=== PATIENT | male | born 1935 | race Caucasian/White ===

== ENCOUNTER 2019-02-28 09:55 | Inpatient (IN) | payer OTHER, BC ==
[2019-02-28] MEDS ORDERED: ONDANSETRON 4 MG/2 ML VIAL ONE ×3 (10:39→13:53)
[2019-02-28] MEDS ORDERED: NA CHLORIDE 0.9% 1,000 ML ONE ×2 (10:40→13:53)
[2019-02-28] MEDS ORDERED: FAMOTIDINE 20 MG/2 ML VIAL IV ONE (10:40)
[2019-02-28] MEDS ORDERED: MORPHINE 4 MG/ML SYR ONE (10:43)
[2019-02-28 11:02] LABS: Absolute Lymphocytes (CBC) 2.8 K/uL (0.7-4.9); Basophils % 0.3 % (0-1.3); Hematocrit 36.1 % (39.6-49.0); RBC Red Blood Cell Count 3.55 M/uL (4.33-5.43)
[2019-02-28 11:04] LABS: Protime INR 1.02
--- NOTE | 2019-02-28 11:18 | RAD REPORT ---
EXAM DESCRIPTION: RAD - Chest Single View - 02/28/2019 11:12 am CLINICAL HISTORY: ABDOMINAL DISTENTION Chest pain. COMPARISON: Chest Single View dated 02/05/2016; CHEST PA AND LAT 2 VIEW dated 06/27/2015 FINDINGS: Portable technique limits examination quality. The lungs are mildly emphysematous but grossly clear. The heart is upper limit of normal in size. No displaced fractures. IMPRESSION: No acute intrathoracic process suspected.
[2019-02-28 11:23] LABS: Albumin 3.8 g/dL (3.4-5.0); Bilirubin Direct 0.1 mg/dL (0-0.2); Bilirubin Total 0.5 mg/dL (0.2-1.0); Potassium 3.7 mmol/L (3.5-5.1); Protein, Total 7.5 g/dL (6.4-8.2)
[2019-02-28 11:26] LABS: Magnesium 2.3 mg/dL (1.8-2.4); NT PRO-BNP 170 pg/mL (<450); Troponin (Emerg Dept Use Only) < 0.02 ng/mL (0.0-0.045)
--- NOTE | 2019-02-28 12:06 | RAD REPORT ---
EXAM DESCRIPTION: CT - Abdomen Pelvis W Contrast - 02/28/2019 11:48 am CLINICAL HISTORY: ABD PAINsevere abdominal pain and vomiting COMPARISON: None. TECHNIQUE: Biphasic, helical CT imaging of the abdomen and pelvis was performed following 100 ml non -ionic IV contrast. No oral All CT scans are performed using dose optimization technique as appropriate and may include automated exposure control or mA/KV adjustment according to patient size. FINDINGS: No suspicious findings in the lung bases. No pericardial thickening or effusion. The liver, spleen, and pancreas show no suspicious findings. Liver shows numerous small benign-appear ing granulomatous calcifications along with a 19 millimeter cyst in the lateral subcapsular right lob e. Spleen has granulomatous calcifications as well. No gallbladder abnormality seen. Gallstones can b e occult on CT imaging. No biliary tree abnormality. Symmetric renal function is seen with no hydronephrosis or suspicious renal mass. No pyelonephritis o r acute parenchymal process. Benign-appearing renal cysts are present. No urinary bladder abnormality . Enlarged prostate gland is present. No adrenal abnormalities. A small hiatal hernia is present. Fluid and food distend the stomach. No gastric wall thickening or m ass. Gastric outlet obstruction is not suspected. No duodenal abnormality. Moderately large stool vol ume fills the colon. Colon is quite tortuous and redundant. There is prominent sigmoid and descending diverticulosis. Acute diverticulitis is not seen. No findings of appendicitis. Multiple distended to dilated loops of jejunum are present in the left mid abdomen. Maximum diameter is 2.9 cm. In the lef t mid abdomen (image 44/99) there is a 6- 7 centimeter long segment of very narrowed jejunum. The sma ll bowel is dilated proximal to this point. While this is potentially a pronounced peristalsis artifa ct, finding is concerning for strictured small bowel. There is fluid in small bowel distal to this foley spected stricture. More distally the loops of ileum are normal in size. No free air or pneumatosis. Small quantities of free fluid are present adjacent to the spleen and in the dependent portion of the pelvis. No mass or bulky lymphadenopathy. Disc and bony degenerative changes are present. Dense aortic and mesenteric arterial calcifications a re present. IMPRESSION: Suspected mechanical small bowel obstruction secondary to a 6-7 cm segment of narrowed s mall bowel. Bowel proximal to this point is dilated. The dilated loops of ileum are lateral to the colon in the left mid abdomen in the patient may have a n internal hernia. Dilated, fluid-filled stomach without gastric outlet obstruction. This is likely secondary affects of the dilated loops of jejunum. Small quantity of free fluid. No free air or surgically emergent finding seen.
--- NOTE | 2019-02-28 12:19 | RAD REPORT ---
EXAM DESCRIPTION: US - Abdomen Exam Limited - 02/28/2019 12:12 pm CLINICAL HISTORY: ABD PAIN COMPARISON: Abdomen Pelvis W Contrast dated 02/28/2019 FINDINGS: No gallstones, sludge or other abnormalities within the gallbladder lumen. There is no wal l thickening or pericholecystic fluid. No common duct stone or biliary tree dilatation identified. IMPRESSION: Normal gallbladder and biliary tree ultrasound.
--- NOTE | 2019-02-28 12:29 | ER ---
Nurse's Notes [facility] Name: Hunter Ventura Age: 83 yrs Sex: Male : 1935 Arrival Date: 02/28/2019 Time: 09:57 Bed 8 Private MD: Gage Causey C Diagnosis: Abdominal tenderness;Other intestinal obstruction-mechanical sbo, 6-7 cm segment of narrowed small bowel;Vomiting Presentation: 02/28 10:02 Presenting complaint: Patient states: severe abd pain and vomiting that began about 45 la1 minutes ago after eating. Transition of care: patient was not received from another setting of care. Onset of symptoms was February 28, 2019. Risk Assessment: Do you want to hurt yourself or someone else? Patient reports no desire to harm self or others. Initial Sepsis Screen: Does the patient meet any 2 criteria? No. Patient's initial sepsis screen is negative. Does the patient have a suspected source of infection? No. Patient's initial sepsis screen is negative. Care prior to arrival: None. 10:02 Method Of Arrival: Wheelchair la1 10:02 Acuity: MAICO 2 la1 Triage Assessment: 10:45 General: Appears uncomfortable, Behavior is calm, anxious. Pain: Complains of pain in vc lumbar area and abdomen Pain does not radiate. Pain at worst was 10 out of 10 on a pain scale. Pain began Patients states "he started hurting about five minutes after eating breakfast." Is continuous. EENT: No signs and/or symptoms were reported regarding the EENT system. Neuro: Level of Consciousness is awake, alert, obeys commands, Oriented to person, place, time, tremors noted to bilateral hands and arms, patient states he is in the process of "being checked for Parkinson's".. Cardiovascular: Capillary refill < 3 seconds Chest pain is denied. Respiratory: Airway is patent Respiratory effort is even, unlabored. GI: Abdomen is round non-distended, Reports lower abdominal pain, upper abdominal pain, nausea, vomiting, since finishing breakfast. 10:45 : No deficits noted. Derm: Skin is intact, is healthy with good turgor. vc Musculoskeletal: Capillary refill < 3 seconds, Range of motion: intact in all extremities. 11:07 GI:. vc Historical: - Allergies: 10:03 Aspirin; la1 - PMHx: 10:03 Hypertension; la1 - Immunization history:: Adult Immunizations up to date. - Social history:: Smoking status: Patient/guardian denies using tobacco. - Ebola Screening: : No symptoms or risks identified at this time. - Family history:: not pertinent. Screenin:15 Abuse screen: Denies threats or abuse. vc 10:15 Nutritional screening: patient has been nauseated and vomiting since this morning.. vc 10:15 Tuberculosis screening: No symptoms or risk factors identified. Fall Risk Secondary vc diagnosis (15 points) hypertension. IV access (20 points). Total Mckeon Fall Scale indicates Low Risk Score (25-44 pts). Side Rails Up X 2 Family Present and informed to notify staff if they need to leave bedside. Sepsis Screening: . Infection: Patient has no suspected or documented infection. SIRS - Systemic Inflammatory Response Syndrome: 2 or more indicates positive screen: Patient has a negative screen for severe sepsis based on SIRS criteria. Organ Dysfunction: One or more within 3 days of new infection: Patient has a negative screen for severe sepsis. Assessment: 11:00 General: Appears uncomfortable, Behavior is anxious. Pain: Complains of pain in lumbar vc area and abdomen Pain at worst was 10 out of 10 on a pain scale. Pain began suddenly, Is continuous. Neuro: No deficits noted. Cardiovascular: Capillary refill < 3 seconds. Respiratory: Airway is patent Respiratory effort is even, unlabored. GI: Abdomen is round Bowel sounds present X 4 quads. hypoactive in right lower quadrant and left lower quadrant. GI: Abdomen is tender to palpation X 4 quads. Reports bloating, epigastric pain, vomiting, since this morning after eating breakfast. : No signs and/or symptoms were reported regarding the genitourinary system. EENT: No deficits noted. Derm: Skin is intact, is healthy with good turgor. Musculoskeletal: Range of motion: intact in all extremities, patient is weak initially standing. 11:30 Reassessment: Patient is alert, oriented x 3, equal unlabored respirations, skin vc warm/dry/pink. Patient states symptoms have not improved. 12:05 Reassessment: Patient is alert, oriented x 3, equal unlabored respirations, skin vc warm/dry/pink. Patient returned from CT. States pain is much better and would like to wait a little before receiving pain medication. 13:00 Reassessment: Patient is alert, oriented x 3, equal unlabored respirations, skin vc warm/dry/pink. Patient states feeling better. States "I feel much better." uses urinal at bedside, patient initially unsteady on feet.. 14:00 Reassessment: Patient and/or family updated on plan of care and expected duration. Pain vc level reassessed. Surgeon visited patient at bedside. Will place NGT per Surgeon.. 15:00 Reassessment: Patient is alert, oriented x 3, equal unlabored respirations, skin vc warm/dry/pink. Patient denies pain at this time. 15:15 Reassessment: Patient complaining of nausea, states "his pain is still gone.". vc Vital Signs: 10:03 BP 150 / 61; Pulse 63; Resp 16; Temp 98.5; Pulse Ox 100% on R/A; Weight 102.06 kg; la1 Height 5 ft. 9 in. (175.26 cm); 10:54 BP 172 / 82; Pulse 66; Resp 22; Temp 98.4(O); Pulse Ox 97% on R/A; Pain 10/10; vc 11:03 BP 184 / 76; Pulse 63; Resp 20; Pulse Ox 99% on R/A; Pain 10/10; vc 12:22 BP 170 / 91; Pulse 70; Resp 12; Pulse Ox 96% ; Pain 2/10; vc 13:00 BP 159 / 83; Pulse 70; Resp 10; Pulse Ox 97% ; Pain 2/10; vc 14:00 BP 162 / 85; Pulse 65; Resp 12; Pulse Ox 97% ; Pain 2/10; vc 10:03 Body Mass Index 33.23 (102.06 kg, 175.26 cm) la1 ED Course: 09:57 Patient arrived in ED. as 09:57 Krishna Causey MD is Private Physician. as 09:57 Gage Causey MD is Private Physician. as 10:02 Triage completed. la1 10:03 Arm band placed on right wrist. la1 10:05 Angelic Nichols, GRABIEL is Primary Nurse. vc 10:15 Patient has correct armband on for positive identification. Bed in low position. Side vc rails up X2. Adult w/ patient. traffic monitor specialist on. Pulse ox on. NIBP on. Head of bed elevated. 10:27 Jacky Barry MD is Attending Physician. arturo 10:40 Initial lab(s) drawn, by wv, sent to lab. Inserted saline lock: 20 gauge in right vc antecubital area, using aseptic technique. Blood collected. 10:47 EKG done, by airbrush artist technical. reviewed by Jacky Barry MD. sm3 11:09 XRAY Chest (1 view) In Process Unspecified. EDMS 11:[address] via stretcher. vc 11:48 CT Abd/Pelvis - IV Contrast Only In Process Unspecified. EDMS 12:13 US Abdomen Limited In Process Unspecified. EDMS 12:15 Gage Causey MD is Hospitalizing Provider. arturo 13:35 No provider procedures requiring assistance completed. vc 15:15 NGT: inserted 16 Fr. via right nare. verified placement of air over stomach, verified aa5 return of gastric contents, to intermittent suction. Returned gastric contents. Returned bile. Patient tolerated NG inserted by Dr. Barry. 15:48 Patient admitted, IV remains in place. vc Administered Medications: 10:55 Drug: morphine 4 mg Route: IVP; Site: right antecubital; vc 11:15 Follow up: Response: No adverse reaction; Pain is unchanged, physician notified vc 10:58 Drug: Pepcid 20 mg Route: IVP; Site: right antecubital; vc 11:15 Follow up: Response: No adverse reaction vc 10:58 Drug: Zofran 4 mg Route: IVP; Infused Over: 2 mins; Site: right antecubital; vc 11:15 Follow up: Response: No adverse reaction vc 11:01 Drug: NS 0.9% 1000 ml Route: IV; Rate: 1 bolus; Site: right antecubital; vc 12:00 Follow up: Response: No adverse reaction; IV Intake: 1000ml vc 11:58 CANCELLED (Duplicate Order): Dilaudid 0.5 mg IVP once; RASS on ADMIN: Combtv4, Very vc Agttd3, Agttd2, Rstlss1, AlertClm0, Drwsy-1, Lt Sdtn-2, Mod Sdtn-3, Dp Sdtn-4, UnArsble-5 13:30 Drug: Flagyl 500 mg Volume: 100 ml; Route: IVPB; Rate: 200 ml/hr; Infused Over: 30 vc mins; Site: right antecubital; 14:00 Follow up: Response: No adverse reaction; IV Intake: 100ml vc 14:00 Drug: Zosyn 3.375 grams Route: IVPB; Infused Over: 60 mins; Site: right antecubital; vc 14:00 Drug: NS 0.9% 1000 ml Route: IV; Rate: 1 bolus; Site: right antecubital; vc 15:00 Drug: Zofran 4 mg Route: IVP; Site: right antecubital; aa5 15:30 Follow up: Response: No adverse reaction vc 15:00 Drug: Viscous Lidocaine Liquid (4 %) 10 ml {Note: administered to right nare by Dr. juan Barry.} Route: Mucous Membrane; 15:30 Follow up: Response: No adverse reaction vc 15:18 Not Given (Patient Refused): Dilaudid 0.5 mg IVP once; RASS on ADMIN: Combtv4, Very aa5 Agttd3, Agttd2, Rstlss1, AlertClm0, Drwsy-1, Lt Sdtn-2, Mod Sdtn-3, Dp Sdtn-4, UnArsble-5 Intake: 12:00 IV: 1000ml; Total: 1000ml. vc 14:00 IV: 100ml; Total: 1100ml. vc Outcome: 12:28 Decision to Hospitalize by Provider. [facility] 15:48 Patient left the ED. vc 15:48 Admitted to Med/surg accompanied by tech, via stretcher, with chart, Report called to [facility] 15:48 Condition: stable 15:48 Instructed on the need for admit, Demonstrated understanding of instructions. Signatures: Dispatcher [employer] EDMS Jacky Barry MD MD cha Martinez, Amelia as Calderon, Audri RN RN aa5 Brandan Levy RN RN Adeola Carrero sm3 Angelic Nichols RN RN vc Corrections: (The following items were deleted from the chart) 11:17 11:07 General: Appears uncomfortable, Behavior is calm, anxious, vc vc 11:17 11:07 Pain: Complains of pain in lumbar area and abdomen Pain does not radiate. Pain at vc worst was 10 out of 10 on a pain scale. Pain began Patients states "he started hurting about five minutes after eating breakfast." Is continuous, vc : 11:07 EENT: No signs and/or symptoms were reported regarding the EENT system. vc vc :19 02: Neuro: Level of Consciousness is awake, alert, obeys commands, Oriented to vc person, place, time, tremors noted to bilateral hands and arms, patient states he is in the process of "being checked for Parkinson's".. vc : 11: Cardiovascular: Capillary refill < 3 seconds Chest pain is denied vc vc : Respiratory: Airway is patent Respiratory effort is even, unlabored, vc vc :07 GI: Abdomen is round non-distended, Reports lower abdominal pain, upper abdominal vc pain, nausea, vc 13:26 11:47 GI: vc vc 16:01 15:58 Patient left the ED. vc vc
--- NOTE | 2019-02-28 12:29 | EDPHYS ---
Physician Documentation [facility] Name: Hunter Ventura Age: 83 yrs Sex: Male : 1935 Arrival Date: 02/28/2019 Time: 09:57 Bed 8 Private MD: Gage Causey C ED Physician Jacky Barry HPI: 02/28 11:36 This 83 yrs old Male presents to ER via Wheelchair with complaints of arturo Abdominal Pain, Vomiting. 11:36 This 83 yrs old Male presents to ER via Wheelchair with complaints of arturo Abdominal Pain, Vomiting. 11:36 The patient presents to the emergency department with nausea, vomiting, abdominal pain, arturo of the suprapubic area, right upper quadrant, left upper quadrant, right lower quadrant and left lower quadrant. Onset: The symptoms/episode began/occurred just prior to arrival, this morning. Possible causes: unknown. The symptoms are aggravated by movement, pressure, food , The symptoms are alleviated by nothing. Associated signs and symptoms: Pertinent positives: abdominal pain, nausea, vomiting. Severity of symptoms: At their worst the symptoms were moderate in the emergency department the symptoms are unchanged. The patient has not experienced similar symptoms in the past. Historical: - Allergies: 10:03 Aspirin; la1 - PMHx: 10:03 Hypertension; la1 - Immunization history:: Adult Immunizations up to date. - Social history:: Smoking status: Patient/guardian denies using tobacco. - Ebola Screening: : No symptoms or risks identified at this time. - Family history:: not pertinent. ROS: 11:36 Constitutional: Negative for fever, chills, and weight loss, Eyes: Negative for injury, arturo pain, redness, and discharge, ENT: Negative for injury, pain, and discharge, Neck: Negative for injury, pain, and swelling, Cardiovascular: Negative for chest pain, palpitations, and edema, Respiratory: Negative for shortness of breath, cough, wheezing, and pleuritic chest pain, Back: Negative for injury and pain, : Negative for injury, bleeding, discharge, and swelling, MS/Extremity: Negative for injury and deformity, Neuro: Negative for headache, weakness, numbness, tingling, and seizure, Psych: Negative for depression, anxiety, suicide ideation, homicidal ideation, and hallucinations, Allergy/Immunology: Negative for hives, rash, and allergies, Endocrine: Negative for neck swelling, polydipsia, polyuria, polyphagia, and marked weight changes, Hematologic/Lymphatic: Negative for swollen nodes, abnormal bleeding, and unusual bruising. 11:36 Abdomen/GI: Positive for abdominal pain, nausea and vomiting, of the epigastric area, right upper quadrant, left upper quadrant, right lower quadrant and left lower quadrant. Exam: 11:36 Constitutional: This is a well developed, well nourished patient who is awake, alert, arturo and in no acute distress. Head/Face: Normocephalic, atraumatic. Eyes: Pupils equal round and reactive to light, extra-ocular motions intact. Lids and lashes normal. Conjunctiva and sclera are non-icteric and not injected. Cornea within normal limits. Periorbital areas with no swelling, redness, or edema. ENT: Nares patent. No nasal discharge, no septal abnormalities noted. Tympanic membranes are normal and external auditory canals are clear. Oropharynx with no redness, swelling, or masses, exudates, or evidence of obstruction, uvula midline. Mucous membranes moist. Neck: Trachea midline, no thyromegaly or masses palpated, and no cervical lymphadenopathy. Supple, full range of motion without nuchal rigidity, or vertebral point tenderness. No Meningismus. Chest/axilla: Normal chest wall appearance and motion. Nontender with no deformity. No lesions are appreciated. Cardiovascular: Regular rate and rhythm with a normal S1 and S2. No gallops, murmurs, or rubs. Normal PMI, no JVD. No pulse deficits. Respiratory: Lungs have equal breath sounds bilaterally, clear to auscultation and percussion. No rales, rhonchi or wheezes noted. No increased work of breathing, no retractions or nasal flaring. Back: No spinal tenderness. No costovertebral tenderness. Full range of motion. Male : Normal genitalia with no discharge or lesions. Skin: Warm, dry with normal turgor. Normal color with no rashes, no lesions, and no evidence of cellulitis. MS/ Extremity: Pulses equal, no cyanosis. Neurovascular intact. Full, normal range of motion. Neuro: Awake and alert, GCS 15, oriented to person, place, time, and situation. Cranial nerves II-XII grossly intact. Motor strength 5/5 in all extremities. Sensory grossly intact. Cerebellar exam normal. Normal gait. Psych: Awake, alert, with orientation to person, place and time. Behavior, mood, and affect are within normal limits. 11:36 Abdomen/GI: Inspection: distension, Bowel sounds: hyperactive, Palpation: moderate abdominal tenderness, in the epigastric area, suprapubic area, right upper quadrant, left upper quadrant, right lower quadrant and left lower quadrant, Liver: no appreciated palpable abnormalities, Hernia: not appreciated. Vital Signs: 10:03 BP 150 / 61; Pulse 63; Resp 16; Temp 98.5; Pulse Ox 100% on R/A; Weight 102.06 kg; la1 Height 5 ft. 9 in. (175.26 cm); 10:54 BP 172 / 82; Pulse 66; Resp 22; Temp 98.4(O); Pulse Ox 97% on R/A; Pain 10/10; vc 11:03 BP 184 / 76; Pulse 63; Resp 20; Pulse Ox 99% on R/A; Pain 10/10; vc 12:22 BP 170 / 91; Pulse 70; Resp 12; Pulse Ox 96% ; Pain 2/10; vc 13:00 BP 159 / 83; Pulse 70; Resp 10; Pulse Ox 97% ; Pain 2/10; vc 14:00 BP 162 / 85; Pulse 65; Resp 12; Pulse Ox 97% ; Pain 2/10; vc 10:03 Body Mass Index 33.23 (102.06 kg, 175.26 cm) la1 Procedures: 15:19 Performed ng tube placement, no complications. [facility] MDM: 10:27 Patient medically [address] [facility] 11:36 Data reviewed: vital signs, nurses notes, lab test result(s), EKG, radiologic studies, [facility] CT scan, plain films. 02/28 10:29 Order name: Basic Metabolic Panel [facility] 02/28 10:29 Order name: CBC with Diff [facility] 02/28 10:29 Order name: Creatinine for Radiology; Complete Time: :34 [facility] 02/28 10:29 Order name: Hepatic Function; Complete Time: 11:34 [facility] 02/28 10:29 Order name: Lipase; Complete Time: 11:34 [facility] 02/28 10:29 Order name: Basic Metabolic Panel; Complete Time: 11:34 [facility] 02/28 10:31 Order name: Magnesium; Complete Time: 11:[address] [facility] 02/28 10:31 Order name: NT PRO-BNP; Complete Time: 11:[address] [facility] 02/28 10:31 Order name: PT-INR; Complete Time: 11:[address] [facility] 02/28 10:31 Order name: Troponin (emerg Dept Use Only); Complete Time: 11:[address] [facility] 02/28 11:06 Order name: CBC Smear Scan [facility] 02/28 11:36 Order name: Type And Screen [facility] 02/28 11:36 Order name: Lactate [facility] 02/28 14:22 Order name: ABO/RH no charge [facility] 02/28 10:31 Order name: XRAY Chest (1 view); Complete Time: 11:[address] [facility] 02/28 10:31 Order name: EKG; Complete Time: 10:[address] [facility] 02/28 10:41 Order name: CT Abd/Pelvis - IV Contrast Only [facility] 02/28 11:34 Order name: US Abdomen Limited [facility] 02/28 15:56 Order name: Lactate Sepsis 2 HR Follow-up [facility] 02/28 10:29 Order name: IV Saline Lock; Complete Time: 10:29 [facility] 02/28 10:29 Order name: Labs collected and sent; Complete Time: 10:29 [facility] 02/28 10:31 Order name: Cardiac monitoring; Complete Time: 10:[address] [facility] 02/28 10:31 Order name: EKG - Nurse/Tech; Complete Time: 10:[address] [facility] 02/28 10:31 Order name: O2 Per Protocol; Complete Time: 10:[address] [facility] 02/28 10:31 Order name: O2 Sat Monitoring; Complete Time: 10:[address] [facility] 02/28 12:14 Order name: NG Tube: intrermittent suc; Complete Time: 15:[address] [facility] 02/28 12:24 Order name: CONS Physician Consult; Complete Time: 14:32 [facility] 02/28 12:29 Order name: NPO; Complete Time: 12:[address] [facility] 02/28 15:16 Order name: Labs - recollect needed: Lactate sepsis due now; Complete Time: 15:38 iw Administered Medications: 10:55 Drug: morphine 4 mg Route: IVP; Site: right antecubital; vc 11:15 Follow up: Response: No adverse reaction; Pain is unchanged, physician notified vc 10:58 Drug: Pepcid 20 mg Route: IVP; Site: right antecubital; vc 11:15 Follow up: Response: No adverse reaction vc 10:58 Drug: Zofran 4 mg Route: IVP; Infused Over: 2 mins; Site: right antecubital; vc 11:15 Follow up: Response: No adverse reaction vc 11:01 Drug: NS 0.9% 1000 ml Route: IV; Rate: 1 bolus; Site: right antecubital; vc 12:00 Follow up: Response: No adverse reaction; IV Intake: 1000ml vc 11:58 CANCELLED (Duplicate Order): Dilaudid 0.5 mg IVP once; RASS on ADMIN: Combtv4, Very vc Agttd3, Agttd2, Rstlss1, AlertClm0, Drwsy-1, Lt Sdtn-2, Mod Sdtn-3, Dp Sdtn-4, UnArsble-5 13:30 Drug: Flagyl 500 mg Volume: 100 ml; Route: IVPB; Rate: 200 ml/hr; Infused Over: 30 vc mins; Site: right antecubital; 14:00 Follow up: Response: No adverse reaction; IV Intake: 100ml vc 14:00 Drug: Zosyn 3.375 grams Route: IVPB; Infused Over: 60 mins; Site: right antecubital; vc 14:00 Drug: NS 0.9% 1000 ml Route: IV; Rate: 1 bolus; Site: right antecubital; vc 15:00 Drug: Zofran 4 mg Route: IVP; Site: right antecubital; aaJorge 15:30 Follow up: Response: No adverse reaction vc 15:00 Drug: Viscous Lidocaine Liquid (4 %) 10 ml {Note: administered to right nare by Dr. juan Barry.} Route: Mucous Membrane; 15:30 Follow up: Response: No adverse reaction vc 15:18 Not Given (Patient Refused): Dilaudid 0.5 mg IVP once; RASS on ADMIN: Combtv4, Very aa5 Agttd3, Agttd2, Rstlss1, AlertClm0, Drwsy-1, Lt Sdtn-2, Mod Sdtn-3, Dp Sdtn-4, UnArsble-5 Disposition: 02/28/19 12:28 Hospitalization ordered by Gage Causey for Inpatient Admission. Preliminary diagnosis are Abdominal tenderness, Other intestinal obstruction - mechanical sbo, 6-7 cm segment of narrowed small bowel, Vomiting. - Bed requested for Telemetry/MedSurg (Inpatient). - Status is Inpatient Admission. vc - Condition is Fair. - Problem is new. - Symptoms have improved. UTI on Admission? No Signatures: Dispatcher [employer] EDMS Michell Kelley RN Jacky Sosa MD MD cha Williams, Irene, RN GRABIEL iw Nalini Philippe RN RN aa5 Brandan Levy RN RN la1 Angelic Nichols RN RN vc Corrections: (The following items were deleted from the chart) 11:58 11:34 Dilaudid 0.5 mg IVP once; RASS on ADMIN: Combtv4, Very Agttd3, Agttd2, Rstlss1, vc AlertClm0, Drwsy-1, Lt Sdtn-2, Mod Sdtn-3, Dp Sdtn-4, UnArsble-[address] [facility] 12:46 12:28 Hospitalization Ordered by A Padilla DYER for Inpatient Admission. Preliminary diagnosis is Abdominal tenderness; Other intestinal obstruction - mechanical sbo, 6-7 cm segment of narrowed small bowel; Vomiting. Bed requested for Telemetry/MedSurg (Inpatient). Status is Inpatient Admission. Condition is Fair. Problem is new. Symptoms have improved. UTI on Admission? No. [facility] 12:49 12:29 IV Saline Lock - Large Bore ordered. [place] [id number] 15:58 12:46 02/28/2019 12:28 Hospitalization Ordered by A Padilla DYER for Inpatient Admission. vc Preliminary diagnosis is Abdominal tenderness; Other intestinal obstruction - mechanical sbo, 6-7 cm segment of narrowed small bowel; Vomiting. Bed requested for Telemetry/MedSurg (Inpatient). Status is Inpatient Admission. Condition is Fair. Problem is new. Symptoms have improved. UTI on Admission? No. dw
[2019-02-28 13:02] LABS: Anisocytosis 1+; Blood Morphology Comment NOTED (NOT SEEN); Platelet Estimate ADEQ; Urine White Blood Cell Casts OK
[2019-02-28] MEDS ORDERED: PIPER/TAZO/NS 3.375gm 3.375 GM/100 ML BAG ONE (13:05)
[2019-02-28] MEDS ORDERED: METRONIDAZOLE 500mg IVPB 500 MG/100 ML BAG IV ONE (13:06)
[2019-02-28] MEDS ORDERED: LIDOCAINE VISCOUS 2% SOLN 15 ML UDC ONE (14:15)
[2019-02-28] MEDS ORDERED: ASPIRIN 81 MG CHEWABLE TABLET ONE (14:28)
--- NOTE | 2019-02-28 15:05 | CON ---
Date of Consultation: 02/28/2019 Brief History Of Present Illness: Patient is an 83-year-old male, who presents to the hosp ital with approximately half a day episode of global abdominal pain predominantly in the epigastrium associated with some nausea. He has had no emesis. He had a bowel movement as of yesterday. He con tinues to pass gas today. He states the pain began earlier today when he felt 100% fine prior to the onset of the symptoms. He was out, working in the yard, not doing any strenuous activity and noted a slow progressive generalized abdominal pain, which got worse and worse, a crescendo decrescendo typ e characteristic, that ultimately got significantly worse. As such, he came to the emergency room wi th the above-stated complaints. Past Medical History: Significant for hypertension, hyperlipidemia, coronary artery disease, BPH, CK D stage 3. Past Surgical History: He has had right shoulder surgery, knee replacement. He specifically states he has had no abdominal surgery ever. He has had a colonoscopy, which he has had polyps before in past, but nothing other findings he is aware of. Family History: Significant for prostate cancer and diabetes. Social History: He denies smoking, alcohol, or recreational drug use. Review of Systems: A 10-point review of systems other than HPI, denies. He is feeling significantly better since being in the hospital and only has residual soreness. Allergies: ASPIRIN. Home Medications: Zetia, Benicar, Pravachol, Flomax. Physical Examination: At the time of my examination; General: He is awake, alert, oriented. Psychiatric: Appropriate, conversive. HEENT: Normocephalic. Sclerae are icteric. Mucous members are moist. Oropharynx clear. Neck: Supple. No JVD. Chest: Normal expansion and excursion. Cardiovascular: Regular rate and rhythm. Pulmonary: Clear to auscultation bilaterally. Abdomen: Soft with mild global tenderness to palpation. No rebound. No guarding. No focal periton itis. No psoas sign. Negative Lozada sign. He has bilateral inguinal hernias containing only fat. Extremities: No clubbing, cyanosis, or edema. Skin: Warm and dry. Laboratory Data: White blood cell count of 9.3, hemoglobin 12.5, hematocrit 36.1, platelet count 238 . His PT 12.0, INR 1.02. Sodium 141, potassium 3.7, chloride 109, carbon dioxide 22, BUN 21, creati nine 1.2, glucose is 134. Lactic acid 2.7. His magnesium is 2.3. Total bilirubin 0.5, direct bilir ubin 0.1, AST 13, ALT 18, alkaline phosphatase is 58. His lipase is 130. He had imaging performed, which included chest x-ray, officially read as no acute intrathoracic process suspected. He had an u ltrasound of the abdomen, which is officially read as normal gallbladder and biliary tree ultrasound. He had a CT scan of the abdomen and pelvis, which was officially read, suspected mechanical small b owel obstruction secondary to 6 to 7 cm segment of narrowed small bowel. Bowel proximal to this poin t was dilated. The dilated loops of ileum are lateral into the colon and in the left mid abdomen. T he patient may have an internal hernia, dilated fluid-filled stomach without gastric outlet obstructi on, likely secondary effects of dilated loops of jejunum, small quantity of free fluid. No free air or surgically emergent findings seen. Assessment And Plan: This is an 83-year-old male who comes in with a partial small bowel obstruction from uncertain etiology. This may be an enteritis type picture versus a bowel obstruction from unce rtain cause. 1.IV fluid hydration. 2.NG tube decompression. 3.Continue medical management. 4.I have explained the risks, benefits, and alternatives of operative versus nonoperative management of the small bowel obstruction versus enteritis type picture. He agrees with nonoperative managemen t initially as he feels significantly better at this point, continues to have bowel function. Theref ore, I will perform serial exams as described above. Thank you for this interesting consult. DORI/KARTHIK Voice ID: [id number] Report ID: [id number]
--- NOTE | 2019-02-28 16:32 | EKG ---
Test Date: 2019-02-28 Test Time: 10:41:40 Tie Puller: SHAHID MEASUREMENT RESULTS: Intervals: Rate: 65 MO: 196 QRSD: 140 QT: 424 QTc: 440 [place]: P: 65 MO: 196 QRS: 58 T: 66 INTERPRETIVE STATEMENTS: Normal sinus rhythm Left bundle branch block Abnormal ECG Compared to ECG 02/05/2016 15:07:35 Ventricular premature complex(es) no longer present Electronically Signed On 02-28-19 16:30:11 [employer] MACHINE FEEDER by Aly Ac
[2019-02-28] MEDS ORDERED: ONDANSETRON 4 MG/2 ML VIAL IV PRN (16:37)
[2019-02-28 17:45] VITALS: BMI 33.2
[2019-02-28] MEDS: MORPHINE 4 MG/ML SYR IV PRN ×2 (17:51→22:05)
[2019-02-28] MEDS: METRONIDAZOLE 500mg IVPB 500 MG/100 ML BAG IV SCH (17:51)
[2019-02-28] MEDS: NA CHLORIDE 0.9% 1,000 ML IV SCH (17:52)
[2019-02-28] MEDS ORDERED: ENOXAPARIN 40 MG/0.4 ML SQ ONE (20:28)
[2019-02-28] MEDS: PIPER/TAZO/NS 3.375gm 3.375 GM/100 ML BAG IVPB SCH (20:58)
[2019-02-28] MEDS: FAMOTIDINE 20 MG/2 ML VIAL IV SCH (21:02)
[2019-02-28] MEDS: NITROGLYCERIN 1 GM PKT TD SCH (22:10)
[2019-02-28] MEDS ORDERED: PROMETHAZINE 25 MG/ML VIAL IV ONE (22:20)
[2019-03-01] MEDS: PIPER/TAZO/NS 3.375gm 3.375 GM/100 ML BAG IVPB SCH ×5 (00:06→23:59)
[2019-03-01] MEDS: METRONIDAZOLE 500mg IVPB 500 MG/100 ML BAG IV SCH ×2 (00:06→05:34)
--- NOTE | 2019-03-01 02:09 | HP ---
Date of Admission: 02/28/2019 Chief Complaint: Abdominal pain, nausea. History Of Present Illness: This is an 83-year-old very pleasant male patient, who lives at home wit h his , was in normal usual state of health, feeling fine until all of a sudden today he started to have acute onset of abdominal pain associated with nausea. Denies any fever or chills. His pain was very intense and his brought him to emergency room. After he was evaluated in the emergency room, he was admitted to the hospital with acute bowel obstruction. Patient was started on IV fluid , IV antibiotics. NG tube was placed in the emergency room and general surgeon, Dr. Hedrick, has halie luated him. When I saw him this evening, his was present with him at bedside and he was feeling more comfortable compared to earlier today. Patient has a bowel movement either every day or every other day and he describes having normal bowel movement yesterday. No hematemesis. No blood in stool. Allergies: ASPIRIN CAUSING LIP AND TONGUE SWELLING AND THROAT SWELLING. Medications: List reviewed. Review of Systems: GI: As mentioned above. All other systems reviewed and negative. Social History: Negative for smoking or alcohol use. Past Medical History: Significant for hypertension, hyperlipidemia, coronary artery disease, which i s in form of very minimal plaquing of coronary arteries as per cardiac cath done in February 2016 at our hospital, benign prostatic hypertrophy, chronic kidney disease stage 3, and Parkinson disease, wh ich was diagnosed recently. Past Surgical History: Right shoulder surgery, knee replacement. Family History: Significant for prostate cancer and diabetes. Physical Examination: Vital Signs: Temperature 97.3, pulse 62, respiratory rate 18, blood pressure 181/77, oxygen saturati on 95%. Height 5 feet 9 inches, weight 225 pounds. General: Awake, alert, oriented, not in distress. HEENT: Head atraumatic, normocephalic. Conjunctivae nonerythematous. Sclerae white. Mouth, no thr ush or edema noted. Ears/Nose, no mass, lesion, discharge noted. Neck: Supple. No JVD, lymph nodes, bruit, thyromegaly noted. Lungs: Bilateral good equal air entry. Clear to auscultation. No rhonchi. No rales. Heart: Normal heart sounds, no murmur or gallop. Abdomen: Patient had pain in mid abdomen. No guarding, rigidity. No rebound tenderness. Bowel kamlesh nds normoactive. No hepatosplenomegaly. No bruit. Abdomen appears mildly distended. Extremities: No leg edema. No calf tenderness. Skin: No rash, ulcer, cellulitis. Lymphatics: No lymph node enlargement in neck, supraclavicular, infraclavicular region. Neuro: No focal neurological deficit. Chest: Unremarkable. External Genitalia: Deferred. Rectal: Deferred. Laboratory Data: White count 9.3, hemoglobin 12.5, platelets 230. Lactic acid 2.7. Troponin less t lara 0.02. Liver function tests unremarkable. Lipase 130, sodium 141, potassium 3.7, chloride 109, b icarb 22, BUN 21, creatinine 1.25, glucose 134. Right upper quadrant ultrasound was reported as normal gallbladder and right upper quadrant ultrasoun d. CAT scan of abdomen done in the emergency room with contrast shows mechanical small bowel obstruc tion secondary to 6 to 7 cm segment of narrowed small bowel. Bowel proximal to this point is dilated . Chest x-ray, no acute cardiopulmonary changes. EKG, normal sinus rhythm, left bundle-branch block . Impression: 1.Small bowel obstruction, mechanical. 2.Hypertension. 3.Coronary artery disease. 4.Left bundle-branch block. 5.Benign prostatic hypertrophy. 6.Chronic kidney disease, stage 3. 7.Hyperlipidemia. Plan: Admit patient to hospital for further evaluation and management of this problem. Patient is a ppropriate for inpatient and is expected to spend 2 midnights in the hospital. We will go ahead and keep him n.p.o. NG tube is in place draining yellowish color liquid. We will continue that. Contin ue IV fluid, pain medication per order. Continue IV antibiotics per order. Lovenox will be started for DVT prophylaxis; and considering patient is n.p.o., I will go ahead and start him on nitroglyceri n paste for blood pressure control. I will see him tomorrow morning for a followup. Dr. Ryley prakash General Surgery was consulted. He has already evaluated the patient and will continue to follow up with him. If patient's condition does not improve with conservative treatment, then surgical interv ention might become necessary. All those details were discussed with the patient and his . I wi ll see him in the morning. MISTY/MODL Voice ID: [id number]
[2019-03-01] MEDS: NA CHLORIDE 0.9% 1,000 ML IV SCH (05:34)
[2019-03-01] MEDS: HYDROMORPHONE HCL 1 MG/ML INJ IV PRN (05:35)
[2019-03-01] MEDS: NITROGLYCERIN 1 GM PKT TD SCH ×4 (05:37→17:30)
[2019-03-01 05:58] LABS: Bilirubin Direct 0.2 mg/dL (0-0.2); Bilirubin Total 0.6 mg/dL (0.2-1.0); Potassium 4.6 mmol/L (3.5-5.1); Protein, Total 6.3 g/dL (6.4-8.2)
[2019-03-01 05:59] LABS: Absolute Lymphocytes (CBC) 1.3 K/uL (0.7-4.9); Basophils % 0.1 % (0-1.3); Hematocrit 34.8 % (39.6-49.0); Lymphocytes % 13.2 % (15.3-44.8); MPV 8.9 fL (7.6-11.3); RBC Red Blood Cell Count 3.44 M/uL (4.33-5.43)
[2019-03-01] MEDS: D5 0.45 NS 1,000 ML IV SCH ×2 (08:44→17:32)
[2019-03-01] MEDS: FAMOTIDINE 20 MG/2 ML VIAL IV SCH ×2 (08:45→20:13)
[2019-03-01] MEDS: ONDANSETRON 4 MG/2 ML VIAL IV PRN ×3 (09:46→17:42)
--- NOTE | 2019-03-01 12:09 | P.PN ---
Subjective Date of Service: 03/01/19 Subjective: Improving (Patient has less pain today, not passing gas or BM yet. He had some nausea with morphine, but now resolved with dilaudid. Not Ambulatory) Physical Examination - Vital Signs Temperature: 99.4 F Blood Pressure: 130/60 Pulse: 66 Respirations: 18 Pulse Ox (%): 94 - Physical Exam General: Alert, In no apparent distress, Cooperative Gastrointestinal: Hypoactive, Soft and benign, Non-distended, No ascites, No tenderness, No masses, No rebound, No guarding Assessment And Plan - Current Problems (Diagnosis) (1) SBO (small bowel obstruction) Current Visit: Yes Status: Acute Plan: - Continue NG tube decompression - serial exams -patient has no tenderness and pain continues to improve overall - await bowel function - recheck labs in AM - ambulate with assist - PT consult - incentive spirometry
--- NOTE | 2019-03-01 13:52 | PN ---
Date of Progress Note: 03/01/2019 Subjective: Patient was seen this morning for followup. No new complaints or problems reported by p atient except he had lot of pain last night and nausea. Pain medication was changed. Nausea medicat ion was changed and after last dose of pain medication around 5:30 a.m., he was comfortable this morn ing when I saw him. He was lying in bed, comfortable, not in distress. NG tube is in place with yel lowish-colored liquid in the tube. So far, no bowel movement since admission and has not passed any gas per rectum. Patient has not gotten out of bed. Objective: Vital Signs: Reviewed. Family at bedside. HEENT: Examination unremarkable. Lungs: Clear to auscultation. Heart: Sounds normal. Abdomen: Soft, appears somewhat firm. Bowel sounds hypoactive. No guarding, rigidity, tenderness. Extremities: No leg edema. Laboratory Data: White count 9.6, hemoglobin 12.1, platelets 217. Sodium 144, potassium 4.6, chlori de 113, bicarb 25, BUN 21, creatinine 1.27, glucose 120. Liver function tests unremarkable. Lipase 40. Impression: 1.Small bowel obstruction. 2.Hypertension. Plan: We will go ahead and continue current antibiotic, which is Zosyn. We will change IV fluid to D5 half-normal saline considering increase in chloride level today and sodium level being at 144. We will repeat blood work tomorrow morning. Patient was encouraged to ambulate today and I did talk to Dr. Hedrick and if the patient's condition does not improve by tomorrow, he is planning to consider surgery. We will continue current pain and nausea medications. Details were discussed with family. MISTY/MODL Voice ID: [id number] Report ID: [id number]
[2019-03-01] MEDS ORDERED: PIPER/TAZO/NS 3.375gm 3.375 GM/100 ML BAG IVPB SCH (17:00)
[2019-03-01] MEDS: ENOXAPARIN 40 MG/0.4 ML SQ SCH (17:30)
[2019-03-02] MEDS: D5 0.45 NS 1,000 ML IV SCH ×4 (00:15→20:50)
[2019-03-02] MEDS: ONDANSETRON 4 MG/2 ML VIAL IV PRN ×2 (03:25→09:12)
[2019-03-02] MEDS: NITROGLYCERIN 1 GM PKT TD SCH ×4 (05:54→16:31)
[2019-03-02] MEDS: PIPER/TAZO/NS 3.375gm 3.375 GM/100 ML BAG IVPB SCH ×3 (06:00→17:22)
[2019-03-02 06:18] LABS: Magnesium 2.2 mg/dL (1.8-2.4); Potassium 3.9 mmol/L (3.5-5.1)
[2019-03-02 06:37] LABS: Absolute Lymphocytes (CBC) 1.1 K/uL (0.7-4.9); Basophils % 0.3 % (0-1.3); Hematocrit 33.9 % (39.6-49.0); Lymphocytes % 10.4 % (15.3-44.8); MPV 9.1 fL (7.6-11.3); RBC Red Blood Cell Count 3.34 M/uL (4.33-5.43)
[2019-03-02] MEDS ORDERED: ENALAPRILAT 1.25 MG/ML VIAL IV PRN (07:45)
--- NOTE | 2019-03-02 08:39 | RAD REPORT ---
EXAM DESCRIPTION: RAD - Abdomen W Erect - 03/02/2019 8:27 am CLINICAL HISTORY: Abdominal pain FINDINGS: A nasogastric tube is coiled within the gastric fundus. Several loops of jejunum are mildly dilated without significant change from the February 28 cat scan. Air and stool are present within portions of the colon. These findings probably indicate a partial small bowel obstruction Free air is not seen beneath the diaphragm
[2019-03-02] MEDS: FAMOTIDINE 20 MG/2 ML VIAL IV SCH ×2 (08:41→20:55)
[2019-03-02] MEDS: PANTOPRAZOLE 40 MG INJ IVP SCH (09:59)
[2019-03-02] MEDS ORDERED: Ringers Lactate 1,000 ML IV ONE ×2 (11:47→13:55)
[2019-03-02] MEDS ORDERED: PROPOFOL 200 MG/20 ML VIAL IV ONE (12:27)
[2019-03-02] MEDS ORDERED: ROCURONIUM 50 MG/5 ML VIAL IV ONE ×2 (12:27→13:33)
[2019-03-02] MEDS ORDERED: FENTANYL CITR 250 MCG/5 ML ONE (12:27)
[2019-03-02] MEDS ORDERED: SUCCINYLCHOLINE 20 MG/ML (10 ML) IV ONE (12:29)
[2019-03-02] MEDS ORDERED: NEOSTIGMINE 1 MG/ML -5 ML ONE (13:40)
[2019-03-02] MEDS ORDERED: GLYCOPYRROLATE 0.2 MG/ML SYR ONE (13:40)
--- NOTE | 2019-03-02 13:57 | P.OP ---
Preoperative diagnosis: Small Bowel Obstruction Postoperative diagnosis: Small Bowel Obstruction Primary procedure: Exploratory Laparotomy Secondary procedure: Adhesiolysis Other procedure(s): Biopys of sigmoid colon lesion, liver lesion Estimated blood loss: <10cc Specimen: Sigmoid lesion, liver lesion Findings: Scaring from sigmoid to right colon, internal hernia, liver lesion Complications: None Drain(s): Nasogastric Transferred to: Recovery Room Condition: Good
[2019-03-02] MEDS ORDERED: ONDANSETRON 4 MG/2 ML VIAL ONE (14:27)
[2019-03-02] MEDS: MORPHINE 4 MG/ML SYR ONE ×2 (14:28→14:33)
[2019-03-02] MEDS: HYDROMORPHONE HCL 1 MG/ML INJ ONE ×2 (14:40→14:45)
--- NOTE | 2019-03-02 14:40 | PN ---
Date of Progress Note: 03/02/2019 Subjective: Patient was seen this morning for followup. Denies any abdominal pain, nausea. NG tube is in place, draining greenish colored liquid and he has not used any pain medicine since around 5:3 0 yesterday morning, so in last 24 hours, he has not used any pain medications. Yesterday, he did am bulate several times, but has not passed any gas and has not had a bowel movement so far. Objective: Vital Signs: Reviewed. HEENT: Unremarkable. Lungs: Clear to auscultation. No rhonchi or rales. Heart: Sounds normal. Abdomen: Soft. Bowel sounds normal. No guarding or rigidity. No tenderness. Bowel sounds are hyp oactive. Extremities: No leg edema. Laboratory Data: White count 10.9, hemoglobin 11.6, platelets 201. Sodium 144, potassium 3.9, chlor ayde 113, bicarb 25, BUN 20, creatinine 1.32, glucose 135, magnesium 2.2. Impression: 1.Small bowel obstruction. 2.Hypertension. 3.Parkinson disease. Plan: Patient had abdominal x-ray done this morning just before I saw him. Result was pending at th at time when I saw him. We will continue current IV antibiotics. Intake and output records reviewed . He does not have any signs of peritonitis and we will continue current IV fluid IV antibiotic, but so far he has not shown any signs of improvement from his bowel obstruction. [facility] I had a long discussion with the patient and patient's family member regardi ng treatment options and Dr. Hedrick saw him after I saw the patient and I talked to Dr. Hedrick and he informed me that x-ray today has not shown any signs of improvement on the bowel obstruction clini steven. He has not shown any signs of improvement, so at this point is recommending surgery and the p atient and the patient's family members, they are agreeable to undergo surgery today. I will see him tomorr ow for followup. IMSTY/MODL Voice ID: [id number] Report ID: [id number]
[2019-03-02] MEDS ORDERED: HYDROMORPHONE HCL 1 MG/ML INJ ONE (14:55)
[2019-03-02] MEDS: INSULIN -REGULAR HUMAN 50 UNIT/0.5 ML ML SQ SCH ×2 (16:30→21:00)
[2019-03-02] MEDS: ENOXAPARIN 40 MG/0.4 ML SQ SCH (17:00)
[2019-03-02] MEDS ORDERED: KCL 20 MEQ/100 mL IVPB 20 MEQ/100 ML BAG IV SCH (20:00)
--- NOTE | 2019-03-02 22:04 | OP ---
Date of Procedure: 03/02/2019 Surgeon: Yovani Hedrick MD, Preoperative Diagnosis: Small bowel obstruction. Postoperative Diagnosis: Small bowel obstruction. Procedure Performed: 1.Exploratory laparotomy. 2.Open adhesiolysis. 3.Biopsy of sigmoid colon lesion and liver lesions. Estimated Blood Loss: Less than 10 mL. Specimen: 1.Sigmoid lesion near area of diverticulum. 2.Liver lesion near segment 5. Findings: 1.Scarring from sigmoid colon to right colon creating an adhesive band where internal hernia from Sm ith small bowel occurred. 2.Internal hernia of mid small bowel. No necrotic bowel, but a dilated bowel with obvious transitio n was evident. No stricture appreciated. 3.We will appoint small liver lesion near segment 5 of liver. Complications: None. Drains: Nasogastric, transferred to recovery room in good condition. Procedure In Detail: After informed was obtained. Patient was brought to the operating room, preppe d and draped in usual sterile fashion. After adequate anesthesia was achieved, a 10 blade scalp was used to dissect down through an upper midline area down through skin and subcutaneous tissues. Elect rocautery was used to dissect down through the linea alba to expose the peritoneum. The peritoneum w as grasped elevated and entered sharply with Metzenbaum scissors without incident or complication. T he abdomen was then opened in its entirety at this point. The upper midline incision was opened in i ts entirety at this point with electrocautery. Immediately encountered was large dilated loops of sm all bowel in the mid small bowel area with some discoloration and mild ischemic changes. I ran the b owel from the ligament of Treitz to the ileocecal valve and just past the midportion of small bowel. An adhesive band was appreciated from the sigmoid epiploic appendages to the right colon, which is w here an a internal hernia was appreciated with small bowel emanating through this, at a very tight st rictured area. This was taken down using electrocautery easily and once this adhesive band was remov ed, the obstruction was relieved. At this point, the transition point was easily visualized and flui d was noted to be passing quite easily through the distal aspect where as before. It was not entirel y constricted but significant narrowing was evident consistent with a preoperative diagnosis of the p artial small bowel obstruction, not complete bowel obstruction. Continuing on, I ran the entire sarika l once again from the ileocecal valve all the way to the ligament of Treitz and a dilated bowel was s lowly peristalsing, but there was no area of ischemic changes. The bowel was run 3 times forward and reverse examining for any lesions. There was no palpable lesions within the lumen of the intestine and no obvious concerning pathology at this point and the bowel was beginning to pink up quite easily . I then inspected the right colon and there were no lesions found at this point. I then inspected the sigmoid colon and significant severe diverticulosis was evident extending to the rectosigmoid reg ion all the way up to the palpable portions of the left colon, several of these appeared to be smalle r punctate areas adjacent to diverticulum. There were some thickened appearance to these and as such , I took a small biopsy of a piece of one of these lesions on the sigmoid colon and sent it off for p athologic examination. A simple interrupted [id number] 3-0 nylon suture was placed to reinforce this area, but there was no leakage or intestinal contents emanating from this and it did not requir e any hemostatic maneuvers. This stitch was left long as a marker should additional or should the pa thology come back is concerning. Additionally, I inspected the liver by palpation and found several small white nodular lesions which were one tenth of a mm in size and biliary appearance as such I rem shreyas, one of the sent off for pathologic examination near segment 5 of the liver and fulgurated this area. Good hemostasis was achieved quite easily. The area was copiously irrigated and appeared to h ave good hemostasis. The NG tube was palpated, found to be in good position in the stomach and the a bdomen was copiously irrigated multiple times with warm saline and the intestines were placed back in the normal anatomic position. Irrigation was continued for approximately 3 L of nice warm saline an d the effluent was then suctioned out until completely clear. The small bowel which was dilated, had significantly pinked up and had some mild hemorrhagic appearance but no ischemic changes and appeare d to be starting peristalsis at this point and becoming more decompressed as the intestinal contents appeared to be moving distally at this point. Therefore, I copiously irrigated the abdomen one more time, suctioned out completely dry to pull the omentum back in the normal anatomic position, put a pi kavita of Interceed over this and closed the abdomen using a #1 looped PDS in a running fashion. Good a pproximation tissues. The skin was then copiously irrigated and closed with interrupted william and a sterile dressing was placed over top along with abdominal binder. Patient tolerated the procedure well without any complication. Transferred in good condition. All counts were correct at the end of the case. DORI/KARTHIK Voice ID: [id number] Report ID: [id number]
[2019-03-02 23:23] LABS: Urine Appearance CLOUDY; Urine Bilirubin NEGATIVE (NEG); Urine Blood 3+ (NEG); Urine Color YELLOW; Urine Glucose NEGATIVE (NEG); Urine Protein TRACE (NEG); Urine Specific Gravity 1.025 (1.005-1.030); Urine Urobilinogen 0.2 mg/dL (0.2-1.0)
[2019-03-02 23:34] LABS: Urine Microscopic Reflex ORDER UMIC
[2019-03-02 23:41] LABS: Urine Bacteria <20 /HPF (NONE SEEN); Urine Culture Reflex Order REFLEXED; Urine RBC >50 /HPF (NONE SEEN)
[2019-03-03] MEDS: PIPER/TAZO/NS 3.375gm 3.375 GM/100 ML BAG IVPB SCH ×4 (00:20→17:11)
[2019-03-03] MEDS: NITROGLYCERIN 1 GM PKT TD SCH ×4 (00:21→17:11)
[2019-03-03 05:24] LABS: Absolute Lymphocytes (CBC) 1.8 K/uL (0.7-4.9); Basophils % 0.2 % (0-1.3); Hematocrit 34.4 % (39.6-49.0); Lymphocytes % 16.3 % (15.3-44.8); MPV 8.7 fL (7.6-11.3); RBC Red Blood Cell Count 3.39 M/uL (4.33-5.43)
[2019-03-03 05:45] LABS: Magnesium 2.1 mg/dL (1.8-2.4); Potassium 4.1 mmol/L (3.5-5.1)
[2019-03-03] MEDS: INSULIN -REGULAR HUMAN 50 UNIT/0.5 ML ML SQ SCH ×4 (07:30→20:48)
[2019-03-03] MEDS: FAMOTIDINE 20 MG/2 ML VIAL IV SCH (08:28)
[2019-03-03] MEDS: D5 0.45 NS 1,000 ML IV SCH ×2 (08:28→17:10)
[2019-03-03] MEDS: PANTOPRAZOLE 40 MG INJ IVP SCH (08:28)
--- NOTE | 2019-03-03 14:21 | PN ---
Date of Progress Note: 03/03/2019 Subjective: Patient was seen this morning for followup. He had surgery done yesterday by Dr. David aquino and details regarding operative findings discussed with Dr. Hedrick. This morning when I saw him, he was lying in his bed with NG tube in place. No new complaints or problems reported by him. He de nies any abdominal pain, nausea, or vomiting. Objective: Vital Signs: Reviewed. HEENT: Unremarkable. Lungs: Clear to auscultation. No wheezing. No crackles. Heart: Sounds normal. Abdomen: Soft. Bowel sounds hypoactive. Extremities: No leg edema. Laboratory Data: White count 10.9, hemoglobin 11.8, platelets 189. Sodium 144, potassium 4.1, chlor ayde 113, bicarb 25, BUN 17, creatinine 1.20, glucose 108, magnesium 2.1. Impression: 1.Small bowel obstruction. 2.Hypertension. Plan: We will go ahead and continue NG tube, IV fluid, IV antibiotics, pain medications. Nausea med ications per order. SCD is in place for DVT prophylaxis and we will continue Lovenox as well. Alba almendarez has a Manning catheter, which was placed yesterday during surgery. We will remove Manning catheter to day. Ambulation was encouraged. Patient was encouraged to use his incentive spirometer as advised and we will see him tomorrow for followup. Details and plan of treatment discussed with hemanth adorno and patient's family members. MISTY/MODL Voice ID: [id number] Report ID: [id number]
[2019-03-03] MEDS: ENOXAPARIN 40 MG/0.4 ML SQ SCH (17:10)
[2019-03-03] MEDS: ONDANSETRON 4 MG/2 ML VIAL IV PRN (21:30)
[2019-03-04] MEDS: NITROGLYCERIN 1 GM PKT TD SCH ×4 (01:17→17:29)
[2019-03-04] MEDS: PIPER/TAZO/NS 3.375gm 3.375 GM/100 ML BAG IVPB SCH ×4 (01:20→17:29)
[2019-03-04] MEDS: D5 0.45 NS 1,000 ML IV SCH ×3 (01:21→16:00)
[2019-03-04] MEDS: HYDROMORPHONE HCL 1 MG/ML INJ IV PRN ×2 (03:13→07:08)
[2019-03-04 05:25] LABS: Absolute Lymphocytes (CBC) 0.9 K/uL (0.7-4.9); Basophils % 0.2 % (0-1.3); Hematocrit 30.3 % (39.6-49.0); Lymphocytes % 8.8 % (15.3-44.8); MPV 8.5 fL (7.6-11.3); RBC Red Blood Cell Count 2.95 M/uL (4.33-5.43)
[2019-03-04 05:39] LABS: Magnesium 1.9 mg/dL (1.8-2.4); Potassium 3.6 mmol/L (3.5-5.1)
[2019-03-04] MEDS ORDERED: KCL 20 MEQ/100 mL IVPB 20 MEQ/100 ML BAG IV SCH (06:30)
[2019-03-04] MEDS: INSULIN -REGULAR HUMAN 50 UNIT/0.5 ML ML SQ SCH ×4 (07:30→21:00)
[2019-03-04] MEDS: PANTOPRAZOLE 40 MG INJ IVP SCH (09:23)
--- NOTE | 2019-03-04 11:40 | PN ---
Covering for Dr. Hedrick. Patient underwent an exploratory lap and lysis of adhesions on and Dr. Hedrick is out of tow n. He asked me to cover this patient. I reviewed the chart on the computer including all radiograph ic, operative, and, laboratory data. Patient is awake, alert, and not in any significant pain in the abdomen. He does have some right shoulder discomfort. NG tube is in place and working well. He hernandez s not passed any gas or had a bowel movement. Review of Systems: Otherwise unremarkable. Physical Examination: Vital Signs: Stable. He is afebrile. ABDOMEN: Soft, distended. Hypoactive bowel sounds. Dressing is clean, dry, and intact. His NG tub e put out 300 mL in the last shift. Laboratory Data: Reviewed. His white count is 10.4 with a slight left shift. Chemistry reviewed. Assessment: Status post exploratory laparotomy, lysis of adhesions for small-bowel obstruction, biop sy of the sigmoid and liver lesions. Recommendations: At this time, continue n.p.o., NG tube IV fluids, antibiotics. If patient does not have a bowel functions by tomorrow, I would recommend TPN as patient has not eaten anything since and we are getting close to the 5-day limit. I encouraged ambulation and incentive spirometry. /MODL Voice ID: [id number] Report ID: [id number]
[2019-03-04] MEDS: LIDOCAINE 4% PATCH TOP SCH (12:50)
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
[2019-03-04] MEDS: ENOXAPARIN 40 MG/0.4 ML SQ SCH (17:29)
[2019-03-05] MEDS: PIPER/TAZO/NS 3.375gm 3.375 GM/100 ML BAG IVPB SCH ×4 (00:11→17:06)
[2019-03-05] MEDS: D5 0.45 NS 1,000 ML IV SCH ×4 (00:13→16:00)
[2019-03-05] MEDS: NITROGLYCERIN 1 GM PKT TD SCH ×4 (00:13→17:05)
[2019-03-05 06:29] LABS: Basophils % 0.3 % (0-1.3); Hematocrit 28.6 % (39.6-49.0); Lymphocytes % 9.3 % (15.3-44.8); MPV 8.9 fL (7.6-11.3); RBC Red Blood Cell Count 2.85 M/uL (4.33-5.43)
[2019-03-05 06:44] LABS: Albumin 2.3 g/dL (3.4-5.0); Magnesium 1.9 mg/dL (1.8-2.4); Potassium 3.2 mmol/L (3.5-5.1); Protein, Total 5.7 g/dL (6.4-8.2)
[2019-03-05] MEDS: INSULIN -REGULAR HUMAN 50 UNIT/0.5 ML ML SQ SCH ×4 (07:30→20:54)
[2019-03-05] MEDS: LIDOCAINE 4% PATCH TOP SCH (08:39)
[2019-03-05] MEDS: KCL 20 MEQ/100 mL IVPB 20 MEQ/100 ML BAG IV SCH ×4 (08:40→23:20)
[2019-03-05] MEDS: PANTOPRAZOLE 40 MG INJ IVP SCH (08:45)
[2019-03-05] MEDS ORDERED: ACETAMINOPHEN 160 MG/5 ML UCUP PO PRN (10:19)
--- NOTE | 2019-03-05 12:19 | RAD REPORT ---
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 No fracture s uspected.
--- NOTE | 2019-03-05 14:38 | PN ---
Date of Progress Note: 03/05/2019 Subjective: Patient is awake, alert. No abdominal pain. He is complaining of shoulder pain. Dr. Gage hdz is addressing that issue. He is passing gas. No nausea or vomiting. Physical Examination: Vital Signs: Stable. He is afebrile. Abdomen: Soft, with bowel sounds. Dressing is clean, dry, intact. Laboratory Data: Reviewed. His H and H are stable. Chemistry reviewed as well. Electrolytes to be checked and replaced as needed. Assessment: Status post exploratory laparotomy for bowel obstruction and biopsy of sigmoid lesion an d liver lesion. Recommendations: We will clamp the NG tube. Start on sips of clear liquids if tolerated. Hopefully , tomorrow we can discontinue the NG tube and advance his diet as tolerated. Plan of care discussed with Dr. Causey. Patient is clinically stable and doing well. /MODL Voice ID: [id number] Report ID: [id number]
--- NOTE | 2019-03-05 16:06 | PN ---
Date of Progress Note: 03/05/2019 Subjective: Patient was seen this morning for followup. He was lying in bed. Continues to have rig ht shoulder pain. No other complaints were reported. Vital signs were reviewed. He has started to pass some flatus. No bowel movement yet. Objective: Vital Signs: Reviewed. HEENT: Unremarkable. Lungs: Clear to auscultation. Heart: Sounds normal. Abdomen: Soft. Bowel sounds hypoactive, but slightly better today than yesterday. Extremities: No leg edema. Laboratory Data: White count 10.4, hemoglobin 10.2, platelets 173. Sodium 138, potassium 3.2, chlor ayde 108, bicarb 24, BUN 11, creatinine 1.05, glucose 114. Liver function tests unremarkable. Magnes ium 1.9. Impression: 1.Small bowel obstruction. 2.Hypokalemia. 3.Anemia. 4.Hypertension. Plan: Continue current medications. Continue current antibiotics. Dr. Sutherland from General Surgery e valuated the patient, and he is starting patient on clear liquid diet. We will start the patient on Tylenol liquid to assist with the right shoulder pain. We will continue to use heating pad and lidoc orion patch, and I have suggested orthopedic consultation for consideration of intra-articular steroid injection. The patient and family are agreeable to do so, and Dr. Delaney, who is on-call, was re quested to provide such assistance. Right shoulder x-ray was ordered. I will see him tomorrow for followup. MISTY/MODL Voice ID: [id number] Report ID: [id number]
[2019-03-05] MEDS: ENOXAPARIN 40 MG/0.4 ML SQ SCH (17:05)
--- NOTE | 2019-03-05 17:22 | RAD REPORT ---
EXAM DESCRIPTION: RAD - Chest Single View - 03/05/2019 5:16 pm CLINICAL HISTORY: PICC line placement COMPARISON: Chest Single View dated 02/28/2019; Chest Single View dated 02/05/2016; CHEST PA AND LAT 2 VIEW dated 06/27/2015 FINDINGS: Portable chest was obtained following placement of a left upper extremity PICC line. The c atheter tip projects over the SVC. Enteric tube coils in the stomach.
[2019-03-05] MEDS: AA 5%/D20W/ELECTROLYTES-TPN 2,000 ML, Lipids 20% 250 ML with MULTIVITAMINS INJ 10 ML IV SCH ×3 (18:12)
[2019-03-06] MEDS: NITROGLYCERIN 1 GM PKT TD SCH ×4 (00:16→17:09)
[2019-03-06] MEDS: PIPER/TAZO/NS 3.375gm 3.375 GM/100 ML BAG IVPB SCH ×5 (00:21→23:55)
[2019-03-06 05:41] LABS: Potassium 3.8 mmol/L (3.5-5.1)
[2019-03-06] MEDS: INSULIN -REGULAR HUMAN 50 UNIT/0.5 ML ML SQ SCH ×3 (07:30→15:54)
[2019-03-06] MEDS ORDERED: TRIAMCINOLONE ACETON 40 MG/ML VIAL IM ONE (08:06)
[2019-03-06] MEDS ORDERED: KCL 20 MEQ/100 mL IVPB 20 MEQ/100 ML BAG IV SCH (08:30)
--- NOTE | 2019-03-06 09:05 | P.PN ---
Subjective Date of Service: 03/06/19 Subjective: Improving (Patient had large BM and passing gas today, no abdominal pain, + RIGHT shoulder pain) Physical Examination - Vital Signs Temperature: 98.7 F Blood Pressure: 134/70 Pulse: 67 Respirations: 18 Pulse Ox (%): 92 - Physical Exam General: Alert, In no apparent distress, Cooperative Gastrointestinal: Soft and benign, Non-distended, No ascites, No tenderness, No masses, No rebound, No guarding, Other (incision clean and dry) Assessment And Plan - Current Problems (Diagnosis) (1) SBO (small bowel obstruction) Current Visit: Yes Status: Acute Plan: - Continue NG tube decompression - serial exams -patient has no tenderness or pain - recheck labs in AM - ambulate with assist - PT consult - incentive spirometry - keep NGT one more day, as patient requested do not remove. - RILEY gregorio
[2019-03-06] MEDS: PANTOPRAZOLE 40 MG INJ IVP SCH (09:58)
[2019-03-06] MEDS: LIDOCAINE 4% PATCH TOP SCH (09:58)
[2019-03-06] MEDS ORDERED: LIDOCAINE 1.5% W/EPI AMP 5 ML IJ ONE (10:00)
[2019-03-06] MEDS: ENOXAPARIN 40 MG/0.4 ML SQ SCH (17:09)
[2019-03-06] MEDS: AA 5%/D20W/ELECTROLYTES-TPN 2,000 ML, Lipids 20% 250 ML with MULTIVITAMINS INJ 10 ML IV SCH ×3 (17:10)
[2019-03-06] MEDS ORDERED: NA CHLORIDE 0.9% 250 ML ONE (22:08)
[2019-03-07] MEDS: NITROGLYCERIN 1 GM PKT TD SCH ×4 (00:10→17:49)
--- NOTE | 2019-03-07 01:13 | PN ---
Date of Progress Note: 03/06/2019 Subjective: Patient was seen this morning for followup. He was lying in bed, not in distress. His daughter was present with him at bedside. Patient is ambulating well. He had a good bowel movement early this morning or sometime during nighttime as he reported and he is passing gas also. Denies an y abdominal pain. Shoulder pain is little better. Objective: Vital Signs: Reviewed. HEENT: Unremarkable. Lungs: Clear to auscultation. Heart: Sounds normal. Abdomen: Soft. Bowel sounds normal quality today and better than yesterday. No guarding, rigidity. Extremities: No leg edema. Laboratory Data: Shoulder x-ray from yesterday is reviewed showing moderate changes of degenerative joint disease. Sodium 138 today, potassium 3.8, chloride 108, bicarb 25, BUN 15 and creatinine 1.02, glucose 122, magnesium 2. Impression: 1.Small bowel obstruction. 2.Anemia. 3.Hypertension. Plan: We will go ahead and continue TPN, which was started yesterday. PICC line is in place in the left arm and we will continue to follow with general surgeon. Hopefully, if okay with general surgeo n, patient can be started on clear liquid diet today and will continue TPN today, tomorrow for sure a nd then we will try to wean it off. Ambulation was encouraged. Details were discussed with Dr. Mel butcher, orthopedic surgeon for consideration of steroid injection for the right shoulder pain. I will see hi m tomorrow for followup. MISTY/MODL Voice ID: [id number] Report ID: [id number]
[2019-03-07] MEDS: PIPER/TAZO/NS 3.375gm 3.375 GM/100 ML BAG IVPB SCH (05:10)
[2019-03-07 05:43] LABS: Absolute Lymphocytes (CBC) 0.6 K/uL (0.7-4.9); Basophils % 0.2 % (0-1.3); Hematocrit 29.7 % (39.6-49.0); Lymphocytes % 6.8 % (15.3-44.8); RBC Red Blood Cell Count 2.97 M/uL (4.33-5.43)
[2019-03-07 05:58] LABS: Phosphorus 2.6 mg/dL (2.5-4.9); Potassium 3.9 mmol/L (3.5-5.1)
[2019-03-07] MEDS: INSULIN -REGULAR HUMAN 50 UNIT/0.5 ML ML SQ SCH ×5 (06:00→20:53)
--- NOTE | 2019-03-07 07:04 | CON ---
Date of Consultation: 03/06/2019 History Of Present Illness: This is my first time seeing this patient to my knowledge. He has been in the hospital for quite some time for small-bowel obstruction which was treated by the general surg nancy. However, I am consulted to see him for right shoulder pain, which he has developed during the h ospitalization. He says he has always had problems with his right shoulder. However, usually he is able to use it quite well. However, now it is limiting him in his mobility and has pain. Basically the majority of his pain that he is having at this point is from his shoulder and not from his operat mary procedure. Physical Examination: Gentle range of motion of shoulder causes some discomfort. He does have some swelling of the right u pper extremity, although not severe. He did not appear to have any radicular symptoms. Imaging Studies: X-rays demonstrate some arthritic change of the shoulder. All risks, benefits, and alternatives to corticosteroid injection were discussed with the patient and family. They state they understand things as presented and wished to proceed. Then, 2 mL of Kenalo g as well as lidocaine with epinephrine were then placed in the subacromial space after consent was o btained. The patient tolerated this well. Assessment: Patient with right shoulder pain, which was limiting his mobility after operative proced ure for small bowel obstruction. Plan: At this time, hopefully the injection will help him quite a bit. He can use his right upper e xtremity for functional activities. He can follow up with me as an outpatient. However, I do not th ink we would consider doing anything more invasive for quite some time. He and his family state they unders tand things as presented. /KARTHIK Voice ID: [id number] Report ID: [id number]
--- NOTE | 2019-03-07 07:49 | P.PN ---
Subjective Date of Service: 03/07/19 Subjective: Improving (patient has no pain, continues to have several BMs, normal by description) Physical Examination - Vital Signs Temperature: 97.8 F Blood Pressure: 156/68 Pulse: 58 Respirations: 18 Pulse Ox (%): 94 - Physical Exam General: Alert, In no apparent distress, Cooperative Gastrointestinal: Soft and benign, Non-distended, No tenderness, No masses, No rebound, No guarding, Other (incision clean, william in place, binder on) Assessment And Plan - Current Problems (Diagnosis) (1) SBO (small bowel obstruction) Current Visit: Yes Status: Acute Plan: - DC NG tube - serial exams -patient has no tenderness or pain - recheck labs in AM - ambulate with assist - PT consult - incentive spirometry - start clears
[2019-03-07] MEDS ORDERED: CODEINE 30MG/APAP 300MG TAB PO PRN (09:57)
[2019-03-07] MEDS: PANTOPRAZOLE 40 MG INJ IVP SCH (10:00)
[2019-03-07] MEDS: LIDOCAINE 4% PATCH TOP SCH (10:00)
[2019-03-07] MEDS: AA 5%/D20W/ELECTROLYTES-TPN 2,000 ML, Lipids 20% 250 ML with MULTIVITAMINS INJ 10 ML IV SCH ×3 (17:49)
[2019-03-07] MEDS: ENOXAPARIN 40 MG/0.4 ML SQ SCH (17:49)
--- NOTE | 2019-03-08 00:22 | PN ---
Date of Progress Note: 03/07/2019 Subjective: Patient was seen this morning for followup. No new complaints or problems reported by matt anne. He had a bowel movement again today and once yesterday. Ambulating well. Overall, he feels stronger in last 24 hours than before. Objective: HEENT: Unremarkable. Lungs: Clear to auscultation. Heart: Sounds normal. Abdomen: Soft. Bowel sounds normal. No guarding, rigidity, tenderness. Extremities: No leg edema. Laboratory Data: White count 9.2, hemoglobin 10.5, platelets 200. Sodium 137, potassium 3.9, chlori de 107, bicarb 24, BUN 18, creatinine 0.90, glucose 138, magnesium 2.0. Impression: 1.Small bowel obstruction, resolved. 2.Anemia. 3.Hypertension. Plan: We will continue current medication. Continue TPN. Dr. Hedrick saw patient around same time as I did this morning and he is going to discontinue the NG tube and start patient on liquid diet. W e will continue TPN today and tomorrow. Possible discharge to go home either or Wednesday. De tails and plan of treatment discussed with patient and patient's family. MISTY/MODL Voice ID: [id number] Report ID: [id number]
[2019-03-08] MEDS: NITROGLYCERIN 1 GM PKT TD SCH ×3 (00:40→09:40)
[2019-03-08 04:40] LABS: Basophils % 0.1 % (0-1.3); Hematocrit 31.1 % (39.6-49.0); Lymphocytes % 9.9 % (15.3-44.8); MPV 9.4 fL (7.6-11.3); RBC Red Blood Cell Count 3.12 M/uL (4.33-5.43)
[2019-03-08 05:04] LABS: Potassium 4.2 mmol/L (3.5-5.1)
[2019-03-08] MEDS: INSULIN -REGULAR HUMAN 50 UNIT/0.5 ML ML SQ SCH ×2 (07:30→11:30)
[2019-03-08] MEDS: LIDOCAINE 4% PATCH TOP SCH (09:40)
[2019-03-08] MEDS: PANTOPRAZOLE 40 MG INJ IVP SCH (09:40)
[2019-03-08 10:31] VITALS: O2SAT 93
[2019-03-08 12:24] VITALS: BP 178/80; TEMP 97.7
[2019-03-08] MEDS ORDERED: AMLODIPINE 5 MG TAB PO ONE (12:27)
--- NOTE | 2019-03-08 14:26 | P.PN ---
Subjective Date of Service: 03/08/19 Subjective: Improving (patient continues to have BMs, remains pain free, tolerating diet.) Physical Examination - Vital Signs Temperature: 97.7 F Blood Pressure: 178/80 Pulse: 60 Respirations: 17 Pulse Ox (%): 93 - Physical Exam General: Alert, In no apparent distress, Cooperative Gastrointestinal: Soft and benign, Non-distended, No ascites, No masses Assessment And Plan - Current Problems (Diagnosis) (1) SBO (small bowel obstruction) Current Visit: Yes Status: Acute Plan: - advance diet - serial exams -patient has no tenderness or pain - ambulate with assist - PT consult - incentive spirometry
[2019-03-09] MEDS ORDERED: AMLODIPINE 5 MG TAB PO SCH (09:00)
== END 2019-03-08 14:35 | DRG 337 ==
LOC: ER 09:55 → ERHOLD 12:22 → 2ND 15:37
PROVIDERS: ADMIT Internal Medicine; ATTEND Internal Medicine
PROC: 0DBN0ZX Excision of Sigmoid Colon, Open Approach, Diagnostic (ICD-10-PCS; 2019-03-02)
PROC: 0FB10ZX Excision of Right Lobe Liver, Open Approach, Diagnostic (ICD-10-PCS; 2019-03-02)
PROC: 0DN80ZZ Release Small Intestine, Open Approach (ICD-10-PCS; principal; 2019-03-02 11:00)
DX: K56.51 Intestinal adhesions [bands], with partial obstruction (principal); I12.9 Hypertensive chronic kidney disease with stage 1 through stage 4 chronic kidney disease, or unspecified chronic kidney disease; N18.3 Chronic kidney disease, stage 3 (moderate); I25.10 Atherosclerotic heart disease of native coronary artery without angina pectoris; N40.0 Benign prostatic hyperplasia without lower urinary tract symptoms; E78.5 Hyperlipidemia, unspecified; K45.8 Other specified abdominal hernia without obstruction or gangrene; M25.511 Pain in right shoulder; E87.6 Hypokalemia; D64.9 Anemia, unspecified; I44.7 Left bundle-branch block, unspecified; G20 Parkinson's disease
CPT/HCPCS: 36415; 71045; 74019; 74177; 76705; 80048; 80053; 80076; 81003; 81015; 82947; 83605; 83690; 83735; 83880; 84100; 84132; 84484; 85025; 85610; 86850; 86900; 86901; 87086; 87088; 88305; 88307; 93005; 96374; 96375; 97110; 97116; 97161; 97530; 99285; C9113; J0330; J1170; J1650; J2001; J2405; J2543; J2550; J2704; J2710; J3010; J3301; J7030; J7120; J7799

== ENCOUNTER 2019-03-08 10:14 | Inpatient (IN) | payer OTHER, BC ==
--- NOTE | 2019-03-08 13:35 | R.PREADM ---
SCREENING DATE AND TIME 03/08/2019 10:28 (BREEDER SERVICE TECHNICIAN) ANTICIPATED REHAB ADMISSION DATE 03/10/2019 REFERRING FACILITY [facility] REFERRAL DATE AND TIME 03/08/2019 10:28 (BREEDER SERVICE TECHNICIAN) REFERRAL OFFICE PHONE [phone] REFERRAL ROOM# [id number] ACUTE ADMIT DATE 03/30/2019 Previous Rehabilitation(s): No. ACUTE FREIGHT RATE ANALYST/DC TIME CLOCK MECHANIC Marisabel Cornelius REFERRING PHYSICIAN Krishna Causey REHAB FACILITY [facility] CLINICAL LIAISON Evert Moscoso PHYSICIAN REVIEWER Dr. Davion Escoto M.D. MR# [id number] NAME HUNTER VENTURA ADDRESS [address] PH[address] [facility] [id number] DATE OF 1935 AGE 83 SSN# [id number] GENDER male MARITAL STATUS RACE white ADMIT FROM 02 - [facility] PRE-HOSPITAL LIVING SETTING 01 - Home (private home/apt. board/care, assisted living, senior care, transitional living) HOME TYPE AND DETAILS Type of home: single family house # of levels in the residence: 1 # of steps to enter the residence: 2 # of steps within the residence: 0 PRE-HOSPITAL LIVING WITH Family/Relatives FAMILY SUPPORT Yes PRIMARY FAMILY CONTACT NAME MARCUS VENTURA PRIMARY FAMILY CONTACT PHONE PRIMARY FAMILY CONTACT RELATIONSHIP PHONE PRIMARY FAMILY CONTACT ON ADM.? no IS PRIMARY FAMILY CONTACT AUTH. REP.? no 1ST EMERGENCY CONTACT MARCUS VENTURA 1ST CONTACT PHONE 1ST CONTACT RELATIONSHIP PHONE 1ST CONTACT ON ADM. no IS 1ST CONTACT AUTH. REP.? no PHONE 2ND CONTACT ON ADM.? no PATIENT EMPLOYMENT STATUS Retired (for age) PATIENT EMPLOYER No Employer PAYOR INFORMATION: 1ST PAYOR NAME MEDICARE 1ST PAYOR PHONE [phone] 1ST PAYOR INJURY/ILLNESS DUE TO ACCIDENT? No ANOTHER GREEN PARTY RESPONSIBLE? No PRIMARY REHAB/ACUTE DIAGNOSIS: Parkinson's disease (G20) Small Bowel Obstruction ONSET DATE 02/28/2019 REHAB IMPAIRMENT CATEGORY (XI): 20 Miscellaneous (Misc) MEETS 60% rule PRIMARY DIAGNOSIS-RELATED SURGERIES: Exploratory Laparotomy on 03/02/[address] Hedrick Open Adhesiolysis Biopsy of Colon Lesion and Liver Lesion COMORBID REHAB/ACUTE DIAGNOSES: - N/A HYPERTENSION HYPERLIPIDEMIA CAD BPH CKD STAGE 3 INTERVENTIONS: - Hypertension Fluid management Medications VS - CAD 02 sats Activity management Medications VS RISK FOR COMPLICATIONS: - Hypertension CVA Hypotension MO TIA - CAD CHF Cardiac Arrest MO Pain SUMMARY OF ACUTE HOSPITALIZATION: Pt. is a 83 yo Right-handed white male. On 02/28/2019 he was admitted to [facility] with diagnosis Parkinson's disease (G20). His impairment category is Neurologic Conditions 03 - Parkinsonism (03.2). Pre-morbidly, Pt. was independent/mod-I in Locomotion, Safety Awareness, Balance, Social Cognition, T ransfers Control, Sphincter Control, Self-Care, Communication, and Endurance; and he had good Locomot ion, Balance, Safety Awareness, Social Cognition, Transfers Control, Sphincter Control, Self-Care, Co mmunication, and Endurance. Currently, he has deficits of Locomotion, Social Cognition, Balance, Transfers Control, Self-Care, an d Endurance. Pt. is now referred to [facility] for acute in-patient rehabilitation in order to maximize patient's functional independence in activities of daily living, strength, ROM, and mobi lity. Patient has realistic goal of being discharged at assistance level 6-Ari to reside at Home with Fam jerry/Relatives. Hunter Ventura is an 83 year old male that lives with his in a [address] home with 2 steps to enter. He was completely independent without any assistive device. On 02/28/2019, patient was working on his yard when he experienced abdominal pain and was admitted to [facility] and treated. He is now medically stable but in need of 24-hour nursing, doctor supervision and oversite while receiving participate in 3hours of therapy a day/15 hours per week and receive care with an intensive interdisciplinary approach. CONSULT: Neuro consult PAST MEDICAL HISTORY BPH CAD CKD STAGE 3 HYPERLIPIDEMIA HYPERTENSION PAST SURGICAL HISTORY: KNEE REPLACEMENT RIGHT SHOULDER SURGERY MEDICATION ALLERGIES: ASPIRIN ENVIRONMENTAL ALLERGIES: None Known - Substance Allergies None Known - Other Allergies None Known CODE STATUS: Full code WEIGHT/HEIGHT/BMI: WEIGHT 225 lbs HEIGHT 5' 9" BMI 33.2 DIET: - Diet Type Regular - Diet - Solid Texture Regular - Diet - Liquid Texture Regular - Tube Feed N/A SKIN DIAGRAM: Incision on Abdomen; extent - small; stage - NS(Not Stageable). Treatment - Per Physician's Orders. REVIEW OF SYSTEMS: - Gen Alert and awake Lying in bed No apparent distress Oriented to: person, time, and place - Vital Signs Temperature: 97.6 F SBP/DBP: 102/81 Pulse: 69 Resp: 18 Vital signs stable, afebrile - CVS RRR VITAL SIGNS Temperature: 97.6 F SBP/DBP: 102/81 Pulse: 69 Resp: 18 Vital signs stable, afebrile MEDICATIONS/TREATMENT: Other- See attached MAR (Medication Administration Record) Lorenzo Hunter.pdf. CURRENT SPHINCTER CONTROL: Pre-hospital bladder status: continent # of bladder accidents in the last 7 days prior to screenin Pre-hospital bowel status: continent # of bowel accidents in the last 7 days prior to screenin Last Bowel Movement Date: 03/08/2019 CURRENT LOCOMOTION STATUS: distance walked 1000 feet DETAILED CURRENT FUNCTIONAL STATUS: - Bladder accident frequency: Ind - No accidents in the past 7 days - Bowel accident frequency: Ind - No accidents in the past 7 days - Walking score based on distance walked: 0(N/A) score based on distance walked: 3(>=150ft) - Wheelchair score based on distance traveled: 0(N/A) QI SCORES: - Self-Care A. Eating 04-Supervision or touching assistance B. Oral hygiene 04-Supervision or touching assistance C. Toileting hygiene 04-Supervision or touching assistance E. Shower/bathe self 03-Partial/moderate assistance F. Upper body dressing 04-Supervision or touching assistance G. Lower body dressing 03-Partial/moderate assistance H. Putting on/taking off footwear 03-Partial/moderate assistance - Mobility A. Roll left and right 04-Supervision or touching assistance B. Sit to lying 04-Supervision or touching assistance C. Lying to sitting on side of bed 04-Supervision or touching assistance D. Sit to stand 04-Supervision or touching assistance E. Chair/jld-pz-eirgd transfer 04-Supervision or touching assistance F. Toilet transfer 04-Supervision or touching assistance G. Car transfer 88-Not attempted due to medical condition or safety concerns I. Walk 10 feet 04-Supervision or touching assistance J. Walk 50 feet with two turns 04-Supervision or touching assistance K. Walk 150 feet 04-Supervision or touching assistance L. Walking 10 feet on uneven surfaces 88-Not attempted due to medical condition or safety concerns M. 1 step (curb) 88-Not attempted due to medical condition or safety concerns N. 4 steps 88-Not attempted due to medical condition or safety concerns O. 12 steps 88-Not attempted due to medical condition or safety concerns P. Picking up object 88-Not attempted due to medical condition or safety concerns R. Wheel 50 feet with two turns 88-Not attempted due to medical condition or safety concerns S. Wheel 150 feet 88-Not attempted due to medical condition or safety concerns - Bladder and Bowel Bladder continence 0-Always continent Bowel continence 0-Always continent - Endurance Fair - Balance Fair - Safety Awareness Fair CURRENT FUNC. DEFICITS: Self-Care, Mobility, Endurance, Balance, and Safety Awareness CURRENT / PREVIOUS ASSISTIVE DEVICES: 3-in-1 Commode BSC Dentures Glasses Hospital Bed Raised Toilet Rolling Walker Shower Chair Standard Walker Tub Bench Wheelchair CURRENT USE ASSISTIVE DEVICES: SCDs HISTORY OF FALLS. HAS THE PATIENT HAD TWO OR MORE FALLS IN THE PAST YEAR OR ANY FALL WITH INJURY IN T HE PAST YEAR?: No PRIOR SURGERY. DID THE PATIENT HAVE MAJOR SURGERY DURING THE 100 DAYS PRIOR TO ADMISSION?: No THERAPY NOTES FROM ACUTE CARE: Attached. SPECIAL NEEDS: - Safety Concerns Skin breakdown precautions needed due to skin breakdown risk PATIENT NEEDS ACTIVE AND ONGOING THERAPEUTIC INTERVENTION OF MULTIPLE THERAPY DISCIPLINES, INCLUDING: - Dietary and Nutrition Adequate Nutrition. Nutritional Education. Nutritional Supplements. - Speech Therapy Memory Strategies. Speech Intelligibility Training. PATIENT NEEDS CLOSE MEDICAL SUPERVISION BY A REHABILITATION PHYSICIAN FOR: Coordination of Treatment Team Medical and Co-Morbidity Management Wound Care PATIENT REQUIRES 24X7 REHAB NURSING FOR MEDICAL AND FUNCTIONAL MGT. OF THE FOLLOWING DEFICITS: Disease Management Medication Management Patient/Family Education Providing Safe Environment Skin Integrity PATIENT REQUIRES INTENSIVE, COORDINATED INTERDISCIPLINARY APPROACH TO REHAB: Arranging Home Equipment/Services Discharge Planning Family Intervention/Training Associate Merchandise Planner/Case Management PATIENT REHAB POTENTIAL: Misa VENTURA is able and expected to receive 3 hours of individualized therapy daily on at least 5 of bernadette ry 7 days Misa VENTURA's prognosis for significant practical improvement within a reasonable period of time appears Good Expected level of measurable improvement will be of a practical value to Misa VENTURA's functional capaci ty or adaptations to impairments Has a viable Discharge Plan Medically appropriate; condition is sufficiently stable to participate in intensive rehab program DISCHARGE PLAN: - Estimated Length of Stay (days) 13. - Consensus on plan Discharge plan has been discussed with primary caregiver. Patient/Family is in agreement with the joelle n. Primary caregiver is in agreement with the plan. - Patient/Family Goals Return home with assistance. - Planned Living Setting Upon Discharge Home, to live with Family/Relatives. Transitional Living. RECOMMENDED CARE LEVEL: IRF RECOMMENDATION DETAILS: Recommended Admission to Comprehensive Rehabilitation Program to Increase Functional [place] SCREENER'S COMPLETENESS CONFIRMATION: - Screening Confirmation The patient data collection on this preadmission screening form is finished PHYSICIANS REVIEW AND ADMISSION DETERMINATION Admit - Based on my review of the Pre-Admission Screening results, in my medical judgment and experie nce, I concur with the findings and recommend admission to [facility], as this patient requires an IRF level of care. SIGNATURE PANEL: Clinical Liaison - [electronically] signed by Evert Moscoso on 03/08/2019 at 11:36 (BREEDER SERVICE TECHNICIAN) Physician Reviewer - [electronically] signed by Dr. Davion Escoto M.D. on 03/08/2019 at 13:34 (BREEDER SERVICE TECHNICIAN )
[2019-03-08] MEDS ORDERED: ACETAMINOPHEN 160 MG/5 ML UCUP PO PRN (15:01)
[2019-03-08] MEDS ORDERED: GLUCAGON 1 MG/VIAL IM PRN ×2 (15:01→15:33)
[2019-03-08] MEDS ORDERED: ENALAPRILAT 1.25 MG/ML VIAL IV PRN (15:01)
[2019-03-08] MEDS ORDERED: CODEINE 30MG/APAP 300MG TAB PO PRN (15:01)
[2019-03-08] MEDS ORDERED: SODIUM CHLORIDE 0.9% 10ML INJ IV PRN (15:01)
[2019-03-08] MEDS ORDERED: ONDANSETRON 4 MG/2 ML VIAL IV PRN (15:01)
[2019-03-08] MEDS ORDERED: D50W 25 GM/50 ML SYRINGE/VIAL IV PRN ×2 (15:01→15:33)
[2019-03-08 15:21] LABS: Urine Appearance CLEAR; Urine Bilirubin NEGATIVE (NEG); Urine Blood NEGATIVE (NEG); Urine Color YELLOW; Urine Glucose NEGATIVE (NEG); Urine Protein NEGATIVE (NEG); Urine Specific Gravity <=1.005 (1.005-1.030)
[2019-03-08 16:28] LABS: Urine Bacteria <20 /HPF (NONE SEEN); Urine RBC <5 /HPF (NONE SEEN)
[2019-03-08 16:30] LABS: Urine Culture Reflex Order NOT NEEDED
[2019-03-08] MEDS ORDERED: INSULIN -REGULAR HUMAN 50 UNIT/0.5 ML ML SQ SCH (16:30)
[2019-03-08] MEDS ORDERED: AA 5%/D20W/ELECTROLYTES-TPN 2,000 ML, Lipids 20% 250 ML with MULTIVITAMINS INJ 10 ML IV SCH ×3 (17:00)
[2019-03-08] MEDS: ENOXAPARIN 40 MG/0.4 ML SQ SCH (17:03)
[2019-03-08] MEDS: INSULIN -REGULAR HUMAN 50 UNIT/0.5 ML ML SQ SCH ×2 (17:04→23:34)
[2019-03-08] MEDS: NITROGLYCERIN 1 GM PKT TD SCH ×2 (17:43→23:20)
[2019-03-09] MEDS: INSULIN -REGULAR HUMAN 50 UNIT/0.5 ML ML SQ SCH ×3 (05:03→17:59)
[2019-03-09] MEDS: NITROGLYCERIN 1 GM PKT TD SCH ×3 (05:22→16:49)
[2019-03-09 06:38] LABS: Absolute Lymphocytes (CBC) 1.3 K/uL (0.7-4.9); Basophils % 0.3 % (0-1.3); Hematocrit 31.3 % (39.6-49.0); Lymphocytes % 14.5 % (15.3-44.8); MPV 9.1 fL (7.6-11.3); RBC Red Blood Cell Count 3.13 M/uL (4.33-5.43)
[2019-03-09 06:41] LABS: Albumin 2.4 g/dL (3.4-5.0); Magnesium 2.2 mg/dL (1.8-2.4); Potassium 4.3 mmol/L (3.5-5.1); Prealbumin 18.1 mg/dL (20-40)
[2019-03-09] MEDS: LIDOCAINE 4% PATCH TOP SCH ×2 (08:00→08:50)
[2019-03-09] MEDS: AMLODIPINE 5 MG TAB PO SCH (08:49)
[2019-03-09] MEDS: PANTOPRAZOLE 40 MG INJ IVP SCH (08:50)
--- NOTE | 2019-03-09 16:16 | FAST ---
ENCOUNTER DATE AND TIME: 03/09/2019 08:00 (HIGHWAY SAFETY ENGINEER) NAME FELIX TIJERINA DATE OF : 1935 DATE OF ADMISSION: 03/08/2019 14:42 (HIGHWAY SAFETY ENGINEER) PHONE: AGE: 83 N# [id number] GENDER: Male ENCOUNTER PHYSICIAN: Dr. Davion Escoto M.D. ADMISSION DIAGNOSIS: - Neurologic Conditions 03 - Parkinsonism (03.2) Parkinson's disease (G20). - Debility 16 - Debility (16) Small Bowel Obstruction. ROLL LEFT AND RIGHT: ROLL LEFT AND RIGHT - STEP 1: Does the patient complete the activity by him/herself with no assistance (physical, verbal/nonverbal cueing, setup/clean-up)? Yes. 1. [id number] ADMISSION PERFORMANCE: Independent CODE: 06 SIT TO LYING: SIT TO LYING - STEP 1: Does the patient complete the activity by him/herself with no assistance (physical, verbal/nonverbal cueing, setup/clean-up)? Yes. 1. [id number] ADMISSION PERFORMANCE: Independent CODE: 06 LYING TO SITTING: LYING TO SITTING ON SIDE OF BED - STEP 1: Does the patient complete the activity by him/herself with no assistance (physical, verbal/nonverbal cueing, setup/clean-up)? Yes. 1. [id number] ADMISSION PERFORMANCE: Independent CODE: 06 SIT TO STAND: SIT TO STAND - STEP 1: Does the patient complete the activity by him/herself with no assistance (physical, verbal/nonverbal cueing, setup/clean-up)? Yes. 1. [id number] ADMISSION PERFORMANCE: Independent CODE: 06 TRANSFERS: BED, CHAIR: CHAIR/PEE-MV-SERCI TRANSFER - STEP 1: Does the patient complete the activity by him/herself with no assistance (physical, verbal/nonverbal cueing, setup/clean-up)? Yes. 1. [id number] ADMISSION PERFORMANCE: Independent CODE: 06 TRANSFER TOILET: TOILET TRANSFER - STEP 1: Does the patient complete the activity by him/herself with no assistance (physical, verbal/nonverbal cueing, setup/clean-up)? Yes. 1. [id number] ADMISSION PERFORMANCE: Independent CODE: 06 TRANSFERS: CAR: Not attempted due to environmental limitations (e.g., lack of equipment, weather constraints) CODE: 10 WALK 10 FEET: WALK 10 FEET - STEP 1: Does the patient complete the activity by him/herself with no assistance (physical, verbal/nonverbal cueing, setup/clean-up)? No. WALK 10 FEET - STEP 2: Does the patient need only setup/clean-up assistance from one helper? No. WALK 10 FEET - STEP 3: Does the patient need only verbal/nonverbal cueing or touching/steadying/contact guard assistance fro m one helper? Yes. 1. [id number] ADMISSION PERFORMANCE: Supervision or touching assistance CODE: WALK 50 FEET: WALK 50 FEET - STEP 1: Does the patient complete the activity by him/herself with no assistance (physical, verbal/nonverbal cueing, setup/clean-up)? No. WALK 50 FEET - STEP 2: Does the patient need only setup/clean-up assistance from one helper? No. WALK 50 FEET - STEP 3: Does the patient need only verbal/nonverbal cueing or touching/steadying/contact guard assistance fro m one helper? Yes. 1. [id number] ADMISSION PERFORMANCE: Supervision or touching assistance CODE: WALK 150 FEET: WALK 150 FEET - STEP 1: Does the patient complete the activity by him/herself with no assistance (physical, verbal/nonverbal cueing, setup/clean-up)? No. WALK 150 FEET - STEP 2: Does the patient need only setup/clean-up assistance from one helper? No. WALK 150 FEET - STEP 3: Does the patient need only verbal/nonverbal cueing or touching/steadying/contact guard assistance fro m one helper? Yes. 1. [id number] ADMISSION PERFORMANCE: Supervision or touching assistance CODE: WALK 10 FEET UNEVEN: WALKING 10 FEET ON UNEVEN SURFACES - STEP 1: Does the patient complete the activity by him/herself with no assistance (physical, verbal/nonverbal cueing, setup/clean-up)? No. WALKING 10 FEET ON UNEVEN SURFACES - STEP 2: Does the patient need only setup/clean-up assistance from one helper? No. WALKING 10 FEET ON UNEVEN SURFACES - STEP 3: Does the patient need only verbal/nonverbal cueing or touching/steadying/contact guard assistance fro m one helper? Yes. 1. [id number] ADMISSION PERFORMANCE: Supervision or touching assistance CODE: 04 1 STEP (CURB): 1 STEP CURB - STEP 1: Does the patient complete the activity by him/herself with no assistance (physical, verbal/nonverbal cueing, setup/clean-up)? Yes. 1. [id number] ADMISSION PERFORMANCE: Independent CODE: 06 4 STEPS: 4 STEPS - STEP 1: Does the patient complete the activity by him/herself with no assistance (physical, verbal/nonverbal cueing, setup/clean-up)? Yes. 1. [id number] ADMISSION PERFORMANCE: Independent CODE: 06 12 STEPS: 12 STEPS - STEP 1: Does the patient complete the activity by him/herself with no assistance (physical, verbal/nonverbal cueing, setup/clean-up)? Yes. 1. [id number] ADMISSION PERFORMANCE: Independent CODE: 06 PICKING UP OBJECT: PICKING UP OBJECT - STEP 1: Does the patient complete the activity by him/herself with no assistance (physical, verbal/nonverbal cueing, setup/clean-up)? Yes. 1. [id number] ADMISSION PERFORMANCE: Independent CODE: 06 DOES THE PATIENT USE A WHEELCHAIR/SCOOTER? Q1. DOES THE PATIENT USE A WHEELCHAIR/SCOOTER?: No CODE: 0 INDICATE THE TYPE OF WHEELCHAIR/SCOOTER USED: CODE: EXPR INDICATE THE TYPE OF WHEELCHAIR/SCOOTER USED: CODE: EXPR BLADDER AND BOWEL: CODE: EXPR CODE: EXPR SIGNATURE PANEL: The following modified sections: 1. [id number] Admission Performance, 1. [id number] Admission Performance, 1. [id number] Admission Performance, 1. [id number] Admission Performance, 1. [id number] Admission Performance, 1. [id number] Admission Performance, 1. [id number] Admission Performance, 1. [id number] Admission Performance , 1. [id number] Admission Performance, 1. [id number] Admission Performance, 1. [id number] Admission Performanc e, 1. [id number] Admission Performance, 1. [id number] Admission Performance, 1. [id number] Admission Performan ce, Q1. Does the patient use a wheelchair/scooter? were [electronically] signed by Ashutosh Nguyen PT on WedMar 09 2019 16:15:49 GMT-0600 (Central Standard Time)
[2019-03-09] MEDS: ENOXAPARIN 40 MG/0.4 ML SQ SCH (16:39)
[2019-03-09] MEDS ORDERED: D5 0.9 NS 1,000 ML IV SCH (18:00)
--- NOTE | 2019-03-09 18:40 | R.HP ---
FACILITY: [facility] ENCOUNTER DATE AND TIME: 03/09/2019 18:35 (DRIER AND EVAPORATOR OPERATOR) MR#: [id number] NAME HUNTER VENTURA ADDRESS: [address] [place] [address] CITY: [place] [address] [address] PHONE: DATE OF : 1935 AGE: 83 SSN# [id number] GENDER: Male DEXTERITY Right-handed MARITAL STATUS RACE White PRE-HOSPITAL LIVING SETTING 01 - Home (private home/apt. board/care, assisted living, half-way, transitional living) PRE-HOSPITAL LIVING WITH Family/Relatives ENCOUNTER PHYSICIAN: Dr. Davion Escoto M.D. REFERRING DOCTOR: dilip Causey DATE OF ADMISSION: 03/08/2019 14:42 (DRIER AND EVAPORATOR OPERATOR) REFERRING FACILITY [facility] HOME TYPE AND DETAILS: Type of home: single family house # of levels in the residence: 1 # of steps to enter the residence: 2 # of steps within the residence: 0 ADMISSION DIAGNOSIS: Parkinson's disease (G20) Small Bowel Obstruction ONSET DATE: 02/28/2019 PRIMARY DIAGNOSIS-RELATED SURGERIES: Exploratory Laparotomy on 03/02/[address] Hedrick Open Adhesiolysis Biopsy of Colon Lesion and Liver Lesion SECONDARY/COMORBID DIAGNOSES (TIERED): - N/A HYPERTENSION HYPERLIPIDEMIA CAD BPH CKD STAGE 3 HISTORY OF PRESENT ILLNESS (HPI): Pt. is a 83 yo Right-handed white male. On 02/28/2019 he was admitted to [facility] with diagnosis Parkinson's disease (G20). His impairment category is Neurologic Conditions 03 - Parkinsonism (03.2). Pre-morbidly, Pt. was independent/mod-I in Locomotion, Safety Awareness, Balance, Social Cognition, T ransfers Control, Sphincter Control, Self-Care, Communication, and Endurance; and he had good Locomot ion, Balance, Safety Awareness, Social Cognition, Transfers Control, Sphincter Control, Self-Care, Co mmunication, and Endurance. Currently, he has deficits of Locomotion, Social Cognition, Balance, Transfers Control, Self-Care, an d Endurance. Pt. is now referred to [facility] for acute in-patient rehabilitation in order to maximize patient's functional independence in activities of daily living, strength, ROM, and mobi lity. Patient has realistic goal of being discharged at assistance level 6-Ari to reside at Home with Fam jerry/Relatives. Hunter Ventura is an 83 year old male that lives with his in a 1 vin[address] home with 2 steps to enter. He was completely independent without any assistive device. On 02/28/2019, patient was working on his yard when he experienced abdominal pain and was admitted to [facility] and treated. He is now medically stable but in need of 24-hour nursing, doctor supervision and oversite while receiving participate in 3hours of therapy a day/15 hours per week and receive care with an intensive interdisciplinary approach. MEDICATION ALLERGIES: ASPIRIN ENVIRONMENTAL ALLERGIES: None Known - Substance Allergies None Known - Other Allergies None Known PAST MEDICAL HISTORY: BPH CAD CKD STAGE 3 HYPERLIPIDEMIA HYPERTENSION PAST SURGICAL HISTORY: KNEE REPLACEMENT RIGHT SHOULDER SURGERY FAMILY HISTORY: Family history is not contributory. SOCIAL HISTORY: - Home Living Family/Relatives REVIEW OF SYSTEMS: - Gen No Chills Fatigue No Fever - Eyes No Double Vision No itchiness - ENMT No Difficulty Swallowing - CVS No Chest Discomfort No Chest Pain Fatigue No Weight Gain - Resp No Cough No Shortness of Breath - GI Continent Abdominal Pain Constipation No Diarrhea - Continent No Kidney Pain No Painful Urination No Urinary Urgency - MSK Joint Pain No Muscle Cramps No Stiffness - Skin No Itching No Rash No Suspicious Lesions - Neuro Coordination Difficulty No Difficulty with Concentration No Memory Loss No Seizures Weakness - Psych No Anxiety No Depression No HIV Exposure No Persistent Infections No Seasonal Allergies - Endo No Cold/Heat Intolerance No Excessive Hunger No Excessive Thirst No Excessive Urination PHYSICAL EXAM - Gen Alert and awake Lying in bed No apparent distress Oriented to: person, time, and place - Skin No skin breakdown. Normacephalic - Eyes No abnormalities - ENMT No abnormalities - Neck No abnormalities - CVS RRR - Chest No abnormalities - Abd Healing incision, + bowel sounds - GI Non distended Deferred - No abnormalities - Ext Mild bilateral lower extremity edema. - MSK 4+/5 weakness in both lower extremities. - Neuro No focal deficits - Psych No abnormalities VITAL SIGNS Temperature: 97.6 F SBP/DBP: 102/81 Pulse: 69 Resp: 18 NURSING: - Shower allowing shower ACTIVITIES OOB only with supervision QI SCORES: - Self-Care A. Eating 04-Supervision or touching assistance B. Oral hygiene 04-Supervision or touching assistance C. Toileting hygiene 04-Supervision or touching assistance E. Shower/bathe self 03-Partial/moderate assistance F. Upper body dressing 04-Supervision or touching assistance G. Lower body dressing 03-Partial/moderate assistance H. Putting on/taking off footwear 03-Partial/moderate assistance - Mobility A. Roll left and right 04-Supervision or touching assistance B. Sit to lying 04-Supervision or touching assistance C. Lying to sitting on side of bed 04-Supervision or touching assistance D. Sit to stand 04-Supervision or touching assistance E. Chair/cbh-[id number] transfer 04-Supervision or touching assistance F. Toilet transfer 04-Supervision or touching assistance G. Car transfer 88-Not attempted due to medical condition or safety concerns I. Walk 10 feet 04-Supervision or touching assistance J. Walk 50 feet with two turns 04-Supervision or touching assistance K. Walk 150 feet 04-Supervision or touching assistance L. Walking 10 feet on uneven surfaces 88-Not attempted due to medical condition or safety concerns M. 1 step (curb) 88-Not attempted due to medical condition or safety concerns N. 4 steps 88-Not attempted due to medical condition or safety concerns O. 12 steps 88-Not attempted due to medical condition or safety concerns P. Picking up object 88-Not attempted due to medical condition or safety concerns R. Wheel 50 feet with two turns 88-Not attempted due to medical condition or safety concerns S. Wheel 150 feet 88-Not attempted due to medical condition or safety concerns - Bladder and Bowel Bladder continence 0-Always continent Bowel continence 0-Always continent - Endurance Fair - Balance Fair - Safety Awareness Fair CURRENT FUNC. DEFICITS: Self-Care, Mobility, Endurance, Balance, and Safety Awareness MEDICATIONS: - Other See attached MAR (Medication Administration Record) Hunter Ventura.pdf ASSESSMENT: Pt. is a 83 yo Right-handed white male.On 02/28/2019 he was admitted to [facility] with diagnosis Parkinson's disease (G20).His impairment category is Neurologic Conditions 03 - P arkinsonism (03.2).Pre-morbidly, Pt. was independent/mod-I in Locomotion, Safety Awareness, Balance, Social Cognition, Transfers Control, Sphincter Control, Self-Care, Communication, and Endurance; and he had good Locomotion, Balance, Safety Awareness, Social Cognition, Transfers Control, Sphincter Con trol, Self-Care, Communication, and Endurance.Currently, he has deficits of Locomotion, Social Cognit ion, Balance, Transfers Control, Self-Care, and Endurance.Pt. is now referred to [facility] for acute in-patient rehabilitation in order to maximize patient's functional independe nce in activities of daily living, strength, ROM, and mobility.- Rehab Goal Patient has realistic goal of being discharged at assistance level 6-Ari to reside at Home with Fam jerry/Relatives. Hunter Ventura is an 83 year old male that lives with his in a 1 [address] home with 2 steps to enter. He was completely independent without any assistive device. On 02/28/2019, patient was working on his yard when he experienced abdominal pain and was admitted to [facility] and treated. He is now medically stable but in need of 24-hour nursing, doctor supervision and oversite while receiving participate in 3hours of therapy a day/15 hours per week and receive care with an intensive interdisciplinary approach.REHAB PLAN: - Physical Therapy Gait dysfunction - to improve, our physical therapists will perform initial evaluation of pt's status upon admission and devise an individualized program for Gait Training, and Wheel Chair mobility Inability to transfer - to improve, our physical therapists will perform initial evaluation of pt's s tatus upon admission and devise an individualized program for Bed mobility Need for home safety evaluation - to improve, our physical therapists will perform initial evaluation of pt's status upon admission and devise an individualized program for Home Evaluation Need in caregiver upon discharge - to improve, our physical therapists will perform initial evaluatio n of pt's status upon admission and devise an individualized program for Caregiver Training New precaution - to improve, our physical therapists will perform initial evaluation of pt's status u musa admission and devise an individualized program for Patient precaution education Edema - to improve, our physical therapists will perform initial evaluation of pt's status upon admi ssion and devise an individualized program for Elevation Training, and Lymphedema Therapy Poor balance - to improve, our physical therapists will perform initial evaluation of pt's status upo n admission and devise an individualized program for Balance Training Poor endurance - to improve, our physical therapists will perform initial evaluation of pt's status u musa admission and devise an individualized program for Endurance Training Weakness - to improve, our physical therapists will perform initial evaluation of pt's status upon ad mission and devise an individualized program for Aquatic Therapy, Neuromuscular Reeducation, and Stre ngthening Achieving independence - to improve, our physical therapists will perform initial evaluation of pt's status upon admission and devise an individualized program for Community Reintegration Activities - Occupational Therapy ADL deficits - to improve, our occupation therapists will perform initial evaluation of pt's status u musa admission and devise an individualized program for Bathing, Bed mobility, Community Reintegration , Cooking, Dressing, Eating, Fine Motor Skills, Grooming, Homemaking, Kitchen Mobility, Laundry, Jahaira ent Education, Safety Awareness, Splinting - Positioning, Transfers(Toilet, Tub, Shower), and Wheel C hair Management Cognitive deficits - to improve, our occupation therapists will perform initial evaluation of pt's st atus upon admission and devise an individualized program for Cognition - orientation Need for healthcare consulting manager - to improve, our occupation therapists will perform initial evaluation of pt's s tatus upon admission and devise an individualized program for Caregiver Training Weakness - to improve, our occupation therapists will perform initial evaluation of pt's status upon admission and devise an individualized program for Aquatic Therapy, Balance, Endurance, UE ROM, and U E strengthening MEDICAL PLAN: - Diet Type Start Regular - Diet - Liquid Texture Start Regular - Tube Feed Start N/A - Other See attached MAR (Medication Administration Record) See attached MAR (Medication Administration Record) Hunter Ventura.pdf - N/A Perform Neuro consult - Diet - Solid Texture Regular - Shower shower DISCHARGE PLAN: - Estimated Length of Stay (days) 13. - Consensus on plan Discharge plan has been discussed with primary caregiver. Patient/Family is in agreement with the joelle n. Primary caregiver is in agreement with the plan. - Patient/Family Goals Return home with assistance. - Planned Living Setting Upon Discharge Home, to live with Family/Relatives. Transitional Living. SIGNATURE PANEL: (DRIER AND EVAPORATOR OPERATOR)
--- NOTE | 2019-03-09 18:42 | PAPE ---
PATIENT: [facility] MR# [id number] REFERRING DOCTOR dilip Causey EVALUATION DATE AND TIME 03/09/2019 18:40 (CORDWOOD CUTTER) NAME FELIX TIJERINA DATE OF 1935 AGE 83 PHONE N# [id number] GENDER male EVALUATING PHYSICIAN Dr. Davion Escoto M.D. ADMISSION DIAGNOSIS: Parkinson's disease (G20) Small Bowel Obstruction ONSET DATE 02/28/2019 SECONDARY/COMORBID DIAGNOSES TIERED: - N/A HYPERTENSION HYPERLIPIDEMIA CAD BPH CKD STAGE 3 POST-ADMISSION FUNCTIONAL/MEDICAL STATUS: - Bladder Same accident frequency: Ind - No accidents in the past 7 days - Bowel Same accident frequency: Ind - No accidents in the past 7 days - Walking Same score based on distance walked: 0(N/A) Same score based on distance walked: 3(>=150ft) - Wheelchair Same score based on distance traveled: 0(N/A) STATUS CHANGE EVALUATION: No change in Functional or Medical Status is identified compared with Pre-Admission screening. PATIENT NEEDS CLOSE MEDICAL SUPERVISION BY A REHABILITATION PHYSICIAN FOR: Coordination of Treatment Team Medical and Co-Morbidity Management Wound Care PATIENT REQUIRES 24X7 REHAB NURSING FOR MEDICAL AND FUNCTIONAL MGT. OF THE FOLLOWING DEFICITS: Disease Management Medication Management Patient/Family Education Providing Safe Environment Skin Integrity PATIENT REQUIRES INTENSIVE, COORDINATED INTERDISCIPLINARY APPROACH TO REHAB: Arranging Home Equipment/Services Discharge Planning Family Intervention/Training Code Clerk/Case Management LIST OF IDENTIFIED AND POTENTIAL PROBLEMS: Alteration in leisure activities Bladder, Incontinence Blood Pressure, Hypertension/hypotension Issues Bowel, Incontinence Infection, Actual or Potential Mobility Impaired Pain, Alteration in Comfort Self Care Deficit Skin Integrity, Actual or Potential Urinary Tract Infection (UTI), Actual or Potential RISK FOR COMPLICATIONS - Hypertension CVA. Hypotension. VA. TIA. - CAD CHF. Cardiac Arrest. VA. Pain. INTERVENTIONS - Hypertension - CAD 02 sats. Activity management. Medications. VS. PATIENT COULD BE AT RISK FOR COMPLICATIONS FROM ADVERSE MEDICAL CONDITIONS DUE TO HIS/HER COMORBIDITI ES AND THE RIGORS OF THE INTENSIVE REHABILLITATION PROGRAM. METHODS OR INTERVENTIONS TO AVOID COMPLIC ATIONS INCLUDE: - Bleeding Assess lab values and manage abnormalities. Nursing to teach precautions for anti-coagulation therapy . Wound to be assessed every shift. - Infection Clinical staff to assess and manage the signs and symptoms of infection including fever, redness, war mth, etc. - Urinary Tract Infection - Falls Patient will be evaluated for Fall Precautions and will be placed on Fall Precautions as indicated pe r protocol. - Skin Breakdown Nursing will assess skin daily using assessment tool and will place on Skin Breakdown Precautions as indicated per protocol. - Pain Clinical staff may employ non-medication methods such as massage, distraction, decrease stimulus, etc . as needed. Clinical staff will assess patient's pain level every shift per protocol to assess and e nsure pain management effectiveness. Medications will be given and the pain level re-assessed. PRELIMINARY PLAN OF CARE: - Physical Therapy Patient needs Physical Therapy for a daily minimum of 1.5 hours at least 5 out of 7 days, to improve: Mobility, Strengthening, Transfers, Stretching, ROM, Endurance, Ability to manage stairs, Gait, and Balance. - Speech Therapy Patient needs Speech Therapy for a daily minimum of 0.5 hours at least 5 out of 7 days, to improve: S wallowing, Cognition, Language Skills, and Compensatory Strategies. - Rehabilitation Nursing Patient requires 24x7 Rehabilitation Nursing for: Pain Issues, Identifying and preventing risk factor s, Monitoring and reporting current medical conditions, Assisting with ambulation and transfer, Daren ting with all ADL-s, Teaching patients about disease process and medications, Family teaching, Provid ing safe environment, Bowel and Bladder Issues, Skin Integrity, and Medication Management. Patient needs Code Clerk and/or Case Management for: Discharge Planning, Arranging Home Equipmen t or Services, and Family Interventions. - Dietary and Nutrition Services Patient needs Dietary and Nutrition Services for: Adequate Nutrition, Nutritional Supplements, and Nu tritional Education. - Occupational Therapy Patient needs Occupational Therapy for a daily minimum of 1.5 hours at least 5 out of 7 days, to impr ove Activities of Daily Living, including: Eating, Grooming, Bathing, Dressing, Toileting, Toilet Tra nsfers, Community Reintegration, Higher functional activities, Adaptive Equipment, Splinting, Househo ld Tasks, and Other activities as determined. QI SCORES: - Self-Care A. Eating 04-Supervision or touching assistance B. Oral hygiene 04-Supervision or touching assistance C. Toileting hygiene 04-Supervision or touching assistance E. Shower/bathe self 03-Partial/moderate assistance F. Upper body dressing 04-Supervision or touching assistance G. Lower body dressing 03-Partial/moderate assistance H. Putting on/taking off footwear 03-Partial/moderate assistance - Mobility A. Roll left and right 04-Supervision or touching assistance B. Sit to lying 04-Supervision or touching assistance C. Lying to sitting on side of bed 04-Supervision or touching assistance D. Sit to stand 04-Supervision or touching assistance E. Chair/yic-ca-[id number] transfer 04-Supervision or touching assistance F. Toilet transfer 04-Supervision or touching assistance G. Car transfer 88-Not attempted due to medical condition or safety concerns I. Walk 10 feet 04-Supervision or touching assistance J. Walk 50 feet with two turns 04-Supervision or touching assistance K. Walk 150 feet 04-Supervision or touching assistance L. Walking 10 feet on uneven surfaces 88-Not attempted due to medical condition or safety concerns M. 1 step (curb) 88-Not attempted due to medical condition or safety concerns N. 4 steps 88-Not attempted due to medical condition or safety concerns O. 12 steps 88-Not attempted due to medical condition or safety concerns P. Picking up object 88-Not attempted due to medical condition or safety concerns R. Wheel 50 feet with two turns 88-Not attempted due to medical condition or safety concerns S. Wheel 150 feet 88-Not attempted due to medical condition or safety concerns - Bladder and Bowel Bladder continence 0-Always continent Bowel continence 0-Always continent - Endurance Fair - Balance Fair - Safety Awareness Fair POTENTIAL FUNCTIONAL GOALS FOR PATIENT TO ACHIEVE BY DISCHARGE: - Safety Precaution Patient will remain free from falls or injury at time of discharge. - Bed Mobility Patient will perform bed mobility at 4-Susannah level of assistance. - Transfers Patient will complete transfers from bed to chair at 4-Susannah level of assistance. - Mobility Patient will ambulate 150 ft with 4-Susannah level of assistance with RW. PATIENT REHAB POTENTIAL Misa TIJERINA is able and expected to receive 3 hours of individualized therapy daily on at least 5 of bernadette 7 days Misa LILLIANA's prognosis for significant practical improvement within a reasonable period of time appears Good Expected level of measurable improvement will be of a practical value to Misa TIJERINA's functional capaci ty or adaptations to impairments Has a viable Discharge Plan Medically appropriate; condition is sufficiently stable to participate in intensive rehab program DISCHARGE PLAN: - Estimated Length of Stay (days) 13. - Consensus on plan Discharge plan has been discussed with primary caregiver. Patient/Family is in agreement with the joelle n. Primary caregiver is in agreement with the plan. - Patient/Family Goals Return home with assistance. - Planned Living Setting Upon Discharge Home, to live with Family/Relatives. Transitional Living. CONCLUSION ON REHABILITATION NECESSITY: I have evaluated patient's pre-admission functional status and, comparing it to the patient's post-ad mission functional status now, I conclude that the pre-admission assessment was accurate. Patient's c ondition on admission supports the medical necessity of admission to IR[facility]. It is safe to proceed with patient's therapy program. SIGNATURE PANEL: (CORDWOOD CUTTER)
[2019-03-10] MEDS: NITROGLYCERIN 1 GM PKT TD SCH ×5 (00:30→23:40)
--- NOTE | 2019-03-10 01:14 | PN ---
Date of Progress Note: 03/09/2019 Subjective: Patient was seen this morning for followup. No new complaints or problems reported by h im. Denies any nausea, vomiting. Patient is reporting having bowel movement on a daily basis. This morning when I saw him, he was getting TPN and he is on full liquid diet, tolerating well. Objective: Vital Signs: Reviewed. HEENT: Unremarkable. Lungs: Clear to auscultation. Heart: Sounds normal. Abdomen: Soft. Bowel sounds normal. No guarding, rigidity, tenderness, or distention. Extremities: No leg edema. Laboratory Data: White count 9.3, hemoglobin 10.9, platelets 284. Sodium 137, potassium 4.3, chlori de 106, bicarb 25, BUN 22, creatinine 0.88, glucose 100. Impression: 1.Small bowel obstruction. 2.Generalized weakness. 3.Debility. 4.Parkinson disease. 5.Hypertension. Plan: Continue physical therapy under guidance of Dr. Escoto. We will continue current medical ma nagement. Patient's TPN will be discontinued today and after that we will start IV fluids. MISTY/MODL Voice ID: [id number] Report ID: [id number]
[2019-03-10] MEDS: PANTOPRAZOLE 40 MG INJ IVP SCH (07:18)
[2019-03-10] MEDS: AREDS PO SCH (08:00)
[2019-03-10] MEDS: LIDOCAINE 4% PATCH TOP SCH (08:33)
[2019-03-10] MEDS: AMLODIPINE 5 MG TAB PO SCH (08:33)
[2019-03-10] MEDS: FINASTERIDE 5 MG TAB PO SCH (08:33)
[2019-03-10] MEDS: ATORVASTATIN 10 MG TAB PO SCH (08:34)
[2019-03-10] MEDS: TAMSULOSIN 0.4 MG SR CAP PO SCH ×2 (08:34→16:46)
[2019-03-10] MEDS: PROMOD 30 ML DOSE PO SCH ×2 (09:09→20:31)
--- NOTE | 2019-03-10 10:24 | P.RH.PN ---
Estimated Length of Stay: 6 Expected Discharge Date: 03/14/19 Discharge Disposition Plan: Home Family Support: Yes Jockey Room Custodian Goal: Mobility, Transfers, Self Care Vital Signs: Last Vital Signs Temp 97.6 F 03/10/19 07:25 Pulse 66 03/10/19 08:33 Resp 16 03/10/19 07:25 BP 147/77 H 03/10/19 08:33 Pulse Ox 95 03/10/19 07:25 Laboratory: Laboratory Last Values WBC 9.3 K/uL (4.3-10.9) 03/09/19 05:45 RBC 3.13 M/uL (4.33-5.43) L 03/09/19 05:45 Hgb 10.9 g/dL (13.6-17.9) L 03/09/19 05:45 Hct 31.3 % (39.6-49.0) L 03/09/19 05:45 MCV 99.9 fL (80-100) 03/09/19 05:45 MCH 34.7 pg (27.0-35.0) 03/09/19 05:45 MCHC 34.8 g/dL (32.0-36.0) 03/09/19 05:45 RDW 12.8 % (12.1-15.2) 03/09/19 05:45 Plt Count 284 K/uL (152-406) 03/09/19 05:45 MPV 9.1 fL (7.6-11.3) 03/09/19 05:45 Neutrophils % 68.4 % (41.7-73.7) 03/09/19 05:45 Lymphocytes % 14.5 % (15.3-44.8) L 03/09/19 05:45 Monocytes % 14.8 % (3.3-12.3) H 03/09/19 05:45 Eosinophils % 2.0 % (0-4.4) 03/09/19 05:45 Basophils % 0.3 % (0-1.3) 03/09/19 05:45 Absolute Neutrophils 6.3 K/uL (1.8-8.0) 03/09/19 05:45 Absolute Lymphocytes 1.3 K/uL (0.7-4.9) 03/09/19 05:45 Absolute Monocytes 1.4 K/uL (0.1-1.3) H 03/09/19 05:45 Absolute Eosinophils 0.2 K/uL (0-0.5) 03/09/19 05:45 Absolute Basophils 0.0 K/uL (0-0.5) 03/09/19 05:45 Sodium 137 mmol/L (136-145) 03/09/19 05:45 Potassium 4.3 mmol/L (3.5-5.1) 03/09/19 05:45 Chloride 106 mmol/L (98-107) 03/09/19 05:45 Carbon Dioxide 25 mmol/L (21-32) 03/09/19 05:45 BUN 22 mg/dL (7-18) H 03/09/19 05:45 Creatinine 0.88 mg/dL (0.55-1.3) 03/09/19 05:45 Estimated GFR 83 mL/min (=/>90) L 03/09/19 05:45 Glucose 100 mg/dL (74-106) 03/09/19 05:45 POC Glucose 95 mg/dl (65-120) 03/09/19 17:11 Calcium 8.4 mg/dL (8.5-10.1) L 03/09/19 05:45 Magnesium 2.2 mg/dL (1.8-2.4) 03/09/19 05:45 Albumin 2.4 g/dL (3.4-5.0) L 03/09/19 05:45 Prealbumin 18.1 mg/dL (20-40) L 03/09/19 05:45 Urine Color Yellow 03/08/19 14:50 Urine Appearance Clear 03/08/19 14:50 Urine pH 7.0 (5.0-7.0) 03/08/19 14:50 Ur Specific [place] <=1.005 (1.005-1.030) 03/08/19 14:50 Urine Ketones Negative (NEG) 03/08/19 14:50 Urine Blood Negative (NEG) 03/08/19 14:50 Urine Nitrite Negative (NEG) 03/08/19 14:50 Urine Bilirubin Negative (NEG) 03/08/19 14:50 Urine Urobilinogen 1.0 mg/dL (0.2-1.0) 03/08/19 14:50 Ur Leukocyte Esterase Negative (NEG) 03/08/19 14:50 Urine RBC <5 /HPF (NONE SEEN) 03/08/19 14:50 Urine WBC <5 /HPF (<5) 03/08/19 14:50 Ur Squamous Epith Cells <5 /HPF (NONE SEEN) 03/08/19 14:50 Urine Bacteria <20 /HPF (NONE SEEN) 03/08/19 14:50 Urine Culture Reflexed Not needed 03/08/19 14:50 Urine Glucose Negative (NEG) 03/08/19 14:50 Urine Total Protein Negative (NEG) 03/08/19 14:50 Weight: 221 lb 6.4 oz Wound Present: No Closed Surgical Incision Present: Yes Negative Pressure Wound Therapy Present: No Physician Update: Labs reviewed and are stable. He is doing well with physical therapy by has difficulty dressing his upper body due to right shoulder pain. His pain is improving after a pain patch. Medical Issues: Patient is always continent with bladder and bowel. Functional Improvement: pt presents with mild balance deficits. pt scored a 47 on the Chavira Balance Assessment. pt does exhibit poor gait mechanics and requires improvement of these to reduce risk for falls. pt has experience falls at home and requires training on functional mobility outdoors as well as improvement of gait mechanics and technique to ensure safety. Skilled PT services are necessary to address the above mentioned impairments and functional limitations. 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 Please see the Rehabilitation Signature page for all necessary signatures.
--- NOTE | 2019-03-10 16:29 | P.PN ---
Subjective Date of Service: 03/10/19 Subjective: Improving (Patient doing well, tolerating diet, ambulatory, no pain. ) Physical Examination - Vital Signs Temperature: 97.6 F Blood Pressure: 110/53 Pulse: 72 Respirations: 16 Pulse Ox (%): 95 - Physical Exam General: Alert, In no apparent distress, Cooperative Gastrointestinal: Soft and benign, No ascites, No tenderness, No masses, No rebound, No guarding - Studies Microbiology Data (last 24 hrs): 03/08/19 14:50 Clean Catch Urine [place] Count - Final 03/08/19 14:50 Clean Catch Urine - Final No growth. Assessment And Plan - Current Problems (Diagnosis) (1) SBO (small bowel obstruction) Current Visit: No Status: Acute Plan: continue therapy - no surgical issues - follow up for staple removal in clinic in 1 week if possible
[2019-03-10] MEDS: ENOXAPARIN 40 MG/0.4 ML SQ SCH (16:46)
--- NOTE | 2019-03-10 17:52 | PN ---
Date of Progress Note: 03/10/2019 Subjective: Patient was seen this morning for followup. No new complaints or problems reported by matt anne. He was getting his physical therapy this morning when I saw him, feeling better. Denies any constipation, has bowel movement regularly. No nausea. No vomiting. No abdominal pain. His shoul lucy pain is better. Objective: Vital Signs: Reviewed. HEENT: Unremarkable. Lungs: Clear to auscultation. Heart: Sounds normal. Abdomen: Soft. Bowel sounds normal. No guarding, rigidity, tenderness, or distention. Extremities: No leg edema. Impression: 1.Small bowel obstruction. 2.Anemia. 3.Hypertension. Plan: Patient is tolerating diet very well. We will discontinue his IV fluid. We will continue cur rent antihypertensive medication, amlodipine. Patient has a p.r.n. order for IV Vasotec. We will di scontinue that as there is no need for that. His blood pressure is stable. We will continue to danielle tor if necessary, make adjustment on antihypertensive medications. MISTY/MODL Voice ID: [id number] Report ID: [id number]
--- NOTE | 2019-03-11 02:17 | FAST ---
SHIFT START DATE/TIME: 03/10/2019 19:00 (ACCOUNT SERVICES MANAGER) SHIFT END DATE/TIME: 03/11/2019 07:00 (ACCOUNT SERVICES MANAGER) NAME FELIX TIJERINA DATE OF : 1935 DATE OF ADMISSION: 03/08/2019 14:42 (ACCOUNT SERVICES MANAGER) PHONE: AGE: 83 N# [id number] GENDER: Male ENCOUNTER PHYSICIAN: Dr. Davion Escoto M.D. ADMISSION DIAGNOSIS: - Neurologic Conditions 03 - Parkinsonism (03.2) Parkinson's disease (G20). - Debility 16 - Debility (16) Small Bowel Obstruction. EATING: Not assessed/no information CODE: - ORAL HYGIENE: ORAL HYGIENE - STEP 1: Does the patient complete the activity by him/herself with no assistance (physical, verbal/nonverbal cueing, setup/clean-up)? No. ORAL HYGIENE - STEP 2: Does the patient need only setup/clean-up assistance from one helper? Yes. 1. [id number] ADMISSION PERFORMANCE: Setup or clean-up assistance CODE: 05 TOILETING HYGIENE: TOILETING HYGIENE - STEP 1: Does the patient complete the activity by him/herself with no assistance (physical, verbal/nonverbal cueing, setup/clean-up)? No. TOILETING HYGIENE - STEP 2: Does the patient need only setup/clean-up assistance from one helper? No. TOILETING HYGIENE - STEP 3: Does the patient need only verbal/nonverbal cueing or touching/steadying/contact guard assistance fro m one helper? No. TOILETING HYGIENE - STEP 4: Does the patient need physical assistance - for example lifting or trunk support from one helper - wi th the helper providing less than half of the effort? Yes. 1. [id number] ADMISSION PERFORMANCE: Partial/moderate assistance CODE: 03 BATHING: Not assessed/no information CODE: - DRESSING - UPPER BODY: Not assessed/no information CODE: - DRESSING - LOWER BODY: Not assessed/no information CODE: - PUTTING ON/TAKING OFF FOOTWEAR: Not assessed/no information CODE: - TRANSFERS: CAR: Not assessed/no information CODE: - WALK 10 FEET: Not assessed/no information CODE: - 1 STEP (CURB): Not assessed/no information CODE: - PICKING UP OBJECT: Not assessed/no information CODE: - DOES THE PATIENT USE A WHEELCHAIR/SCOOTER? CODE: EXPR WHEEL 50 FEET WITH TWO TURNS: Not assessed/no information CODE: - INDICATE THE TYPE OF WHEELCHAIR/SCOOTER USED: CODE: EXPR WHEEL 150 FEET: Not assessed/no information CODE: - INDICATE THE TYPE OF WHEELCHAIR/SCOOTER USED: CODE: EXPR BLADDER AND BOWEL: H350. BLADDER CONTINENCE (3-DAY ASSESSMENT PERIOD): Always continent (no documented incontinence) CODE: 0 H400. BOWEL CONTINENCE (3-DAY ASSESSMENT PERIOD): Always continent CODE: 0
[2019-03-11 05:58] VITALS: BMI 31.9
[2019-03-11] MEDS: NITROGLYCERIN 1 GM PKT TD SCH ×4 (07:21→23:50)
[2019-03-11] MEDS: PANTOPRAZOLE 40 MG INJ IVP SCH (07:25)
[2019-03-11] MEDS: LIDOCAINE 4% PATCH TOP SCH (07:25)
[2019-03-11] MEDS: AREDS PO SCH (08:00)
[2019-03-11] MEDS: FINASTERIDE 5 MG TAB PO SCH (08:19)
[2019-03-11] MEDS: AMLODIPINE 5 MG TAB PO SCH (08:19)
[2019-03-11] MEDS: ATORVASTATIN 10 MG TAB PO SCH (08:20)
[2019-03-11] MEDS: FE SULF/FA/VIT B COMP & C TAB PO SCH (08:20)
[2019-03-11] MEDS: PROMOD 30 ML DOSE PO SCH ×2 (08:20→20:49)
[2019-03-11] MEDS: FERROUS SULFATE 325 MG TAB PO SCH (08:20)
[2019-03-11] MEDS: TAMSULOSIN 0.4 MG SR CAP PO SCH ×2 (08:20→17:08)
--- NOTE | 2019-03-11 12:08 | FAST ---
ENCOUNTER DATE AND TIME: 03/11/2019 08:00 (MAKEUP EDITOR) NAME FELIX TIJERINA DATE OF : 1935 DATE OF ADMISSION: 03/08/2019 14:42 (MAKEUP EDITOR) PHONE: AGE: 83 N# [id number] GENDER: Male ENCOUNTER PHYSICIAN: Dr. Davion Escoto M.D. ADMISSION DIAGNOSIS: - Neurologic Conditions 03 - Parkinsonism (03.2) Parkinson's disease (G20). - Debility 16 - Debility (16) Small Bowel Obstruction. EATING: Not assessed/no information CODE: - ORAL HYGIENE: ORAL HYGIENE - STEP 1: Does the patient complete the activity by him/herself with no assistance (physical, verbal/nonverbal cueing, setup/clean-up)? Yes. 1. [id number] ADMISSION PERFORMANCE: Independent CODE: 06 TOILETING HYGIENE: TOILETING HYGIENE - STEP 1: Does the patient complete the activity by him/herself with no assistance (physical, verbal/nonverbal cueing, setup/clean-up)? Yes. 1. [id number] ADMISSION PERFORMANCE: Independent CODE: 06 BATHING: SHOWER/BATHE SELF - STEP 1: Does the patient complete the activity by him/herself with no assistance (physical, verbal/nonverbal cueing, setup/clean-up)? Yes. 1. [id number] ADMISSION PERFORMANCE: Independent CODE: 06 DRESSING - UPPER BODY: DRESSING - UPPER BODY - STEP 1: Does the patient complete the activity by him/herself with no assistance (physical, verbal/nonverbal cueing, setup/clean-up)? Yes. 1. [id number] ADMISSION PERFORMANCE: Independent CODE: 06 DRESSING - LOWER BODY: DRESSING - LOWER BODY - STEP 1: Does the patient complete the activity by him/herself with no assistance (physical, verbal/nonverbal cueing, setup/clean-up)? Yes. 1. [id number] ADMISSION PERFORMANCE: Independent CODE: 06 PUTTING ON/TAKING OFF FOOTWEAR: FOOTWEAR - STEP 1: Does the patient complete the activity by him/herself with no assistance (physical, verbal/nonverbal cueing, setup/clean-up)? Yes. 1. [id number] ADMISSION PERFORMANCE: Independent CODE: 06 DOES THE PATIENT USE A WHEELCHAIR/SCOOTER? CODE: EXPR INDICATE THE TYPE OF WHEELCHAIR/SCOOTER USED: CODE: EXPR INDICATE THE TYPE OF WHEELCHAIR/SCOOTER USED: CODE: EXPR BLADDER AND BOWEL: CODE: EXPR CODE: EXPR SIGNATURE PANEL: The following modified sections: 1. [id number] Admission Performance, 1. AM4590I Admission Performance, 1. QK5119h Admission Performance, 1. NK6818s Admission Performance, 1. QI2080x Admission Performance, 1. WV9955o Admission Performance were [electronically] signed by LEANDRA Hogue on Sat Mar 11 2019 12:07:12 GMT-0600 (Central Standard Time)
--- NOTE | 2019-03-11 12:50 | P.PN ---
Subjective Date of Service: 03/11/19 Subjective: No new changes (Patient tolerating normal diet, ambulatory, normal bowel function, no pain, no issues) Physical Examination - Vital Signs Temperature: 97.5 F Blood Pressure: 133/62 Pulse: 80 Respirations: 16 Pulse Ox (%): 7 - Physical Exam General: Alert, In no apparent distress, Cooperative Gastrointestinal: Soft and benign (william in place) - Studies Microbiology Data (last 24 hrs): 03/08/19 14:50 Clean Catch Urine [place] Count - Final 03/08/19 14:50 Clean Catch Urine - Final No growth. Assessment And Plan - Current Problems (Diagnosis) (1) SBO (small bowel obstruction) Current Visit: No Status: Acute Plan: continue therapy - no surgical issues - follow up for staple removal in clinic 2 weeks from day of surgery - call with any future needs, will sign off for now
--- NOTE | 2019-03-11 15:37 | FAST ---
ENCOUNTER DATE AND TIME: 03/09/2019 08:00 (WATCH DIAL PRINTER) NAME FELIX TIJERINA DATE OF : 1935 DATE OF ADMISSION: 03/08/2019 14:42 (WATCH DIAL PRINTER) PHONE: AGE: 83 N# [id number] GENDER: Male ENCOUNTER PHYSICIAN: Dr. Davion Escoto M.D. ADMISSION DIAGNOSIS: - Neurologic Conditions 03 - Parkinsonism (03.2) Parkinson's disease (G20). - Debility 16 - Debility (16) Small Bowel Obstruction. EATING: EATING - STEP 1: Does the patient complete the activity by him/herself with no assistance (physical, verbal/nonverbal cueing, setup/clean-up)? Yes. 1. [id number] ADMISSION PERFORMANCE: Independent CODE: 06 ORAL HYGIENE: ORAL HYGIENE - STEP 1: Does the patient complete the activity by him/herself with no assistance (physical, verbal/nonverbal cueing, setup/clean-up)? Yes. 1. [id number] ADMISSION PERFORMANCE: Independent CODE: 06 TOILETING HYGIENE: Not assessed/no information CODE: - BATHING: SHOWER/BATHE SELF - STEP 1: Does the patient complete the activity by him/herself with no assistance (physical, verbal/nonverbal cueing, setup/clean-up)? No. SHOWER/BATHE SELF - STEP 2: Does the patient need only setup/clean-up assistance from one helper? No. SHOWER/BATHE SELF - STEP 3: Does the patient need only verbal/nonverbal cueing or touching/steadying/contact guard assistance fro m one helper? Yes. 1. [id number] ADMISSION PERFORMANCE: Supervision or touching assistance CODE: 04 DRESSING - UPPER BODY: DRESSING - UPPER BODY - STEP 1: Does the patient complete the activity by him/herself with no assistance (physical, verbal/nonverbal cueing, setup/clean-up)? No. DRESSING - UPPER BODY - STEP 2: Does the patient need only setup/clean-up assistance from one helper? No. DRESSING - UPPER BODY - STEP 3: Does the patient need only verbal/nonverbal cueing or touching/steadying/contact guard assistance fro m one helper? No. DRESSING - UPPER BODY - STEP 4: Does the patient need physical assistance - for example lifting or trunk support from one helper - wi th the helper providing less than half of the effort? Yes. 1. [id number] ADMISSION PERFORMANCE: Partial/moderate assistance CODE: 03 DRESSING - LOWER BODY: DRESSING - LOWER BODY - STEP 1: Does the patient complete the activity by him/herself with no assistance (physical, verbal/nonverbal cueing, setup/clean-up)? No. DRESSING - LOWER BODY - STEP 2: Does the patient need only setup/clean-up assistance from one helper? No. DRESSING - LOWER BODY - STEP 3: Does the patient need only verbal/nonverbal cueing or touching/steadying/contact guard assistance fro m one helper? Yes. 1. [id number] ADMISSION PERFORMANCE: Supervision or touching assistance CODE: 04 PUTTING ON/TAKING OFF FOOTWEAR: FOOTWEAR - STEP 1: Does the patient complete the activity by him/herself with no assistance (physical, verbal/nonverbal cueing, setup/clean-up)? No. FOOTWEAR - STEP 2: Does the patient need only setup/clean-up assistance from one helper? No. FOOTWEAR - STEP 3: Does the patient need only verbal/nonverbal cueing or touching/steadying/contact guard assistance fro m one helper? No. FOOTWEAR - STEP 4: Does the patient need physical assistance - for example lifting or trunk support from one helper - wi th the helper providing less than half of the effort? No. FOOTWEAR - STEP 5: Does the patient need physical assistance - for example lifting or trunk support from one helper - wi th the helper providing more than half of the effort? No. FOOTWEAR - STEP 6: Does the helper provide all of the effort? OR Is the assistance of two or more helpers required to co mplete the activity? Yes. 1. [id number] ADMISSION PERFORMANCE: Dependent CODE: 01 DOES THE PATIENT USE A WHEELCHAIR/SCOOTER? CODE: EXPR INDICATE THE TYPE OF WHEELCHAIR/SCOOTER USED: CODE: EXPR INDICATE THE TYPE OF WHEELCHAIR/SCOOTER USED: CODE: EXPR BLADDER AND BOWEL: CODE: EXPR CODE: EXPR SIGNATURE PANEL: The following modified sections: 1. [id number] Admission Performance, 1. EG9059G Admission Performance, 1. XU8137s Admission Performance, 1. BK9217b Admission Performance, 1. ND4448x Admission Performance, 1. PI9293w Admission Performance were [electronically] signed by Josselin Benavidez OT on Sat Mar 11 15:36:40 GMT-0600 (Central Standard Time)
[2019-03-11] MEDS: ENOXAPARIN 40 MG/0.4 ML SQ SCH (17:08)
[2019-03-12] MEDS: NITROGLYCERIN 1 GM PKT TD SCH ×4 (05:18→23:39)
[2019-03-12] MEDS: PANTOPRAZOLE 40 MG INJ IVP SCH (06:50)
[2019-03-12] MEDS: LIDOCAINE 4% PATCH TOP SCH (06:51)
[2019-03-12] MEDS: AREDS PO SCH (07:57)
[2019-03-12] MEDS: FINASTERIDE 5 MG TAB PO SCH (07:58)
[2019-03-12] MEDS: AMLODIPINE 5 MG TAB PO SCH (07:58)
[2019-03-12] MEDS: FERROUS SULFATE 325 MG TAB PO SCH (07:58)
[2019-03-12] MEDS: FE SULF/FA/VIT B COMP & C TAB PO SCH (07:58)
[2019-03-12] MEDS: ATORVASTATIN 10 MG TAB PO SCH (07:58)
[2019-03-12] MEDS: TAMSULOSIN 0.4 MG SR CAP PO SCH ×2 (07:58→16:44)
[2019-03-12] MEDS: PROMOD 30 ML DOSE PO SCH ×2 (07:59→20:04)
--- NOTE | 2019-03-12 14:19 | PN ---
Date of Progress Note: 03/11/2019 Subjective: Patient was seen this morning for followup. He was doing his therapy on the rehab floor when I saw him. He denied any complaints. No constipation. No diarrhea. No nausea or vomiting. No abdominal pain. His right shoulder pain is improving very well. Objective: Vital signs: Reviewed. HEENT: Unremarkable. Lungs: Clear to auscultation. Heart: Sounds normal. Abdomen: Soft. Bowel sounds normal. No guarding, rigidity, tenderness, or distention. Extremities: No leg edema. Impression: 1.Small bowel obstruction, resolved. 2.Hypertension. 3.Anemia. 4.Parkinson disease. 5.Generalized weakness. 6.Debility. 7.Right shoulder osteoarthritis. Plan: We will continue current medications. Patient is improving well with physical therapy. We wi ll continue current medical management including current DVT prophylaxis and I will see him tomorrow for followup. MISTY/KARTHIK Voice ID: [id number] Report ID: [id number]
--- NOTE | 2019-03-12 14:21 | FAST ---
SHIFT START DATE/TIME: 03/11/2019 07:00 (BRIQUETTING MACHINE OPERATOR) SHIFT END DATE/TIME: 03/11/2019 19:00 (BRIQUETTING MACHINE OPERATOR) NAME FELIX TIJERINA DATE OF : 1935 DATE OF ADMISSION: 03/08/2019 14:42 (BRIQUETTING MACHINE OPERATOR) PHONE: AGE: 83 N# [id number] GENDER: Male ENCOUNTER PHYSICIAN: Dr. Davion Escoto M.D. ADMISSION DIAGNOSIS: - Neurologic Conditions 03 - Parkinsonism (03.2) Parkinson's disease (G20). - Debility 16 - Debility (16) Small Bowel Obstruction. EATING: EATING - STEP 1: Does the patient complete the activity by him/herself with no assistance (physical, verbal/nonverbal cueing, setup/clean-up)? Yes. 1. [id number] ADMISSION PERFORMANCE: Independent CODE: 06 ORAL HYGIENE: ORAL HYGIENE - STEP 1: Does the patient complete the activity by him/herself with no assistance (physical, verbal/nonverbal cueing, setup/clean-up)? Yes. 1. [id number] ADMISSION PERFORMANCE: Independent CODE: 06 TOILETING HYGIENE: TOILETING HYGIENE - STEP 1: Does the patient complete the activity by him/herself with no assistance (physical, verbal/nonverbal cueing, setup/clean-up)? Yes. 1. [id number] ADMISSION PERFORMANCE: Independent CODE: 06 BATHING: Not assessed/no information CODE: - DRESSING - UPPER BODY: DRESSING - UPPER BODY - STEP 1: Does the patient complete the activity by him/herself with no assistance (physical, verbal/nonverbal cueing, setup/clean-up)? Yes. 1. [id number] ADMISSION PERFORMANCE: Independent CODE: 06 DRESSING - LOWER BODY: DRESSING - LOWER BODY - STEP 1: Does the patient complete the activity by him/herself with no assistance (physical, verbal/nonverbal cueing, setup/clean-up)? Yes. 1. [id number] ADMISSION PERFORMANCE: Independent CODE: 06 PUTTING ON/TAKING OFF FOOTWEAR: FOOTWEAR - STEP 1: Does the patient complete the activity by him/herself with no assistance (physical, verbal/nonverbal cueing, setup/clean-up)? Yes. 1. [id number] ADMISSION PERFORMANCE: Independent CODE: 06 ROLL LEFT AND RIGHT: ROLL LEFT AND RIGHT - STEP 1: Does the patient complete the activity by him/herself with no assistance (physical, verbal/nonverbal cueing, setup/clean-up)? No. ROLL LEFT AND RIGHT - STEP 2: Does the patient need only setup/clean-up assistance from one helper? No. ROLL LEFT AND RIGHT - STEP 3: Does the patient need only verbal/nonverbal cueing or touching/steadying/contact guard assistance fro m one helper? Yes. 1. [id number] ADMISSION PERFORMANCE: Supervision or touching assistance CODE: 04 SIT TO LYING: SIT TO LYING - STEP 1: Does the patient complete the activity by him/herself with no assistance (physical, verbal/nonverbal cueing, setup/clean-up)? No. SIT TO LYING - STEP 2: Does the patient need only setup/clean-up assistance from one helper? No. SIT TO LYING - STEP 3: Does the patient need only verbal/nonverbal cueing or touching/steadying/contact guard assistance fro m one helper? Yes. 1. [id number] ADMISSION PERFORMANCE: Supervision or touching assistance CODE: 04 LYING TO SITTING: LYING TO SITTING ON SIDE OF BED - STEP 1: Does the patient complete the activity by him/herself with no assistance (physical, verbal/nonverbal cueing, setup/clean-up)? No. LYING TO SITTING ON SIDE OF BED - STEP 2: Does the patient need only setup/clean-up assistance from one helper? No. LYING TO SITTING ON SIDE OF BED - STEP 3: Does the patient need only verbal/nonverbal cueing or touching/steadying/contact guard assistance fro m one helper? Yes. 1. [id number] ADMISSION PERFORMANCE: Supervision or touching assistance CODE: 04 SIT TO STAND: SIT TO STAND - STEP 1: Does the patient complete the activity by him/herself with no assistance (physical, verbal/nonverbal cueing, setup/clean-up)? No. SIT TO STAND - STEP 2: Does the patient need only setup/clean-up assistance from one helper? Yes. 1. [id number] ADMISSION PERFORMANCE: Setup or clean-up assistance CODE: 05 TRANSFERS: BED, CHAIR: CHAIR/[id number] TRANSFER - STEP 1: Does the patient complete the activity by him/herself with no assistance (physical, verbal/nonverbal cueing, setup/clean-up)? No. CHAIR/[id number] TRANSFER - STEP 2: Does the patient need only setup/clean-up assistance from one helper? Yes. 1. [id number] ADMISSION PERFORMANCE: Setup or clean-up assistance CODE: 05 TRANSFER TOILET: TOILET TRANSFER - STEP 1: Does the patient complete the activity by him/herself with no assistance (physical, verbal/nonverbal cueing, setup/clean-up)? No. TOILET TRANSFER - STEP 2: Does the patient need only setup/clean-up assistance from one helper? Yes. 1. [id number] ADMISSION PERFORMANCE: Setup or clean-up assistance CODE: 05 TRANSFERS: CAR: Not assessed/no information CODE: - WALK 10 FEET: Not assessed/no information CODE: - 1 STEP (CURB): Not assessed/no information CODE: - PICKING UP OBJECT: Not assessed/no information CODE: - DOES THE PATIENT USE A WHEELCHAIR/SCOOTER? Q1. DOES THE PATIENT USE A WHEELCHAIR/SCOOTER?: No CODE: 0 INDICATE THE TYPE OF WHEELCHAIR/SCOOTER USED: CODE: EXPR INDICATE THE TYPE OF WHEELCHAIR/SCOOTER USED: CODE: EXPR BLADDER AND BOWEL: H350. BLADDER CONTINENCE (3-DAY ASSESSMENT PERIOD): Always continent (no documented incontinence) CODE: 0 H400. BOWEL CONTINENCE (3-DAY ASSESSMENT PERIOD): Always continent CODE: 0 SIGNATURE PANEL: The following modified sections: 1. [id number] Admission Performance, 1. [id number] Admission Performance, 1. [id number] Admission Performance, 1. JV3113y Admission Performance, 1. BY9931f Admission Performance, 1. CZ0883e Admission Performance, 1. LF1816q Admission Performance, 1. GD0548C Admission Performance , 1. EK8630Q Admission Performance, 1. RH6447G Admission Performance, 1. BZ3964W Admission Performanc e, 1. SQ3750U Admission Performance, 1. [id number] Admission Performance, 1. QG0657W Admission Performan ce, Q1. Does the patient use a wheelchair/scooter?, Q1. Does the patient use a wheelchair/scooter?, H 350. Bladder Continence (3-day assessment period), H400. Bowel Continence (3-day assessment period) w ere [electronically] signed by Sheyla Calero C.N.A. on WedMar 12 2019 14:21:00 GMT-0600 ([place] Time)
--- NOTE | 2019-03-12 14:22 | PN ---
Date of Progress Note: 03/12/2019 Subjective: Patient was seen this morning for followup. No new complaints or problems reported by matt anne. He is feeling much better, lying in bed, not in distress. Objective: Vital Signs: Reviewed. HEENT: Unremarkable. Lungs: Clear to auscultation. Heart: Sounds normal. Abdomen: Soft. Bowel sounds normal. No guarding, rigidity, tenderness, or distention. Extremities: No leg edema. Impression: 1.Small bowel obstruction. 2.Hypertension. 3.Anemia. 4.Parkinson disease. 5.Generalized weakness. 6.Debility. Plan: We will go ahead and continue current medications. Discontinue IV Protonix. Start him on ora l famotidine 40 mg at bedtime. Continue current antihypertensive medication and I will see him tommeme bolanos for followup. MISTY/MODL Voice ID: [id number] Report ID: [id number]
[2019-03-12] MEDS: ENOXAPARIN 40 MG/0.4 ML SQ SCH (16:44)
[2019-03-12] MEDS: FAMOTIDINE 20 MG TAB PO SCH (20:04)
[2019-03-13] MEDS: NITROGLYCERIN 1 GM PKT TD SCH ×4 (05:38→23:49)
[2019-03-13] MEDS: AREDS PO SCH (08:00)
[2019-03-13] MEDS: AMLODIPINE 5 MG TAB PO SCH (08:30)
[2019-03-13] MEDS: LIDOCAINE 4% PATCH TOP SCH (08:30)
[2019-03-13] MEDS: FERROUS SULFATE 325 MG TAB PO SCH (08:30)
[2019-03-13] MEDS: FE SULF/FA/VIT B COMP & C TAB PO SCH (08:30)
[2019-03-13] MEDS: FINASTERIDE 5 MG TAB PO SCH (08:31)
[2019-03-13] MEDS: TAMSULOSIN 0.4 MG SR CAP PO SCH ×2 (08:31→17:07)
[2019-03-13] MEDS: ATORVASTATIN 10 MG TAB PO SCH (08:32)
[2019-03-13] MEDS: PROMOD 30 ML DOSE PO SCH ×2 (08:33→19:45)
--- NOTE | 2019-03-13 11:28 | FAST ---
SHIFT START DATE/TIME: 03/13/2019 07:00 (INFORMATICS SCIENTIST) SHIFT END DATE/TIME: 03/13/2019 19:00 (INFORMATICS SCIENTIST) NAME FELIX TIJERINA DATE OF : 1935 DATE OF ADMISSION: 03/08/2019 14:42 (INFORMATICS SCIENTIST) PHONE: AGE: 83 N# [id number] GENDER: Male ENCOUNTER PHYSICIAN: Dr. Davion Escoto M.D. ADMISSION DIAGNOSIS: - Neurologic Conditions 03 - Parkinsonism (03.2) Parkinson's disease (G20). - Debility 16 - Debility (16) Small Bowel Obstruction. EATING: EATING - STEP 1: Does the patient complete the activity by him/herself with no assistance (physical, verbal/nonverbal cueing, setup/clean-up)? No. EATING - STEP 2: Does the patient need only setup/clean-up assistance from one helper? Yes. 1. [id number] ADMISSION PERFORMANCE: Setup or clean-up assistance CODE: 05 ORAL HYGIENE: ORAL HYGIENE - STEP 1: Does the patient complete the activity by him/herself with no assistance (physical, verbal/nonverbal cueing, setup/clean-up)? No. ORAL HYGIENE - STEP 2: Does the patient need only setup/clean-up assistance from one helper? No. ORAL HYGIENE - STEP 3: Does the patient need only verbal/nonverbal cueing or touching/steadying/contact guard assistance fro m one helper? Yes. 1. [id number] ADMISSION PERFORMANCE: Supervision or touching assistance CODE: 04 TOILETING HYGIENE: TOILETING HYGIENE - STEP 1: Does the patient complete the activity by him/herself with no assistance (physical, verbal/nonverbal cueing, setup/clean-up)? No. TOILETING HYGIENE - STEP 2: Does the patient need only setup/clean-up assistance from one helper? No. TOILETING HYGIENE - STEP 3: Does the patient need only verbal/nonverbal cueing or touching/steadying/contact guard assistance fro m one helper? Yes. 1. [id number] ADMISSION PERFORMANCE: Supervision or touching assistance CODE: 04 BATHING: Not assessed/no information CODE: - DRESSING - UPPER BODY: Not assessed/no information CODE: - DRESSING - LOWER BODY: Not assessed/no information CODE: - PUTTING ON/TAKING OFF FOOTWEAR: Not assessed/no information CODE: - ROLL LEFT AND RIGHT: Not assessed/no information CODE: - SIT TO LYING: Not assessed/no information CODE: - LYING TO SITTING: LYING TO SITTING ON SIDE OF BED - STEP 1: Does the patient complete the activity by him/herself with no assistance (physical, verbal/nonverbal cueing, setup/clean-up)? No. LYING TO SITTING ON SIDE OF BED - STEP 2: Does the patient need only setup/clean-up assistance from one helper? No. LYING TO SITTING ON SIDE OF BED - STEP 3: Does the patient need only verbal/nonverbal cueing or touching/steadying/contact guard assistance fro m one helper? Yes. 1. [id number] ADMISSION PERFORMANCE: Supervision or touching assistance CODE: 04 SIT TO STAND: SIT TO STAND - STEP 1: Does the patient complete the activity by him/herself with no assistance (physical, verbal/nonverbal cueing, setup/clean-up)? No. SIT TO STAND - STEP 2: Does the patient need only setup/clean-up assistance from one helper? No. SIT TO STAND - STEP 3: Does the patient need only verbal/nonverbal cueing or touching/steadying/contact guard assistance fro m one helper? Yes. 1. [id number] ADMISSION PERFORMANCE: Supervision or touching assistance CODE: 04 TRANSFERS: BED, CHAIR: CHAIR/[id number] TRANSFER - STEP 1: Does the patient complete the activity by him/herself with no assistance (physical, verbal/nonverbal cueing, setup/clean-up)? No. CHAIR/[id number] TRANSFER - STEP 2: Does the patient need only setup/clean-up assistance from one helper? Yes. 1. [id number] ADMISSION PERFORMANCE: Setup or clean-up assistance CODE: 05 TRANSFER TOILET: TOILET TRANSFER - STEP 1: Does the patient complete the activity by him/herself with no assistance (physical, verbal/nonverbal cueing, setup/clean-up)? No. TOILET TRANSFER - STEP 2: Does the patient need only setup/clean-up assistance from one helper? No. TOILET TRANSFER - STEP 3: Does the patient need only verbal/nonverbal cueing or touching/steadying/contact guard assistance fro m one helper? Yes. 1. [id number] ADMISSION PERFORMANCE: Supervision or touching assistance CODE: 04 TRANSFERS: CAR: Not assessed/no information CODE: - WALK 10 FEET: Not assessed/no information CODE: - 1 STEP (CURB): Not assessed/no information CODE: - PICKING UP OBJECT: Not assessed/no information CODE: - DOES THE PATIENT USE A WHEELCHAIR/SCOOTER? CODE: EXPR WHEEL 50 FEET WITH TWO TURNS: Not assessed/no information CODE: - INDICATE THE TYPE OF WHEELCHAIR/SCOOTER USED: CODE: EXPR WHEEL 150 FEET: Not assessed/no information CODE: - INDICATE THE TYPE OF WHEELCHAIR/SCOOTER USED: CODE: EXPR BLADDER AND BOWEL: H350. BLADDER CONTINENCE (3-DAY ASSESSMENT PERIOD): Always continent (no documented incontinence) CODE: 0 H400. BOWEL CONTINENCE (3-DAY ASSESSMENT PERIOD): Always continent CODE: 0 SIGNATURE PANEL: The following modified sections: 1. [id number] Admission Performance, 1. [id number] Admission Performance, 1. [id number] Admission Performance, 1. HU6079F Admission Performance, 1. [id number] Admission Performance, 1. ZR1705N Admission Performance, 1. KR6161N Admission Performance, 1. TG8226Q Admission Performance , 1. [id number] Admission Performance, Code, H350. Bladder Continence (3-day assessment period), H400. B owel Continence (3-day assessment period) were [electronically] signed by Nghia Mcgraw on WedMar 13 11:27:47 GMT-0600 (Central Standard Time)
[2019-03-13] MEDS: ENOXAPARIN 40 MG/0.4 ML SQ SCH (17:07)
[2019-03-13 17:26] VITALS: O2SAT 96
[2019-03-13] MEDS: FAMOTIDINE 20 MG TAB PO SCH (19:45)
--- NOTE | 2019-03-14 01:26 | PN ---
Date of Progress Note: 03/13/2019 History: Patient was seen this morning for followup, he was feeling fine. He was doing his physical therapy. On the rehab floor this morning when I saw him, denied any new complaints. He has a bowel movement almost on a daily basis. No nausea or vomiting. Tolerating diet well. Physical Examination: Vital Signs: Reviewed. HEENT: Unremarkable. Lungs: Clear to auscultation. Heart: Heart sounds normal. Abdomen: Soft, bowel sounds normal. No guarding, rigidity, tenderness, or distention. Extremities: No leg edema. Impression: 1.Small bowel obstruction. 2.Hypertension. 3.Anemia. Plan: Continue current medications. Continue physical therapy. Nursing staff was advised to kim Hedrick to find out about the staple removal as the patient is scheduled to go home tomorrow. I will see him in the morning. MISTY/MODL Voice ID: [id number] Report ID: [id number]
[2019-03-14] MEDS: NITROGLYCERIN 1 GM PKT TD SCH ×2 (05:07→12:00)
[2019-03-14 07:12] VITALS: BP 142/79; TEMP 97.7
[2019-03-14] MEDS: AREDS PO SCH (08:00)
[2019-03-14] MEDS: PROMOD 30 ML DOSE PO SCH (08:00)
[2019-03-14] MEDS: FERROUS SULFATE 325 MG TAB PO SCH (08:21)
[2019-03-14] MEDS: FE SULF/FA/VIT B COMP & C TAB PO SCH (08:21)
[2019-03-14] MEDS: LIDOCAINE 4% PATCH TOP SCH (08:22)
[2019-03-14] MEDS: ATORVASTATIN 10 MG TAB PO SCH (08:22)
[2019-03-14] MEDS: TAMSULOSIN 0.4 MG SR CAP PO SCH (08:22)
[2019-03-14] MEDS: FINASTERIDE 5 MG TAB PO SCH (08:22)
[2019-03-14] MEDS: AMLODIPINE 5 MG TAB PO SCH (08:23)
--- NOTE | 2019-03-14 10:56 | FAST ---
SHIFT START DATE/TIME: 03/14/2019 07:00 (SEAMING INSPECTOR) SHIFT END DATE/TIME: 03/14/2019 19:00 (SEAMING INSPECTOR) NAME FELIX TIJERINA DATE OF : 1935 DATE OF ADMISSION: 03/08/2019 14:42 (SEAMING INSPECTOR) PHONE: AGE: 83 N# [id number] GENDER: Male ENCOUNTER PHYSICIAN: Dr. Davion Escoto M.D. ADMISSION DIAGNOSIS: - Neurologic Conditions 03 - Parkinsonism (03.2) Parkinson's disease (G20). - Debility 16 - Debility (16) Small Bowel Obstruction. EATING: EATING - STEP 1: Does the patient complete the activity by him/herself with no assistance (physical, verbal/nonverbal cueing, setup/clean-up)? No. EATING - STEP 2: Does the patient need only setup/clean-up assistance from one helper? Yes. 1. [id number] ADMISSION PERFORMANCE: Setup or clean-up assistance CODE: 05 ORAL HYGIENE: ORAL HYGIENE - STEP 1: Does the patient complete the activity by him/herself with no assistance (physical, verbal/nonverbal cueing, setup/clean-up)? No. ORAL HYGIENE - STEP 2: Does the patient need only setup/clean-up assistance from one helper? Yes. 1. [id number] ADMISSION PERFORMANCE: Setup or clean-up assistance CODE: 05 TOILETING HYGIENE: TOILETING HYGIENE - STEP 1: Does the patient complete the activity by him/herself with no assistance (physical, verbal/nonverbal cueing, setup/clean-up)? No. TOILETING HYGIENE - STEP 2: Does the patient need only setup/clean-up assistance from one helper? No. TOILETING HYGIENE - STEP 3: Does the patient need only verbal/nonverbal cueing or touching/steadying/contact guard assistance fro m one helper? Yes. 1. [id number] ADMISSION PERFORMANCE: Supervision or touching assistance CODE: 04 BATHING: Not assessed/no information CODE: - DRESSING - UPPER BODY: Not assessed/no information CODE: - DRESSING - LOWER BODY: Not assessed/no information CODE: - PUTTING ON/TAKING OFF FOOTWEAR: Not assessed/no information CODE: - ROLL LEFT AND RIGHT: Not assessed/no information CODE: - SIT TO LYING: Not assessed/no information CODE: - LYING TO SITTING: Not assessed/no information CODE: - SIT TO STAND: SIT TO STAND - STEP 1: Does the patient complete the activity by him/herself with no assistance (physical, verbal/nonverbal cueing, setup/clean-up)? No. SIT TO STAND - STEP 2: Does the patient need only setup/clean-up assistance from one helper? Yes. 1. [id number] ADMISSION PERFORMANCE: Setup or clean-up assistance CODE: 05 TRANSFERS: BED, CHAIR: CHAIR/[id number] TRANSFER - STEP 1: Does the patient complete the activity by him/herself with no assistance (physical, verbal/nonverbal cueing, setup/clean-up)? No. CHAIR/[id number] TRANSFER - STEP 2: Does the patient need only setup/clean-up assistance from one helper? Yes. 1. [id number] ADMISSION PERFORMANCE: Setup or clean-up assistance CODE: 05 TRANSFER TOILET: TOILET TRANSFER - STEP 1: Does the patient complete the activity by him/herself with no assistance (physical, verbal/nonverbal cueing, setup/clean-up)? No. TOILET TRANSFER - STEP 2: Does the patient need only setup/clean-up assistance from one helper? Yes. 1. [id number] ADMISSION PERFORMANCE: Setup or clean-up assistance CODE: 05 TRANSFERS: CAR: Not assessed/no information CODE: - WALK 10 FEET: Not assessed/no information CODE: - 1 STEP (CURB): Not assessed/no information CODE: - PICKING UP OBJECT: Not assessed/no information CODE: - DOES THE PATIENT USE A WHEELCHAIR/SCOOTER? CODE: EXPR WHEEL 50 FEET WITH TWO TURNS: Not assessed/no information CODE: - INDICATE THE TYPE OF WHEELCHAIR/SCOOTER USED: CODE: EXPR WHEEL 150 FEET: Not assessed/no information CODE: - INDICATE THE TYPE OF WHEELCHAIR/SCOOTER USED: CODE: EXPR BLADDER AND BOWEL: H350. BLADDER CONTINENCE (3-DAY ASSESSMENT PERIOD): Always continent (no documented incontinence) CODE: 0 H400. BOWEL CONTINENCE (3-DAY ASSESSMENT PERIOD): Always continent CODE: 0 SIGNATURE PANEL: The following modified sections: 1. [id number] Admission Performance, 1. [id number] Admission Performance, 1. NJ6972E Admission Performance, 1. PM5392D Admission Performance, 1. GL8494Z Admission Performance, 1. NT4346A Admission Performance, 1. OP4277A Admission Performance, Code, Code, H350. Bladder Contin ence (3-day assessment period), H400. Bowel Continence (3-day assessment period) were [electronically ] signed by Nghia Mcgraw on WedMar 14 2019 10:55:38 GMT-0600 (Central Standard Time)
--- NOTE | 2019-03-15 04:16 | DS ---
Date of Discharge: 03/14/2019 Disposition: Discharged to go home. Discharge Medications And Instructions: 1.Continue all prior home medications except do not take Benicar and start amlodipine 5 mg p.o. dary y. 2.Follow up at my office next week on 03/20/2019, at 5:00 p.m. 3.Follow up with Dr. Hedrick as per his instruction. Physical Examination: HEENT: Unremarkable. Lungs: Clear to auscultation. Heart: Heart sounds normal. Abdomen: Soft. Bowel sounds normal. No guarding, rigidity, tenderness, or distention. Extremities: No leg edema. Final Diagnoses: 1.Generalized weakness. 2.Debility. 3.Parkinson disease. 4.Small bowel obstruction, status post surgery. 5.Hypertension. Hospital Course: An 83-year-old pleasant male patient, admitted to the hospital initially with small bowel obstruction and after he had surgery done. Postoperatively, he did very well and subsequently he was transferred to inpatient rehab. The patient's hospital course on rehab remained unremarkable . He participated well with physical therapy and overall his condition improved significantly well e nough to go home today. He has been having bowel movement almost on a daily basis. Denies any abdom inal pain, nausea, vomiting. He has Parkinson disease, which is fairly new diagnosis and he has appo intment to see his neurologist, which he will keep that appointment and then he will consider startin g new medication for Parkinson disease. For hypertension, we started him on amlodipine and that had actually controlled his blood pressure very well. Patient still has william present and he will foll ow up with general surgeon, Dr. Hedrick, who will decide at what point to take it out. His other med ical problems remained stable during this hospitalization and today he was discharged to go home in s table condition with above-mentioned medications. MISTY/MODL Voice ID: [id number] Report ID: [id number]
--- NOTE | 2019-03-22 18:21 | R.DS ---
FACILITY [id number] [id number] NAME HUNTER VENTURA ADDRESS [address] [place] [address] [address] [id number] PHONE DATE OF 1935 AGE 83 SSN# [id number] GENDER Male DEXTERITY Right-handed MARITAL STATUS RACE White ENCOUNTER PHYSICIAN Dr. Davion Escoto M.D. REFERRING DOCTOR Krishna Causey REFERRING FACILITY [facility] DISCHARGE DIAGNOSIS: - Neurologic Conditions 03 - Parkinsonism (03.2) Parkinson's disease (G20). - Debility 16 - Debility (16) Small Bowel Obstruction. DISCHARGE COMORBIDITIES: - N/A HYPERTENSION HYPERLIPIDEMIA CAD BPH CKD STAGE 3 DATE OF ADMISSION 03/08/2019 14:42 (METER SETTER) MEDICATION ALLERGIES: ASPIRIN ENVIRONMENTAL ALLERGIES: None Known - Substance Allergies None Known - Other Allergies None Known DISCHARGE MEDICATIONS: Other- See attached MAR (Medication Administration Record) Hunter Ventura.pdf. CONSULT: Perform Neuro consult NURSING: - Shower allowing shower ACTIVITIES OOB only with supervision THERAPIES: - Dietary and Nutrition Adequate Nutrition Nutritional Education Nutritional Supplements - Speech Therapy Memory Strategies Speech Intelligibility Training HISTORY OF PRESENT ILLNESS: Pt. is a 83 yo Right-handed white male.On 02/28/2019 he was admitted to [facility] with diagnosis Parkinson's disease (G20).His impairment category is Neurologic Conditions 03 - P arkinsonism (03.2).Pre-morbidly, Pt. was independent/mod-I in Locomotion, Safety Awareness, Balance, Social Cognition, Transfers Control, Sphincter Control, Self-Care, Communication, and Endurance; and he had good Locomotion, Balance, Safety Awareness, Social Cognition, Transfers Control, Sphincter Con trol, Self-Care, Communication, and Endurance.Currently, he has deficits of Locomotion, Social Cognit ion, Balance, Transfers Control, Self-Care, and Endurance.Pt. is now referred to [facility] for acute in-patient rehabilitation in order to maximize patient's functional independe nce in activities of daily living, strength, ROM, and mobility.- Rehab Goal Patient has realistic goal of being discharged at assistance level 6-Ari to reside at Home with Fam jerry/Relatives. Hunter Ventura is an 83 year old male that lives with his in a [address] home with 2 steps to enter. He was completely independent without any assistive device. On 02/28/2019, patient was working on his yard when he experienced abdominal pain and was admitted to [facility] and treated. He is now medically stable but in need of 24-hour nursing, doctor supervision and oversite while receiving participate in 3hours of therapy a day/15 hours per week and receive care with an intensive interdisciplinary approach.HOSPITAL COURSE: DIET - LIQUID TEXTURE: On 03/08/2019 Pt was upgraded to Regular Diet - Liquid Texture. DIET - SOLID TEXTURE: On 03/08/2019 Pt was upgraded to Regular Diet - Solid Texture. DIET TYPE: On 03/08/2019 Pt was upgraded to Regular Diet Type. TUBE FEED: On 03/08/2019 Pt was changed to N/A Tube Feed. DISCHARGE PHYSICAL EXAM - Gen Alert and awake Lying in bed No apparent distress Oriented to: person, time, and place - Skin No skin breakdown. Normacephalic - Eyes No abnormalities - ENMT No abnormalities - Neck No abnormalities - CVS RRR - Chest No abnormalities - Abd Healing incision, + bowel sounds - GI Non distended Deferred - No abnormalities - Ext Mild bilateral lower extremity edema. - MSK 4+/5 weakness in both lower extremities. - Neuro No focal deficits - Psych No abnormalities FUNCTIONAL STATUS: - Self-Care A. Eating 7-Ind 7-Ind B. Grooming 5-sup 7-Ind C. Bathing 4-Susannah 6-Ari D. Dressing - Upper 5-sup 6-Ari E. Dressing - Lower 4-Susannah 6-Ari F. Toileting 5-sup 6-Ari - Sphincter Control G. Bladder control 5-sup 6-Ari H. Bowel control 5-sup 6-Ari - Transfers Control I. Bed/Chair/Wheelchair 5-sup 6-Ari J. Toilet 5-sup 6-Ari K. Tub/Shower 5-sup 6-Ari - Locomotion L. Walk/Wheelchair (B) 4-Susannah 6-Ari M. Stairs 2-maxA 6-Ari - Communication N. Comprehension (B) 6-Ari 6-Ari O. Expression (B) 6-Ari 6-Ari - Social Cognition P. Social Interaction 7-Ind 7-Ind Q. Problem Solving 7-Ind 7-Ind R. Memory 7-Ind 7-Ind - Endurance Good - Balance Good - Safety Awareness Good QI SCORES: - Self-Care A. Eating 04-Supervision or touching assistance B. Oral hygiene 04-Supervision or touching assistance C. Toileting hygiene 04-Supervision or touching assistance E. Shower/bathe self 03-Partial/moderate assistance F. Upper body dressing 04-Supervision or touching assistance G. Lower body dressing 03-Partial/moderate assistance H. Putting on/taking off footwear 03-Partial/moderate assistance - Mobility A. Roll left and right 04-Supervision or touching assistance B. Sit to lying 04-Supervision or touching assistance C. Lying to sitting on side of bed 04-Supervision or touching assistance D. Sit to stand 04-Supervision or touching assistance E. Chair/pls-gc-[id number] transfer 04-Supervision or touching assistance F. Toilet transfer 04-Supervision or touching assistance G. Car transfer 88-Not attempted due to medical condition or safety concerns I. Walk 10 feet 04-Supervision or touching assistance J. Walk 50 feet with two turns 04-Supervision or touching assistance K. Walk 150 feet 04-Supervision or touching assistance L. Walking 10 feet on uneven surfaces 88-Not attempted due to medical condition or safety concerns M. 1 step (curb) 88-Not attempted due to medical condition or safety concerns N. 4 steps 88-Not attempted due to medical condition or safety concerns O. 12 steps 88-Not attempted due to medical condition or safety concerns P. Picking up object 88-Not attempted due to medical condition or safety concerns R. Wheel 50 feet with two turns 88-Not attempted due to medical condition or safety concerns S. Wheel 150 feet 88-Not attempted due to medical condition or safety concerns - Bladder and Bowel Bladder continence 0-Always continent Bowel continence 0-Always continent - Endurance Fair - Balance Fair - Safety Awareness Fair DISCHARGE INSTRUCTIONS: - N/A Lovenox 40 mg sq daily. DISCHARGE PLAN, FOLLOW UP CARE PROVISIONS: - Estimated Length of Stay (days) 13. - Consensus on plan Discharge plan has been discussed with primary caregiver. Patient/Family is in agreement with the joelle n. Primary caregiver is in agreement with the plan. - Patient/Family Goals Return home with assistance. - Planned Living Setting Upon Discharge Home, to live with Family/Relatives. Transitional Living. SIGNATURE PANEL: (METER SETTER)
== END 2019-03-14 15:39 | disposition home or self-care (01) | DRG 57 ==
LOC: 5TH 14:42
PROVIDERS: ADMIT Internal Medicine; ATTEND Internal Medicine
DX: G20 Parkinson's disease (principal); K56.609 Unspecified intestinal obstruction, unspecified as to partial versus complete obstruction; I12.9 Hypertensive chronic kidney disease with stage 1 through stage 4 chronic kidney disease, or unspecified chronic kidney disease; E78.5 Hyperlipidemia, unspecified; I25.10 Atherosclerotic heart disease of native coronary artery without angina pectoris; N40.0 Benign prostatic hyperplasia without lower urinary tract symptoms; N18.3 Chronic kidney disease, stage 3 (moderate); R53.81 Other malaise; D64.9 Anemia, unspecified; M19.011 Primary osteoarthritis, right shoulder
CPT/HCPCS: 36415; 80048; 81001; 82040; 82947; 83735; 84134; 85025; 87086; 87088; 92507; 92523; 92610; 97110; 97112; 97116; 97161; 97530; C9113; J1650; J7042

== ENCOUNTER 2020-11-19 12:04 | Emergency (ER) | payer OTHER, BC ==
--- NOTE | 2020-11-19 13:45 | RAD REPORT ---
EXAM DESCRIPTION: CT - Head Brain Wo Cont - 11/19/2020 1:39 pm CLINICAL HISTORY: VISUAL DISTURBANCES COMPARISON: No comparisons TECHNIQUE: All CT scans are performed using dose optimization technique as appropriate and may inclu de automated exposure control or mA/KV adjustment according to patient size. FINDINGS: No intracranial hemorrhage, hydrocephalus or extra-axial fluid collection.No areas of brai n edema or evidence of midline shift. Mild chronic small vessel ischemic changes in cerebral atrophy. Intracranial atherosclerosis. The paranasal sinuses and mastoids are clear. The calvarium is intact. IMPRESSION: No acute intracranial abnormality.
--- NOTE | 2020-11-19 15:40 | EDPHYS ---
Physician Documentation [facility] Name: Hunter Ventura Age: 85 yrs Sex: Male : 1935 Arrival Date: 11/19/2020 Time: 12:16 Bed 11 Private MD: Gage Causey C ED Physician Harshil Francois HPI: 11/19 15:33 This 85 yrs old Male presents to ER via Ambulatory with complaints of Eye sp3 Problem, Vision Problem, dr Da Silva for transcient visual loss. 15:33 85-year-old male with history of Parkinson's presents to the ED referred by his sp3 management technician for CT scan secondary to one episode yesterday of momentary loss of vision in his right eye described as purple discoloration and augmentation of what he sees which totally resolved within 3 to 4 minutes of onset. Patient has had no further symptoms since then. Patient describes no changes in visual acuity, peripheral vision, double vision, blurry vision, headache, pain on eye movement, eye discharge, headache, neck pain, chest pain, shortness of breath, fever, URI symptoms, abdominal pain, nausea, vomiting, diarrhea, rash, neurological symptoms the remainder of his body including paresthesias, muscle weakness, tingling, loss of balance, loss of pain and temperature, or any other ROS at this time.. Historical: - Allergies: 13:23 Aspirin; jl7 - Home Meds: 13:23 amlodipine 2.5 mg tab [Active]; pravastatin 40 mg oral tab [Active]; finasteride 5 mg jl7 oral tab [Active]; carbidopa-levodopa 25-100 mg Oral tab [Active]; - PMHx: 13:23 Hypertension; Parkinson's disease; jl7 - Immunization history:: Client reports receiving the 2nd dose of the Covid vaccine, Date received: April 2020 [facility]. - Social history:: Smoking status: Patient denies any tobacco usage or history of. ROS: 15:36 Constitutional: Negative for fever, chills, and weight loss, ENT: Negative for injury, sp3 pain, and discharge, Neck: Negative for injury, pain, and swelling, Cardiovascular: Negative for chest pain, palpitations, and edema, Respiratory: Negative for shortness of breath, cough, wheezing, and pleuritic chest pain, Abdomen/GI: Negative for abdominal pain, nausea, vomiting, diarrhea, and constipation, Back: Negative for injury and pain, MS/Extremity: Negative for injury and deformity, Skin: Negative for injury, rash, and discoloration, Neuro: Negative for headache, weakness, numbness, tingling, and seizure, Allergy/Immunology: Negative for hives, rash, and allergies, Endocrine: Negative for neck swelling, polydipsia, polyuria, polyphagia, and marked weight changes, Hematologic/Lymphatic: Negative for swollen nodes, abnormal bleeding, and unusual bruising. Exam: 15:36 Visual Acuity: Visual acuity is within normal limits. sp3 15:36 Constitutional: This is a well developed, well nourished patient who is awake, alert, and in no acute distress. Head/Face: Normocephalic, atraumatic. Eyes: Pupils equal round and reactive to light, extra-ocular motions intact. Lids and lashes normal. Conjunctiva and sclera are non-icteric and not injected. Cornea within normal limits. Periorbital areas with no swelling, redness, or edema. ENT: Nares patent. No nasal discharge, no septal abnormalities noted. External auditory canals are clear. Oropharynx with no redness, swelling, or masses, exudates, or evidence of obstruction, uvula midline. Mucous membranes moist. Neck: Trachea midline, no thyromegaly or masses palpated, and no cervical lymphadenopathy. Supple, full range of motion without nuchal rigidity, or vertebral point tenderness. No Meningismus. Chest/axilla: Normal chest wall appearance and motion. Nontender with no deformity. No lesions are appreciated. Cardiovascular: Regular rate and rhythm with a normal S1 and S2. No gallops, murmurs, or rubs. Normal PMI, no JVD. No pulse deficits. Respiratory: Lungs have equal breath sounds bilaterally, clear to auscultation and percussion. No rales, rhonchi or wheezes noted. No increased work of breathing, no retractions or nasal flaring. Abdomen/GI: Soft, non-tender, with normal bowel sounds. No distension or tympany. No guarding or rebound. No evidence of tenderness throughout. Back: No spinal tenderness. No costovertebral tenderness. Full range of motion. Skin: Warm, dry with normal turgor. Normal color with no rashes, no lesions, and no evidence of cellulitis. MS/ Extremity: Pulses equal, no cyanosis. Neurovascular intact. Full, normal range of motion. Neuro: Awake and alert, GCS 15, oriented to person, place, time, and situation. Cranial nerves II-XII grossly intact. Motor strength 5/5 in all extremities. Sensory grossly intact. Cerebellar exam normal. Normal gait. Psych: Awake, alert, with orientation to person, place and time. Behavior, mood, and affect are within normal limits. 15:37 Neuro: Motor: Patient has baseline tremor of the left hand in a pleural fashion sp3 consistent with his Parkinson's disease diagnosis.. Vital Signs: 13:19 BP 170 / 55; Pulse 62; Resp 17; Temp 98.2; Pulse Ox 100% ; Weight 92.99 kg; Height 5 jl7 ft. 11 in. (180.34 cm); Pain 0/10; 13:19 Body Mass Index 28.59 (92.99 kg, 180.34 cm) jl7 MDM: 15:16 Patient medically screened. sp3 15:37 ED course: Patient's head CT scan is without abnormality. Patient neurological exam is sp3 at baseline and currently is exhibiting no symptoms. I do not believe patient has acute CVA, acute glaucoma, acute intraocular pressure increase, central venous occlusion, preseptal cellulitis, mass-effect, or any other critical diagnoses at this time. Will discharge patient since symptoms are resolved and he can follow-up with his neurologist as needed. Patient told to return to the ED if the symptoms return or has any other concerns or emergency.. 11/19 13:29 Order name: CT Head Brain wo Cont; Complete Time: 15:41 jl7 Administered Medications: No medications were administered Disposition Summary: 11/19/20 15:40 Discharge Ordered Location: Home sp3 Condition: Stable sp3 Diagnosis - Other localized visual field defect, right eye sp3 Followup: sp3 - With: Private Physician - When: - Reason: Re-evaluation by your physician Discharge Instructions: - Discharge Summary Sheet sp3 - Visual Disturbances sp3 Forms: - Medication Reconciliation Form sp3 - Thank You Letter sp3 - Antibiotic Education sp3 - Prescription Opioid Use sp3 Signatures: Dispatcher [employer] EDMS Mary Killian RN RN jl7 Harshil Francois sp3
--- NOTE | 2020-11-19 15:40 | ER ---
Nurse's Notes [facility] Name: Hunter Ventura Age: 85 yrs Sex: Male : 1935 Arrival Date: 11/19/2020 Time: 12:16 Bed 11 Private MD: Gage Causey C Diagnosis: Other localized visual field defect, right eye Presentation: 11/19 13:19 Chief complaint: Patient states: Went for eye exam and mentioned to the doctor that jl7 when I watched TV I could only see half the screen out right eye for about 2-3 minutes yesterday and she sent us here, symtpoms resolved. Coronavirus screen: Client denies travel out of the [place] in the last 14 days. At this time, the client does not indicate any symptoms associated with coronavirus-19. Ebola Screen: No symptoms or risks identified at this time. Initial Sepsis Screen: Does the patient meet any 2 criteria? No. Patient's initial sepsis screen is negative. Does the patient have a suspected source of infection? No. Patient's initial sepsis screen is negative. Risk Assessment: Do you want to hurt yourself or someone else? Patient reports no desire to harm self or others. Onset of symptoms was November 18, 2020. 13:19 Method Of Arrival: Ambulatory jl7 13:19 Acuity: MAICO 3 jl7 Triage Assessment: 13:23 General: Appears in no apparent distress. uncomfortable, Behavior is calm, cooperative, jl7 appropriate for age. Pain: Denies pain. Neuro: Level of Consciousness is awake, alert, obeys commands, Oriented to person, place, time, situation. Cardiovascular: Patient's skin is warm and dry. Respiratory: Airway is patent Respiratory effort is even, unlabored, Respiratory pattern is regular, symmetrical. Derm: Skin is pink, warm \T\ dry. Historical: - Allergies: 13:23 Aspirin; jl7 - Home Meds: 13:23 amlodipine 2.5 mg tab [Active]; pravastatin 40 mg oral tab [Active]; finasteride 5 mg jl7 oral tab [Active]; carbidopa-levodopa 25-100 mg Oral tab [Active]; - PMHx: 13:23 Hypertension; Parkinson's disease; jl7 - Immunization history:: Client reports receiving the 2nd dose of the Covid vaccine, Date received: April 2020 [facility]. - Social history:: Smoking status: Patient denies any tobacco usage or history of. Screenin:30 Abuse screen: Denies threats or abuse. Denies injuries from another. Nutritional jl7 screening: No deficits noted. Tuberculosis screening: No symptoms or risk factors identified. Fall Risk None identified. Assessment: 13:30 General: See triage assessment. jl7 13:35 Reassessment: Dr. Francois gave VO for CT head. jl7 15:46 Reassessment: Patient appears in no apparent distress at this time. Patient and/or iw family updated on plan of care and expected duration. Pain level reassessed. Patient is alert, oriented x 3, equal unlabored respirations, skin warm/dry/pink. Vital Signs: 13:19 BP 170 / 55; Pulse 62; Resp 17; Temp 98.2; Pulse Ox 100% ; Weight 92.99 kg; Height 5 jl7 ft. 11 in. (180.34 cm); Pain 0/10; 13:19 Body Mass Index 28.59 (92.99 kg, 180.34 cm) jl7 ED Course: 12:16 Patient arrived in ED. am2 12:17 Krishna Causey MD is Private Physician. am2 12:17 Gage Causey MD is Private Physician. am2 13:23 Triage completed. jl7 13:23 Arm band placed on right wrist. jl7 13:29 Patient placed in waiting room, Patient notified of wait time. jl7 13:30 Patient has correct armband on for positive identification. jl7 13:38 CT Head Brain wo Cont In Process Unspecified. EDMS 15:16 Harshil Francois is Attending Physician. sp3 15:32 Radha Aguilera, RN is Primary Nurse. iw 15:46 No provider procedures requiring assistance completed. Patient did not have IV access iw during this emergency room visit. Administered Medications: No medications were administered Outcome: 15:40 Discharge ordered by MD. sp3 15:46 Discharged to home ambulatory, with family. iw 15:46 Condition: good 15:46 Discharge instructions given to patient, Instructed on discharge instructions, follow up and referral plans. Demonstrated understanding of instructions, follow-up care. 15:46 Patient left the ED. iw Signatures: Dispatcher [employer] EDRadha Guadarrama, RN RN iw Mary Killian RN RN jl7 Diane Tellez am2 Harshil Francois sp3
[2020-11-19 15:52] VITALS: BP 170/55; TEMP 98.2; O2SAT 100
== END 2020-11-19 15:46 | disposition home or self-care (01) ==
LOC: ER 12:04
DX: H53.451 Other localized visual field defect, right eye (principal); I10 Essential (primary) hypertension; G20 Parkinson's disease; Z88.6 Allergy status to analgesic agent
CPT/HCPCS: 70450; 99283

== ENCOUNTER 2021-02-10 06:30 | Day surgery (SDC) | payer OTHER, BC ==
[2021-02-07 16:15] LABS: Absolute Lymphocytes (CBC) 1.7 K/uL (0.7-4.9); Basophils % 0.5 % (0-1.3); Hematocrit 36.6 % (39.6-49.0); Lymphocytes % 28.8 % (15.3-44.8); MPV 8.4 fL (7.6-11.3); RBC Red Blood Cell Count 3.62 M/uL (4.33-5.43)
[2021-02-07 16:20] LABS: Protime INR 1.01
--- NOTE | 2021-02-07 16:43 | RAD REPORT ---
EXAM DESCRIPTION: RAD - Chest Pa And Lat (2 Views) - 02/07/2021 4:16 pm CLINICAL HISTORY: Pre Op pending heart cath COMPARISON: Chest Single View dated 03/05/2019; Chest Single View dated 02/28/2019; Chest Single View dated 02/05/2016; CHEST PA AND LAT 2 VIEW dated 06/27/2015 FINDINGS: Lines: None. Lungs: No evidence of edema or pneumonia. Pleural: No significant pleural effusions or pneumothorax. Cardiac: The heart size is within normal limits. Bones: No acute fractures. Other: IMPRESSION: No acute cardiopulmonary disease.
[2021-02-07 16:51] LABS: Potassium 4.8 mmol/L (3.5-5.1)
[2021-02-10] MEDS ORDERED: HEPA 1000U/500MLS 1,000 UNIT/500 ML BAG IV ONE (07:41)
[2021-02-10] MEDS ORDERED: MIDAZOLAM HCL 2 MG/2 ML INJ ONE ×2 (08:01→08:07)
[2021-02-10] MEDS ORDERED: FENTANYL CITR 100 MCG/2 ML ONE (08:01)
[2021-02-10] MEDS ORDERED: ATROPINE SULF 1 MG/10 ML SYR IV ONE (08:02)
[2021-02-10] MEDS ORDERED: NA CHLORIDE 0.9% 0 ML ONE (08:02)
[2021-02-10] MEDS ORDERED: NA CHLORIDE 0.9% 500 ML ONE (08:19)
--- NOTE | 2021-02-10 08:59 | OP ---
Date of Procedure: 02/10/2021 Surgeon: Aly Ac MD Urban Planner: Theresa Blancas. Angiography in the groin was normal. StarClose was used to close the case. He will be in the hospit al for 2 hours of bedrest after the procedure. He will go home after that and he will follow up with me in the office in the next 2 weeks. Procedure Performed: The patient was brought to the laborer pipeline as an outpatient today for selective co ronary arteriogram and left heart catheterization. Indication: Unstable angina and history of CAD. Procedure In Detail: In the laborer pipeline, he was prepped and draped in routine sterile fashion. Given V ersed and fentanyl for sedation. A 6-Japanese sheath introduced in the right common femoral artery usi ng a Seldinger technique and 10 cc of Xylocaine. Loren catheter left and right were used to do the diagnostic catheterization. He was found to have a normal left main. His coronaries are large, tor tuous, ectatic with diffuse plaquing throughout, but no focal stenosis. He was right dominant. Ther e were no complications. Blood Loss: 5 cc. Postoperative Diagnosis: Mild coronary artery disease. Anesthesia: Total conscious sedation was 30 minutes. Plan: Plan is for medical therapy. Continue statin and aspirin. NB/MODL Voice ID: [id number] Report ID: [id number]
[2021-02-10 10:21] VITALS: O2SAT 98
[2021-02-10 11:07] VITALS: BP 156/70; TEMP 98.4
--- NOTE | 2021-02-10 18:33 | EKG ---
Test Date: 2021-02-07 Test Time: 14:53:27 Scientific Laboratory Supervisor: BRANT MEASUREMENT RESULTS: Intervals: Rate: 64 MT: 180 QRSD: 132 QT: 458 QTc: 472 Beemer: P: 49 MT: 180 QRS: 21 T: 69 INTERPRETIVE STATEMENTS: Sinus rhythm with frequent premature ventricular complexes Left bundle branch block Abnormal ECG Compared to ECG 02/28/2019 10:41:40 Ventricular premature complex(es) now present Electronically Signed On 02-10-21 18:24:32 MICROFILMER by Aly Ac
== END 2021-02-10 10:55 | disposition home or self-care (01) ==
LOC: PRE 06:30 → CCL 10:55
DX: I25.110 Atherosclerotic heart disease of native coronary artery with unstable angina pectoris (principal); I27.21 Secondary pulmonary arterial hypertension; I10 Essential (primary) hypertension; E78.2 Mixed hyperlipidemia; N40.0 Benign prostatic hyperplasia without lower urinary tract symptoms; Z86.73 Personal history of transient ischemic attack (TIA), and cerebral infarction without residual deficits; Z20.822 Contact with and (suspected) exposure to COVID-19; Z88.8 Allergy status to other drugs, medicaments and biological substances; Z88.6 Allergy status to analgesic agent; Z82.49 Family history of ischemic heart disease and other diseases of the circulatory system
CPT/HCPCS: 93005; 85025; 80048; 36415; 85610; 85730; 71046; 93454; U0003; C1893; J2250; J3010; J7040; J1644; J0583

== ENCOUNTER 2021-10-14 16:07 | Inpatient (IN) | payer OTHER, BC ==
[2021-10-14 19:41] VITALS: BMI 26.9
[2021-10-14 20:34] LABS: Absolute Lymphocytes (CBC) 0.8 K/uL (0.7-4.9); Hematocrit 36.1 % (39.6-49.0); Lymphocytes % 11.7 % (15.3-44.8); MCV 101.6 fL (80-100); MPV 7.1 fL (7.6-11.3); RBC Red Blood Cell Count 3.55 M/uL (4.33-5.43)
[2021-10-14 20:53] LABS: Albumin 2.6 g/dL (3.4-5.0); Bilirubin Total 0.4 mg/dL (0.2-1.0); Magnesium 2.2 mg/dL (1.8-2.4); Potassium 4.5 mmol/L (3.5-5.1); Protein, Total 5.9 g/dL (6.4-8.2)
--- NOTE | 2021-10-14 21:10 | RAD REPORT ---
EXAM DESCRIPTION: RAD - Chest Pa And Lat (2 Views) - 10/14/2021 8:48 pm CLINICAL HISTORY: fever Chest pain. COMPARISON: Chest Pa And Lat (2 Views) dated 02/07/2021; Chest Single View dated 03/05/2019; Chest Sin gle View dated 02/28/2019; Chest Single View dated 02/05/2016 TECHNIQUE: PA and lateral views of the chest were obtained. FINDINGS: The lungs are hyperexpanded compatible with COPD. Haziness is seen in the right lung base suspicious for developing pneumonia. The heart is upper limit of normal in size. No fracture or aggre ssive bony process. IMPRESSION: Mild developing pneumonia likely present right lung base.
[2021-10-14] MEDS: TAMSULOSIN 0.4 MG SR CAP PO SCH (21:32)
[2021-10-14] MEDS: CEFTRIAXONE 1,000 MG in NA CHLORIDE 0.9% 50 ML IVPB SCH (21:33)
[2021-10-14] MEDS: NA CHLORIDE 0.9% 1,000 ML IV SCH (21:34)
[2021-10-14 23:14] LABS: Urine Appearance Clear (Clear); Urine Bilirubin Negative (Negative); Urine Blood Negative (Negative); Urine Color Yellow (Yellow); Urine Glucose Negative (Negative); Urine Protein 1+ (Negative); Urine Urobilinogen 0.2 mg/dL (0.2-1.0); Urine pH 5.5 (5.0-7.0)
[2021-10-15 00:19] LABS: Urine Bacteria <20 /HPF (NONE SEEN); Urine RBC <5 /HPF (NONE SEEN)
[2021-10-15] MEDS: ACETAMINOPHEN 500 MG TAB PO PRN ×2 (04:07→16:28)
[2021-10-15] MEDS: AMLODIPINE 2.5 MG TAB PO PRN (04:08)
--- NOTE | 2021-10-15 04:35 | HP ---
Date of Admission: 10/14/2021 Chief Complaint: Fever and feeling weak. History Of Present Illness: This is an 86-year-old very pleasant male patient who came into office today with his daughter and reported that on October 06, 2021, the patient had a fever of 100.9 degrees Fahrenheit with generalized weakness and he took a couple of Tylenol, fever resolved, but generalized weakness problem continued. He did not have any more fever until yesterday. He started to have fever with temperature spike up to 102-103 degrees Fahrenheit. The patient's daughter did 2 COVID tests; one on October 06, 2021, and second COVID test today and both COVID tests at home were negative. Denies any cough, congestion. He has a good appetite. His urine was noted to be dark yellow in color. No dysuria. No hematuria. No shortness of breath. No abdominal pain. He has been having chills and feels very weak and tired and sleepier than usual. He was on prednisone per his director business management, which was weaned off and last dose of prednisone was yesterday. After I evaluated him, he was admitted to the hospital for further evaluation and management of this problem. Allergies: TO ASPIRIN CAUSING ANAPHYLACTIC REACTION. Medications: List reviewed. Review of Systems: Constitutional: As mentioned above. GI: Chronic diarrhea, which actually has improved lately. All other systems reviewed and negative. Past Medical History: Significant for Parkinson disease, hypertension, hyperlipidemia, coronary artery disease, thoracic aortic aneurysm, eosinophilic colitis, chronic kidney disease stage 3A, benign prostatic hypertrophy, anemia, unspecified. Past Surgical History: Cataract surgery, shoulder surgery, knee surgery. Family History: Father and had heart disease. Mother had diabetes. Brother had prostate cancer and diabetes and sister has diabetes. Social History: Negative for smoking and alcohol use. Physical Examination: Vital Signs: At office today, blood pressure 120/62, pulse 72, temperature 98.1, respiratory rate 18, weight 186 pounds, height 68 inches. General: The patient appears weaker than normal, not in respiratory distress and his balance is not good when he is walking and required some assistance. HEENT: Head atraumatic, normocephalic. Conjunctivae nonerythematous. Sclerae white. Mouth, no thrush or edema noted. Ears/Nose, no mass, lesion, discharge noted. Neck: Supple. No JVD, lymph nodes, bruit, thyromegaly noted. Lungs: Bilateral good equal air entry. Clear to auscultation. No rhonchi. No rales. Heart: Normal heart sounds, no murmur or gallop. Abdomen: Soft, bowel sounds normal. No guarding, rigidity, tenderness, mass, hepatosplenomegaly, distention, or bruit noted. Extremities: No leg edema. No calf tenderness. Skin: No rash, ulcer, cellulitis. Lymphatics: No lymph node enlargement in neck, supraclavicular, infraclavicular region. Neuro: No focal neurological deficit. Chest: Unremarkable. External Genitalia: Deferred. Rectal: Deferred. Laboratory Data: White count 6.7, hemoglobin 12.1, platelets 233, sodium 137, potassium 4.5, chloride 104, bicarb 28, glucose 127, BUN 31, creatinine 1.29, liver function tests unremarkable, lactic acid 0.9, procalcitonin 0.07, chest x- ray shows right lung base pneumonia, urinalysis unremarkable except trace ketones and 1+ protein. The patient's COVID-19 test was negative, which was done at hospital today. Impression: 1. Fever. 2. Rule out sepsis. 3. Parkinson's disease. 4. Hypertension. 5. Hyperlipidemia. 6. Coronary artery disease. 7. Eosinophilic colitis. 8. Benign prostatic hypertrophy. 9. Anemia, chronic, unspecified. 10. Pneumonia. Plan: Admit patient to hospital for further evaluation and management of this problem. The patient is appropriate for inpatient and is expected to spend 2 midnights in hospital. We will continue home medications per order, fluid precaution was ordered. DVT prophylaxis with Lovenox will be given per order. We will consult Physical therapy to help ambulate the patient. Start him on IV fluid, empiric IV antibiotics, ceftriaxone will be started. We will follow up on urine culture, blood culture, and further plan of treatment will depend on how he responds to this initial treatment. Details and plan of treatment discussed with patient and patient's daughter. MISTY/MODL Voice ID: [id number] MAC
[2021-10-15] MEDS ORDERED: HOME MED 1 EA UNK (Pravastatin [Pravachol*] 40 MG/TAB Tab) PO SCH (09:00)
[2021-10-15] MEDS: AZATHIOPRINE 50 MG TABLET PO SCH (09:00)
[2021-10-15] MEDS ORDERED: CEFTRIAXONE 1000 MG/VIAL ONE (09:48)
[2021-10-15] MEDS: FINASTERIDE 5 MG TAB PO SCH (09:59)
[2021-10-15] MEDS: AMANTADINE 100 MG CAP PO SCH (09:59)
[2021-10-15] MEDS: TAMSULOSIN 0.4 MG SR CAP PO SCH ×2 (09:59→21:26)
[2021-10-15] MEDS: ENOXAPARIN 40 MG/0.4 ML SQ SCH (09:59)
[2021-10-15] MEDS: CARBIDOPA/LEVODOPA 25/100 TAB PO SCH ×3 (10:39→21:25)
[2021-10-15] MEDS: CEFTRIAXONE 1,000 MG in NA CHLORIDE 0.9% 50 ML IVPB SCH ×2 (10:41→21:26)
[2021-10-15] MEDS: AZITHROMYCIN IV 500 MG in NA CHLORIDE 0.9% 250 ML IVPB SCH (11:21)
[2021-10-15] MEDS: NA CHLORIDE 0.9% 1,000 ML IV SCH (14:46)
[2021-10-15] MEDS: ATORVASTATIN 10 MG TAB PO SCH (21:25)
[2021-10-16] MEDS: NA CHLORIDE 0.9% 1,000 ML IV SCH ×2 (02:28→12:00)
[2021-10-16] MEDS: ACETAMINOPHEN 500 MG TAB PO PRN ×4 (02:28→20:09)
[2021-10-16 05:47] LABS: Absolute Lymphocytes (CBC) 0.9 K/uL (0.7-4.9); Hematocrit 32.5 % (39.6-49.0); Lymphocytes % 10.6 % (15.3-44.8); MCV 100.5 fL (80-100); MPV 7.2 fL (7.6-11.3); RBC Red Blood Cell Count 3.23 M/uL (4.33-5.43)
[2021-10-16 06:09] LABS: Bilirubin Total 0.5 mg/dL (0.2-1.0); Magnesium 1.9 mg/dL (1.8-2.4); Potassium 4.1 mmol/L (3.5-5.1); Protein, Total 5.2 g/dL (6.4-8.2)
--- NOTE | 2021-10-16 06:56 | PN ---
Date of Progress Note: 10/15/2021 Subjective: The patient was seen this morning for followup. No new complaints or problems reported by the patient. He was lying in bed, not in any distress. Objective: Vital Signs: Reviewed. HEENT: Unremarkable. Lungs: Clear to auscultation. Heart: Heart sounds normal. Abdomen: Soft bowel sounds normal. No guarding, rigidity, tenderness, or distention. Extremities: No leg edema. Impression: 1.Pneumonia. 2.Hypertension. 3.Parkinson disease. Plan: We will go ahead and continue current antibiotics. The patient still has low-grade fever. We will continue to monitor him. Repeat chest x-ray tomorrow. Repeat blood work tomorrow and ambulati on was encouraged with physical therapy. I will see him tomorrow for followup. Continue current DVT prophylaxis. Details were discussed with the patient's daughter and today. MISTY/MODL Voice ID: [id number] Report ID: [id number]
[2021-10-16] MEDS: ENOXAPARIN 40 MG/0.4 ML SQ SCH (10:17)
[2021-10-16] MEDS: CARBIDOPA/LEVODOPA 25/100 TAB PO SCH ×3 (10:17→21:06)
[2021-10-16] MEDS: FINASTERIDE 5 MG TAB PO SCH (10:18)
[2021-10-16] MEDS: PIPER TAZO 3.375 GM in NA CHLORIDE 0.9% 100 ML IV SCH ×2 (10:18→17:14)
[2021-10-16] MEDS: AZATHIOPRINE 50 MG TABLET PO SCH (10:18)
[2021-10-16] MEDS: TAMSULOSIN 0.4 MG SR CAP PO SCH ×2 (10:18→21:06)
[2021-10-16] MEDS: AMANTADINE 100 MG CAP PO SCH (10:18)
[2021-10-16] MEDS: AZITHROMYCIN IV 500 MG in NA CHLORIDE 0.9% 250 ML IVPB SCH (10:19)
--- NOTE | 2021-10-16 16:59 | RAD REPORT ---
EXAM DESCRIPTION: RAD - Chest Pa And Lat (2 Views) - 10/16/2021 4:53 pm CLINICAL HISTORY: pneumonia Chest pain. COMPARISON: Chest Pa And Lat (2 Views) dated 10/14/2021; Chest Pa And Lat (2 Views) dated 02/07/2021; Chest Single View dated 03/05/2019; Chest Single View dated 02/28/2019Chest Pa And Lat (2 Views) dated 10/14/2021; Chest Pa And Lat (2 Views) dated 02/07/2021; Chest Single View dated 03/05/2019; Chest Sing le View dated 02/28/2019 TECHNIQUE: PA and lateral views of the chest were obtained. FINDINGS: The lungs are hyperexpanded compatible with COPD. Right lung base opacity/infiltrate has i mproved since prior study. The heart is upper limit of normal in size. No fracture or aggressive bony process. IMPRESSION: The right lung base developing pneumonia appears moderately improved since prior study.
[2021-10-16] MEDS: ATORVASTATIN 10 MG TAB PO SCH (21:06)
[2021-10-16] MEDS: AMLODIPINE 2.5 MG TAB PO PRN (21:07)
[2021-10-17] MEDS: NA CHLORIDE 0.9% 1,000 ML IV SCH ×2 (00:26→13:27)
[2021-10-17] MEDS: PIPER TAZO 3.375 GM in NA CHLORIDE 0.9% 100 ML IV SCH ×3 (00:27→16:32)
[2021-10-17 06:06] LABS: Magnesium 1.9 mg/dL (1.8-2.4)
--- NOTE | 2021-10-17 07:29 | PN ---
Date of Progress Note: 10/16/2021 Subjective: The patient was seen this morning for followup. No new complaints or problems reported by him except he continues to have low-grade fever around 100 to 100.1 degrees Fahrenheit and feels w eak and tired as a result of this ongoing fever and infection. No nausea, vomiting. No shortness of breath. Objective: Vital Signs: Reviewed. HEENT: Unremarkable. Lungs: Clear to auscultation. No wheezing. No rales. Heart: Sounds normal. Abdomen: Soft. Bowel sounds normal. No guarding, rigidity, tenderness, distention. Extremities: No leg edema. Laboratory Data: Blood culture remains negative. Urine culture has started to grow gram-negative ro ds today. Labs today; white count 8.2, hemoglobin 11.4, platelets 197. Procalcitonin less than 0.05 . Sodium 136, potassium 4.1, chloride 106, bicarb 24, BUN 19, creatinine 0.98, glucose 101. Liver fu nction tests unremarkable. Chest x-ray shows improvement in pneumonia. Impression: 1.Pneumonia. 2.Urinary tract infection. 3.Hypertension. 4.Generalized weakness. 5.Debility. 6.Anemia. Plan: We will go ahead and continue antibiotic, which is Zosyn and azithromycin. Follow up on cultu re results. I will see him tomorrow for followup. Continue current IV fluid and Physical Therapy to continue to work with the patient. Details were discussed with the patient and the patient's isela dao who was at bedside. MISTY/MODL Voice ID: [id number] Report ID: [id number]
[2021-10-17] MEDS: VANCOMYCIN 1.5 GM in NA CHLORIDE 0.9% 500 ML IVPB SCH (08:38)
[2021-10-17] MEDS: AZITHROMYCIN IV 500 MG in NA CHLORIDE 0.9% 250 ML IVPB SCH (11:22)
[2021-10-17] MEDS: AZATHIOPRINE 50 MG TABLET PO SCH (11:23)
[2021-10-17] MEDS: TAMSULOSIN 0.4 MG SR CAP PO SCH ×2 (11:23→21:32)
[2021-10-17] MEDS: AMANTADINE 100 MG CAP PO SCH (11:23)
[2021-10-17] MEDS: ENOXAPARIN 40 MG/0.4 ML SQ SCH (11:23)
[2021-10-17] MEDS: FINASTERIDE 5 MG TAB PO SCH (11:34)
[2021-10-17] MEDS: CARBIDOPA/LEVODOPA 25/100 TAB PO SCH ×3 (11:34→21:32)
--- NOTE | 2021-10-17 11:57 | RAD REPORT ---
EXAM DESCRIPTION: CT - Chest Abdomen Pelvis W Cont - 10/17/2021 11:11 am CLINICAL HISTORY: Fever, chest pain, abdominal pain COMPARISON: Chest Pa And Lat (2 Views) dated 10/16/2021 TECHNIQUE: Following dynamic enhancement using 100 milliliters nonionic IV contrast, axial imaging o f the chest, abdomen and pelvis was performed. Biphasic technique was utilized through the abdomen. Oral contrast was administered. All CT scans are performed using dose optimization technique as appropriate and may include automated exposure control or mA/KV adjustment according to patient size. FINDINGS: Mild ground-glass opacities are present in the central and posterior mid portions of the l eft upper lobe. Interstitial thickening is present in the posterior gutter on the left. Interstitial and alveolar opacities are present in the mid and lower aspect of the right lower lobe and inferior a spect of the right middle lobe. Minimal right upper lobe opacification adjacent to the major fissure. No dense consolidation or air bronchogram formation. This is most likely a bilateral pneumonia patte rn generally matching the prior day chest examination. Trace bilateral pleural effusions. No pleural based mass pneumothorax. No significant aortic or pulm onary arterial tree finding. A few small nonspecific mediastinal and hilar lymph nodes present most l ikely reactive. Pathologic lymphadenopathy is not suspected. No chest wall mass or axillary lymphaden opathy. Dense coronary artery calcifications without cardiomegaly or pericardial effusion. Granulomatous calcifications are present in the liver and spleen. A 2 centimeter subcapsular cyst is present superolateral right lobe liver. No suspicious liver parenchymal lesion. Portal vein enhances normally. Gallbladder and biliary tree are unremarkable. Gallstones can be occult on CT imaging. Symmetric renal function is seen with no suspicious mass or hydronephrosis. A 4.0 centimeter exophyti c cyst present lateral upper pole left kidney. No adrenal abnormalities. Partially contracted urinary bladder shows no wall thickening. Lobulated prostate gland projects into the base of the bladder. Co rrelation can be made with PSA findings. Bladder mass the trigone is less likely. Large amount of stool is present filling the colon. No colon wall thickening or mass identified. No a cute stomach or small bowel finding. Left-sided diverticulosis is present without diverticulitis. No acute GI findings seen. No acute or destructive bony process. Degenerative changes are present. No pathologic bone process se en. No acute vascular finding. IMPRESSION: CT chest imaging shows patchy interstitial and alveolar opacities most pronounced in the lower right lung field. This is most consistent with a bilateral pneumonia. Minimal bilateral pleural effusions. Small reactive mediastinal lymph nodes are present. No acute finding on CT abdomen pelvis examination.
[2021-10-17] MEDS: AMLODIPINE 2.5 MG TAB PO PRN (12:27)
[2021-10-17] MEDS: ATORVASTATIN 10 MG TAB PO SCH (21:32)
[2021-10-18] MEDS: PIPER TAZO 3.375 GM in NA CHLORIDE 0.9% 100 ML IV SCH ×3 (01:53→16:09)
[2021-10-18] MEDS: NA CHLORIDE 0.9% 1,000 ML IV SCH ×2 (02:07→18:00)
[2021-10-18] MEDS ORDERED: MAGNESIUM HYDROXIDE 8% 30 ML PO ONE (10:00)
[2021-10-18] MEDS: FINASTERIDE 5 MG TAB PO SCH (10:02)
[2021-10-18] MEDS: AMANTADINE 100 MG CAP PO SCH (10:02)
[2021-10-18] MEDS: CARBIDOPA/LEVODOPA 25/100 TAB PO SCH ×3 (10:02→21:40)
[2021-10-18] MEDS: AZATHIOPRINE 50 MG TABLET PO SCH (10:02)
[2021-10-18] MEDS: TAMSULOSIN 0.4 MG SR CAP PO SCH ×2 (10:02→21:40)
[2021-10-18] MEDS: ENOXAPARIN 40 MG/0.4 ML SQ SCH (10:03)
[2021-10-18] MEDS: AZITHROMYCIN IV 500 MG in NA CHLORIDE 0.9% 250 ML IVPB SCH (10:03)
[2021-10-18] MEDS: VANCOMYCIN 1.5 GM in NA CHLORIDE 0.9% 500 ML IVPB SCH (10:04)
--- NOTE | 2021-10-18 12:41 | PN ---
Date of Progress Note: 10/17/2021 Subjective: The patient was seen this morning for followup. No new complaints or problems reported by the patient except still feeling weak and continues to have low-grade fever around 100 degrees Fahrenheit. No shortness of breath. No vomiting. No diarrhea. Objective: Vital Signs: Reviewed. HEENT: Unremarkable. Lungs: Clear to auscultation. Heart: Sounds normal. Abdomen: Soft. Bowel sounds normal. No guarding, rigidity, tenderness, distention. Extremities: No leg edema. Laboratory Data: Sodium 136, potassium 4, chloride 106, bicarb 22, BUN 19, creatinine 0.94, glucose 91. Urine culture growing E coli and sensitivity results reviewed. Blood culture remains negative. Impression: 1. Pneumonia. 2. Urinary tract infection. 3. Generalized weakness. 4. Debility. 5. Hypertension. 6. Parkinson disease. Plan: CAT scan of the chest, abdomen, and pelvis done today, results reviewed. Abdomen and pelvis CAT scan shows benign-appearing cyst in liver and kidney. No need for further intervention and CAT scan of the chest shows bilateral pneumonia. Results of this CAT scan finding reviewed with the patient's daughter. We will continue current antibiotics per order. Physical Therapy to continue to work with the patient and today I did add vancomycin and we will continue other current antibiotics. I will see him tomorrow for followup. MISTY/KARTHIK Voice ID: [id number] Report ID: [id number] MTDD
--- NOTE | 2021-10-18 12:56 | PN ---
Date of Progress Note: 10/18/2021 Subjective: The patient was seen this morning for followup. He was lying in bed not in distress. Overall, he feels better today than yesterday. Has a good appetite. His skin color looks bad. He feels stronger than yesterday. Objective: Vital Signs: Reviewed. His temperature now is staying around 99 F. HEENT: Unremarkable. Lungs: Clear to auscultation. No wheezing. No rales. Heart: Sounds normal. Abdomen: Soft. Bowel sounds normal. No guarding, rigidity, tenderness, distention. Extremities: No leg edema. Impression: 1. Pneumonia. 2. Urinary tract infection. 3. Generalized weakness. 4. Debility. 5. Hypertension. 6. Parkinson disease. Plan: We will continue current antibiotic. The patient seems to be responding well. We will go ahead and have Physical Therapy continue to work with the patient. I will see him tomorrow for follow up. We did talk about discharge planning. The patient will need some rehab therapy before he is able to return back home and daughter would like for us to try to see if we can get him up to the fifth floor, which is inpatient rehab as her first choice and we will go ahead and initiate that request. MISTY/KARTHIK Voice ID: [id number] Report ID: [id number] MTDD
[2021-10-18] MEDS: ACETAMINOPHEN 500 MG TAB PO PRN ×2 (16:09→23:55)
[2021-10-18] MEDS ORDERED: Levofloxacin500mg IV 500 MG/100 ML BAG IV SCH (18:00)
[2021-10-18 18:23] LABS: Absolute Lymphocytes (CBC) 0.6 K/uL (0.7-4.9); Hematocrit 32.2 % (39.6-49.0); Lymphocytes % 7.8 % (15.3-44.8); MCV 101.8 fL (80-100); MPV 7.2 fL (7.6-11.3); RBC Red Blood Cell Count 3.16 M/uL (4.33-5.43)
[2021-10-18 18:45] LABS: Albumin 1.8 g/dL (3.4-5.0); Bilirubin Total 0.4 mg/dL (0.2-1.0); Protein, Total 5.4 g/dL (6.4-8.2)
[2021-10-18] MEDS: ATORVASTATIN 10 MG TAB PO SCH (21:40)
[2021-10-19] MEDS: ENOXAPARIN 40 MG/0.4 ML SQ SCH (08:16)
[2021-10-19] MEDS: AZATHIOPRINE 50 MG TABLET PO SCH (08:16)
[2021-10-19] MEDS: AMLODIPINE 2.5 MG TAB PO PRN (08:16)
[2021-10-19] MEDS: AMANTADINE 100 MG CAP PO SCH (08:16)
[2021-10-19] MEDS: CARBIDOPA/LEVODOPA 25/100 TAB PO SCH ×3 (08:16→21:31)
[2021-10-19] MEDS: FINASTERIDE 5 MG TAB PO SCH (08:16)
[2021-10-19] MEDS: TAMSULOSIN 0.4 MG SR CAP PO SCH ×2 (08:16→21:31)
[2021-10-19] MEDS: NA CHLORIDE 0.9% 1,000 ML IV SCH ×2 (08:17→13:31)
[2021-10-19] MEDS: VANCOMYCIN 1.5 GM in NA CHLORIDE 0.9% 500 ML IVPB SCH (09:00)
[2021-10-19] MEDS: ACETAMINOPHEN 500 MG TAB PO PRN ×2 (12:32→21:31)
[2021-10-19] MEDS: levoFLOXacin 750 MG TAB PO SCH (13:55)
--- NOTE | 2021-10-19 17:03 | PN ---
Date of Progress Note: 10/19/2021 Subjective: Patient was seen this morning for followup. No new complaints or problems reported by h im. He was lying in bed, not in distress. His daughter was present with him at bedside. Yesterday, patient was doing fine until afternoon time, he started to have temperature spike again and he was g iven Tylenol and when nurse contacted me with this information, stat blood culture was ordered along with CBC, chemistry profile, and test results reviewed. His antibiotics were changed yesterday. We discontinued his azithromycin and added Levaquin. This morning, he is afebrile, feeling more or less same as yesterday morning. Objective: Vital Signs: Reviewed. HEENT: Unremarkable. Lungs: Clear to auscultation except rales noted in left lung base and diminished air entry in the ri ght lung base, not using any accessory muscles of respiration. Heart: Sounds normal. Abdomen: Soft. Bowel sounds normal. No guarding, rigidity, tenderness, or distention. Extremities: No leg edema. Impression: 1.Pneumonia. 2.Generalized weakness. 3.Debility. 4.Hypertension. Plan: We will go ahead and continue current medications, continue current antibiotics, follow up on culture results. Physical Therapy to continue to work with patient and I will see him tomorrow for followup. I have requested a consultation for social Service to assist with inpatient rehab benefit for the patient. MISTY/KARTHIK Voice ID: [id number] Report ID: [id number]
[2021-10-19] MEDS: ATORVASTATIN 10 MG TAB PO SCH (21:31)
[2021-10-20] MEDS: AMLODIPINE 2.5 MG TAB PO PRN ×2 (02:16→20:40)
[2021-10-20 04:05] LABS: Hematocrit 31.7 % (39.6-49.0); MCV 99.9 fL (80-100); MPV 7.8 fL (7.6-11.3); RBC Red Blood Cell Count 3.18 M/uL (4.33-5.43)
[2021-10-20 04:17] LABS: Potassium 4.2 mmol/L (3.5-5.1)
[2021-10-20] MEDS: NA CHLORIDE 0.9% 1,000 ML IV SCH (06:37)
[2021-10-20] MEDS: ACETAMINOPHEN 500 MG TAB PO PRN (06:42)
--- NOTE | 2021-10-20 09:36 | RAD REPORT ---
EXAM DESCRIPTION: RAD - Chest Pa And Lat (2 Views) - 10/20/2021 9:27 am CLINICAL HISTORY: pnemonia COMPARISON: CT chest October 17, two view chest October 16 TECHNIQUE: Frontal and lateral views of the chest were obtained. FINDINGS: The lungs are normal volume. Interstitial alveolar opacification in the right lung base is still present. No improvement back to October 16 imaging. Trace amount of opacification is present in t he right upper lobe along the minor fissure. Left base interstitial pattern matches comparison as wel l. No benito mass or lymphadenopathy. Trachea is midline. Heart size is normal and central vasculature i s within normal limits. No pleural effusion or pneumothorax seen. No acute bony finding noted. No aortic abnormality. IMPRESSION: Right lung base infiltrative process not clearly different when comparing back to October 03 4. No new or progressive finding.
[2021-10-20] MEDS: CARBIDOPA/LEVODOPA 25/100 TAB PO SCH ×3 (09:50→20:40)
[2021-10-20] MEDS: FINASTERIDE 5 MG TAB PO SCH (09:50)
[2021-10-20] MEDS: TAMSULOSIN 0.4 MG SR CAP PO SCH ×2 (09:50→20:39)
[2021-10-20] MEDS: VANCOMYCIN 1.5 GM in NA CHLORIDE 0.9% 500 ML IVPB SCH (09:50)
[2021-10-20] MEDS: ENOXAPARIN 40 MG/0.4 ML SQ SCH (09:50)
[2021-10-20] MEDS: AMANTADINE 100 MG CAP PO SCH (09:56)
[2021-10-20] MEDS: AZATHIOPRINE 50 MG TABLET PO SCH (09:57)
--- NOTE | 2021-10-20 12:41 | P.CNS ---
Date of Consult: 10/20/21 Reason for Consult: intermittent fever Chief Complaint: Fever and weakness History of Present Illness: PT is 86yrs of age AW fever and weakness since 10/06/2021/ Tx with high dose steroids . Intermittent high fever and weaknes No prior pulmonary complaints. No GI symtpoms . Tx with AB since admission Allergies aspirin Allergy (Verified 02/07/21 15:36) Anaphylaxis NSAIDS (Non-Steroidal Anti-Inflamma Allergy (Verified 02/07/21 15:36) Anaphylaxis Home Medications: Pravastatin [Pravachol*] 40 mg PO DAILY 12/18/14 Tamsulosin [Flomax*] 0.4 mg PO BIDWM 12/18/14 Finasteride [Proscar*] 5 mg PO DAILY 02/28/19 Amantadine HCl [Amantadine] 100 mg PO DAILY 10/14/21 Carbidopa/Levodopa 25-100 [Sinemet 25-100*] 1 tab PO TID 10/14/21 azaTHIOprine [Azathioprine] 50 mg PO DAILY 10/14/21 - Past Medical/Surgical History Diabetic: No -: Hypertension -: BPH -: glaucoma bilat -: Eosinophilic Colitis -: Parkinson -: Bilateral knee surgery -: Rt shoulder -: Ileus sx - Family History Mother Medical History: Diabetes Father Medical History: Heart disease Notes: pacemaker Brother Medical History: Cancer Notes: Prostate - Social History Alcohol use: No CD- Drugs: No Caffeine use: Yes Place of Residence: Home Review of Systems 10-point ROS is otherwise unremarkable General: Fever, Weakness Physical Examination Temp Pulse Resp BP Pulse Ox 98.4 F 71 20 147/68 H 96 10/20/21 12:00 10/20/21 12:00 10/20/21 12:00 10/20/21 12:00 10/20/21 12:00 General: Alert, In no apparent distress, Oriented x3 Neck: Supple Respiratory: Clear to auscultation bilaterally Cardiovascular: No edema, Regular rate/rhythm, Normal S1 S2 Gastrointestinal: Normal bowel sounds, Soft and benign Musculoskeletal: No clubbing, No swelling Laboratory Data (last 24 hrs) 10/20/21 03:10: Sodium 137, Potassium 4.2, BUN 16, Creatinine 1.00, Glucose 101, Magnesium 2.0 10/20/21 03:10: WBC 7.5, Hgb 11.0 L, Hct 31.7 L, Plt Count 220 - Problems (1) Fever Current Visit: Yes Status: Acute Plan: Intermittent fever CT of abdomen and chest rev. No n spec changes on CT . WBC normal Cultures neg , PT tx with high dose steroids and also on imuran. DDX fungus infection .tx with Diflucan Normal WBC/ Qualifiers: Fever type: unspecified Qualified Code(s): R50.9 - Fever, unspecified
[2021-10-20] MEDS: FLUCONAZOLE 400 MG IVPB 400 MG/200 ML BAG IV SCH (13:26)
[2021-10-20] MEDS: ATORVASTATIN 10 MG TAB PO SCH (20:40)
--- NOTE | 2021-10-21 01:28 | PN ---
Date of Progress Note: 10/20/2021 Subjective: The patient was seen this morning for followup. No new complaints or problems reported by him except he still keeps on having intermittent fever. Objective: Vital Signs: Reviewed. HEENT: Examination unremarkable. Lungs: Clear to auscultation except rales noted in lower lung [place], not in any respiratory distres s. Heart: Sounds normal. Abdomen: Soft. Bowel sounds normal. No guarding, rigidity, tenderness, or distention. Extremities: No leg edema. Laboratory Data: Reviewed. Impression: 1.Pneumonia. 2.Hypertension. 3.Coronary artery disease. 4.Generalized weakness. 5.Debility. Plan: We will go ahead and continue current antibiotic. So far, cultures are negative. Urine cultu re is growing E coli and the patient is on appropriate culture specific antibiotic for urinary tract infection. He is still having intermittent fever. We have changed antibiotics few times for the pne onia and so far he has not responded as expected. We will consult Dr. Real and details were discussed with him today. I will see him tomorrow for followup. Details were discussed with the kemal del rio's daughter this morning. MISTY/MODL Voice ID: [id number] Report ID: [id number]
[2021-10-21] MEDS: NA CHLORIDE 0.9% 1,000 ML IV SCH (06:22)
[2021-10-21] MEDS: AMANTADINE 100 MG CAP PO SCH (10:22)
[2021-10-21] MEDS: AZATHIOPRINE 50 MG TABLET PO SCH (10:22)
[2021-10-21] MEDS: TAMSULOSIN 0.4 MG SR CAP PO SCH ×2 (10:23→20:08)
[2021-10-21] MEDS: CARBIDOPA/LEVODOPA 25/100 TAB PO SCH ×3 (10:23→20:08)
[2021-10-21] MEDS: AMLODIPINE 2.5 MG TAB PO PRN (10:23)
[2021-10-21] MEDS: ENOXAPARIN 40 MG/0.4 ML SQ SCH (10:23)
[2021-10-21] MEDS: FINASTERIDE 5 MG TAB PO SCH (10:23)
[2021-10-21] MEDS: VANCOMYCIN 1.5 GM in NA CHLORIDE 0.9% 500 ML IVPB SCH (10:24)
--- NOTE | 2021-10-21 12:19 | P.PN ---
Subjective Date of Service: 10/21/21 Chief Complaint: Fever and weakness Subjective: Improving (Patient is doing somewhat better no fever so far) Review of Systems 10-point ROS is otherwise unremarkable General: Weakness Physical Examination - Vital Signs Temperature: 98.9 F Blood Pressure: 150/65 Pulse: 74 Respirations: 20 Pulse Ox (%): 96 - Physical Exam General: Alert, Oriented x3 Respiratory: Clear to auscultation bilaterally, Friction rub Cardiovascular: Regular rate/rhythm, Normal S1 S2 Assessment And Plan - Current Problems (Diagnosis) (1) Fever Current Visit: Yes Status: Acute Plan: Fever of unknown origin most likely fungal superinfection recommend stopping vancomycin meropenem continue with Diflucan IV doses for about 2 days can switch to p.o. patient is eating and drinking will also contact his GI doctor regarding further recommendations patient is on Imuran was scheduled to get Remicade there is no clinical evidence of sepsis White count is normal patient is scheduled to be transferred to a rehab unit very weak chest x-ray shows minimal inflammatory changes in the right lower lobe cultures negative Qualifiers: Fever type: unspecified Qualified Code(s): R50.9 - Fever, unspecified
[2021-10-21] MEDS: FLUCONAZOLE 400 MG IVPB 400 MG/200 ML BAG IV SCH (14:01)
[2021-10-21] MEDS: levoFLOXacin 750 MG TAB PO SCH (14:01)
[2021-10-21] MEDS: ATORVASTATIN 10 MG TAB PO SCH (20:09)
[2021-10-21 23:04] VITALS: O2SAT 94
--- NOTE | 2021-10-22 01:03 | PN ---
Date of Progress Note: 10/21/2021 Subjective: The patient was seen this morning for followup. No new complaints or problems reported by the patient. Lying in bed, not in distress, overall feels a lot better in the last 24 hours. He did ambulate well with Physical Therapy yesterday. The patient's temperature is now around 99 degree s Fahrenheit in the last 24 hours. Objective: Vital Signs: Reviewed. HEENT: Unremarkable. Lungs: Bilateral good and equal air entry. Clear to auscultation except some rales noted in the pablito g base in the right side. Not using any accessory muscles of respiration. Heart: Sounds normal. Abdomen: Soft. Bowel sounds normal. No guarding, rigidity, tenderness, or distention. Extremities: No leg edema. Laboratory Data: There were no new labs today. Impression: 1.Pneumonia. 2.Generalized weakness. 3.Debility. Plan: We will go ahead and continue current medications, continue current antibiotics and antifungal medications. The patient has responded well ever since antifungal medication was started and detail s were discussed with Dr. Real, concerned that he may have pneumonia due to fungal infection and we will see how he is overnight. If his condition is stable tomorrow, our plan is to transfer him to inpatient rehab floor and we will continue Diflucan. We will plan to discontinue his Levaquin and va ncomycin tomorrow. MISTY/MODL Voice ID: [id number] Report ID: [id number]
[2021-10-22 08:40] VITALS: BP 150/70; TEMP 98
[2021-10-22] MEDS: AMANTADINE 100 MG CAP PO SCH (09:03)
[2021-10-22] MEDS: AZATHIOPRINE 50 MG TABLET PO SCH (09:04)
[2021-10-22] MEDS: ENOXAPARIN 40 MG/0.4 ML SQ SCH (09:04)
[2021-10-22] MEDS: FINASTERIDE 5 MG TAB PO SCH (09:04)
[2021-10-22] MEDS: TAMSULOSIN 0.4 MG SR CAP PO SCH (09:04)
[2021-10-22] MEDS: CARBIDOPA/LEVODOPA 25/100 TAB PO SCH (09:04)
--- NOTE | 2021-10-23 06:08 | DS ---
Date of Discharge: 10/22/2021 Disposition: Discharged to go to inpatient rehab. Physical Examination: HEENT: Unremarkable. Lungs: Clear to auscultation, except minimal basal rales noted. Not in any respiratory distress. Heart: Sounds normal. Abdomen: Soft, bowel sounds normal. No guarding, rigidity, tenderness, or distention. Extremities: No leg edema. Discharge Medications And Instructions: Continue all current medication as per order. Laboratory Data: Upon admission: White count 6.7, hemoglobin 12.1, platelets 233, and last CBC from October 20; white count 7.5, hemoglobin 11, platelets 220. Last chemistry on October 20; sodium 137, potas sium 4.2, chloride 107, bicarb 22, BUN 16, creatinine 1, glucose 101, magnesium 2. Initial Chemistry ; sodium 137, potassium 4.5, chloride 104, bicarb 28, BUN 31, creatinine 1.29, glucose 127. Liver fu nction tests unremarkable. Procalcitonin 0.07. Hospital Course: This is an 86-year-old very pleasant male patient who was admitted to the hospital with fever and complaining of feeling weak. Please see dictated H and P for more information. The p atient was evaluated in the office. He was admitted to the hospital and further evaluation revealed the patient had pneumonia. Urinalysis was normal. COVID-19 test was negative. The patient was star lucy on empiric antibiotics. Blood cultures came back negative. Initially, he was on IV ceftriaxone and azithromycin. The patient had a complicated course of intermittent fever during this hospitaliza tion. Urine culture grew E coli and the patient received a culture specific antibiotic throughout [facility] hospitalization. Because he continued to have this intermittent fever, we had to change antibioti cs few times. Initial antibiotic was azithromycin and ceftriaxone, and subsequently, we started Zosy n and later on, he was on Levaquin and vancomycin combination and last thing we did was to add antifu ngal medication, Diflucan, and ever since we did that, his condition has started to show significant improvement. His maximum temperature is not around 99 degrees Fahrenheit, but overall he feels a lot better. We believe that because patient has received prednisone for a long time and immunosuppressi ve medication for his lymphocytic colitis, we believe that his pneumonia that he has could be likely due to fungus infection and that is why Dr. Real and I discussed about that and started him on an tifungal medication and he has responded very well. He has significant generalized weakness and abhi angel and Physical Therapy was consulted and we also consulted inpatient rehab and he was accepted for rehab floor and today he was transferred in stable condition with above-mentioned medications and in structions. Final Diagnoses: 1.Pneumonia. 2.Urinary tract infection. 3.Generalized weakness. 4.Debility. 5.Parkinson's disease. 6.Hypertension. 7.Hyperlipidemia. 8.Coronary artery disease. 9.Lymphocytic colitis. 10.Benign prostatic hypertrophy. 11.Anemia, chronic, unspecified. MISTY/MODL Voice ID: [id number] Report ID: [id number]
== END 2021-10-22 10:59 | DRG 689 ==
LOC: 2ND 19:00
PROVIDERS: ADMIT Internal Medicine; ATTEND Internal Medicine
DX: N39.0 Urinary tract infection, site not specified (principal); J18.9 Pneumonia, unspecified organism; R53.81 Other malaise; B96.20 Unspecified Escherichia coli [E. coli] as the cause of diseases classified elsewhere; G20 Parkinson's disease; E78.5 Hyperlipidemia, unspecified; I25.10 Atherosclerotic heart disease of native coronary artery without angina pectoris; K52.832 Lymphocytic colitis; N40.0 Benign prostatic hyperplasia without lower urinary tract symptoms; D64.9 Anemia, unspecified; I12.9 Hypertensive chronic kidney disease with stage 1 through stage 4 chronic kidney disease, or unspecified chronic kidney disease; N18.31 Chronic kidney disease, stage 3a; Z88.6 Allergy status to analgesic agent; Z20.822 Contact with and (suspected) exposure to COVID-19
CPT/HCPCS: 36415; 71046; 71260; 74177; 80048; 80053; 80202; 81003; 81015; 82947; 83605; 83735; 84145; 85025; 87040; 87077; 87086; 87088; 87186; 97110; 97112; 97116; 97161; 97530; J0456; J1450; J1650; J2543; J3370; J7030; J7040; J7050; J7500; Q9967; U0003

== ENCOUNTER 2021-10-21 16:10 | Inpatient (IN) | payer OTHER, BC ==
--- NOTE | 2021-10-22 09:18 | R.PREADM ---
PRE-ADMISSION SCREENING FORM SCREENING DATE AND TIME 10/22/2021 08:30 (CDT) ANTICIPATED REHAB ADMISSION DATE 10/22/2021 REFERRING FACILITY [facility] REFERRAL DATE AND TIME 10/20/2021 10:02 (CDT) REFERRAL ROOM# 228 ACUTE ADMIT DATE 10/14/2021 Previous Rehabilitation(s): No. ACUTE VETERINARY MILK SPECIALIST/DC LYMPHEDEMA THERAPIST NASRA ATTENDING PHYSICIAN REFERRING PHYSICIAN PRIMARY CARE PHYSICIAN Dr[facility] CLINICAL LIAISON Brad Ndiaye PHYSICIAN REVIEWER Dr. Davion Escoto M.D. MR# [id number] NAME FELIX TIJERINA ADDRESS [address] [facility] [address] DATE OF 1935 AGE 86 SSN# [id number] GENDER male MARITAL STATUS ADMIT FROM 02 - [facility] PRE-HOSPITAL LIVING SETTING 01 - Home (private home/apt. board/care, assisted living, fpc, transitional living) HOME TYPE AND DETAILS Type of home: single family house # of levels in the residence: 1 # of steps within the residence: 0 # of steps to enter the residence: 0 PRE-HOSPITAL LIVING WITH Family/Relatives FAMILY SUPPORT Yes PRIMARY FAMILY CONTACT NAME MARCUS TIJERINA PRIMARY FAMILY CONTACT PHONE PRIMARY FAMILY CONTACT RELATIONSHIP Spouse PHONE PRIMARY FAMILY CONTACT ON ADM.? no IS PRIMARY FAMILY CONTACT AUTH. REP.? no 1ST EMERGENCY CONTACT MARCUS TIJERINA 1ST CONTACT PHONE 1ST CONTACT RELATIONSHIP Spouse PHONE 1ST CONTACT ON ADM. no IS 1ST CONTACT AUTH. REP.? no PHONE 2ND CONTACT ON ADM.? no PATIENT EMPLOYMENT STATUS Retired (for age) PATIENT EMPLOYER No Employer PAYOR INFORMATION: 1ST PAYOR NAME Medicare 1ST PAYOR PHONE 1ST PAYOR INJURY/ILLNESS DUE TO ACCIDENT? No ANOTHER GREEN PARTY RESPONSIBLE? 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 - Anemia - Parkinson's Disease Regular therapy services to improve balance, coordination, strength and functional movement patterns. Monitor symptoms and administer medications as indicated by physician - Hyperlipidemia Administer medications as per MD - CAD Vitals will be regularly monitored and symptoms managed. Administer Medication as indicated by physician. - Chronic Kidney Disease Monitoring of lab values pertaining to kidney function Medication management as indicated by physician Strict I and O's to monitor kidney function Diet management and educationto promote kidney health. - BPH Administer Medications as instructed by physician Monitor patient's urinary output and symptoms related to condition - Pneumonia Medications will be administered as indicated by physician. pt will be instructed on use of and be encouraged to use incentive spirometry Regular OOB activity and exercise to reduced risk for progression of condition Interval Chest X-Rays as needed Treat with Diflucan 400mg in 200 mls @ 200 mls/hr IV Q24H MARIA M RISK FOR COMPLICATIONS: - Falls Educated pt on fall prevention strategies to reduce/eliminate fall risk Patient will be evaluated for Fall Precautions and will be placed on Fall Precautions as indicated pe r protocol. pt is high risk for falls due to significant weakness and Parkinson's exacerbation - Skin Breakdown Nursing will assess skin daily using assessment tool and will place on Skin Breakdown Precautions as Indicated per protocol - Weakness Strengthening exercises to be performed Regular therapeutic activity and exercise - Pneumonia pt will be instructed on use of and be encouraged to use incentive spirometry regular OOB activity and exercise to reduce risk Interval Chest X-Rays will be obtained as necessary pt will be trained on deep breathing exercises Presence of current bilateral pneumonia - UTI Monitor for frequency, burning, discomfort, or incontinence - DVT Administer anti-coagulants as indicated by physician and monitor for effectiveness. Monitor for signs and symptoms of DVT or PE. - CVA pt has elevated BP and requires medical monitoring to manage and reduce reisk for CVA. - Pain Clinical staff will assess patient's pain level every shift per protocol to monitor for pain manageme nt effectiveness Educate patient on pain management strategies SUMMARY OF ACUTE HOSPITALIZATION: Pt. is a 86 yo Right-handed male. On 10/14/2021 he was admitted to [facility] with diagnosis Parkinson's disease (G20). His impairment category is Neurologic Conditions 03 - Parkinsonism (03.2). Pre-morbidly, Pt. was independent/mod-I in Locomotion, Safety Awareness, Social Cognition, Balance, a nd Transfers Control; and he had good Sphincter Control, Self-Care, Communication, and Endurance. Currently, he has deficits of Locomotion, Safety Awareness, Social Cognition, Transfers Control, Needles nce, Self-Care, Communication, Endurance, and Sphincter Control. Pt. is now referred to [facility] for acute in-patient rehabilitation in order to maximize patient's functional independence in activities of daily living, strength, ROM, and mobi lity. Patient has realistic goal of being discharged at assistance level Ari-to-sup to reside at Home with Family/Relatives. 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) Chronic kidney disease, stage 3 (moderate) (N18.3) Benign prostatic hyperplasia with lower urinary tract symptoms (N40.1) Anemia, unspecified (D64.9) Unspecified glaucoma (H40.9) Urinary tract infection, site not specified (N39.0) PAST SURGICAL HISTORY: CATARACT SURGERY SHOULDER SURGERY KNEE SURGERY Ileus Surgery MEDICATION ALLERGIES: Aspirin ENVIRONMENTAL ALLERGIES: - Substance Allergies None Known - Other Allergies None Known CODE STATUS: Full code WEIGHT/HEIGHT/BMI: WEIGHT 188 lbs HEIGHT 5' 10" BMI 27 DIET: - Diet Type Regular - Diet - Solid Texture Regular - Diet - Liquid Texture Regular - Tube Feed N/A SKIN DIAGRAM: on Other; extent - small; stage - NS(Not Stageable). Treatment - . REVIEW OF SYSTEMS: - Gen Alert and awake Lying in bed No apparent distress Oriented to: person, time, and place - Vital Signs Temperature: 98.7 F SBP/DBP: 147/72 Pulse: 64 Resp: 18 Vital signs stable, afebrile - CVS RRR VITAL SIGNS Temperature: 98.7 F (10/21/21) SBP/DBP: 147/72 Pulse: 64 Resp: 18 Vital signs stable, afebrile MEDICATIONS/TREATMENT: Other- See attached MAR (Medication Administration Record). CURRENT SPHINCTER CONTROL: Pre-hospital bladder status: unspecified # of bladder accidents in the last 7 days prior to screenin Pre-hospital bowel status: unspecified # of bowel accidents in the last 7 days prior to screenin Last Bowel Movement Date: 10/21/2021 CURRENT LOCOMOTION STATUS: distance walked 50 feet DETAILED CURRENT FUNCTIONAL STATUS: - Bladder accident frequency: 7-Ind - No accidents in the past 7 days - Bowel accident frequency: 7-Ind - No accidents in the past 7 days - Walking score based on distance walked: 0(N/A) - Wheelchair score based on distance traveled: 0(N/A) QI SCORES: - Self-Care A. Eating 04-Supervision or touching assistance B. Oral hygiene 03-Partial/moderate assistance C. Toileting hygiene 03-Partial/moderate assistance E. Shower/bathe self 03-Partial/moderate assistance F. Upper body dressing 04-Supervision or touching assistance G. Lower body dressing 03-Partial/moderate assistance H. Putting on/taking off footwear 88-Not attempted due to medical condition or safety concerns - Mobility A. Roll left and right 04-Supervision or touching assistance B. Sit to lying 03-Partial/moderate assistance C. Lying to sitting on side of bed 02-Substantial/maximal assistance D. Sit to stand 03-Partial/moderate assistance E. Chair/ncx-qh-irihr transfer 03-Partial/moderate assistance F. Toilet transfer 88-Not attempted due to medical condition or safety concerns G. Car transfer 88-Not attempted due to medical condition or safety concerns I. Walk 10 feet 03-Partial/moderate assistance J. Walk 50 feet with two turns 03-Partial/moderate assistance K. Walk 150 feet 88-Not attempted due to medical condition or safety concerns L. Walking 10 feet on uneven surfaces 88-Not attempted due to medical condition or safety concerns M. 1 step (curb) 88-Not attempted due to medical condition or safety concerns N. 4 steps 88-Not attempted due to medical condition or safety concerns O. 12 steps 88-Not attempted due to medical condition or safety concerns P. Picking up object 88-Not attempted due to medical condition or safety concerns R. Wheel 50 feet with two turns 88-Not attempted due to medical condition or safety concerns S. Wheel 150 feet 88-Not attempted due to medical condition or safety concerns - Bladder and Bowel Bladder continence Bowel continence - Endurance Fair - Balance Poor - Safety Awareness Fair CURRENT FUNC. DEFICITS: Self-Care, Mobility, Endurance, Balance, and Safety Awareness CURRENT / PREVIOUS ASSISTIVE DEVICES: Rolling Walker HISTORY OF FALLS. HAS THE PATIENT HAD TWO OR MORE FALLS IN THE PAST YEAR OR ANY FALL WITH INJURY IN T HE PAST YEAR?: Yes PRIOR SURGERY. DID THE PATIENT HAVE MAJOR SURGERY DURING THE 100 DAYS PRIOR TO ADMISSION?: No THERAPY NOTES FROM ACUTE CARE: Attached. SPECIAL NEEDS: - Safety Concerns Skin breakdown precautions needed due to skin breakdown risk PATIENT NEEDS ACTIVE AND ONGOING THERAPEUTIC INTERVENTION OF MULTIPLE THERAPY DISCIPLINES, INCLUDING: - Dietary and Nutrition Adequate Nutrition. Nutritional Education. Nutritional Supplements. Evaluate and Treat. - Occupational Therapy Cognitive Retraining. Patient needs Occupational Therapy for a daily minimum of 1.5 hours at least 5 out of 7 days, to improve Activities of Daily Living, including: Eating, Grooming, Bathing, Dressing, Toileting, Toilet Transfers, Community Reintegration, Higher functional activities, Adaptive Equipme nt, Splinting, Household Tasks, and Other activities as determined. Visual Perceptual Training. Evalu ate and Treat. Household Tasks. UE Strengthening. Transfer Training. Patient/Family Education. Safety Awareness. - Speech Therapy Cognitive Training. Expressive Language Skills. Memory Strategies. Patient needs Speech Therapy for a daily minimum of 1.5 hours at least 5 out of 7 days, to improve: Swallowing, Cognition, Language Ski lls, and Compensatory Strategies. Receptive Language Skills. Speech Intelligibility Training. Evaluat e and Treat. - Physical Therapy Patient needs Physical Therapy for a daily minimum of 1.5 hours at least 5 out of 7 days, to improve: Mobility, Strengthening, Transfers, Stretching, ROM, Endurance, Ability to manage stairs, Gait, and Balance. Evaluate and Treat. Patient/Family Education. Gait Training. Balance Training. Safety Awaren ess. Transfer Training. LE Strengthening. PATIENT NEEDS CLOSE MEDICAL SUPERVISION BY A REHABILITATION PHYSICIAN FOR: Coordination of Treatment Team Medical and Co-Morbidity Management Wound Care Pain Management DVT Management Bowel and Bladder Management Respiratory/Airway Management PATIENT REQUIRES 24X7 REHAB NURSING FOR MEDICAL AND FUNCTIONAL MGT. OF THE FOLLOWING DEFICITS: Disease Management Medication Management Patient requires 24x7 Rehabilitation Nursing for: Pain Issues, Identifying and preventing risk factor s, Monitoring and reporting current medical conditions, Assisting with ambulation and transfer, Daren ting with all ADL-s, Teaching patients about disease process and medications, Family teaching, Provid ing safe environment, Bowel and Bladder Issues, Skin Integrity, and Medication Management Patient/Family Education Providing Safe Environment Skin Integrity PATIENT REQUIRES INTENSIVE, COORDINATED INTERDISCIPLINARY APPROACH TO REHAB: Arranging Home Equipment/Services Discharge Planning Family Intervention/Training Patient needs Dietary and Nutrition Services for: Adequate Nutrition, Nutritional Supplements, and Nu tritional Education Patient needs Record Systems Analyst and/or Case Management for: Discharge Planning, Arranging Home Equipmen t or Services, and Family Interventions Record Systems Analyst/Case Management PATIENT REHAB POTENTIAL: Misa TIJERINA is able and expected to receive 3 hours of individualized therapy daily on at least 5 of bernadette ry 7 days Misa TIJERINA's prognosis for significant practical improvement within a reasonable period of time appears Good Expected level of measurable improvement will be of a practical value to Misa TIJERINA's functional capaci ty or adaptations to impairments Has a viable Discharge Plan Medically appropriate; condition is sufficiently stable to participate in intensive rehab program DISCHARGE PLAN: - Estimated Length of Stay (days) 13. - Consensus on plan Discharge plan has been discussed with primary caregiver. Patient/Family is in agreement with the joelle n. Primary caregiver is in agreement with the plan. - Patient/Family Goals Return home independently. - Planned Living Setting Upon Discharge Home, to live with Family/Relatives. Transitional Living. RECOMMENDED CARE LEVEL: IRF RECOMMENDATION DETAILS: Recommended Admission to Comprehensive Rehabilitation Program to Increase Functional [place] SCREENER'S COMPLETENESS CONFIRMATION: - Screening Confirmation The patient data collection on this preadmission screening form is finished PHYSICIANS REVIEW AND ADMISSION DETERMINATION Admit - Based on my review of the Pre-Admission Screening results, in my medical judgment and experie nce, I concur with the findings and recommend admission to [facility], as this patient requires an IRF level of care. SIGNATURE PANEL: Nitrate Operator - [electronically] signed by Brad Ndiaye on 10/21/2021 at 14:47 (CDT) Nitrate Operator - [electronically] signed by Ashutosh Nguyen PT on 10/21/2021 at 16:35 (CDT) Nitrate Operator - [electronically] signed by Ashutosh Nguyen PT on 10/22/2021 at 08:45 (CDT) Physician Reviewer - [electronically] signed by Dr. Davion Escoto M.D. on 10/22/2021 at 09:17 (CDT )
[2021-10-22] MEDS ORDERED: ACETAMINOPHEN 500 MG TAB PO PRN (11:45)
[2021-10-22] MEDS ORDERED: AMLODIPINE 2.5 MG TAB PO PRN (11:45)
[2021-10-22 12:37] LABS: Urine Bilirubin Negative (Negative); Urine Blood Negative (Negative); Urine Clarity Clear (Clear); Urine Color Yellow (Yellow); Urine Glucose Negative (Negative); Urine Protein Trace (Negative); Urine Urobilinogen 0.2 mg/dL (0.2-1.0)
[2021-10-22 12:47] LABS: Urine Bacteria None Seen /HPF (<20); Urine RBC None Seen /HPF (None Seen)
[2021-10-22] MEDS: FLUCONAZOLE 400 MG IVPB 400 MG/200 ML BAG IV SCH (13:16)
[2021-10-22] MEDS: CARBIDOPA/LEVODOPA 25/100 TAB PO SCH ×2 (13:17→20:55)
[2021-10-22] MEDS ORDERED: DOCUSATE NA/SENNA CONC 1 TAB PO PRN (14:51)
--- NOTE | 2021-10-22 18:39 | R.HP ---
HISTORY AND PHYSICAL FACILITY: [facility] ENCOUNTER DATE AND TIME: 10/22/2021 18:34 (CDT) MR#: [id number] NAME FELIX TIJERINA ADDRESS: [address] [place] [address] CITY: [place] [address]IP [address] PHONE: DATE OF : 1935 AGE: 86 SSN# [id number] GENDER: Male MARITAL STATUS PRE-HOSPITAL LIVING SETTING 01 - Home (private home/apt. board/care, assisted living, penitentiary, transitional living) PRE-HOSPITAL LIVING WITH Family/Relatives ENCOUNTER PHYSICIAN: Dr. Davion Escoto M.D. REFERRING DOCTOR: DATE OF ADMISSION: 10/22/2021 12:35 (CDT) REFERRING FACILITY [facility] PRIMARY CARE PHYSICIAN Dr. 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 is a 86 yo Right-handed male. On 10/14/2021 he was admitted to [facility] with diagnosis Parkinson's disease (G20). His impairment category is Neurologic Conditions 03 - Parkinsonism (03.2). Pre-morbidly, Pt. was independent/mod-I in Locomotion, Safety Awareness, Social Cognition, Balance, a nd Transfers Control; and he had good Sphincter Control, Self-Care, Communication, and Endurance. Currently, he has deficits of Locomotion, Safety Awareness, Social Cognition, Transfers Control, Biju nce, Self-Care, Communication, Endurance, and Sphincter Control. Pt. is now referred to [facility] for acute in-patient rehabilitation in order to maximize patient's functional independence in activities of daily living, strength, ROM, and mobi lity. Patient has realistic goal of being discharged at assistance level Ari-to-sup to reside at Home with Family/Relatives. 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) Chronic kidney disease, stage 3 (moderate) (N18.3) Benign prostatic hyperplasia with lower urinary tract symptoms (N40.1) Anemia, unspecified (D64.9) Unspecified glaucoma (H40.9) Urinary tract infection, site not specified (N39.0) PAST SURGICAL HISTORY: CATARACT SURGERY SHOULDER SURGERY KNEE SURGERY Ileus Surgery SOCIAL HISTORY: - Home Living Family/Relatives REVIEW OF SYSTEMS: - Gen No Chills Fatigue No Fever - Eyes No Double Vision No itchiness - ENMT No Difficulty Swallowing - CVS No Chest Discomfort No Chest Pain Fatigue No Weight Gain - Resp No Cough No Shortness of Breath - GI Continent No Abdominal Pain Constipation No Diarrhea - Continent No Kidney Pain No Painful Urination No Urinary Urgency - MSK No Joint Pain Muscle Cramps Stiffness - Skin No Itching No Rash No Suspicious Lesions - Neuro Coordination Difficulty Difficulty with Concentration No Memory Loss No Seizures Weakness - Psych No Anxiety No Depression No HIV Exposure No Persistent Infections No Seasonal Allergies - Endo No Cold/Heat Intolerance No Excessive Hunger No Excessive Thirst No Excessive Urination PHYSICAL EXAM - Gen Alert and awake Lying in bed No apparent distress Oriented to: person, time, and place - Skin No skin breakdown. No abnormalities - Eyes No abnormalities - ENMT No abnormalities - Neck No abnormalities - CVS RRR - Chest No abnormalities - Abd + bowel sounds - GI Soft Deferred - No abnormalities - Ext Mild bilateral lower extremity edema. - MSK 4+/5 weakness in both lower extremities. - Neuro No focal deficits - Psych Mild depression. VITAL SIGNS Temperature: 98.4 F SBP/DBP: 140/67 Pulse: 73 Resp: 16 NURSING: - Shower allowing shower ACTIVITIES OOB only with supervision QI SCORES: - Self-Care A. Eating 04-Supervision or touching assistance B. Oral hygiene 03-Partial/moderate assistance C. Toileting hygiene 03-Partial/moderate assistance E. Shower/bathe self 03-Partial/moderate assistance F. Upper body dressing 04-Supervision or touching assistance G. Lower body dressing 03-Partial/moderate assistance H. Putting on/taking off footwear 88-Not attempted due to medical condition or safety concerns - Mobility A. Roll left and right 04-Supervision or touching assistance B. Sit to lying 03-Partial/moderate assistance C. Lying to sitting on side of bed 02-Substantial/maximal assistance D. Sit to stand 03-Partial/moderate assistance E. Chair/kte-ee-dxjui transfer 03-Partial/moderate assistance F. Toilet transfer 88-Not attempted due to medical condition or safety concerns G. Car transfer 88-Not attempted due to medical condition or safety concerns I. Walk 10 feet 03-Partial/moderate assistance J. Walk 50 feet with two turns 03-Partial/moderate assistance K. Walk 150 feet 88-Not attempted due to medical condition or safety concerns L. Walking 10 feet on uneven surfaces 88-Not attempted due to medical condition or safety concerns M. 1 step (curb) 88-Not attempted due to medical condition or safety concerns N. 4 steps 88-Not attempted due to medical condition or safety concerns O. 12 steps 88-Not attempted due to medical condition or safety concerns P. Picking up object 88-Not attempted due to medical condition or safety concerns R. Wheel 50 feet with two turns 88-Not attempted due to medical condition or safety concerns S. Wheel 150 feet 88-Not attempted due to medical condition or safety concerns - Bladder and Bowel Bladder continence Bowel continence - Endurance Fair - Balance Poor - Safety Awareness Fair CURRENT FUNC. DEFICITS: Self-Care, Mobility, Endurance, Balance, and Safety Awareness MEDICATIONS: - Other See attached MAR (Medication Administration Record) ASSESSMENT: Pt. is a 86 yo Right-handed male.On 10/14/2021 he was admitted to [facility] with diagno sis Parkinson's disease (G20).His impairment category is Neurologic Conditions 03 - Parkinsonism (03 .2).Pre-morbidly, Pt. was independent/mod-I in Locomotion, Safety Awareness, Social Cognition, Balanc e, and Transfers Control; and he had good Sphincter Control, Self-Care, Communication, and Endurance. Currently, he has deficits of Locomotion, Safety Awareness, Social Cognition, Transfers Control, Biju nce, Self-Care, Communication, Endurance, and Sphincter Control.Pt. is now referred to [facility] for acute in-patient rehabilitation in order to maximize patient's functional ind ependence in activities of daily living, strength, ROM, and mobility.- Rehab Goal Patient has realistic goal of being discharged at assistance level Ari-to-sup to reside at Home with Family/Relatives. - Physical Therapy Gait dysfunction - to improve, our physical therapists will perform initial evaluation of pt's status upon admission and devise an individualized program for Gait Training, and Wheel Chair mobility Inability to transfer - to improve, our physical therapists will perform initial evaluation of pt's s tatus upon admission and devise an individualized program for Bed mobility Need for home safety evaluation - to improve, our physical therapists will perform initial evaluation of pt's status upon admission and devise an individualized program for Home Evaluation Need in caregiver upon discharge - to improve, our physical therapists will perform initial evaluatio n of pt's status upon admission and devise an individualized program for Caregiver Training New precaution - to improve, our physical therapists will perform initial evaluation of pt's status u musa admission and devise an individualized program for Patient precaution education Edema - to improve, our physical therapists will perform initial evaluation of pt's status upon admi ssion and devise an individualized program for Elevation Training, and Lymphedema Therapy Poor balance - to improve, our physical therapists will perform initial evaluation of pt's status upo n admission and devise an individualized program for Balance Training Poor endurance - to improve, our physical therapists will perform initial evaluation of pt's status u musa admission and devise an individualized program for Endurance Training Weakness - to improve, our physical therapists will perform initial evaluation of pt's status upon ad mission and devise an individualized program for Aquatic Therapy, Neuromuscular Reeducation, and Stre ngthening Achieving independence - to improve, our physical therapists will perform initial evaluation of pt's status upon admission and devise an individualized program for Community Reintegration Activities - Occupational Therapy ADL deficits - to improve, our occupation therapists will perform initial evaluation of pt's status u musa admission and devise an individualized program for Bathing, Bed mobility, Community Reintegration , Cooking, Dressing, Eating, Fine Motor Skills, Grooming, Homemaking, Kitchen Mobility, Laundry, Jahaira ent Education, Safety Awareness, Splinting - Positioning, Transfers(Toilet, Tub, Shower), and Wheel C hair Management Cognitive deficits - to improve, our occupation therapists will perform initial evaluation of pt's st atus upon admission and devise an individualized program for Cognition - orientation Need for director of career resources - to improve, our occupation therapists will perform initial evaluation of pt's s tatus upon admission and devise an individualized program for Caregiver Training Weakness - to improve, our occupation therapists will perform initial evaluation of pt's status upon admission and devise an individualized program for Aquatic Therapy, Balance, Endurance, UE ROM, and U E strengthening MEDICAL PLAN: - Diet Type Start Regular - Diet - Liquid Texture Start Regular - Tube Feed Start N/A - Other See attached MAR (Medication Administration Record) - N/A Perform Neuro consult - Diet - Solid Texture Regular - Shower shower DISCHARGE PLAN: - Estimated Length of Stay (days) 13. - Consensus on plan Discharge plan has been discussed with primary caregiver. Patient/Family is in agreement with the joelle n. Primary caregiver is in agreement with the plan. - Patient/Family Goals Return home independently. - Planned Living Setting Upon Discharge Home, to live with Family/Relatives. Transitional Living. SIGNATURE PANEL: (CDT)
--- NOTE | 2021-10-22 18:40 | PAPE ---
POST ADMISSION PHYSICIAN EVALUATION PATIENT: [facility] MR# [id number] REFERRING DOCTOR PRIMARY CARE PHYSICIAN Dr. CERVANTES EVALUATION DATE AND TIME 10/22/2021 18:39 (CDT) NAME FELIX TIJERINA DATE OF 1935 AGE 86 PHONE N# [id number] GENDER male EVALUATING PHYSICIAN Dr. Davion Escoto M.D. ADMISSION DIAGNOSIS: Parkinson's disease (G20) ONSET DATE 10/14/2021 SECONDARY/COMORBID DIAGNOSES TIERED: - Non-Tiered Parkinson's disease (G20) Essential (primary) hypertension (I10) Hyperlipidemia, unspecified (E78.5) Atherosclerotic heart disease of circle coronary artery (I25.1) Chronic kidney disease, stage 3 (moderate) (N18.3) Benign prostatic hyperplasia with lower urinary tract symptoms (N40.1) Pneumonia, unspecified organism (J18) POST-ADMISSION FUNCTIONAL/MEDICAL STATUS: - Bladder Same accident frequency: 7-Ind - No accidents in the past 7 days - Bowel Same accident frequency: 7-Ind - No accidents in the past 7 days - Walking Same score based on distance walked: 0(N/A) - Wheelchair Same score based on distance traveled: 0(N/A) STATUS CHANGE EVALUATION: No change in Functional or Medical Status is identified compared with Pre-Admission screening. PATIENT NEEDS CLOSE MEDICAL SUPERVISION BY A REHABILITATION PHYSICIAN FOR: Coordination of Treatment Team Medical and Co-Morbidity Management Wound Care Pain Management DVT Management Bowel and Bladder Management Respiratory/Airway Management PATIENT REQUIRES 24X7 REHAB NURSING FOR MEDICAL AND FUNCTIONAL MGT. OF THE FOLLOWING DEFICITS: Disease Management Medication Management Patient requires 24x7 Rehabilitation Nursing for: Pain Issues, Identifying and preventing risk factor s, Monitoring and reporting current medical conditions, Assisting with ambulation and transfer, Daren ting with all ADL-s, Teaching patients about disease process and medications, Family teaching, Provid ing safe environment, Bowel and Bladder Issues, Skin Integrity, and Medication Management Patient/Family Education Providing Safe Environment Skin Integrity PATIENT REQUIRES INTENSIVE, COORDINATED INTERDISCIPLINARY APPROACH TO REHAB: Arranging Home Equipment/Services Discharge Planning Family Intervention/Training Patient needs Dietary and Nutrition Services for: Adequate Nutrition, Nutritional Supplements, and Nu tritional Education Patient needs Detonator Assembler and/or Case Management for: Discharge Planning, Arranging Home Equipmen t or Services, and Family Interventions Detonator Assembler/Case Management LIST OF IDENTIFIED AND POTENTIAL PROBLEMS: Alteration in leisure activities Bladder, Incontinence Blood Pressure, Hypertension/hypotension Issues Bowel, Incontinence Infection, Actual or Potential Mobility Impaired Pain, Alteration in Comfort Self Care Deficit Skin Integrity, Actual or Potential Urinary Tract Infection (UTI), Actual or Potential RISK FOR COMPLICATIONS - Falls Educated pt on fall prevention strategies to reduce/eliminate fall risk. Patient will be evaluated fo r Fall Precautions and will be placed on Fall Precautions as indicated per protocol. pt is high risk for falls due to significant weakness and Parkinson's exacerbation. - Skin Breakdown Nursing will assess skin daily using assessment tool and will place on Skin Breakdown Precautions as Indicated per protocol. - Weakness Strengthening exercises to be performed. Regular therapeutic activity and exercise. - Pneumonia pt will be instructed on use of and be encouraged to use incentive spirometry. regular OOB activity a nd exercise to reduce risk. Interval Chest X-Rays will be obtained as necessary. pt will be trained o n deep breathing exercises. Presence of current bilateral pneumonia. - UTI Monitor for frequency, burning, discomfort, or incontinence. - DVT Administer anti-coagulants as indicated by physician and monitor for effectiveness. Monitor for signs and symptoms of DVT or PE. - CVA pt has elevated BP and requires medical monitoring to manage and reduce reisk for CVA. - Pain Clinical staff will assess patient's pain level every shift per protocol to monitor for pain manageme nt effectiveness. Educate patient on pain management strategies. INTERVENTIONS - Hypertension Blood pressure will be regularly assessed and medications administered as per physician figueroa singh. - Anemia - Parkinson's Disease Regular therapy services to improve balance, coordination, strength and functional movement patterns. Monitor symptoms and administer medications as indicated by physician. - Hyperlipidemia Administer medications as per MD. - CAD Vitals will be regularly monitored and symptoms managed. Administer Medication as indicated by physic yumiko. - Chronic Kidney Disease Monitoring of lab values pertaining to kidney function. Medication management as indicated by physici an. Strict I and O's to monitor kidney function. Diet management and educationto promote kidney healt h. - BPH Administer Medications as instructed by physician. Monitor patient's urinary output and symptoms rela lucy to condition. - Pneumonia Medications will be administered as indicated by physician. pt will be instructed on use of and be en couraged to use incentive spirometry. Regular OOB activity and exercise to reduced risk for progressi on of condition. Interval Chest X-Rays as needed. Treat with Diflucan 400mg in 200 mls @ 200 mls/hr I V Q24H MARIA M. PATIENT COULD BE AT RISK FOR COMPLICATIONS FROM ADVERSE MEDICAL CONDITIONS DUE TO HIS/HER COMORBIDITI ES AND THE RIGORS OF THE INTENSIVE REHABILLITATION PROGRAM. METHODS OR INTERVENTIONS TO AVOID COMPLIC ATIONS INCLUDE: - Deep Vein Thrombosis (DVT) Prophylaxis therapy for prevention . Sequential Compression Device (SCD). TE D Hose. - Bleeding Assess lab values and manage abnormalities. Nursing to teach precautions for anti-coagulation therapy . Wound to be assessed every shift. - Infection Clinical staff to assess and manage the signs and symptoms of infection including fever, redness, war mth, etc. - Urinary Tract Infection - Falls Patient will be evaluated for Fall Precautions and will be placed on Fall Precautions as indicated pe r protocol. - Skin Breakdown Nursing will assess skin daily using assessment tool and will place on Skin Breakdown Precautions as indicated per protocol. - Pain Clinical staff may employ non-medication methods such as massage, distraction, decrease stimulus, etc . as needed. Clinical staff will assess patient's pain level every shift per protocol to assess and e nsure pain management effectiveness. Medications will be given and the pain level re-assessed. PRELIMINARY PLAN OF CARE: - Physical Therapy Patient needs Physical Therapy for a daily minimum of 1.5 hours at least 5 out of 7 days, to improve: Mobility, Strengthening, Transfers, Stretching, ROM, Endurance, Ability to manage stairs, Gait, and Balance. - Speech Therapy Patient needs Speech Therapy for a daily minimum of 0.5 hours at least 5 out of 7 days, to improve: S wallowing, Cognition, Language Skills, and Compensatory Strategies. - Rehabilitation Nursing Patient requires 24x7 Rehabilitation Nursing for: Pain Issues, Identifying and preventing risk factor s, Monitoring and reporting current medical conditions, Assisting with ambulation and transfer, Daren ting with all ADL-s, Teaching patients about disease process and medications, Family teaching, Provid ing safe environment, Bowel and Bladder Issues, Skin Integrity, and Medication Management. Patient needs Detonator Assembler and/or Case Management for: Discharge Planning, Arranging Home Equipmen t or Services, and Family Interventions. - Dietary and Nutrition Services Patient needs Dietary and Nutrition Services for: Adequate Nutrition, Nutritional Supplements, and Nu tritional Education. - Occupational Therapy Patient needs Occupational Therapy for a daily minimum of 1.5 hours at least 5 out of 7 days, to impr ove Activities of Daily Living, including: Eating, Grooming, Bathing, Dressing, Toileting, Toilet Tra nsfers, Community Reintegration, Higher functional activities, Adaptive Equipment, Splinting, Househo ld Tasks, and Other activities as determined. QI SCORES: - Self-Care A. Eating 04-Supervision or touching assistance B. Oral hygiene 03-Partial/moderate assistance C. Toileting hygiene 03-Partial/moderate assistance E. Shower/bathe self 03-Partial/moderate assistance F. Upper body dressing 04-Supervision or touching assistance G. Lower body dressing 03-Partial/moderate assistance H. Putting on/taking off footwear 88-Not attempted due to medical condition or safety concerns - Mobility A. Roll left and right 04-Supervision or touching assistance B. Sit to lying 03-Partial/moderate assistance C. Lying to sitting on side of bed 02-Substantial/maximal assistance D. Sit to stand 03-Partial/moderate assistance E. Chair/ywr-wf-[id number] transfer 03-Partial/moderate assistance F. Toilet transfer 88-Not attempted due to medical condition or safety concerns G. Car transfer 88-Not attempted due to medical condition or safety concerns I. Walk 10 feet 03-Partial/moderate assistance J. Walk 50 feet with two turns 03-Partial/moderate assistance K. Walk 150 feet 88-Not attempted due to medical condition or safety concerns L. Walking 10 feet on uneven surfaces 88-Not attempted due to medical condition or safety concerns M. 1 step (curb) 88-Not attempted due to medical condition or safety concerns N. 4 steps 88-Not attempted due to medical condition or safety concerns O. 12 steps 88-Not attempted due to medical condition or safety concerns P. Picking up object 88-Not attempted due to medical condition or safety concerns R. Wheel 50 feet with two turns 88-Not attempted due to medical condition or safety concerns S. Wheel 150 feet 88-Not attempted due to medical condition or safety concerns - Bladder and Bowel Bladder continence Bowel continence - Endurance Fair - Balance Poor - Safety Awareness Fair POTENTIAL FUNCTIONAL GOALS FOR PATIENT TO ACHIEVE BY DISCHARGE: - Safety Precaution Patient will remain free from falls or injury at time of discharge. - Bed Mobility Patient will perform bed mobility at 4-Susannah level of assistance. - Transfers Patient will complete transfers from bed to chair at 4-Susannah level of assistance. - Mobility Patient will ambulate 150 ft with 4-Susannah level of assistance with RW. PATIENT REHAB POTENTIAL Misa TIJERINA is able and expected to receive 3 hours of individualized therapy daily on at least 5 of bernadette ry 7 days Misa TIJERINA's prognosis for significant practical improvement within a reasonable period of time appears Good Expected level of measurable improvement will be of a practical value to Misa TIJERINA's functional capaci ty or adaptations to impairments Has a viable Discharge Plan Medically appropriate; condition is sufficiently stable to participate in intensive rehab program DISCHARGE PLAN: - Estimated Length of Stay (days) 13. - Consensus on plan Discharge plan has been discussed with primary caregiver. Patient/Family is in agreement with the joelle n. Primary caregiver is in agreement with the plan. - Patient/Family Goals Return home independently. - Planned Living Setting Upon Discharge Home, to live with Family/Relatives. Transitional Living. CONCLUSION ON REHABILITATION NECESSITY: I have evaluated patient's pre-admission functional status and, comparing it to the patient's post-ad mission functional status now, I conclude that the pre-admission assessment was accurate. Patient's c ondition on admission supports the medical necessity of admission to [facility]. It is safe to proceed with patient's therapy program. SIGNATURE PANEL: (CDT)
[2021-10-22] MEDS: TAMSULOSIN 0.4 MG SR CAP PO SCH (20:55)
[2021-10-22] MEDS: ATORVASTATIN 10 MG TAB PO SCH (20:55)
[2021-10-22] MEDS: MELATONIN 3 MG TABLET PO PRN (20:56)
[2021-10-23 05:58] LABS: Absolute Lymphocytes (CBC) 1.3 K/uL (0.7-4.9); Hematocrit 32.7 % (39.6-49.0); Lymphocytes % 13.9 % (15.3-44.8); MCV 100.2 fL (80-100); MPV 7.1 fL (7.6-11.3); RBC Red Blood Cell Count 3.27 M/uL (4.33-5.43)
[2021-10-23 06:17] LABS: Albumin 1.9 g/dL (3.4-5.0); Magnesium 1.8 mg/dL (1.8-2.4); Potassium 4.1 mmol/L (3.5-5.1); Prealbumin 11.4 mg/dL (20-40)
[2021-10-23] MEDS: AZATHIOPRINE 50 MG TABLET PO SCH ×2 (08:00→18:46)
[2021-10-23] MEDS: ENOXAPARIN 40 MG/0.4 ML SQ SCH (08:53)
[2021-10-23] MEDS: CARBIDOPA/LEVODOPA 25/100 TAB PO SCH ×3 (08:56→20:08)
[2021-10-23] MEDS: FINASTERIDE 5 MG TAB PO SCH (08:56)
[2021-10-23] MEDS: AMANTADINE 100 MG CAP PO SCH (08:56)
[2021-10-23] MEDS: TAMSULOSIN 0.4 MG SR CAP PO SCH ×2 (08:56→20:08)
--- NOTE | 2021-10-23 10:23 | P.RH.PN ---
Estimated Length of Stay: 9 Expected Discharge Date: 10/31/21 Discharge Disposition Plan: Home Family Support: Yes Front Desk Lead Goal: Mobility, Transfers, Self Care Vital Signs: Last Vital Signs Temp 99 F 10/23/21 07:02 Pulse 79 10/23/21 07:02 Resp 16 10/23/21 07:02 BP 155/72 H 10/23/21 07:02 Pulse Ox 92 10/23/21 07:02 Laboratory: Laboratory Last Values WBC 9.2 K/uL (4.3-10.9) D 10/23/21 05:40 RBC 3.27 M/uL (4.33-5.43) L 10/23/21 05:40 Hgb 11.4 g/dL (13.6-17.9) L 10/23/21 05:40 Hct 32.7 % (39.6-49.0) L 10/23/21 05:40 MCV 100.2 fL (80-100) H 10/23/21 05:40 MCH 34.8 pg (27.0-35.0) 10/23/21 05:40 MCHC 34.7 g/dL (32.0-36.0) 10/23/21 05:40 RDW 14.8 % (12.1-15.2) 10/23/21 05:40 Plt Count 336 K/uL (152-406) D 10/23/21 05:40 MPV 7.1 fL (7.6-11.3) L 10/23/21 05:40 Neutrophils % 69.6 % (41.7-73.7) 10/23/21 05:40 Lymphocytes % 13.9 % (15.3-44.8) L 10/23/21 05:40 Monocytes % 12.4 % (3.3-12.3) H 10/23/21 05:40 Eosinophils % 3.5 % (0-4.4) 10/23/21 05:40 Basophils % 0.6 % (0-1.3) 10/23/21 05:40 Absolute Neutrophils 6.4 K/uL (1.8-8.0) 10/23/21 05:40 Absolute Lymphocytes 1.3 K/uL (0.7-4.9) 10/23/21 05:40 Absolute Monocytes 1.1 K/uL (0.1-1.3) 10/23/21 05:40 Absolute Eosinophils 0.3 K/uL (0-0.5) 10/23/21 05:40 Absolute Basophils 0.1 K/uL (0-0.5) 10/23/21 05:40 Sodium 133 mmol/L (136-145) L 10/23/21 05:40 Potassium 4.1 mmol/L (3.5-5.1) 10/23/21 05:40 Chloride 102 mmol/L (98-107) 10/23/21 05:40 Carbon Dioxide 24 mmol/L (21-32) 10/23/21 05:40 Anion Gap 11.1 mEq/L (5.0-15.0) 10/23/21 05:40 BUN 15 mg/dL (7-18) 10/23/21 05:40 Creatinine 0.98 mg/dL (0.55-1.3) 10/23/21 05:40 Est GFR (CKD-EPI) 76 ml/min (=/>90) L 10/23/21 05:40 Glucose 97 mg/dL (74-106) 10/23/21 05:40 Calcium 8.3 mg/dL (8.5-10.1) L 10/23/21 05:40 Magnesium 1.8 mg/dL (1.8-2.4) 10/23/21 05:40 Albumin 1.9 g/dL (3.4-5.0) L 10/23/21 05:40 Prealbumin 11.4 mg/dL (20-40) L 10/23/21 05:40 Urine Color Yellow (Yellow) 10/22/21 12:34 Urine Clarity Clear (Clear) 10/22/21 12:34 Urine pH 7.0 (5.0-7.0) 10/22/21 12:34 Ur Specific Goehner 1.020 (1.005-1.030) 10/22/21 12:34 Glucose (UA)(Auto) Negative (Negative) 10/22/21 12:34 Urine Ketones Negative (Negative) 10/22/21 12:34 Urine Blood Negative (Negative) 10/22/21 12:34 Urine Nitrite Negative (Negative) 10/22/21 12:34 Urine Bilirubin Negative (Negative) 10/22/21 12:34 Urine Urobilinogen 0.2 mg/dL (0.2-1.0) 10/22/21 12:34 Ur Leukocyte Esterase Negative (Negative) 10/22/21 12:34 Urine RBC None seen /HPF (None Seen) 10/22/21 12:34 Urine Red Cell Clumps Cancelled 10/22/21 11:30 Urine WBC <5 /HPF (<5) 10/22/21 12:34 Urine WBC Clumps Cancelled 10/22/21 11:30 Ur Squamous Epith Cells <5 /HPF (None Seen) 10/22/21 12:34 U Non-Squamous Epi Cells Cancelled 10/22/21 11:30 Ur Transition Epith Cell Cancelled 10/22/21 11:30 Ur Renal Epithelial Cell Cancelled 10/22/21 11:30 Calcium Carbonate Cryst Cancelled 10/22/21 11:30 Calcium Oxalate Crystal Cancelled 10/22/21 11:30 Leucine Crystals Cancelled 10/22/21 11:30 Cystine Crystals Cancelled 10/22/21 11:30 Uric Acid Crystals Cancelled 10/22/21 11:30 Triple Phos Crystals Cancelled 10/22/21 11:30 Tyrosine Crystals Cancelled 10/22/21 11:30 Unidentified Crystals Cancelled 10/22/21 11:30 Amorphous Crystals Cancelled 10/22/21 11:30 Urine Bacteria None seen /HPF (<20) 10/22/21 12:34 Hyaline Casts Cancelled 10/22/21 11:30 Granular Casts Cancelled 10/22/21 11:30 Waxy Casts Cancelled 10/22/21 11:30 RBC Casts Cancelled 10/22/21 11:30 WBC Casts Cancelled 10/22/21 11:30 Urine Mucus Cancelled 10/22/21 11:30 Urine Trichomonas Cancelled 10/22/21 11:30 Ur Yeast w Hyphae Cancelled 10/22/21 11:30 Urine Yeast (Budding) Cancelled 10/22/21 11:30 Urine Sperm Cancelled 10/22/21 11:30 Ur Oval Fat Bodies Cancelled 10/22/21 11:30 Urine Total Protein Trace (Negative) H 10/22/21 12:34 Urine Ascorbic Acid Cancelled 10/22/21 11:30 Urine Fat Cancelled 10/22/21 11:30 Wound Present: No Physician Update: Supine and standing CGA, gait 150' at CGA, wheelchair 100' with SBA, mild SOB with 94% O2 on RA. Supevision with most ADLs. Mild difficulty with fine motor activity. CGA with shower transfers. With speech he requested to do it outpatient. Summary: Patient's care plan and alf goals have been reviewed and revised as necessary. Please see the Rehabilitation Signature page for all necessary signatures.
[2021-10-23] MEDS: FLUCONAZOLE 400 MG IVPB 400 MG/200 ML BAG IV SCH (12:33)
[2021-10-23] MEDS: ATORVASTATIN 10 MG TAB PO SCH (20:08)
[2021-10-23] MEDS: ENSURE ENLIVE 237 ML CAN PO SCH (20:08)
[2021-10-23] MEDS: MELATONIN 3 MG TABLET PO PRN (20:09)
[2021-10-24] MEDS: ENOXAPARIN 40 MG/0.4 ML SQ SCH (07:16)
[2021-10-24] MEDS: TAMSULOSIN 0.4 MG SR CAP PO SCH ×2 (07:44→19:16)
[2021-10-24] MEDS: CARBIDOPA/LEVODOPA 25/100 TAB PO SCH ×3 (07:44→19:15)
[2021-10-24] MEDS: AMANTADINE 100 MG CAP PO SCH (07:44)
[2021-10-24] MEDS: ENSURE ENLIVE 237 ML CAN PO SCH ×2 (07:44→19:16)
[2021-10-24] MEDS: FINASTERIDE 5 MG TAB PO SCH (07:44)
[2021-10-24] MEDS: AZATHIOPRINE 50 MG TABLET PO SCH (07:46)
[2021-10-24] MEDS: FLUCONAZOLE 400 MG IVPB 400 MG/200 ML BAG IV SCH (14:04)
--- NOTE | 2021-10-24 18:55 | PN ---
Date of Progress Note: 10/23/2021 Subjective: The patient was seen this morning for followup. No new complaints or problems reported by patient. Lying in bed. He is on the rehab floor now. Denies any new complaints overnight. Objective: Vital Signs: Reviewed. HEENT: Unremarkable. Lungs: Clear to auscultation. Heart: Sounds normal. Abdomen: Soft. Bowel sounds normal. No guarding, rigidity, tenderness, distention. Extremities: No leg edema. Impression: 1.Pneumonia. 2.Generalized weakness. 3.Debility. 4.Hypertension. Plan: We will go ahead and continue current medications, continue current antifungal medications. P hysical therapy to be provided under guidance of Dr. Escoto. I will see him tomorrow for followup. Today's blood work results reviewed. Urinalysis is unremarkable. White count is normal. Chemistr y is unremarkable. MISTY/MODL Voice ID: [id number] Report ID: [id number]
[2021-10-24] MEDS: ATORVASTATIN 10 MG TAB PO SCH (19:16)
[2021-10-24] MEDS: ALPRAZOLAM 0.25 MG TABLET PO SCH (19:16)
--- NOTE | 2021-10-24 23:41 | PN ---
Date of Progress Note: 10/24/2021 Subjective: The patient was seen this morning for followup. No new complaints or problems reported by the patient. He was lying in bed, not in distress. Denies any new complaints except reports that he is not getting much sleep last night after taking melatonin. He only got 2-3 hours of sleep. Objective: Vital Signs: Reviewed. HEENT: Unremarkable. Lungs: Clear to auscultation. Heart: Sounds normal. Abdomen: Soft. Bowel sounds normal. No guarding, rigidity, tenderness, or distention. Extremities: No leg edema. Impression: 1.Pneumonia. 2.Generalized weakness. 3.Debility. 4.Hypertension. 5.Insomnia. Plan: We will go ahead and continue current medications. Continue current DVT prophylaxis. Continu e current antifungal medication, Diflucan. I will discontinue melatonin and start the patient on alp razolam 0.25 mg at bedtime. I will see him tomorrow for followup. MISTY/MODL Voice ID: [id number] Report ID: [id number]
[2021-10-25] MEDS: ENOXAPARIN 40 MG/0.4 ML SQ SCH (08:41)
[2021-10-25] MEDS: AMANTADINE 100 MG CAP PO SCH (09:01)
[2021-10-25] MEDS: FINASTERIDE 5 MG TAB PO SCH (09:02)
[2021-10-25] MEDS: TAMSULOSIN 0.4 MG SR CAP PO SCH ×2 (09:02→20:17)
[2021-10-25] MEDS: AZATHIOPRINE 50 MG TABLET PO SCH (09:02)
[2021-10-25] MEDS: CARBIDOPA/LEVODOPA 25/100 TAB PO SCH ×3 (09:03→20:19)
[2021-10-25] MEDS: ENSURE ENLIVE 237 ML CAN PO SCH ×2 (09:47→20:17)
--- NOTE | 2021-10-25 11:17 | PN ---
Date of Progress Note: 10/25/2021 Subjective: The patient was seen this morning for followup. No new complaints, problems reported by patient. He was sitting in wheelchair. Reports that last night he slept very well compared to prev ious night. Last night was the first time that he took alprazolam per order. Denies any constipatio n problem. Objective: Vital Signs: Reviewed. HEENT: Unremarkable. Lungs: Clear to auscultation. No wheezing. No rales. Heart: Sounds normal. Abdomen: Soft. Bowel sounds normal. No guarding, rigidity, tenderness, or distention. Extremities: No leg edema. Impression: 1.Pneumonia. 2.Hypertension. 3.Generalized weakness. 4.Debility. Plan: We will go ahead and continue current antifungal medication. Continue current DVT prophylaxis . We will repeat blood work tomorrow morning. We will monitor liver functions along with routine el ectrolytes, renal function, and blood count. Continue physical therapy under guidance of Dr. Shaneka dejesus For insomnia, we will continue current alprazolam 0.25 mg at bedtime. MISTY/MODL Voice ID: [id number] Report ID: [id number]
[2021-10-25] MEDS: FLUCONAZOLE 100 MG TAB PO SCH (11:27)
[2021-10-25] MEDS: ALPRAZOLAM 0.25 MG TABLET PO SCH (20:17)
[2021-10-25] MEDS: ATORVASTATIN 10 MG TAB PO SCH (20:17)
--- NOTE | 2021-10-25 23:08 | R.PN ---
PROGRESS NOTES ENCOUNTER DATE AND TIME: 10/25/2021 08:06 (CDT) NAME FELIX TIJERINA DATE OF : 1935 DATE OF ADMISSION: 10/22/2021 12:35 (CDT) Parkinson's disease (G20)SUBJECTIVE: Pt denied any depression. Pt denied any Shortness of Breath. VITAL SIGNS Temperature: 98.4 F SBP/DBP: 140/67 Pulse: 73 Resp: 16 MEDICATION ALLERGIES: Aspirin ENVIRONMENTAL ALLERGIES: - Substance Allergies None Known - Other Allergies None Known NURSING: - Shower allowing shower ACTIVITIES OOB only with supervision THERAPIES: - Dietary and Nutrition Adequate Nutrition. Nutritional Education. Nutritional Supplements. Evaluate and Treat. - Occupational Therapy Cognitive Retraining. Patient needs Occupational Therapy for a daily minimum of 1.5 hours at least 5 out of 7 days, to improve Activities of Daily Living, including: Eating, Grooming, Bathing, Dressing, Toileting, Toilet Transfers, Community Reintegration, Higher functional activities, Adaptive Equipme nt, Splinting, Household Tasks, and Other activities as determined. Visual Perceptual Training. Evalu ate and Treat. Household Tasks. UE Strengthening. Transfer Training. Patient/Family Education. Safety Awareness. - Speech Therapy Cognitive Training. Expressive Language Skills. Memory Strategies. Patient needs Speech Therapy for a daily minimum of 1.5 hours at least 5 out of 7 days, to improve: Swallowing, Cognition, Language Ski lls, and Compensatory Strategies. Receptive Language Skills. Speech Intelligibility Training. Evaluat e and Treat. - Physical Therapy Patient needs Physical Therapy for a daily minimum of 1.5 hours at least 5 out of 7 days, to improve: Mobility, Strengthening, Transfers, Stretching, ROM, Endurance, Ability to manage stairs, Gait, and Balance. Evaluate and Treat. Patient/Family Education. Gait Training. Balance Training. Safety Awaren ess. Transfer Training. LE Strengthening. PHYSICAL EXAM - Gen Alert and awake Lying in bed No apparent distress Oriented to: person, time, and place - Skin No skin breakdown. No abnormalities - Eyes No abnormalities - ENMT No abnormalities - Neck No abnormalities - CVS RRR - Chest No abnormalities - Abd + bowel sounds - GI Soft Deferred - No abnormalities - Ext Mild bilateral lower extremity edema. - MSK 4+/5 weakness in both lower extremities. - Neuro No focal deficits - Psych Mild depression. ASSESSMENT: Pt. is a 86 yo Right-handed male.On 10/14/2021 he was admitted to [facility] with diagno sis Parkinson's disease (G20).His impairment category is Neurologic Conditions 03 - Parkinsonism (03 .2).Pre-morbidly, Pt. was independent/mod-I in Locomotion, Safety Awareness, Social Cognition, Balanc e, and Transfers Control; and he had good Sphincter Control, Self-Care, Communication, and Endurance. Currently, he has deficits of Locomotion, Safety Awareness, Social Cognition, Transfers Control, [place], Self-Care, Communication, Endurance, and Sphincter Control.Pt. is now referred to [facility] for acute in-patient rehabilitation in order to maximize patient's functional ind ependence in activities of daily living, strength, ROM, and mobility.- Rehab Goal Patient has realistic goal of being discharged at assistance level Ari-to-sup to reside at Home with Family/Relatives. MDM/PLAN: - Physical Therapy Gait dysfunction - to improve, our physical therapists will perform initial evaluation of pt's status upon admission and devise an individualized program for Gait Training, and Wheel Chair mobility Inability to transfer - to improve, our physical therapists will perform initial evaluation of pt's status upon admission and devise an individualized program for Bed mobility Need for home safety evaluation - to improve, our physical therapists will perform initial evaluatio n of pt's status upon admission and devise an individualized program for Home Evaluation Need in caregiver upon discharge - to improve, our physical therapists will perform initial evaluatio n of pt's status upon admission and devise an individualized program for Caregiver Training New precaution - to improve, our physical therapists will perform initial evaluation of pt's status u musa admission and devise an individualized program for Patient precaution education Edema - to improve, our physical therapists will perform initial evaluation of pt's status upon admis miguel a and devise an individualized program for Elevation Training, and Lymphedema Therapy Poor balance - to improve, our physical therapists will perform initial evaluation of pt's status up on admission and devise an individualized program for Balance Training Poor endurance - to improve, our physical therapists will perform initial evaluation of pt's status upon admission and devise an individualized program for Endurance Training Weakness - to improve, our physical therapists will perform initial evaluation of pt's status upon ad mission and devise an individualized program for Aquatic Therapy, Neuromuscular Reeducation, and Stre ngthening Achieving independence - to improve, our physical therapists will perform initial evaluation of pt's status upon admission and devise an individualized program for Community Reintegration Activities - Occupational Therapy ADL deficits - to improve, our occupation therapists will perform initial evaluation of pt's status upon admission and devise an individualized program for Bathing, Bed mobility, Community Reintegratio n, Cooking, Dressing, Eating, Fine Motor Skills, Grooming, Homemaking, Kitchen Mobility, Laundry, Pat ient Education, Safety Awareness, Splinting - Positioning, Transfers(Toilet, Tub, Shower), and Wheel Chair Management Cognitive deficits - to improve, our occupation therapists will perform initial evaluation of pt's s tatus upon admission and devise an individualized program for Cognition - orientation Need for career technical education teacher - to improve, our occupation therapists will perform initial evaluation of pt's s tatus upon admission and devise an individualized program for Caregiver Training Weakness - to improve, our occupation therapists will perform initial evaluation of pt's status upon admission and devise an individualized program for Aquatic Therapy, Balance, Endurance, UE ROM, and U E strengthening - Other See attached MAR (Medication Administration Record) - Diet Type Regular - Diet - Liquid Texture Regular - Tube Feed N/A - Diet - Solid Texture Regular - Shower allowing shower FUNCTIONAL STATUS: UPDATED AT WEEKLY TEAM CONFERENCE - Bladder Same accident frequency: 7-Ind - No accidents in the past 7 days - Bowel Same accident frequency: 7-Ind - No accidents in the past 7 days - Walking Same score based on distance walked: 0(N/A) - Wheelchair Same score based on distance traveled: 0(N/A) FUNCTIONAL STATUS: - Self-Care A. Eating Ind B. Grooming Ind C. Bathing Ind D. Dressing - Upper Ind E. Dressing - Lower Ind F. Toileting Ind - Sphincter Control G. Bladder control Ind H. Bowel control Ind - Transfers Control I. Bed/Chair/Wheelchair Ind J. Toilet Ind K. Tub/Shower Ind - Locomotion L. Walk/Wheelchair (W) Ind M. Stairs Ind - Communication N. Comprehension (V) Ind O. Expression (N) Ind - Social Cognition P. Social Interaction Ind Q. Problem Solving Ind R. Memory Ind - Endurance Good - Balance Good - Safety Awareness Good QI SCORES: - Self-Care A. Eating 04-Supervision or touching assistance B. Oral hygiene 03-Partial/moderate assistance C. Toileting hygiene 03-Partial/moderate assistance E. Shower/bathe self 03-Partial/moderate assistance F. Upper body dressing 04-Supervision or touching assistance G. Lower body dressing 03-Partial/moderate assistance H. Putting on/taking off footwear 88-Not attempted due to medical condition or safety concerns - Mobility A. Roll left and right 04-Supervision or touching assistance B. Sit to lying 03-Partial/moderate assistance C. Lying to sitting on side of bed 02-Substantial/maximal assistance D. Sit to stand 03-Partial/moderate assistance E. Chair/[id number]-[id number] transfer 03-Partial/moderate assistance F. Toilet transfer 88-Not attempted due to medical condition or safety concerns G. Car transfer 88-Not attempted due to medical condition or safety concerns I. Walk 10 feet 03-Partial/moderate assistance J. Walk 50 feet with two turns 03-Partial/moderate assistance K. Walk 150 feet 88-Not attempted due to medical condition or safety concerns L. Walking 10 feet on uneven surfaces 88-Not attempted due to medical condition or safety concerns M. 1 step (curb) 88-Not attempted due to medical condition or safety concerns N. 4 steps 88-Not attempted due to medical condition or safety concerns O. 12 steps 88-Not attempted due to medical condition or safety concerns P. Picking up object 88-Not attempted due to medical condition or safety concerns R. Wheel 50 feet with two turns 88-Not attempted due to medical condition or safety concerns S. Wheel 150 feet 88-Not attempted due to medical condition or safety concerns - Bladder and Bowel Bladder continence Bowel continence - Endurance Fair - Balance Poor - Safety Awareness Fair CURRENT FUNC. DEFICITS: Self-Care, Mobility, Endurance, Balance, and Safety Awareness SIGNATURE PANEL: (CDT)
[2021-10-26 06:40] LABS: Absolute Lymphocytes (CBC) 1.5 K/uL (0.7-4.9); Hematocrit 33.1 % (39.6-49.0); Lymphocytes % 16.7 % (15.3-44.8); MCV 100.6 fL (80-100); RBC Red Blood Cell Count 3.29 M/uL (4.33-5.43)
[2021-10-26 06:56] LABS: Bilirubin Total 0.3 mg/dL (0.2-1.0); Protein, Total 6.2 g/dL (6.4-8.2)
[2021-10-26] MEDS: ENOXAPARIN 40 MG/0.4 ML SQ SCH (07:35)
[2021-10-26 08:36] LABS: Platelet Estimate ADEQ
[2021-10-26 08:37] LABS: Blood Morphology Comment NOT SEEN (NOT SEEN)
[2021-10-26] MEDS: CARBIDOPA/LEVODOPA 25/100 TAB PO SCH ×3 (09:03→19:55)
[2021-10-26] MEDS: AMANTADINE 100 MG CAP PO SCH (09:04)
[2021-10-26] MEDS: FLUCONAZOLE 100 MG TAB PO SCH (09:04)
[2021-10-26] MEDS: FINASTERIDE 5 MG TAB PO SCH (09:04)
[2021-10-26] MEDS: AZATHIOPRINE 50 MG TABLET PO SCH (09:04)
[2021-10-26] MEDS: MAGNESIUM OXIDE 400 MG TAB PO SCH (09:06)
[2021-10-26] MEDS: TAMSULOSIN 0.4 MG SR CAP PO SCH ×2 (09:06→19:55)
[2021-10-26] MEDS: ENSURE ENLIVE 237 ML CAN PO SCH ×2 (09:07→19:56)
[2021-10-26] MEDS: ALPRAZOLAM 0.25 MG TABLET PO SCH (19:55)
[2021-10-26] MEDS: ATORVASTATIN 10 MG TAB PO SCH (19:56)
--- NOTE | 2021-10-26 20:41 | PN ---
Date of Progress Note: 10/26/2021 Subjective: The patient was seen this morning for followup. No new complaints or problems reported by him. Lying in bed, not in distress. No new complaints this morning. Vital signs reviewed. He r emains afebrile. Physical Examination: HEENT: Unremarkable. Lungs: Clear to auscultation. Heart: Sounds normal. Abdomen: Soft. Bowel sounds normal. No guarding, rigidity, tenderness, distention. Extremities: No leg edema. Laboratory Data: Sodium 137, potassium 4, chloride 108, bicarb 24, BUN 22, creatinine 0.97, glucose 94. Liver function tests normal and CBC is unremarkable. Impression: 1.Pneumonia. 2.Generalized weakness. 3.Debility. 4.Hypertension. 5.Parkinson disease. Plan: We will continue current antifungal medication, continue physical therapy under guidance of Dr Messi Escoto. We will go ahead and continue current DVT prophylaxis. I will see him tomorrow for claudia holliday. MISTY/MODL Voice ID: [id number] Report ID: [id number]
[2021-10-27] MEDS: FLUCONAZOLE 100 MG TAB PO SCH (07:30)
[2021-10-27] MEDS: AZATHIOPRINE 50 MG TABLET PO SCH (07:31)
[2021-10-27] MEDS: TAMSULOSIN 0.4 MG SR CAP PO SCH ×2 (07:31→20:01)
[2021-10-27] MEDS: AMANTADINE 100 MG CAP PO SCH (07:31)
[2021-10-27] MEDS: CARBIDOPA/LEVODOPA 25/100 TAB PO SCH ×3 (07:31→20:01)
[2021-10-27] MEDS: ENSURE ENLIVE 237 ML CAN PO SCH ×2 (07:32→20:01)
[2021-10-27] MEDS: FINASTERIDE 5 MG TAB PO SCH (07:32)
[2021-10-27] MEDS: ENOXAPARIN 40 MG/0.4 ML SQ SCH (07:32)
[2021-10-27] MEDS: MAGNESIUM OXIDE 400 MG TAB PO SCH (07:33)
--- NOTE | 2021-10-27 16:19 | RAD REPORT ---
EXAM DESCRIPTION: RAD - Chest Pa And Lat (2 Views) - 10/27/2021 4:10 pm CLINICAL HISTORY: pneumonia COMPARISON: Two view chest October 20, CT chest October 17 TECHNIQUE: Frontal and lateral views of the chest were obtained. FINDINGS: The lungs are fibrotic as a baseline. Patchy right base infiltrate changes are present sim ilar to the prior imaging studies. Right upper lobe opacification near the minor fissure also similar to the CT chest study. Patchy lateral left upper lobe infiltrate changes are again noted. No clearly progressive process noted. No overall improvement seen. No hilar mass or lymphadenopathy. Trachea is midline. Heart size is normal and central vasculature i s within normal limits. No pleural effusion or pneumothorax seen. No acute bony finding noted. No aortic abnormality. IMPRESSION: Bilateral lung parenchymal infiltrates superimposed on chronic interstitial lung pattern . Findings are not substantially different from the October 17 CT chest study.
[2021-10-27] MEDS: ALPRAZOLAM 0.25 MG TABLET PO SCH (20:01)
[2021-10-27] MEDS: ATORVASTATIN 10 MG TAB PO SCH (20:01)
--- NOTE | 2021-10-28 01:46 | PN ---
Date of Progress Note: 10/27/2021 Subjective: The patient was seen this morning for followup. No new complaints or problems reported by the patient. He is sitting on bed, not in any distress. Objective: Vital Signs: Reviewed. HEENT: Unremarkable. Lungs: Clear to auscultation. Heart: Sounds normal. Abdomen: Soft. Bowel sounds normal. No guarding, rigidity, tenderness, or distention. Extremities: No leg edema. Impression: 1.Pneumonia. 2.Hypertension. 3.Parkinson disease. Plan: We will continue current antifungal medications. Continue DVT prophylaxis and continue physic al therapy per guidance of Dr. Escoto. MISTY/MODL Voice ID: [id number] Report ID: [id number]
[2021-10-28] MEDS: ENOXAPARIN 40 MG/0.4 ML SQ SCH (07:30)
[2021-10-28] MEDS: FLUCONAZOLE 100 MG TAB PO SCH (07:31)
[2021-10-28] MEDS: MAGNESIUM OXIDE 400 MG TAB PO SCH (07:31)
[2021-10-28] MEDS: AMANTADINE 100 MG CAP PO SCH (07:31)
[2021-10-28] MEDS: FINASTERIDE 5 MG TAB PO SCH (07:31)
[2021-10-28] MEDS: CARBIDOPA/LEVODOPA 25/100 TAB PO SCH ×3 (07:32→20:38)
[2021-10-28] MEDS: TAMSULOSIN 0.4 MG SR CAP PO SCH ×2 (07:32→20:38)
[2021-10-28] MEDS: AZATHIOPRINE 50 MG TABLET PO SCH (07:32)
[2021-10-28] MEDS: ENSURE ENLIVE 237 ML CAN PO SCH ×2 (07:32→20:39)
--- NOTE | 2021-10-28 20:00 | R.PN ---
PROGRESS NOTES ENCOUNTER DATE AND TIME: 10/28/2021 19:57 (CDT) NAME FELIX TIJERINA DATE OF : 1935 DATE OF ADMISSION: 10/22/2021 12:35 (CDT) Parkinson's disease (G20)CHIEF COMPLAINT: Parkinson's disease and debility. SUBJECTIVE: Pt denied any depression. Pt denied any Shortness of Breath. Ambulated 200' with contact guard assistance using a rolling walker. Self-propelled wheelchair 500' with standby assistance. Labs are stable. VITAL SIGNS Temperature: 98.8 F SBP/DBP: 149/70 Pulse: 70 Resp: 15 MEDICATION ALLERGIES: Aspirin ENVIRONMENTAL ALLERGIES: - Substance Allergies None Known - Other Allergies None Known CONSULT: Perform Neuro consult NURSING: - Shower allowing shower ACTIVITIES OOB only with supervision THERAPIES: - Dietary and Nutrition Adequate Nutrition. Nutritional Education. Nutritional Supplements. Evaluate and Treat. - Occupational Therapy Cognitive Retraining. Patient needs Occupational Therapy for a daily minimum of 1.5 hours at least 5 out of 7 days, to improve Activities of Daily Living, including: Eating, Grooming, Bathing, Dressing, Toileting, Toilet Transfers, Community Reintegration, Higher functional activities, Adaptive Equipme nt, Splinting, Household Tasks, and Other activities as determined. Visual Perceptual Training. Evalu ate and Treat. Household Tasks. UE Strengthening. Transfer Training. Patient/Family Education. Safety Awareness. - Speech Therapy Cognitive Training. Expressive Language Skills. Memory Strategies. Patient needs Speech Therapy for a daily minimum of 1.5 hours at least 5 out of 7 days, to improve: Swallowing, Cognition, Language Ski lls, and Compensatory Strategies. Receptive Language Skills. Speech Intelligibility Training. Evaluat e and Treat. - Physical Therapy Patient needs Physical Therapy for a daily minimum of 1.5 hours at least 5 out of 7 days, to improve: Mobility, Strengthening, Transfers, Stretching, ROM, Endurance, Ability to manage stairs, Gait, and Balance. Evaluate and Treat. Patient/Family Education. Gait Training. Balance Training. Safety Awaren ess. Transfer Training. LE Strengthening. PHYSICAL EXAM - Gen Alert and awake Lying in bed No apparent distress Oriented to: person, time, and place - Skin No skin breakdown. No abnormalities - Eyes No abnormalities - ENMT No abnormalities - Neck No abnormalities - CVS RRR - Chest No abnormalities - Abd + bowel sounds - GI Soft Deferred - No abnormalities - Ext Mild bilateral lower extremity edema. - MSK 4+/5 weakness in both lower extremities. - Neuro No focal deficits - Psych Mild depression. ASSESSMENT: Pt. is a 86 yo Right-handed male.On 10/14/2021 he was admitted to [facility] with diagno sis Parkinson's disease (G20).His impairment category is Neurologic Conditions 03 - Parkinsonism (03 .2).Pre-morbidly, Pt. was independent/mod-I in Locomotion, Safety Awareness, Social Cognition, Balanc e, and Transfers Control; and he had good Sphincter Control, Self-Care, Communication, and Endurance. Currently, he has deficits of Locomotion, Safety Awareness, Social Cognition, Transfers Control, [place] nce, Self-Care, Communication, Endurance, and Sphincter Control.Pt. is now referred to [facility] for acute in-patient rehabilitation in order to maximize patient's functional ind ependence in activities of daily living, strength, ROM, and mobility.- Rehab Goal Patient has realistic goal of being discharged at assistance level Ari-to-sup to reside at Home with Family/Relatives. MDM/PLAN: - Physical Therapy Gait dysfunction - to improve, our physical therapists will perform initial evaluation of pt's statu s upon admission and devise an individualized program for Gait Training, and Wheel Chair mobility Inability to transfer - to improve, our physical therapists will perform initial evaluation of pt's status upon admission and devise an individualized program for Bed mobility Need for home safety evaluation - to improve, our physical therapists will perform initial evaluatio n of pt's status upon admission and devise an individualized program for Home Evaluation Need in caregiver upon discharge - to improve, our physical therapists will perform initial evaluati on of pt's status upon admission and devise an individualized program for Caregiver Training New precaution - to improve, our physical therapists will perform initial evaluation of pt's status upon admission and devise an individualized program for Patient precaution education Edema - to improve, our physical therapists will perform initial evaluation of pt's status upon admi ssion and devise an individualized program for Elevation Training, and Lymphedema Therapy Poor balance - to improve, our physical therapists will perform initial evaluation of pt's status up on admission and devise an individualized program for Balance Training Poor endurance - to improve, our physical therapists will perform initial evaluation of pt's status upon admission and devise an individualized program for Endurance Training Weakness - to improve, our physical therapists will perform initial evaluation of pt's status upon a dmission and devise an individualized program for Aquatic Therapy, Neuromuscular Reeducation, and Str engthening Achieving independence - to improve, our physical therapists will perform initial evaluation of pt's status upon admission and devise an individualized program for Community Reintegration Activities - Occupational Therapy ADL deficits - to improve, our occupation therapists will perform initial evaluation of pt's status upon admission and devise an individualized program for Bathing, Bed mobility, Community Reintegratio n, Cooking, Dressing, Eating, Fine Motor Skills, Grooming, Homemaking, Kitchen Mobility, Laundry, Pat ient Education, Safety Awareness, Splinting - Positioning, Transfers(Toilet, Tub, Shower), and Wheel Chair Management Cognitive deficits - to improve, our occupation therapists will perform initial evaluation of pt's s tatus upon admission and devise an individualized program for Cognition - orientation Need for progressive care nurse - to improve, our occupation therapists will perform initial evaluation of pt's status upon admission and devise an individualized program for Caregiver Training Weakness - to improve, our occupation therapists will perform initial evaluation of pt's status upon admission and devise an individualized program for Aquatic Therapy, Balance, Endurance, UE ROM, and UE strengthening - Other See attached MAR (Medication Administration Record) - Diet Type Start Regular - Diet - Liquid Texture Start Regular - Tube Feed Start N/A - Diet - Solid Texture Start Regular - Shower allowing shower FUNCTIONAL STATUS: UPDATED AT WEEKLY TEAM CONFERENCE - Bladder Same accident frequency: 7-Ind - No accidents in the past 7 days - Bowel Same accident frequency: 7-Ind - No accidents in the past 7 days - Walking Same score based on distance walked: 0(N/A) - Wheelchair Same score based on distance traveled: 0(N/A) FUNCTIONAL STATUS: - Self-Care A. Eating Ind B. Grooming Ind C. Bathing Ind D. Dressing - Upper Ind E. Dressing - Lower Ind F. Toileting Ind - Sphincter Control G. Bladder control Ind H. Bowel control Ind - Transfers Control I. Bed/Chair/Wheelchair Ind J. Toilet Ind K. Tub/Shower Ind - Locomotion L. Walk/Wheelchair (W) Ind M. Stairs Ind - Communication N. Comprehension (V) Ind O. Expression (N) Ind - Social Cognition P. Social Interaction Ind Q. Problem Solving Ind R. Memory Ind - Endurance Good - Balance Good - Safety Awareness Good QI SCORES: - Self-Care A. Eating 04-Supervision or touching assistance B. Oral hygiene 03-Partial/moderate assistance C. Toileting hygiene 03-Partial/moderate assistance E. Shower/bathe self 03-Partial/moderate assistance F. Upper body dressing 04-Supervision or touching assistance G. Lower body dressing 03-Partial/moderate assistance H. Putting on/taking off footwear 88-Not attempted due to medical condition or safety concerns - Mobility A. Roll left and right 04-Supervision or touching assistance B. Sit to lying 03-Partial/moderate assistance C. Lying to sitting on side of bed 02-Substantial/maximal assistance D. Sit to stand 03-Partial/moderate assistance E. Chair/hsn-pr-cyfge transfer 03-Partial/moderate assistance F. Toilet transfer 88-Not attempted due to medical condition or safety concerns G. Car transfer 88-Not attempted due to medical condition or safety concerns I. Walk 10 feet 03-Partial/moderate assistance J. Walk 50 feet with two turns 03-Partial/moderate assistance K. Walk 150 feet 88-Not attempted due to medical condition or safety concerns L. Walking 10 feet on uneven surfaces 88-Not attempted due to medical condition or safety concerns M. 1 step (curb) 88-Not attempted due to medical condition or safety concerns N. 4 steps 88-Not attempted due to medical condition or safety concerns O. 12 steps 88-Not attempted due to medical condition or safety concerns P. Picking up object 88-Not attempted due to medical condition or safety concerns R. Wheel 50 feet with two turns 88-Not attempted due to medical condition or safety concerns S. Wheel 150 feet 88-Not attempted due to medical condition or safety concerns - Bladder and Bowel Bladder continence Bowel continence - Endurance Fair - Balance Poor - Safety Awareness Fair CURRENT FUNC. DEFICITS: Self-Care, Mobility, Endurance, Balance, and Safety Awareness SIGNATURE PANEL: (CDT)
[2021-10-28] MEDS: ATORVASTATIN 10 MG TAB PO SCH (20:38)
[2021-10-28] MEDS: ALPRAZOLAM 0.25 MG TABLET PO SCH (20:38)
[2021-10-29] MEDS: ENOXAPARIN 40 MG/0.4 ML SQ SCH (07:23)
[2021-10-29] MEDS: MAGNESIUM OXIDE 400 MG TAB PO SCH (07:24)
[2021-10-29] MEDS: CARBIDOPA/LEVODOPA 25/100 TAB PO SCH ×3 (07:24→19:48)
[2021-10-29] MEDS: AZATHIOPRINE 50 MG TABLET PO SCH (07:24)
[2021-10-29] MEDS: TAMSULOSIN 0.4 MG SR CAP PO SCH ×2 (07:24→19:49)
[2021-10-29] MEDS: AMANTADINE 100 MG CAP PO SCH (07:25)
[2021-10-29] MEDS: FINASTERIDE 5 MG TAB PO SCH (07:25)
[2021-10-29] MEDS: FLUCONAZOLE 100 MG TAB PO SCH (07:25)
[2021-10-29] MEDS: predniSONE 10 MG TAB PO SCH ×2 (07:26→19:49)
--- NOTE | 2021-10-29 08:21 | PN ---
Date of Progress Note: 10/28/2021 Subjective: The patient was seen this morning for followup. He started to have diarrhea today and h ad 3-4 loose liquid stool diarrhea. Denies any abdominal pain, nausea, vomiting. Objective: Vital Signs: Reviewed. HEENT: Unremarkable. Lungs: Clear to auscultation. Heart: Sounds normal. Abdomen: Soft. Bowel sounds normal. No guarding, rigidity, tenderness, or distention. Extremities: No leg edema. Impression: 1.Pneumonia. 2.Eosinophilic colitis. 3.Generalized weakness. 4.Debility. 5.Parkinson disease. Plan: We will go ahead and continue current medications including DVT prophylaxis, continue current oral antifungal medication for pneumonia. The patient's daughter was concerned about diarrhea coming back and chest x-ray from yesterday. All those details were discussed with her on the phone this ev ening. Considering his diarrhea problem has started again, I have recommended her to go ahead and re start prednisone and I have communicated with Dr. Real. We both agreed to start the patient on p rednisone 10 mg 2 times a day until diarrhea gets controlled and then we will reduce the dose of pred nisone and all those details were discussed with the patient's daughter. Chest x-ray finding also di scussed with daughter and Dr. Real reviewed it as well, but at this point, no concern on chest x- ray. We will continue antifungal medication for total of 2 weeks and so far I believe the patient has received it for 1 week. Continue physical therapy under guidance of Dr. Escoto. I kaci l see him tomorrow for followup. MISTY/MODL Voice ID: [id number] Report ID: [id number]
[2021-10-29] MEDS: ENSURE ENLIVE 237 ML CAN PO SCH ×2 (11:45→19:49)
[2021-10-29] MEDS: ALPRAZOLAM 0.25 MG TABLET PO SCH (19:48)
[2021-10-29] MEDS: ATORVASTATIN 10 MG TAB PO SCH (19:48)
[2021-10-29] MEDS: DULOXETINE 20 MG CAP PO SCH (19:49)
--- NOTE | 2021-10-29 20:13 | R.PN ---
PROGRESS NOTES ENCOUNTER DATE AND TIME: 10/29/2021 20:04 (CDT) NAME FELIX TIJERINA DATE OF : 1935 DATE OF ADMISSION: 10/22/2021 12:35 (CDT) Parkinson's disease (G20)CHIEF COMPLAINT: Parkinson's disease and debility. SUBJECTIVE: Pt denied any depression. Pt denied any Shortness of Breath. Ambulated 450' with standby assistance using a rolling walker. Labs are stable. Blood work is stable. Chest x-ray 10/27/21 shows bilateral lung parenchymal infiltrates. VITAL SIGNS Temperature: 97.7 F SBP/DBP: 157/69 Pulse: 69 Resp: 16 MEDICATION ALLERGIES: Aspirin ENVIRONMENTAL ALLERGIES: - Substance Allergies None Known - Other Allergies None Known CONSULT: Perform Neuro consult NURSING: - Shower allowing shower ACTIVITIES OOB only with supervision THERAPIES: - Dietary and Nutrition Adequate Nutrition. Nutritional Education. Nutritional Supplements. Evaluate and Treat. - Occupational Therapy Cognitive Retraining. Patient needs Occupational Therapy for a daily minimum of 1.5 hours at least 5 out of 7 days, to improve Activities of Daily Living, including: Eating, Grooming, Bathing, Dressing, Toileting, Toilet Transfers, Community Reintegration, Higher functional activities, Adaptive Equipme nt, Splinting, Household Tasks, and Other activities as determined. Visual Perceptual Training. Evalu ate and Treat. Household Tasks. UE Strengthening. Transfer Training. Patient/Family Education. Safety Awareness. - Speech Therapy Cognitive Training. Expressive Language Skills. Memory Strategies. Patient needs Speech Therapy for a daily minimum of 1.5 hours at least 5 out of 7 days, to improve: Swallowing, Cognition, Language Ski lls, and Compensatory Strategies. Receptive Language Skills. Speech Intelligibility Training. Evaluat e and Treat. - Physical Therapy Patient needs Physical Therapy for a daily minimum of 1.5 hours at least 5 out of 7 days, to improve: Mobility, Strengthening, Transfers, Stretching, ROM, Endurance, Ability to manage stairs, Gait, and Balance. Evaluate and Treat. Patient/Family Education. Gait Training. Balance Training. Safety Awaren ess. Transfer Training. LE Strengthening. PHYSICAL EXAM - Gen Alert and awake Lying in bed No apparent distress Oriented to: person, time, and place - Skin No skin breakdown. No abnormalities - Eyes No abnormalities - ENMT No abnormalities - Neck No abnormalities - CVS RRR - Chest No abnormalities - Abd + bowel sounds - GI Soft Deferred - No abnormalities - Ext Mild bilateral lower extremity edema. - MSK 4+/5 weakness in both lower extremities. - Neuro No focal deficits - Psych Mild depression. ASSESSMENT: Pt. is a 86 yo Right-handed male.On 10/14/2021 he was admitted to [facility] with diagno sis Parkinson's disease (G20).His impairment category is Neurologic Conditions 03 - Parkinsonism (03 .2).Pre-morbidly, Pt. was independent/mod-I in Locomotion, Safety Awareness, Social Cognition, Balanc e, and Transfers Control; and he had good Sphincter Control, Self-Care, Communication, and Endurance. Currently, he has deficits of Locomotion, Safety Awareness, Social Cognition, Transfers Control, [place] nce, Self-Care, Communication, Endurance, and Sphincter Control.Pt. is now referred to [facility] for acute in-patient rehabilitation in order to maximize patient's functional ind ependence in activities of daily living, strength, ROM, and mobility.- Rehab Goal Patient has realistic goal of being discharged at assistance level Ari-to-sup to reside at Home with Family/Relatives. MDM/PLAN: - Physical Therapy Gait dysfunction - to improve, our physical therapists will perform initial evaluation of pt's statu s upon admission and devise an individualized program for Gait Training, and Wheel Chair mobility Inability to transfer - to improve, our physical therapists will perform initial evaluation of pt's status upon admission and devise an individualized program for Bed mobility Need for home safety evaluation - to improve, our physical therapists will perform initial evaluatio n of pt's status upon admission and devise an individualized program for Home Evaluation Need in caregiver upon discharge - to improve, our physical therapists will perform initial evaluati on of pt's status upon admission and devise an individualized program for Caregiver Training New precaution - to improve, our physical therapists will perform initial evaluation of pt's status upon admission and devise an individualized program for Patient precaution education Edema - to improve, our physical therapists will perform initial evaluation of pt's status upon admi ssion and devise an individualized program for Elevation Training, and Lymphedema Therapy Poor balance - to improve, our physical therapists will perform initial evaluation of pt's status up on admission and devise an individualized program for Balance Training Poor endurance - to improve, our physical therapists will perform initial evaluation of pt's status upon admission and devise an individualized program for Endurance Training Weakness - to improve, our physical therapists will perform initial evaluation of pt's status upon a dmission and devise an individualized program for Aquatic Therapy, Neuromuscular Reeducation, and Str engthening Achieving independence - to improve, our physical therapists will perform initial evaluation of pt's status upon admission and devise an individualized program for Community Reintegration Activities - Occupational Therapy ADL deficits - to improve, our occupation therapists will perform initial evaluation of pt's status upon admission and devise an individualized program for Bathing, Bed mobility, Community Reintegratio n, Cooking, Dressing, Eating, Fine Motor Skills, Grooming, Homemaking, Kitchen Mobility, Laundry, Pat ient Education, Safety Awareness, Splinting - Positioning, Transfers(Toilet, Tub, Shower), and Wheel Chair Management Cognitive deficits - to improve, our occupation therapists will perform initial evaluation of pt's s tatus upon admission and devise an individualized program for Cognition - orientation Need for managed care provider - to improve, our occupation therapists will perform initial evaluation of pt's status upon admission and devise an individualized program for Caregiver Training Weakness - to improve, our occupation therapists will perform initial evaluation of pt's status upon admission and devise an individualized program for Aquatic Therapy, Balance, Endurance, UE ROM, and UE strengthening - Other See attached MAR (Medication Administration Record) - Diet Type Continue Regular - Diet - Liquid Texture Continue Regular - Tube Feed Continue N/A - Diet - Solid Texture Continue Regular - Shower allowing shower FUNCTIONAL STATUS: UPDATED AT WEEKLY TEAM CONFERENCE - Bladder Same accident frequency: 7-Ind - No accidents in the past 7 days - Bowel Same accident frequency: 7-Ind - No accidents in the past 7 days - Walking Same score based on distance walked: 0(N/A) - Wheelchair Same score based on distance traveled: 0(N/A) FUNCTIONAL STATUS: - Self-Care A. Eating Ind B. Grooming Ind C. Bathing Ind D. Dressing - Upper Ind E. Dressing - Lower Ind F. Toileting Ind - Sphincter Control G. Bladder control Ind H. Bowel control Ind - Transfers Control I. Bed/Chair/Wheelchair Ind J. Toilet Ind K. Tub/Shower Ind - Locomotion L. Walk/Wheelchair (W) Ind M. Stairs Ind - Communication N. Comprehension (V) Ind O. Expression (N) Ind - Social Cognition P. Social Interaction Ind Q. Problem Solving Ind R. Memory Ind - Endurance Good - Balance Good - Safety Awareness Good QI SCORES: - Self-Care A. Eating 04-Supervision or touching assistance B. Oral hygiene 03-Partial/moderate assistance C. Toileting hygiene 03-Partial/moderate assistance E. Shower/bathe self 03-Partial/moderate assistance F. Upper body dressing 04-Supervision or touching assistance G. Lower body dressing 03-Partial/moderate assistance H. Putting on/taking off footwear 88-Not attempted due to medical condition or safety concerns - Mobility A. Roll left and right 04-Supervision or touching assistance B. Sit to lying 03-Partial/moderate assistance C. Lying to sitting on side of bed 02-Substantial/maximal assistance D. Sit to stand 03-Partial/moderate assistance E. Chair/dms-ts-swezm transfer 03-Partial/moderate assistance F. Toilet transfer 88-Not attempted due to medical condition or safety concerns G. Car transfer 88-Not attempted due to medical condition or safety concerns I. Walk 10 feet 03-Partial/moderate assistance J. Walk 50 feet with two turns 03-Partial/moderate assistance K. Walk 150 feet 88-Not attempted due to medical condition or safety concerns L. Walking 10 feet on uneven surfaces 88-Not attempted due to medical condition or safety concerns M. 1 step (curb) 88-Not attempted due to medical condition or safety concerns N. 4 steps 88-Not attempted due to medical condition or safety concerns O. 12 steps 88-Not attempted due to medical condition or safety concerns P. Picking up object 88-Not attempted due to medical condition or safety concerns R. Wheel 50 feet with two turns 88-Not attempted due to medical condition or safety concerns S. Wheel 150 feet 88-Not attempted due to medical condition or safety concerns - Bladder and Bowel Bladder continence Bowel continence - Endurance Fair - Balance Poor - Safety Awareness Fair CURRENT FUNC. DEFICITS: Self-Care, Mobility, Endurance, Balance, and Safety Awareness SIGNATURE PANEL: (CDT)
[2021-10-30 06:10] LABS: Absolute Lymphocytes (CBC) 1.1 K/uL (0.7-4.9); Hematocrit 33.8 % (39.6-49.0); Lymphocytes % 14.4 % (15.3-44.8); MCV 100.3 fL (80-100); MPV 7.6 fL (7.6-11.3); RBC Red Blood Cell Count 3.37 M/uL (4.33-5.43)
[2021-10-30 06:24] LABS: Albumin 2.2 g/dL (3.4-5.0); Potassium 4.6 mmol/L (3.5-5.1); Prealbumin 15.5 mg/dL (20-40)
[2021-10-30] MEDS: ENOXAPARIN 40 MG/0.4 ML SQ SCH (07:23)
[2021-10-30 07:41] LABS: Blood Morphology Comment NOT SEEN (NOT SEEN); White Blood Cell Scan OK (OK)
[2021-10-30 07:42] LABS: Platelet Estimate ADEQ
--- NOTE | 2021-10-30 07:49 | PN ---
Date of Progress Note: 10/29/2021 Subjective: The patient was seen this morning for followup. No new complaints or problems reported by patient. Lying in bed, not in distress. Objective: Vital Signs: Reviewed. HEENT: Unremarkable. Lungs: Clear to auscultation. Heart: Heart sounds normal. Abdomen: Soft, bowel sounds normal. No guarding, rigidity, tenderness, or distention. Extremities: No leg edema. Impression: 1.Eosinophilic colitis. 2.Parkinson disease. 3.Hypertension. 4.Pneumonia. Plan: We will go ahead and give prednisone 10 mg 2 times a day as per order starting today for contr ol of the diarrhea. Once diarrhea is under control, then we will start reducing dose of prednisone. Continue oral fluconazole for pneumonia. The patient remains afebrile. We will continue current DV T prophylaxis and physical therapy to be provided under guidance of Dr. Escoto. MISTY/MODL Voice ID: [id number] Report ID: [id number]
[2021-10-30] MEDS: AMANTADINE 100 MG CAP PO SCH (07:58)
[2021-10-30] MEDS: AZATHIOPRINE 50 MG TABLET PO SCH (07:58)
[2021-10-30] MEDS: CARBIDOPA/LEVODOPA 25/100 TAB PO SCH ×3 (07:58→20:04)
[2021-10-30] MEDS: FLUCONAZOLE 100 MG TAB PO SCH (07:58)
[2021-10-30] MEDS: predniSONE 10 MG TAB PO SCH ×2 (07:59→20:04)
[2021-10-30] MEDS: TAMSULOSIN 0.4 MG SR CAP PO SCH ×2 (07:59→20:04)
[2021-10-30] MEDS: FINASTERIDE 5 MG TAB PO SCH (07:59)
[2021-10-30] MEDS: ENSURE ENLIVE 237 ML CAN PO SCH ×2 (07:59→20:04)
[2021-10-30] MEDS: MAGNESIUM OXIDE 400 MG TAB PO SCH (07:59)
--- NOTE | 2021-10-30 15:27 | RAD REPORT ---
EXAM DESCRIPTION: RAD - Chest Pa And Lat (2 Views) - 10/30/2021 3:06 pm CLINICAL HISTORY: pneumonia COMPARISON: Two view chest 10/27/2021 TECHNIQUE: Frontal and lateral views of the chest were obtained. FINDINGS: The lungs are fibrotic as a baseline. Bibasilar interstitial opacification has shown no si gnificant change. Scattered parenchymal opacities elsewhere in the lung kenyon also without change. No new or progressive finding. Heart size is normal and central vasculature is within normal limits. No pleural effusion or pneumo thorax seen. No acute bony finding noted. No aortic abnormality. IMPRESSION: Chronic interstitial lung disease with superimposed infiltrates. No significant change from the October 27 study.
--- NOTE | 2021-10-30 16:35 | RAD REPORT ---
EXAM DESCRIPTION: RAD - Barium Swallow Modified - 10/30/2021 4:03 pm CLINICAL HISTORY: dysphagia COMPARISON: None. TECHNIQUE: The patient was given liquid, semi-solid and solid forms of barium. Lateral view fluorosc opic imaging was performed in conjunction with speech pathology service. FINDINGS: [place] acquisitions: 36 Fluoro time: 7:42 Laryngeal penetration with honey that was cleared and with nectar that was not cleared. Aspiration no cough with thin,nectar,whole pill with nectar. Pharyngeal residue vallecular and pyriform mild to se susy with all consistancies nectar, honey ,puree, dry solid pill with nectar and pill with puree. Abs ent epiglottic deflection ,decreased hyoid excursion,thin posterior pharyngeal wall,osteophytes at c5 c6 and c7. Mild esophageal residue. IMPRESSION: Modified barium swallow as summarized above and fully detailed on speech pathology repor manny
--- NOTE | 2021-10-30 17:52 | R.PN ---
PROGRESS NOTES ENCOUNTER DATE AND TIME: 10/30/2021 17:49 (CDT) NAME FELIX TIJERINA DATE OF : 1935 DATE OF ADMISSION: 10/22/2021 12:35 (CDT) Parkinson's disease (G20)CHIEF COMPLAINT: Parkinson's disease and debility. SUBJECTIVE: Pt denied any depression. Pt denied any Shortness of Breath. Ambulated 250' with standby assistance using a rolling walker. Labs are stable. Blood work is stable. Prealbumin 15.5, glucose 94 to 116.Chest x-ray 10/27/21 shows bilateral lung par enchymal infiltrates. VITAL SIGNS Temperature: 97.0 F SBP/DBP: 169/78 Pulse: 71 Resp: 16 MEDICATION ALLERGIES: Aspirin ENVIRONMENTAL ALLERGIES: - Substance Allergies None Known - Other Allergies None Known CONSULT: Perform Neuro consult NURSING: - Shower allowing shower ACTIVITIES OOB only with supervision THERAPIES: - Dietary and Nutrition Adequate Nutrition. Nutritional Education. Nutritional Supplements. Evaluate and Treat. - Occupational Therapy Cognitive Retraining. Patient needs Occupational Therapy for a daily minimum of 1.5 hours at least 5 out of 7 days, to improve Activities of Daily Living, including: Eating, Grooming, Bathing, Dressing, Toileting, Toilet Transfers, Community Reintegration, Higher functional activities, Adaptive Equipme nt, Splinting, Household Tasks, and Other activities as determined. Visual Perceptual Training. Evalu ate and Treat. Household Tasks. UE Strengthening. Transfer Training. Patient/Family Education. Safety Awareness. - Speech Therapy Cognitive Training. Expressive Language Skills. Memory Strategies. Patient needs Speech Therapy for a daily minimum of 1.5 hours at least 5 out of 7 days, to improve: Swallowing, Cognition, Language Ski lls, and Compensatory Strategies. Receptive Language Skills. Speech Intelligibility Training. Evaluat e and Treat. - Physical Therapy Patient needs Physical Therapy for a daily minimum of 1.5 hours at least 5 out of 7 days, to improve: Mobility, Strengthening, Transfers, Stretching, ROM, Endurance, Ability to manage stairs, Gait, and Balance. Evaluate and Treat. Patient/Family Education. Gait Training. Balance Training. Safety Awaren ess. Transfer Training. LE Strengthening. PHYSICAL EXAM - Gen Alert and awake Lying in bed No apparent distress Oriented to: person, time, and place - Skin No skin breakdown. No abnormalities - Eyes No abnormalities - ENMT No abnormalities - Neck No abnormalities - CVS RRR - Chest No abnormalities - Abd + bowel sounds - GI Soft Deferred - No abnormalities - Ext Mild bilateral lower extremity edema. - MSK 4+/5 weakness in both lower extremities. - Neuro No focal deficits - Psych Mild depression. ASSESSMENT: Pt. is a 86 yo Right-handed male.On 10/14/2021 he was admitted to [facility] with diagno sis Parkinson's disease (G20).His impairment category is Neurologic Conditions 03 - Parkinsonism (03 .2).Pre-morbidly, Pt. was independent/mod-I in Locomotion, Safety Awareness, Social Cognition, Balanc e, and Transfers Control; and he had good Sphincter Control, Self-Care, Communication, and Endurance. Currently, he has deficits of Locomotion, Safety Awareness, Social Cognition, Transfers Control, [place] nce, Self-Care, Communication, Endurance, and Sphincter Control.Pt. is now referred to [facility] for acute in-patient rehabilitation in order to maximize patient's functional ind ependence in activities of daily living, strength, ROM, and mobility.- Rehab Goal Patient has realistic goal of being discharged at assistance level Ari-to-sup to reside at Home with Family/Relatives. MDM/PLAN: - Physical Therapy Gait dysfunction - to improve, our physical therapists will perform initial evaluation of pt's statu s upon admission and devise an individualized program for Gait Training, and Wheel Chair mobility Inability to transfer - to improve, our physical therapists will perform initial evaluation of pt's status upon admission and devise an individualized program for Bed mobility Need for home safety evaluation - to improve, our physical therapists will perform initial evaluatio n of pt's status upon admission and devise an individualized program for Home Evaluation Need in caregiver upon discharge - to improve, our physical therapists will perform initial evaluati on of pt's status upon admission and devise an individualized program for Caregiver Training New precaution - to improve, our physical therapists will perform initial evaluation of pt's status upon admission and devise an individualized program for Patient precaution education Edema - to improve, our physical therapists will perform initial evaluation of pt's status upon admi ssion and devise an individualized program for Elevation Training, and Lymphedema Therapy Poor balance - to improve, our physical therapists will perform initial evaluation of pt's status up on admission and devise an individualized program for Balance Training Poor endurance - to improve, our physical therapists will perform initial evaluation of pt's status upon admission and devise an individualized program for Endurance Training Weakness - to improve, our physical therapists will perform initial evaluation of pt's status upon a dmission and devise an individualized program for Aquatic Therapy, Neuromuscular Reeducation, and Str engthening Achieving independence - to improve, our physical therapists will perform initial evaluation of pt's status upon admission and devise an individualized program for Community Reintegration Activities - Occupational Therapy ADL deficits - to improve, our occupation therapists will perform initial evaluation of pt's status upon admission and devise an individualized program for Bathing, Bed mobility, Community Reintegratio n, Cooking, Dressing, Eating, Fine Motor Skills, Grooming, Homemaking, Kitchen Mobility, Laundry, Pat ient Education, Safety Awareness, Splinting - Positioning, Transfers(Toilet, Tub, Shower), and Wheel Chair Management Cognitive deficits - to improve, our occupation therapists will perform initial evaluation of pt's s tatus upon admission and devise an individualized program for Cognition - orientation Need for chiropractic care - to improve, our occupation therapists will perform initial evaluation of pt's status upon admission and devise an individualized program for Caregiver Training Weakness - to improve, our occupation therapists will perform initial evaluation of pt's status upon admission and devise an individualized program for Aquatic Therapy, Balance, Endurance, UE ROM, and UE strengthening - Other See attached MAR (Medication Administration Record) - Diet Type Continue Regular - Diet - Liquid Texture Continue Regular - Tube Feed Continue N/A - Diet - Solid Texture Continue Regular - Shower allowing shower FUNCTIONAL STATUS: UPDATED AT WEEKLY TEAM CONFERENCE - Bladder Same accident frequency: 7-Ind - No accidents in the past 7 days - Bowel Same accident frequency: 7-Ind - No accidents in the past 7 days - Walking Same score based on distance walked: 0(N/A) - Wheelchair Same score based on distance traveled: 0(N/A) FUNCTIONAL STATUS: - Self-Care A. Eating Ind B. Grooming Ind C. Bathing Ind D. Dressing - Upper Ind E. Dressing - Lower Ind F. Toileting Ind - Sphincter Control G. Bladder control Ind H. Bowel control Ind - Transfers Control I. Bed/Chair/Wheelchair Ind J. Toilet Ind K. Tub/Shower Ind - Locomotion L. Walk/Wheelchair (W) Ind M. Stairs Ind - Communication N. Comprehension (V) Ind O. Expression (N) Ind - Social Cognition P. Social Interaction Ind Q. Problem Solving Ind R. Memory Ind - Endurance Good - Balance Good - Safety Awareness Good QI SCORES: - Self-Care A. Eating 04-Supervision or touching assistance B. Oral hygiene 03-Partial/moderate assistance C. Toileting hygiene 03-Partial/moderate assistance E. Shower/bathe self 03-Partial/moderate assistance F. Upper body dressing 04-Supervision or touching assistance G. Lower body dressing 03-Partial/moderate assistance H. Putting on/taking off footwear 88-Not attempted due to medical condition or safety concerns - Mobility A. Roll left and right 04-Supervision or touching assistance B. Sit to lying 03-Partial/moderate assistance C. Lying to sitting on side of bed 02-Substantial/maximal assistance D. Sit to stand 03-Partial/moderate assistance E. Chair/tay-nb-olraz transfer 03-Partial/moderate assistance F. Toilet transfer 88-Not attempted due to medical condition or safety concerns G. Car transfer 88-Not attempted due to medical condition or safety concerns I. Walk 10 feet 03-Partial/moderate assistance J. Walk 50 feet with two turns 03-Partial/moderate assistance K. Walk 150 feet 88-Not attempted due to medical condition or safety concerns L. Walking 10 feet on uneven surfaces 88-Not attempted due to medical condition or safety concerns M. 1 step (curb) 88-Not attempted due to medical condition or safety concerns N. 4 steps 88-Not attempted due to medical condition or safety concerns O. 12 steps 88-Not attempted due to medical condition or safety concerns P. Picking up object 88-Not attempted due to medical condition or safety concerns R. Wheel 50 feet with two turns 88-Not attempted due to medical condition or safety concerns S. Wheel 150 feet 88-Not attempted due to medical condition or safety concerns - Bladder and Bowel Bladder continence Bowel continence - Endurance Fair - Balance Poor - Safety Awareness Fair CURRENT FUNC. DEFICITS: Self-Care, Mobility, Endurance, Balance, and Safety Awareness SIGNATURE PANEL: (CDT)
[2021-10-30] MEDS: DULOXETINE 20 MG CAP PO SCH (20:04)
[2021-10-30] MEDS: ATORVASTATIN 10 MG TAB PO SCH (20:04)
[2021-10-30] MEDS: ALPRAZOLAM 0.25 MG TABLET PO SCH (20:04)
[2021-10-31] MEDS: AMANTADINE 100 MG CAP PO SCH (07:39)
[2021-10-31] MEDS: CARBIDOPA/LEVODOPA 25/100 TAB PO SCH ×3 (07:39→18:56)
[2021-10-31] MEDS: predniSONE 10 MG TAB PO SCH (07:39)
[2021-10-31] MEDS: AZATHIOPRINE 50 MG TABLET PO SCH (07:39)
[2021-10-31] MEDS: FINASTERIDE 5 MG TAB PO SCH (07:40)
[2021-10-31] MEDS: FLUCONAZOLE 100 MG TAB PO SCH (07:40)
[2021-10-31] MEDS: MAGNESIUM OXIDE 400 MG TAB PO SCH (07:41)
[2021-10-31] MEDS: TAMSULOSIN 0.4 MG SR CAP PO SCH ×2 (07:41→18:56)
[2021-10-31] MEDS: ENOXAPARIN 40 MG/0.4 ML SQ SCH (07:41)
[2021-10-31] MEDS: ENSURE ENLIVE 237 ML CAN PO SCH ×2 (07:43→18:57)
--- NOTE | 2021-10-31 08:23 | PN ---
Date of Progress Note: 10/30/2021 Subjective: Patient was seen this morning for followup. No new complaints or problems reported by matt anne. Objective: General: He was lying in bed, not in any distress. Vital Signs: Reviewed. HEENT: Unremarkable. Lungs: Clear to auscultation. Cardiac: Heart sounds normal. Abdomen: Soft. Bowel sounds normal. No guarding, rigidity, tenderness, distention. Extremities: no leg edema. Laboratory Data: White count 7.7, hemoglobin 11.7, platelets 486. Sodium 137, potassium 4.6, chlori de 107, bicarb 25, BUN 29, creatinine 0.99, glucose 116. Impression: 1.Pneumonia. 2.Eosinophilic colitis. 3.Hypertension. 4.Generalized weakness. 5.Parkinson disease. Plan: We will go ahead and continue current antifungal medication. We will also continue oral predn isone 10 mg 2 times a day per order. Continue current DVT prophylaxis and physical therapy and occup ational therapy per Dr. Escoto. We will get a chest x-ray done later today. MISTY/MODL Voice ID: [id number] Report ID: [id number]
--- NOTE | 2021-10-31 10:10 | P.RH.PN ---
Estimated Length of Stay: 10 Expected Discharge Date: 11/01/21 Discharge Disposition Plan: Home Family Support: Yes Snf Goal: Mobility, Transfers, Self Care Vital Signs: Last Vital Signs Temp 96.2 F L 10/31/21 07:57 Pulse 74 10/31/21 07:57 Resp 17 10/31/21 07:57 BP 123/67 10/31/21 07:57 Pulse Ox 92 10/31/21 07:57 Laboratory: Laboratory Last Values WBC 7.7 K/uL (4.3-10.9) 10/30/21 05:12 RBC 3.37 M/uL (4.33-5.43) L 10/30/21 05:12 Hgb 11.7 g/dL (13.6-17.9) L 10/30/21 05:12 Hct 33.8 % (39.6-49.0) L 10/30/21 05:12 MCV 100.3 fL (80-100) H 10/30/21 05:12 MCH 34.7 pg (27.0-35.0) 10/30/21 05:12 MCHC 34.6 g/dL (32.0-36.0) 10/30/21 05:12 RDW 14.9 % (12.1-15.2) 10/30/21 05:12 Plt Count 486 K/uL (152-406) H D 10/30/21 05:12 MPV 7.6 fL (7.6-11.3) 10/30/21 05:12 Neutrophils % 75.7 % (41.7-73.7) H 10/30/21 05:12 Lymphocytes % 14.4 % (15.3-44.8) L 10/30/21 05:12 Monocytes % 8.2 % (3.3-12.3) 10/30/21 05:12 Eosinophils % 1.2 % (0-4.4) 10/30/21 05:12 Basophils % 0.5 % (0-1.3) 10/30/21 05:12 Absolute Neutrophils 5.9 K/uL (1.8-8.0) 10/30/21 05:12 Segmented Neutrophils 65 % (40-80) 10/26/21 06:18 Absolute Lymphocytes 1.1 K/uL (0.7-4.9) 10/30/21 05:12 Lymphocytes 21 % (15-42) 10/26/21 06:18 Monocytes 8 % (0-10) 10/26/21 06:18 Absolute Monocytes 0.6 K/uL (0.1-1.3) 10/30/21 05:12 Eosinophils 4 % (0-3) H 10/26/21 06:18 Absolute Eosinophils 0.1 K/uL (0-0.5) 10/30/21 05:12 Absolute Basophils 0.0 K/uL (0-0.5) 10/30/21 05:12 Metamyelocytes 1 % (0-0) H 10/26/21 06:18 Atypical Lymphocytes 1 % 10/26/21 06:18 Platelet Estimate Adeq 10/30/21 05:12 Morphology Comment Not seen (NOT SEEN) 10/30/21 05:12 Sodium 137 mmol/L (136-145) 10/30/21 05:12 Potassium 4.6 mmol/L (3.5-5.1) 10/30/21 05:12 Chloride 107 mmol/L (98-107) 10/30/21 05:12 Carbon Dioxide 25 mmol/L (21-32) 10/30/21 05:12 Anion Gap 9.6 mEq/L (5.0-15.0) 10/30/21 05:12 BUN 29 mg/dL (7-18) H 10/30/21 05:12 Creatinine 0.99 mg/dL (0.55-1.3) 10/30/21 05:12 Est GFR (CKD-EPI) 75 ml/min (=/>90) L 10/30/21 05:12 Glucose 116 mg/dL (74-106) H 10/30/21 05:12 Calcium 8.7 mg/dL (8.5-10.1) 10/30/21 05:12 Magnesium 2.0 mg/dL (1.8-2.4) 10/30/21 05:12 Total Bilirubin 0.3 mg/dL (0.2-1.0) 10/26/21 06:18 AST 27 U/L (15-37) 10/26/21 06:18 ALT 13 U/L (12-78) 10/26/21 06:18 Alkaline Phosphatase 55 U/L (45-117) 10/26/21 06:18 Serum Total Protein 6.2 g/dL (6.4-8.2) L 10/26/21 06:18 Albumin 2.2 g/dL (3.4-5.0) L 10/30/21 05:12 Globulin 4.2 g/dL (2.3-3.5) H 10/26/21 06:18 Albumin/Globulin Ratio 0.5 (1.1-1.8) L 10/26/21 06:18 Prealbumin 15.5 mg/dL (20-40) L 10/30/21 05:12 Urine Color Yellow (Yellow) 10/22/21 12:34 Urine Clarity Clear (Clear) 10/22/21 12:34 Urine pH 7.0 (5.0-7.0) 10/22/21 12:34 Ur Specific [place] 1.020 (1.005-1.030) 10/22/21 12:34 Glucose (UA)(Auto) Negative (Negative) 10/22/21 12:34 Urine Ketones Negative (Negative) 10/22/21 12:34 Urine Blood Negative (Negative) 10/22/21 12:34 Urine Nitrite Negative (Negative) 10/22/21 12:34 Urine Bilirubin Negative (Negative) 10/22/21 12:34 Urine Urobilinogen 0.2 mg/dL (0.2-1.0) 10/22/21 12:34 Ur Leukocyte Esterase Negative (Negative) 10/22/21 12:34 Urine RBC None seen /HPF (None Seen) 10/22/21 12:34 Urine Red Cell Clumps Cancelled 10/22/21 11:30 Urine WBC <5 /HPF (<5) 10/22/21 12:34 Urine WBC Clumps Cancelled 10/22/21 11:30 Ur Squamous Epith Cells <5 /HPF (None Seen) 10/22/21 12:34 U Non-Squamous Epi Cells Cancelled 10/22/21 11:30 Ur Transition Epith Cell Cancelled 10/22/21 11:30 Ur Renal Epithelial Cell Cancelled 10/22/21 11:30 Calcium Carbonate Cryst Cancelled 10/22/21 11:30 Calcium Oxalate Crystal Cancelled 10/22/21 11:30 Leucine Crystals Cancelled 10/22/21 11:30 Cystine Crystals Cancelled 10/22/21 11:30 Uric Acid Crystals Cancelled 10/22/21 11:30 Triple Phos Crystals Cancelled 10/22/21 11:30 Tyrosine Crystals Cancelled 10/22/21 11:30 Unidentified Crystals Cancelled 10/22/21 11:30 Amorphous Crystals Cancelled 10/22/21 11:30 Urine Bacteria None seen /HPF (<20) 10/22/21 12:34 Hyaline Casts Cancelled 10/22/21 11:30 Granular Casts Cancelled 10/22/21 11:30 Waxy Casts Cancelled 10/22/21 11:30 RBC Casts Cancelled 10/22/21 11:30 WBC Casts Cancelled 10/22/21 11:30 Urine Mucus Cancelled 10/22/21 11:30 Urine Trichomonas Cancelled 10/22/21 11:30 Ur Yeast w Hyphae Cancelled 10/22/21 11:30 Urine Yeast (Budding) Cancelled 10/22/21 11:30 Urine Sperm Cancelled 10/22/21 11:30 Ur Oval Fat Bodies Cancelled 10/22/21 11:30 Urine Total Protein Trace (Negative) H 10/22/21 12:34 Urine Ascorbic Acid Cancelled 10/22/21 11:30 Urine Fat Cancelled 10/22/21 11:30 SARS-CoV-2 Rap RNA(RT-PCR) Negative (NEGATIVE) 10/25/21 Unknown Smear Scan Ok (OK) 10/30/21 05:12 Weight: 176 lb Wound Present: No Closed Surgical Incision Present: No Negative Pressure Wound Therapy Present: No Physician Update: Labs reviewed. Bed mobility mod I, sit to stand, 200' gait, wheelchair 250', bathing, upper, lower, body dressing SBA. Aspirating on thin liquids with residue. On nectr thick with mechanical soft, pills are getting stuck. May need to crush pills. He may require a PEG tube to help protect against aspiration pneumonia. Functional Improvement: Patient is currently supervision w/ sit <> stand and stand pivot transfers, along w/ gait tx. Patient has progressed well w/ therapy and has improved bed mobility, gait tx., and has completed car transfers appropriately. Summary: Patient's care plan and group home goals have been reviewed and revised as necessary. Please see the Rehabilitation Signature page for all necessary signatures.
--- NOTE | 2021-10-31 14:47 | PN ---
Date of Progress Note: 10/31/2021 Subjective: The patient was seen this morning for followup. No new complaints or problems reported by patient. He was sitting in wheelchair. Denies any new complaints. Objective: Vital Signs: Reviewed. HEENT: Examination unremarkable. Lungs: Clear to auscultation except right basal rales. Heart: Sounds normal. Abdomen: Soft. Bowel sounds normal. No guarding, rigidity, tenderness, distention. Extremities: No leg edema. Impression: 1.Pneumonia. 2.Parkinson disease. 3.Generalized weakness. 4.Debility. 5.Dysphagia. Plan: Speech therapist evaluation and modified barium swallow test results reviewed. The patient is on a diet as recommended by speech therapist. Yesterday's chest x-ray results reviewed. I did call the daughter and discuss all the details including chest x-ray results, speech therapist's finding a nd recommendation. The patient is scheduled to go home tomorrow from rehab, and daughter has informe d me that she has arranged for 24-hour caregiver services upon discharge tomorrow. We will continue antifungal medication. The patient reports that his diarrhea is better. He had only 2 bowel movemen ts yesterday, and it was well-formed stool. So in that case, we will reduce dose of prednisone from 10 mg 2 times a day to once a day, and eventually, we will reduce that dose depending on how he respo nds to it. Plan is to reduce it down to 5 mg daily if that controls his symptoms. He is on duloxetine for depression problem, which we will continue that. MISTY/MODL Voice ID: [id number] Report ID: [id number]
[2021-10-31] MEDS: ALPRAZOLAM 0.25 MG TABLET PO SCH (18:56)
[2021-10-31] MEDS: ATORVASTATIN 10 MG TAB PO SCH (18:56)
[2021-10-31] MEDS: DULOXETINE 20 MG CAP PO SCH (18:57)
[2021-11-01 05:48] VITALS: BMI 26.2
[2021-11-01 07:16] VITALS: BP 164/78; TEMP 97.4
[2021-11-01] MEDS: ENOXAPARIN 40 MG/0.4 ML SQ SCH (07:26)
[2021-11-01] MEDS: TAMSULOSIN 0.4 MG SR CAP PO SCH (07:28)
[2021-11-01] MEDS: FINASTERIDE 5 MG TAB PO SCH (07:28)
[2021-11-01] MEDS: AMANTADINE 100 MG CAP PO SCH (07:28)
[2021-11-01] MEDS: CARBIDOPA/LEVODOPA 25/100 TAB PO SCH ×2 (07:28→13:32)
[2021-11-01] MEDS: MAGNESIUM OXIDE 400 MG TAB PO SCH (07:28)
[2021-11-01] MEDS: AZATHIOPRINE 50 MG TABLET PO SCH (07:28)
[2021-11-01] MEDS: FLUCONAZOLE 100 MG TAB PO SCH (07:30)
[2021-11-01] MEDS: ENSURE ENLIVE 237 ML CAN PO SCH (07:45)
[2021-11-01] MEDS ORDERED: predniSONE 10 MG TAB PO SCH (08:00)
--- NOTE | 2021-11-01 13:09 | DS ---
Date of Discharge: 11/01/2021 Disposition: Discharged to go home. Physical Examination: HEENT: Unremarkable. Lungs: Clear to auscultation. Heart: Sounds normal. Abdomen: Soft. Bowel sounds normal. No guarding, rigidity, tenderness, or distention. Extremities: No leg edema. Laboratory Data: On 10/30, white count 7.7, hemoglobin 11.7, platelets 486. Sodium 137, potassium 4 .6, chloride 107, bicarb 25, BUN 29, creatinine 0.99, glucose 116. Discharge Medications: Continue all prior home medication. 1.Prednisone 5 mg take 2 tablets by mouth daily with food. 2.Duloxetine 20 mg take 1 capsule by mouth daily at bedtime. 3.Fluconazole 200 mg take 2 tablets daily for 4 days. Follow up at my office week after next and get a chest x-ray done 2 to 3 days before office appointme nt. Hospital Course: Mr. Ventura is a very pleasant male patient, admitted to rehab floor with generalized weakness and debility. Initially, he was on medical floor getting treatment for pneumonia along wit h antibiotics. Finally, as of October 20, 2021, we started him on antifungal medication. The patient i s on chronic immunosuppressive therapy for eosinophilic colitis and that puts him at high risk of hav ing fungal infection and we started him on IV Diflucan and later on it was changed to oral Diflucan. Ever since we started him on Diflucan, he has remained afebrile. His other antibiotics were discont inued. During his stay on the rehab floor, he had remained only on Diflucan and he has done very wel l and remained afebrile with that. He has received physical therapy and occupational therapy under g uidance of Dr. Escoto. He had some trouble swallowing and speech therapist was consulted and appro priate swallowing instruction was given to him and he will continue to follow up on that. Speech The rapy also recommended for him to consider PEG tube placement, as his symptoms have been going on for almost a year or so where he has coughing episodes after he eats. I did communicate with the patient 's daughter yesterday and he sees policy director in [place] and on an elective outpatient basis, daughter will schedule followup appointment with his policy director to talk about PEG tube placem ent. We did discontinue his prednisone completely, but then his diarrhea problem started again, so a fter communicating with Dr. Dubois, we started him on low-dose prednisone 10 mg 2 times a day and th at actually helped to control his diarrhea, so dose was reduced to 10 mg once a day and our plan is t o continue the lower prednisone on outpatient basis to the lowest possible effective dose. He was al so started on duloxetine for depression symptoms and is tolerating that very well. Final Diagnoses: 1.Pneumonia. 2.Generalized weakness. 3.Debility. 4.Depression. 5.Eosinophilic colitis. MISTY/MODL Voice ID: [id number] Report ID: [id number]
== END 2021-11-01 14:00 | disposition home health service (06) | DRG 948 ==
LOC: 5TH 10-22 11:14
PROVIDERS: ADMIT Internal Medicine; ATTEND Internal Medicine
DX: R53.81 Other malaise (principal); R53.1 Weakness; F32.A Depression, unspecified; K52.82 Eosinophilic colitis; G20 Parkinson's disease; R13.10 Dysphagia, unspecified; I25.10 Atherosclerotic heart disease of native coronary artery without angina pectoris; E78.5 Hyperlipidemia, unspecified; H40.9 Unspecified glaucoma; I12.9 Hypertensive chronic kidney disease with stage 1 through stage 4 chronic kidney disease, or unspecified chronic kidney disease; N18.30 Chronic kidney disease, stage 3 unspecified; N40.1 Benign prostatic hyperplasia with lower urinary tract symptoms; Z79.899 Other long term (current) drug therapy; Z87.01 Personal history of pneumonia (recurrent); Z20.822 Contact with and (suspected) exposure to COVID-19
CPT/HCPCS: 36415; 71046; 74230; 80048; 80053; 81001; 82040; 83735; 84134; 85025; 87086; 87088; 92526; 92611; 97110; 97116; 97161; 97165; 97530; 97542; J1450; J1650; J7500; J7512; U0003

== ENCOUNTER 2021-12-09 23:14 | Emergency (ER) | payer OTHER, BC ==
[2021-12-09] MEDS ORDERED: LIDOCAINE 1% W/EPI 1:100,000 MDV 50 ML VIAL ONE (23:59)
[2021-12-09] MEDS ORDERED: BUPIVACAINE 0.5% PF 10 ML VIAL ONE (23:59)
--- NOTE | 2021-12-10 02:19 | RAD REPORT ---
EXAM DESCRIPTION: CT - Head C Spine Cap Wo Con - 12/10/2021 12:11 am CLINICAL HISTORY: Trauma, head and neck injury. Chest, abdomen and pelvis pain. FALL IMJURY COMPARISON: Chest Pa And Lat (2 Views) dated 11/14/2021; Chest Abdomen Pelvis W Cont dated 10/17/2021 TECHNIQUE: CT head without contrast. CT cervical spine without contrast with coronal and sagittal reformatted images. CT chest, abdomen and pelvis with coronal and sagittal reformatted images of the spine. All CT scans are performed using dose optimization technique as appropriate and may include automated exposure control or mA/KV adjustment according to patient size. FINDINGS: CT HEAD WITHOUT CONTRAST: No intracranial hemorrhage, hydrocephalus or extra-axial fluid collection. No acute large vascular te rritory infarct. Cerebral atrophy. Mild chronic small vessel ischemic changes. The paranasal sinuses and mastoids are clear. The calvarium is intact. CT CERVICAL SPINE WITHOUT CONTRAST: No fracture or subluxation. The prevertebral soft tissues are normal in thickness.Multilevel cervical spondylosis varying degrees of neural foraminal narrowing. Carotid artery calcifications. CT CHEST, ABDOMEN, PELVIS: Thorax: Chest Wall: No abnormal mass Lungs: Dependent atelectasis with areas of subpleural bilateral ground-glass opacities that are nonsp ecific but present on the prior CT as well. The findings may be chronic. . Pleura: No effusions or pneumothorax. Margaux/Mediastinum: No lymphadenopathy. 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 Heart: Normal size. Multi-vessel coronary artery disease. Aortic valve calcifications. Abdomen/Pelvis: Liver: Too small to characterize liver lesions which are likely benign. Biliary: No biliary ductal dilatation. Stomach: No significant focal abnormality. Duodenum: No significant focal abnormality. Pancreas: No significant abnormality. Spleen: No significant abnormality. Adrenal: No suspicious lesions. Kidney/ureter: No hydronephrosis. No renal calculi. Left renal cyst. Retroperitoneum: No retroperitoneal adenopathy. Vascular: No aneurysm. Bowel: Diverticulosis. Moderate colonic stool.. Peritoneum: No ascites or free air. Bladder: Grossly unremarkable. Reproductive: No adnexal masses. Bones: No acute fracture. Other: n/a IMPRESSION: 1. No acute intracranial abnormality. 2. No acute fracture or traumatic malalignment of the cervical spine. 3. No evidence of significant acute trauma to the chest, abdomen, or pelvis. 4. Incidental findings as noted above.
--- NOTE | 2021-12-10 02:44 | ER ---
Nurse's Notes [facility] Name: Hunter Ventura Age: 86 yrs Sex: Male : 1935 Arrival Date: 12/09/2021 Time: 23:18 Bed 26 Private MD: Diagnosis: Fall on same level, unspecified;Laceration without foreign body of scalp Presentation: 12/09 23:30 Chief complaint: Patient states: Fell from standing. Hit the back of head - laceration ld1 to back of head. Denies blood thinners, negative LOC. Care prior to arrival: None. Mechanism of Injury: Fall from standing position. Trauma event details: Injury occurred in the [facility]. 23:30 Acuity: MAICO 3 ld1 23:30 Method Of Arrival: Ambulatory ld1 23:34 Coronavirus screen: At this time, the client does not indicate any symptoms associated ld1 with coronavirus-19. Ebola Screen: No symptoms or risks identified at this time. Initial Sepsis Screen: Does the patient meet any 2 criteria? No. Patient's initial sepsis screen is negative. Does the patient have a suspected source of infection? No. Patient's initial sepsis screen is negative. Risk Assessment: Do you want to hurt yourself or someone else? Patient reports no desire to harm self or others. Onset of symptoms was December 09, 2021 at 23:34. Trauma Activation: Alert Physician: ED Physician; Name: ; Notified At: ; Arrived At: Physician: General Surgeon; Name: ; Notified At: ; Arrived At: Physician: Radiology; Name: ; Notified At: ; Arrived At: Physician: Respiratory; Name: ; Notified At: ; Arrived At: Physician: Lab; Name: ; Notified At: ; Arrived At: Historical: - Allergies: 23:34 Aspirin; ld1 - PMHx: 23:34 Hypertension; Parkinson's disease; ld1 - PSHx: 23:34 None; ld1 - Immunization history: Last tetanus immunization: unknown. - Social history:: Smoking status: Patient denies any tobacco usage or history of. Screenin:30 Abuse screen: Denies threats or abuse. Denies injuries from another. Tuberculosis ld1 screening: No symptoms or risk factors identified. 23:46 Nutritional screening: No deficits noted. as6 12/10 01:23 Fall Risk Fall in past 12 months (25 points). Total Mckeon Fall Scale indicates Low Risk as6 Score (25-44 pts). Fall prevention measures have been instituted. Side Rails Up X 2 Family Present and informed to notify staff if they need to leave bedside As available Patient and Family Educated on Fall Prevention Program and strategies. Primary Survey: 12/09 23:30 NO uncontrolled hemorrhage observed. Breathing/Chest: Spontaneous respiratory effort, ld1 equal unlabored respirations, breath sounds clear bilaterally, regular pattern, symmetrical chest rise and fall. Circulation: No external hemorrhage present. Regular and strong central pulse, skin warm/dry/normal color. Disability Client is alert. Exposure/Environment: All clothing and personal items were removed. Forensic evidence collection is not deemed to be indicated at this time. Items placed in patient belonging bag. Reassessment Breathing: Spontaneous respiratory effort, equal unlabored respirations, breath sounds clear bilaterally, regular pattern with symmetrical chest rise and fall. Circulation: No external hemorrhage noted. Regular and strong central pulse, skin warm/dry/normal color. Disability: Alert. Assessment: 23:30 General: Appears in no apparent distress. comfortable, Behavior is calm, cooperative, ld1 appropriate for age. Pain: Complains of pain in scalp Pain does not radiate. Pain currently is 7 out of 10 on a pain scale. Quality of pain is described as throbbing, Pain began suddenly, Is continuous. Neuro: Level of Consciousness is awake, alert, obeys commands, Oriented to person, place, time, situation. EENT: No signs and/or symptoms were reported regarding the EENT system. Cardiovascular: Capillary refill < 3 seconds Patient's skin is warm and dry. Respiratory: Airway is patent Respiratory effort is even, unlabored. GI: Abdomen is flat, non-distended. : No signs and/or symptoms were reported regarding the genitourinary system. Derm: No signs and/or symptoms reported regarding the dermatologic system. Musculoskeletal: No signs and/or symptoms reported regarding the musculoskeletal system. Injury Description: Laceration sustained to left parietal area and right parietal area is clean, 2.6 to 7.5 cm long, was sustained 30-60 minutes ago. a small amount of bleeding noted at this time. Vital Signs: 23:30 BP 150 / 89; Pulse 72; Resp 18; Temp 97.7(TE); Pulse Ox 98% on R/A; Weight 77.11 kg; ld1 Height 5 ft. 9 in. (175.26 cm); Pain 7/10; 12/10 00:52 BP 167 / 80; Pulse 68; Resp 16 S; Pulse Ox 100% on R/A; as6 02:18 BP 158 / 70; Pulse 69; Resp 16 S; Pulse Ox 99% on R/A; as6 12/09 23:30 Body Mass Index 25.10 (77.11 kg, 175.26 cm) ld1 [place] Coma Score: 12/09 23:30 Eye Response: spontaneous(4). Verbal Response: oriented(5). Motor Response: obeys ld1 commands(6). Total: 15. Trauma Score (Adult): 23:30 Eye Response: spontaneous(1); Verbal Response: oriented(1); Motor Response: obeys ld1 commands(2); Systolic BP: > 89 mm Hg(4); Respiratory Rate: 10 to 29 per min(4); Dale Score: 15; Trauma Score: 12 ED Course: 23:18 Patient arrived in ED. ja2 23:26 Jacky Mackenzie PA is PHCP. cp 23:26 Jacky Barry MD is Attending Physician. cp 23:27 Sajan Weaver RN is Primary Nurse. as6 23:30 Patient has correct armband on for positive identification. Placed in gown. Bed in low ld1 position. Call light in reach. Side rails up X2. Patient maintains SpO2 saturation greater than 95% on room air. 23:30 Patient maintains SpO2 saturation greater than 95% on room air. ld1 23:32 Triage completed. ld1 23:34 Arm band placed on right wrist. ld1 12/10 01:23 Thermoregulation: warm blanket given to patient. as6 03:20 Assist provider with laceration repair. Patient did not have IV access during this kd3 emergency room visit. Administered Medications: 01:23 Drug: Lidocaine-Epinephrine -1%: (1:100,000) 10 ml {Note: administered by provider .} as6 Volume: 20 ml; Route: Infiltration; 01:23 Drug: Marcaine (bupivacaine) (0.5 %) 10 ml {Note: administered by provider .} Volume: as6 10 ml; Route: Infiltration; Medication: 03:20 VIS not applicable for this client. kd3 Intake: 12/09 23:30 PO: 150ml; Total: 150ml. ld1 Outcome: 12/10 02:44 Discharge ordered by . cp 03:20 Discharged to home via wheelchair, with family. kd3 03:20 Condition: stable 03:20 Condition: stable 03:20 Discharge instructions given to patient, family, Instructed on discharge instructions, follow up and referral plans. Demonstrated understanding of instructions, follow-up care. 03:20 Patient's length of stay was not longer than 2 hours. kd3 03:20 Patient left the ED. kd3 Signatures: Jacky Mackenzie PA PA cp Dibbern, Lauren, RN RN ld1 Bethany Small Ashby, RN RN as6 Erum Priest RN RN kd3
--- NOTE | 2021-12-10 02:44 | EDPHYS ---
Physician Documentation [facility] Name: Hunter Ventura Age: 86 yrs Sex: Male : 1935 Arrival Date: 12/09/2021 Time: 23:18 Bed 26 Private MD: ED Physician Jacky Barry HPI: 12/09 23:45 This 86 yrs old Male presents to ER via Ambulatory with complaints of Fall Injury. cp 23:45 Details of fall: The patient fell from an upright position, while standing. Onset: The cp symptoms/episode began/occurred just prior to arrival. Associated injuries: The patient sustained injury to the head, laceration, of the posterior scalp, sacrum/coccyxx area, painful injury. Severity of symptoms: in the emergency department the symptoms are unchanged, despite home interventions. Patient reports losing balance after bending forward. Lost balance and fell backward striking head against ground. No reported loss of consciousness. C/o pain to coccyx area. Historical: - Allergies: 23:34 Aspirin; ld1 - PMHx: 23:34 Hypertension; Parkinson's disease; ld1 - PSHx: 23:34 None; ld1 - Immunization history: Last tetanus immunization: unknown. - Social history:: Smoking status: Patient denies any tobacco usage or history of. ROS: 23:50 Constitutional: Negative for body aches, chills, fever. cp 23:50 Eyes: Negative for injury, pain, redness, and discharge. cp 23:50 Cardiovascular: Negative for chest pain, edema, palpitations. 23:50 Respiratory: Negative for cough, shortness of breath, wheezing. 23:50 Abdomen/GI: Negative for abdominal pain, nausea, vomiting, and diarrhea. 23:50 Back: Positive for pain at rest, of the sacrum. 23:50 Neuro: Negative for altered mental status, loss of consciousness, weakness. 23:50 All other systems are negative. Exam: 23:55 Constitutional: The patient appears in no acute distress, alert, awake, cp non-diaphoretic, non-toxic, well developed, well nourished. 23:55 Head/face: Noted is a laceration(s), that is deep, that is linear, of the posterior cp scalp, tenderness, that is mild. 23:55 Eyes: Periorbital structures: appear normal, Pupils: equal, round, and reactive to light and accomodation, Extraocular movements: intact throughout, Conjunctiva: normal, no exudate, no injection, Sclera: no appreciated abnormality, Lids and lashes: appear normal, bilaterally. 23:55 ENT: External ear(s): are unremarkable, Nose: is normal, Mouth: Lips: normal, Oral mucosa: pink and intact, moist. 23:55 Neck: C-spine: vertebral tenderness, is not appreciated, crepitus, is not appreciated, ROM/movement: is normal, is supple, without pain, no range of motions limitations. 23:55 Chest/axilla: Inspection: normal, Palpation: is normal, no crepitus, no tenderness. 23:55 Cardiovascular: Rate: normal, Rhythm: regular. 23:55 Respiratory: the patient does not display signs of respiratory distress, Respirations: normal, no use of accessory muscles, no retractions, Breath sounds: are clear throughout, no decreased breath sounds, no stridor, no wheezing. 23:55 Abdomen/GI: Inspection: abdomen appears normal, Palpation: abdomen is soft and non-tender, in all quadrants. 23:55 Back: pain, that is mild, of the sacrum, ROM is painful, with all movement, Straight leg raises: of both lower extremities does not illicit pain. 23:55 Musculoskeletal/extremity: Extremities: all appear grossly normal, with no appreciated pain with palpation. 23:55 Neuro: Orientation: to person, place \T\ time. Mentation: is normal, Motor: moves all fours, strength is normal. Vital Signs: 23:30 BP 150 / 89; Pulse 72; Resp 18; Temp 97.7(TE); Pulse Ox 98% on R/A; Weight 77.11 kg; ld1 Height 5 ft. 9 in. (175.26 cm); Pain 10/12; 12/10 00:52 BP 167 / 80; Pulse 68; Resp 16 S; Pulse Ox 100% on R/A; as6 02:18 BP 158 / 70; Pulse 69; Resp 16 S; Pulse Ox 99% on R/A; as6 12/09 23:30 Body Mass Index 25.10 (77.11 kg, 175.26 cm) ld1 [place] Coma Score: 12/09 23:30 Eye Response: spontaneous(4). Verbal Response: oriented(5). Motor Response: obeys ld1 commands(6). Total: 15. Trauma Score (Adult): 23:30 Eye Response: spontaneous(1); Verbal Response: oriented(1); Motor Response: obeys ld1 commands(2); Systolic BP: > 89 mm Hg(4); Respiratory Rate: 10 to 29 per min(4); Dale Score: 15; Trauma Score: 12 Laceration: 12/10 02:41 Wound Repair of 7cm ( 2.8in ) subcutaneous laceration to scalp. Linear shaped.. Distal cp neuro/vascular/tendon intact. Anesthesia: Wound infiltrated with 10 mls of Lido/Marcaine. Wound prep: Moderate cleansing by me. Skin closed with 9 [place] using staple gun. Dressed with Bacitracin, 4x4's. Patient tolerated well. MDM: 12/09 23:30 Patient medically screened. [facility] 12/10 00:00 Differential diagnosis: closed head injury, contusion, fracture, laceration, multiple cp trauma. 02:44 Data reviewed: vital signs, nurses notes, radiologic studies, CT scan. 02:44 Counseling: I had a detailed discussion with the patient and/or guardian regarding: the cp historical points, exam findings, and any diagnostic results supporting the discharge/admit diagnosis, radiology results, the need for outpatient follow up, a family practitioner, to return to the emergency department if symptoms worsen or persist or if there are any questions or concerns that arise at home. Response to treatment: the patient's symptoms have markedly improved after treatment. 12/09 23:45 Order name: Head C Spine Cap Wo Con; Complete Time: 02:36 EDMS 12/09 23:32 Order name: Dressing - Wound; Complete Time: 03:20 cp 12/09 23:32 Order name: Gloves, Sterile; Complete Time: 23:49 cp 12/09 23:32 Order name: Setup Suture Tray; Complete Time: 23:49 cp 12/10 00:35 Order name: Wound Care: please clean and irrigate wound; Complete Time: 00:52 cp 12/10 02:41 Order name: Wound dressing; Complete Time: 03:20 cp Administered Medications: 01:23 Drug: Lidocaine-Epinephrine -1%: (1:100,000) 10 ml {Note: administered by provider .} as6 Volume: 20 ml; Route: Infiltration; 01:23 Drug: Marcaine (bupivacaine) (0.5 %) 10 ml {Note: administered by provider .} Volume: as6 10 ml; Route: Infiltration; Disposition Summary: 12/10/21 02:44 Discharge Ordered Location: Home cp Problem: new cp Symptoms: have improved cp Condition: Stable cp Diagnosis - Fall on same level, unspecified cp - Laceration without foreign body of scalp cp Followup: cp - With: Private Physician - When: 1 week - Reason: Staple/Suture removal Discharge Instructions: - Discharge Summary Sheet cp - Head Injury, Adult cp - Fall Prevention in the Home, Adult cp - Laceration Care, Adult cp - Sutures, Shaylee, or Adhesive Wound Closure cp Forms: - Medication Reconciliation Form cp - Thank You Letter cp - Antibiotic Education cp - Prescription Opioid Use cp Signatures: Dispatcher [employer] Jacky Mendez MD MD cha Page, Corey, PA PA cp Michelle Townsend, RN RN ld1 Sajan Weaver RN RN as6
[2021-12-10 04:37] VITALS: TEMP 97.7
[2021-12-10 04:43] VITALS: BP 158/70; O2SAT 99
== END 2021-12-10 03:20 | disposition home or self-care (01) ==
LOC: ER 23:14
PROC: 0JQ00ZZ Repair Scalp Subcutaneous Tissue and Fascia, Open Approach (ICD-10-PCS; principal; 2021-12-10)
DX: S01.01XA Laceration without foreign body of scalp, initial encounter (principal); W18.30XA Fall on same level, unspecified, initial encounter; G20 Parkinson's disease; I10 Essential (primary) hypertension; Z88.6 Allergy status to analgesic agent
CPT/HCPCS: 70450; 71250; 72125; 99284; 12002; Q9967

== ENCOUNTER 2022-05-20 16:43 | Inpatient (IN) | payer OTHER, BC ==
[2022-05-20] MEDS ORDERED: ONDANSETRON 4 MG/2 ML VIAL IV PRN ×2 (17:22→22:32)
[2022-05-20] MEDS ORDERED: PANTOPRAZOLE 40 MG INJ IVP ONE (17:27)
[2022-05-20 17:45] LABS: SARS-CoV-2 Antigen Rapid Res Negative (Negative)
[2022-05-20] MEDS ORDERED: D5 0.9 NS 1,000 ML IV SCH (18:00)
--- NOTE | 2022-05-20 19:24 | RAD REPORT ---
EXAM DESCRIPTION: CTAbdomen Pelvis Wo Contrast - 05/20/2022 7:00 pm CLINICAL HISTORY: abd pain COMPARISON: Abdomen Pelvis W Contrast dated 02/28/2019 TECHNIQUE: CT of the abdomen and pelvis was performed without contrast. All CT scans are performed using dose optimization technique as appropriate and may include automated exposure control or mA/KV adjustment according to patient size. FINDINGS: Lower chest: . Nodularity in the right lower lobe has increased since the 02/202009/23/19 19. Mild micro nodularity is seen. Small hiatal hernia. Liver: Low-density lesion right hepatic lobe has benign imaging features. Biliary: No biliary ductal dilatation. Stomach: No significant focal abnormality. Duodenum: No significant focal abnormality. Pancreas: No significant abnormality. Spleen: No significant abnormality. Adrenal: No suspicious lesions. Kidney/ureter: Left renal cyst. Other too small to characterize renal lesions noted. No renal calculi . Retroperitoneum: No retroperitoneal adenopathy. Vascular: Atherosclerosis with ectasia PICC Bowel: Small bowel obstruction identified. There are two transition points in the right hemiabdomen w ith dilated small bowel and significant mesenteric edema. The upstream small bowel is also dilated. D iverticulosis . Peritoneum: Mesenteric edema. Ascites is present. Bladder: Grossly unremarkable. Reproductive: No adnexal masses. Bones: No acute fracture. Subacute or chronic appearing L3 compression fracture with approximately 50 % loss of height anteriorly. Other: n/a IMPRESSION: Findings concerning for a closed loop small bowel obstruction. Recommend urgent surgical consultation. Findings called to the patient's nurse, Vibha, by Dr. Little at 1918 on 05/20/22.
--- NOTE | 2022-05-20 19:38 | RAD REPORT ---
EXAM DESCRIPTION: RAD - Chest Single View - 05/20/2022 6:53 pm CLINICAL HISTORY: abd pain COMPARISON: Chest Pa And Lat (2 Views) dated 12/18/2021; Chest Pa And Lat (2 Views) dated 11/14/2021; Chest Pa And Lat (2 Views) dated 10/30/2021; Chest Pa And Lat (2 Views) dated 10/27/2021 FINDINGS: Lines: None. Lungs: No evidence of edema or pneumonia. Pleural: No significant pleural effusions or pneumothorax. Cardiac: The heart size is within normal limits. Mediastinum: Within normal limits. Bones: No acute fractures. Other: Colon interposed to the liver in the right upper quadrant. IMPRESSION: No acute cardiopulmonary disease.
[2022-05-20 19:41] LABS: Absolute Lymphocytes (CBC) 0.9 K/uL (0.7-4.9); Hematocrit 40.7 % (39.6-49.0); Lymphocytes % 5.7 % (15.3-44.8); MPV 7.8 fL (7.6-11.3); RBC Red Blood Cell Count 3.77 M/uL (4.33-5.43)
[2022-05-20 19:53] LABS: Albumin 3.7 g/dL (3.4-5.0); Bilirubin Total 0.7 mg/dL (0.2-1.0); Magnesium 2.3 mg/dL (1.6-2.4); Potassium 4.7 mmol/L (3.5-5.1); Protein, Total 7.2 g/dL (6.4-8.2)
[2022-05-20] MEDS ORDERED: NA CHLORIDE 0.9% 1,000 ML ONE (20:20)
[2022-05-20 20:22] LABS: Blood Morphology Comment NOTED (NOT SEEN); Macrocytosis 1+; Platelet Estimate ADEQ; White Blood Cell Scan OK (OK)
[2022-05-20] MEDS: CIPROFLOXACIN 400mg IV 400 MG/200 ML BAG IV SCH (20:25)
[2022-05-20] MEDS ORDERED: MIDAZOLAM HCL 2 MG/2 ML INJ ONE (20:34)
[2022-05-20] MEDS ORDERED: FENTANYL CITR 100 MCG/2 ML ONE (20:34)
[2022-05-20] MEDS ORDERED: NEOSTIGMINE 1 MG/ML -10 ML VIAL ONE (20:35)
[2022-05-20] MEDS ORDERED: GLYCOPYRROLATE 0.2 MG/ML SYR ONE ×2 (20:35→22:10)
[2022-05-20] MEDS ORDERED: ONDANSETRON 4 MG/2 ML VIAL ONE (20:35)
[2022-05-20] MEDS ORDERED: ROCURONIUM 50 MG/5 ML VIAL IV ONE (20:36)
--- NOTE | 2022-05-20 20:36 | P.CNS ---
Date of Consult: 05/20/22 Reason for consult: Abdominal pain History of present illness: Patient is a 87-year-old gentleman with multiple medical problems started having abdominal pain earlier today diffuse in nature. Patient had an episode of vomiting and is still nauseous. Last bowel movement was yesterday. Patient has not passed any gas today. Patient had a previous episode of bowel obstruction approximately 3-1/2 years ago and underwent exploratory laparotomy and lysis of adhesions. Patient denies sore throat, runny nose, cough, headaches, dizziness, chest pain, fever or chills. Review of systems: Other was unremarkable Past medical history: Parkinson's, hypertension, hyperlipidemia, coronary artery disease, thoracic aortic aneurysm, colitis, BPH, CKD Past surgical history: Exploratory laparotomy with lysis of adhesions in 2019, cataract surgery, shoulder surgery, knee surgery Allergies: Aspirin--anaphylactic reaction Social history: Patient does not smoke or drink alcohol Family history: Heart disease and diabetes Vital signs: Stable, afebrile Physical exam: Awake alert oriented x3 Head and neck exam: Cranial nerves II through XII grossly within normal limits, no neck masses, no JVD, throat clear and neck supple Chest: Clear Heart: S1-S2 Abdomen: Soft, distended, hypoactive bowel sounds with right lower quadrant and right middle quadrant tenderness with rebound and mild guarding. No abdominal wall hernia appreciated. Extremity: Neurovascular intact, nontender Neuro: Nonfocal Diagnostic data: White count is 15.6 with a left shift and an elevated MCV. BUN and creatinine are slightly elevated. CAT scan reviewed with Dr. Little. Patient essentially has a closed-loop obstruction with vascular compromise. Assessment: Closed-loop obstruction with vascular compromise and signs of peritonitis. Plan/recommendation: Admit, n.p.o., IV fluid, IV antibiotics, and perioperative steroids. To the OR for exploratory laparotomy, possible bowel resection and possible colostomy. Patient and family understand risk, benefits and alternatives and agreed to procedure. Plan of care discussed with Dr. Causey. CC: Dr. Causey's office
[2022-05-20] MEDS ORDERED: ETOMIDATE 20 MG/10 ML VIAL IV ONE (20:37)
[2022-05-20] MEDS ORDERED: dexAMETHasone 4 MG/ML VIAL ONE (20:37)
[2022-05-20] MEDS: METHYLPREDNISOLONE 40 MG INJ IV SCH (20:45)
[2022-05-20] MEDS ORDERED: SUCCINYLCHOLINE 20 MG/ML (10 ML) IV ONE (21:01)
[2022-05-20] MEDS ORDERED: Ringers Lactate 1,000 ML IV ONE (22:20)
--- NOTE | 2022-05-20 22:24 | P.OP ---
Date of Service: 05/20/22 Preop diagnosis: Closed-loop small bowel obstruction with vascular compromise and peritonitis Postop diagnosis: Same Procedure performed: Exploratory laparotomy, lysis of adhesions and small bowel resection with primary anastomosis Surgeon: Watson Sutherland MD Calender Roll Operator: Eli WELLS Estimated blood loss: Minimal Specimen: Small bowel Findings: As above Anesthesia: General Complications: None Drains: None Fluids and blood products: Nonapplicable Disposition: Recovery room Operative note: Patient brought to the OR and placed in the supine position. General anesthesia begun. Patient prepped and draped in the usual sterile fashion. Then a midline incision just above the umbilicus to just below the umbilicus made. Subcutaneous tissue divided. Fascia identified and divided. Peritoneal cavity entered with sharp dissection. Exploratory laparotomy revealed normal stomach, normal GE junction, dilated jejunum and proximal ileum in the mid ileum. There was small bowel that was twisted around the band which was lysed the bowel itself was almost black and mesentery was very edematous. There was no motility noted and this was observed carefully for at least 15 minutes, while remainder of the exploratory laparotomy took place. There were some small adhesions present and epiploic appendage band present that were lysed. Patient had significant amount of constipation in his sigmoid colon as well as the rectum. There was a large amount of dark serous fluid that was present in the peritoneal cavity which was aspirated. At this point, there was no evidence of motility in the small bowel and it was very dusky in appearance. A decision was made to resect this bowel approximately 18 inches in length. L igaSure was utilized to divide the mesentery. Endo JOE stapling device was used to divide the small bowel at the viable margin. The nonviable small bowel was resected and sent to pathology as specimen. 3-0 silk was used to attach the antimesenteric small bowel present. This was for taking the tension off the anastomosis. A standard antimesenteric anastomosis was performed with Endo JOE stapling device and a TA stapling device. Mesenteric defect was closed with a running 2-0 chromic suture. Entire abdomen was irrigated and effluent was clear. There was no evidence of bleeding or bowel injury appreciated. All counts were correct. At this point the midline fascia was closed with #2 nylon suture. Subcutaneous wounds irrigated and bleeding controlled with cautery. 3- 0 chromic used to approximate the subcutaneous fat loosely. And william used to close skin. Sterile dressing applied and patient awakened and taken to recovery room in good general condition. CC: Dr. Causey's office
[2022-05-20] MEDS ORDERED: HYDROMORPHONE/PCA 10 MG/50 ML SYR IV PRN (22:32)
[2022-05-20] MEDS ORDERED: NALOXONE 0.4 MG/ML VIAL IV PRN (22:32)
[2022-05-20] MEDS: HYDRALAZINE HCL 20 MG/ML VIAL ONE ×2 (22:38→22:48)
[2022-05-20] MEDS: HYDROMORPHONE HCL 1 MG/ML INJ ONE ×2 (23:00→23:05)
[2022-05-20] MEDS: D5 0.9 NS 1,000 ML IV SCH (23:59)
[2022-05-21] MEDS: HYDROMORPHONE HCL 1 MG/ML INJ IV PRN (00:05)
[2022-05-21] MEDS: METHYLPREDNISOLONE 40 MG INJ IV SCH ×3 (00:05→16:15)
[2022-05-21] MEDS: METRONIDAZOLE 500mg IVPB 500 MG/100 ML BAG IV SCH ×3 (00:05→16:14)
[2022-05-21 05:09] LABS: Absolute Lymphocytes (CBC) 0.3 K/uL (0.7-4.9); Hematocrit 34.7 % (39.6-49.0); Lymphocytes % 2.4 % (15.3-44.8); MCV 106.7 fL (80-100); MPV 7.8 fL (7.6-11.3); RBC Red Blood Cell Count 3.25 M/uL (4.33-5.43)
[2022-05-21 05:19] LABS: Magnesium 2.1 mg/dL (1.6-2.4); Phosphorus 3.2 mg/dL (2.5-4.9); Potassium 5.3 mmol/L (3.5-5.1)
[2022-05-21 05:58] VITALS: BMI 29.2
--- NOTE | 2022-05-21 07:55 | HP ---
Date of Admission: 05/20/2022 Chief Complaint: Abdominal pain, nausea, and vomiting. History Of Present Illness: This is an 87-year-old very pleasant male patient, who contacted his daughter around noontime today and reported that he was having abdominal pain, nausea, vomiting, so daughter went to check on him and subsequently she brought him to office for further evaluation. The patient denies any fever, chills. His last bowel movement was yesterday. The patient had second episode of vomiting after he came to office. He feels like his abdomen is slightly distended as well. No urinary complaints. No hematemesis. No blood in stool. After the patient was evaluated at office, he was admitted to the hospital. Allergies: TO ASPIRIN CAUSING ANAPHYLACTIC REACTION. Medications: Amantadine 100 mg, Amlodipine 5 mg and takes 1/2 tablet two times a day if SBP higher than 140, Azathioprine 50mg, Carbidopa/Levodopa, Duloxetine 20 mg two times a day, Finasteride 5 mg daily, Fluticasone nasal spray as needed for allergies, Gabapentin 300 mg two times a day, Metamucil daily, Ongentys 50 mg, Pravastatin 40 mg daily, Prednisone 5 mg daily, Tamsulosin 0.4 mg daily, Vitamin B12 daily. Review of Systems: GI: As mentioned above. 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 All other systems reviewed and negative. Past Medical History: Significant for Parkinson disease, hypertension, hyperlipidemia, coronary artery disease, thoracic aortic aneurysm, eosinophilic colitis, benign prostatic hypertrophy, anemia, and chronic kidney disease stage 3A. The patient is on chronic steroid therapy for his colitis. Past Surgical History: Significant for cataract surgery, knee replacement, shoulder surgery. Family History: Father , had heart disease. Mother , had diabetes. Brother had prostate cancer and diabetes and sister , had diabetes as well. Social History: Negative for smoking and alcohol use. Physical Examination: Vital Signs: Blood pressure at office was 149/75, pulse 59, temperature 97.1, respiratory rate 16, weight 198.8 pounds, height 68 inches. General: Awake, alert, oriented, not in distress. HEENT: Head atraumatic, normocephalic. Conjunctivae nonerythematous. Sclerae white. Mouth, no thrush or edema noted. Ears/Nose, no mass, lesion, discharge noted. Neck: Supple. No JVD, lymph nodes, bruit, thyromegaly noted. Lungs: Bilateral good equal air entry. Clear to auscultation. No rhonchi. No rales. Heart: Normal heart sounds, no murmur or gallop. Abdomen: Appears slightly distended. Bowel sounds were slightly hyperactive, but otherwise no guarding, rigidity. No rebound tenderness. The patient does have mild tenderness in right upper quadrant and left lower quadrant. Extremities: No leg edema. No calf tenderness. Skin: No rash, ulcer, cellulitis. Lymphatics: No lymph node enlargement in neck, supraclavicular, infraclavicular region. Neuro: No focal neurological deficit. Chest: Unremarkable. External Genitalia: Deferred. Rectal: Deferred. Laboratory Data: COVID-19 test negative. White count 15.6, hemoglobin 13.4, platelets 225. Sodium 137, potassium 4.7, chloride 105, bicarb 24, BUN 28, creatinine 1.32, glucose 137. Liver function tests normal. Lipase 96. Chest x-ray, no acute cardiopulmonary changes. CAT scan of the abdomen and pelvis shows closed-loop small bowel obstruction. Impression: 1. Small bowel obstruction. 2. Volume depletion. 3. Coronary artery disease. 4. Hypertension. 5. Hyperlipidemia. 6. Parkinson disease. 7. Eosinophilic colitis. 8. Chronic oral steroid therapy. 9. Benign prostatic hypertrophy. Plan: Admit the patient to the hospital for further evaluation and management of this problem. The patient is appropriate for inpatient and is expected to spend 2 midnights in hospital. After the patient was evaluated at office, he was admitted to the hospital. CAT scan was done and soon after the CAT scan was done, radiologist contacted me with this information and immediately consulted general surgeon, Dr. Sutherland and details were discussed with him. Dr. Sutherland also went to the hospital and evaluated the patient and discussed details with me that he will be taking the patient to surgery tonight. Since the patient is on chronic steroid therapy, the Solu-Cortef 100 mg IV was ordered 1 time dose just prior to the patient going to surgery. The patient was started on IV fluid and IV antibiotic which was Cipro and metronidazole. SCD will be ordered for DVT prophylaxis. For his hypertension, we will monitor blood pressure. Depending on the blood pressure, we will decide regarding his antihypertensive medication. Parkinson's medications will be restarted when the patient is able to take oral medications. We will monitor his electrolytes, renal function, and blood count, and I will see him tomorrow for followup. MISTY/KARTHIK Voice ID: [id number] MAC
[2022-05-21] MEDS: PANTOPRAZOLE 40 MG INJ IVP SCH ×2 (08:01→08:03)
[2022-05-21] MEDS: ENOXAPARIN 40 MG/0.4 ML SQ SCH (08:02)
[2022-05-21] MEDS: CIPROFLOXACIN 400mg IV 400 MG/200 ML BAG IV SCH ×2 (08:04→21:15)
[2022-05-21] MEDS: PHENOL 1.4% ORAL SPRAY 180ML MM PRN ×3 (12:23→23:55)
[2022-05-21] MEDS: D5 0.9 NS 1,000 ML IV SCH ×2 (12:24→18:48)
--- NOTE | 2022-05-22 00:07 | PN ---
Date of Progress Note: 05/21/2022 Subjective: Patient was seen this morning for followup. He was lying in bed in ICU. Denies any com plaints overnight. Nursing staff did not report any problems overnight. I did discuss with Dr. Parker valdez regarding operative finding. Patient had ischemic bowel during this surgery, which was found and Jose Sutherland resected 1.5 feet of small intestine and performed end-to-end anastomosis. Objective: Vital Signs: Reviewed. HEENT: Unremarkable. Lungs: Clear to auscultation. Heart: Sounds normal. Abdomen: Soft. Bowel sounds are absent. No guarding, rigidity. No distention. Extremities: No leg edema. Laboratory Data: White count 12.1, hemoglobin 11.7, platelets 210. Sodium 137, potassium 5.3, chlor ayde 109, bicarb 24, BUN 28, creatinine 1.21, glucose 167. Impression: 1.Small bowel obstruction, status post surgery. 2.Hyperkalemia. 3.Volume depletion. 4.Parkinson disease. 5.Eosinophilic colitis. 6.Chronic steroid therapy. Plan: We will go ahead and continue current IV fluid, IV antibiotics. Continue current DVT prophyla xis. The patient is medically stable for transfer to medical floor. Consult Physical Therapy and Oc cupational Therapy. Details were discussed with Dr. Sutherland and I did call hospitalist and discussed d etails with the hospitalist as well as of tomorrow morning. Hospitalist will look after this patient in my absence until Wednesday morning. The patient is on IV steroid and we will taper off the dose to get him down to his maintenance dose and his usual maintenance dose is prednisone 5 mg daily. I also called the patient's daughter and discussed details with her. The patient and patient's daughter, they both requested DNR order to be in place. MISTY/MODL Voice ID: [id number] Report ID: [id number]
[2022-05-22] MEDS: METHYLPREDNISOLONE 40 MG INJ IV SCH ×3 (00:27→20:23)
[2022-05-22] MEDS: METRONIDAZOLE 500mg IVPB 500 MG/100 ML BAG IV SCH ×3 (00:27→17:41)
[2022-05-22] MEDS: D5 0.9 NS 1,000 ML IV SCH ×2 (02:57→17:41)
[2022-05-22] MEDS: PHENOL 1.4% ORAL SPRAY 180ML MM PRN ×3 (04:05→20:29)
[2022-05-22 06:20] LABS: Absolute Lymphocytes (CBC) 0.4 K/uL (0.7-4.9); Hematocrit 31.4 % (39.6-49.0); Lymphocytes % 3.6 % (15.3-44.8); MCV 107.2 fL (80-100); MPV 7.8 fL (7.6-11.3); RBC Red Blood Cell Count 2.93 M/uL (4.33-5.43)
[2022-05-22 06:34] LABS: Magnesium 2.1 mg/dL (1.6-2.4); Potassium 4.2 mmol/L (3.5-5.1)
[2022-05-22] MEDS: ENOXAPARIN 40 MG/0.4 ML SQ SCH (08:53)
[2022-05-22] MEDS: CIPROFLOXACIN 400mg IV 400 MG/200 ML BAG IV SCH ×2 (08:53→20:23)
[2022-05-22 10:37] LABS: Anisocytosis 1+; Blood Morphology Comment NOTED (NOT SEEN); Macrocytosis 1+; Platelet Estimate ADEQ; White Blood Cell Scan OK (OK)
--- NOTE | 2022-05-22 12:37 | P.PN ---
Subjective Date of Service: 05/22/22 Chief Complaint: Laparotomy Subjective: Improving (Improving doing well no abdominal pain has not passed gas yet) Review of Systems Unremarkable Gastrointestinal: Abdominal Pain, Distention Physical Examination - Vital Signs Temperature: 98.9 F Blood Pressure: 176/73 Pulse: 62 Respirations: 16 Pulse Ox (%): 93 - Physical Exam General: Alert, Oriented x3 Neck: Supple Respiratory: Clear to auscultation bilaterally Cardiovascular: No edema, Normal S1 S2 - Studies Laboratory Data (last 24 hrs) 05/22/22 06:09: Sodium 139, Potassium 4.2 D, BUN 32 H, Creatinine 1.20, Glucose 137 H, Magnesium 2.1 05/22/22 06:09: WBC 12.20 H, Hgb 10.4 L D, Hct 31.4 L, Plt Count 197 Assessment And Plan - Current Problems (Diagnosis) (1) SBO (small bowel obstruction) Current Visit: No Status: Acute Plan: S/p small bowel obstruction s/p Exploratory laparotomy, lysis of adhesions and small bowel resection with primary anastomosis/currently doing well minimal abdominal discomfort not passed any flatus yet Patient to continue with IV antibiotics IV fluids cussed with Dr. Sutherland (2) Hypertension Current Visit: Yes Status: Acute Plan: Patient is n.p.o. we will try hydralazine IV patient is on chronic steroid therapy for eosinophilic gastroenteritis decrease the dose of steroids for now Qualifiers: Hypertension type: primary hypertension Qualified Code(s): I10 - Essential (primary) hypertension
--- NOTE | 2022-05-22 16:51 | PN ---
Date of Progress Note: 05/22/2022 Subjective: The patient is awake, alert, not passing gas, ambulating well, pain is controlled. No n ausea or vomiting. Objective: VITAL SIGNS: Stable, afebrile. Laboratory Data: Reviewed. White count is 12.2 with a left shift, improving. NG tube put out 100 m L. A Manning catheter put out 850 cc. Abdomen is benign with hypoactive bowel sounds. Dressing is cl ludmila, dry, and intact. Assessment: Status post exploratory laparotomy and small bowel resection. Recommendations: Continue NG tube, n.p.o., discontinue Manning. Change dressing daily as instructed. Encourage ambulation. Continue working with physical therapy. Continue antibiotics until white cou nt has normalized. The patient is clinically stable and slowly improving. /MODL Voice ID: [id number] Report ID: [id number]
[2022-05-22] MEDS: HYDRALAZINE HCL 20 MG/ML VIAL IV PRN (20:40)
[2022-05-23] MEDS: D5 0.9 NS 1,000 ML IV SCH ×3 (00:48→21:03)
[2022-05-23] MEDS: METRONIDAZOLE 500mg IVPB 500 MG/100 ML BAG IV SCH ×3 (01:04→16:13)
[2022-05-23 06:02] LABS: Absolute Lymphocytes (CBC) 0.5 K/uL (0.7-4.9); Hematocrit 29.6 % (39.6-49.0); Lymphocytes % 4.4 % (15.3-44.8); MCV 106.2 fL (80-100); RBC Red Blood Cell Count 2.79 M/uL (4.33-5.43)
[2022-05-23 06:20] LABS: Magnesium 2.2 mg/dL (1.6-2.4); Potassium 3.8 mmol/L (3.5-5.1)
[2022-05-23] MEDS ORDERED: KCL 20 MEQ/100 mL IVPB 20 MEQ/100 ML BAG IV SCH (08:00)
[2022-05-23] MEDS: HYDRALAZINE HCL 20 MG/ML VIAL IV PRN ×2 (08:39→20:56)
[2022-05-23] MEDS: ENOXAPARIN 40 MG/0.4 ML SQ SCH (08:40)
[2022-05-23] MEDS: METHYLPREDNISOLONE 40 MG INJ IV SCH ×2 (08:40→20:56)
[2022-05-23] MEDS: PANTOPRAZOLE 40 MG INJ IVP SCH (08:40)
[2022-05-23] MEDS: CIPROFLOXACIN 400mg IV 400 MG/200 ML BAG IV SCH ×2 (08:42→20:56)
--- NOTE | 2022-05-23 09:33 | P.PN ---
Subjective Date of Service: 05/23/22 Chief Complaint: Laparotomy Subjective: Improving (Improving doing well passing gas denies any abdominal pain) Review of Systems Unremarkable General: Weakness Physical Examination - Vital Signs Temperature: 98.7 F Blood Pressure: 184/79 Pulse: 68 Respirations: 16 Pulse Ox (%): 96 - Physical Exam General: Alert, In no apparent distress, Oriented x3 Respiratory: Clear to auscultation bilaterally Cardiovascular: No edema Gastrointestinal: No tenderness - Studies Laboratory Data (last 24 hrs) 05/23/22 05:55: Sodium 139, Potassium 3.8, BUN 31 H, Creatinine 1.03, Glucose 131 H, Magnesium 2.2 05/23/22 05:55: WBC 12.00 H, Hgb 10.0 L, Hct 29.6 L, Plt Count 179 05/22/22 06:09: WBC 12.20 H, Hgb 10.4 L D, Hct 31.4 L, Plt Count 197 Assessment And Plan - Current Problems (Diagnosis) (1) SBO (small bowel obstruction) Current Visit: No Status: Acute Plan: Patient is doing well is passing gas no new complaints no abdominal pain further management as per general surgery (2) Hypertension Current Visit: Yes Status: Acute Plan: Patient's blood pressure is still little elevated as patient is n.p.o. we will apply a clonidine patch Labs reviewed unremarkable Qualifiers: Hypertension type: primary hypertension Qualified Code(s): I10 - Essential (primary) hypertension
[2022-05-23] MEDS ORDERED: CLONIDINE 0.1 MG/PATCH TD SCH (10:00)
--- NOTE | 2022-05-23 15:50 | PN ---
Date of Progress Note: 05/23/2022 Subjective: The patient is awake, alert, passing gas. NG tube put out 100 cc. Laboratory Data: Reviewed. White count is 112,000, elevated because of steroids. Objective: Abdomen: Soft, nondistended. Positive bowel sounds. Extremities: Wound is clean, dry, and intact. Assessment: Status post small bowel resection. Recommendation: Discontinue NG tube, start clear liquids. Continue physical therapy. Continue IV a ntibiotics. The patient is clinically doing well. /MODL Voice ID: [id number] Report ID: [id number]
[2022-05-23] MEDS: SODIUM CHLORIDE 0.9% 10ML INJ IV PRN (20:57)
[2022-05-24] MEDS: METRONIDAZOLE 500mg IVPB 500 MG/100 ML BAG IV SCH ×3 (02:12→16:17)
[2022-05-24] MEDS: D5 0.9 NS 1,000 ML IV SCH ×2 (06:47→16:18)
[2022-05-24 07:10] LABS: Magnesium 2.3 mg/dL (1.6-2.4)
[2022-05-24] MEDS: PANTOPRAZOLE 40 MG INJ IVP SCH (07:59)
[2022-05-24] MEDS: CIPROFLOXACIN 400mg IV 400 MG/200 ML BAG IV SCH ×2 (07:59→21:50)
[2022-05-24] MEDS: ENOXAPARIN 40 MG/0.4 ML SQ SCH (07:59)
[2022-05-24] MEDS: METHYLPREDNISOLONE 40 MG INJ IV SCH (07:59)
[2022-05-24] MEDS: HYDROMORPHONE HCL 1 MG/ML INJ IV PRN (08:00)
--- NOTE | 2022-05-24 09:55 | P.PN ---
Subjective Date of Service: 05/24/22 Chief Complaint: Status post laparotomy laparotomy Subjective: Improving (Patient improving doing well passing gas no abdominal pain tolerating a liquid diet) Review of Systems Unremarkable Physical Examination - Vital Signs Temperature: 98.3 F Blood Pressure: 158/78 Pulse: 98 Respirations: 16 Pulse Ox (%): 94 - Physical Exam General: Alert, In no apparent distress, Oriented x3 Respiratory: Clear to auscultation bilaterally Cardiovascular: No edema, Regular rate/rhythm - Studies Laboratory Data (last 24 hrs) 05/24/22 06:47: Sodium 142, Potassium 4.0, BUN 32 H, Creatinine 1.07, Glucose 121 H, Magnesium 2.3 Assessment And Plan - Current Problems (Diagnosis) (1) SBO (small bowel obstruction) Current Visit: No Status: Acute Plan: Doing much better tolerating a liquid diet we will discuss with general surgery regarding advancing diet patient is also ambulating White count has declined a little reduce the dose of IV Solu-Medrol to 10 every 12 resume p.o. prednisone possible stop IV steroids tomorrow (2) Hypertension Current Visit: Yes Status: Acute Plan: Patient is on a clonidine patch will resume all his p.o. medications Qualifiers: Hypertension type: primary hypertension Qualified Code(s): I10 - Essential (primary) hypertension
[2022-05-24] MEDS ORDERED: POLYETHYL GLY 3350 17 GM/DOSE PO PRN (10:38)
[2022-05-24] MEDS: CARBIDOPA/LEVODOPA 25/100 TAB PO SCH ×4 (10:41→21:50)
--- NOTE | 2022-05-24 10:56 | PN ---
Date of Progress Note: 05/24/2022 Subjective: The patient is awake, alert, tolerating clear liquids. Had very minimal nausea this mor yobani, passing gas, and has not had a good bowel movement yet. Objective: Vital Signs: Stable, afebrile. Abdomen: Benign. Assessment: Status post small bowel resection. Recommendations: Advance diet to full liquids. Encourage ambulation. We will add Colace and MiraLA X as a part of his bowel regimen. The patient is clinically doing well. Hopefully discharge to reha b in the next day or 2. /MODL Voice ID: [id number] Report ID: [id number]
[2022-05-24] MEDS: TAMSULOSIN 0.4 MG SR CAP PO SCH (16:17)
[2022-05-24] MEDS ORDERED: OPICAPONE 50 MG PO SCH (21:00)
[2022-05-24] MEDS ORDERED: METHYLPREDNISOLONE 40 MG INJ IV SCH (21:00)
[2022-05-24] MEDS: SODIUM CHLORIDE 0.9% 10ML INJ IV PRN (21:50)
[2022-05-24] MEDS: DOCUSATE NA 100 MG CAP PO SCH (21:50)
[2022-05-25] MEDS: METRONIDAZOLE 500mg IVPB 500 MG/100 ML BAG IV SCH ×2 (01:20→08:20)
[2022-05-25] MEDS: D5 0.9 NS 1,000 ML IV SCH (01:22)
[2022-05-25 02:53] VITALS: O2SAT 95
[2022-05-25 06:15] LABS: Potassium 4.1 mmol/L (3.5-5.1)
[2022-05-25] MEDS: TAMSULOSIN 0.4 MG SR CAP PO SCH (08:18)
[2022-05-25] MEDS: CARBIDOPA/LEVODOPA 25/100 TAB PO SCH (08:19)
[2022-05-25] MEDS: DOCUSATE NA 100 MG CAP PO SCH (08:19)
[2022-05-25] MEDS: ENOXAPARIN 40 MG/0.4 ML SQ SCH (08:20)
[2022-05-25] MEDS: CIPROFLOXACIN 400mg IV 400 MG/200 ML BAG IV SCH (08:21)
[2022-05-25 08:46] VITALS: BP 141/62; TEMP 98.6
[2022-05-25] MEDS ORDERED: AZATHIOPRINE 50 MG TABLET PO SCH (09:00)
[2022-05-25] MEDS ORDERED: AMANTADINE 100 MG CAP PO SCH (09:00)
[2022-05-25] MEDS ORDERED: predniSONE 10 MG TAB PO SCH (09:00)
[2022-05-25] MEDS ORDERED: predniSONE 5 MG TAB PO SCH (09:00)
[2022-05-25] MEDS ORDERED: DULOXETINE 30 MG CAP PO SCH (09:00)
[2022-05-25] MEDS ORDERED: CLONIDINE 0.1 MG/PATCH TD SCH (09:00)
[2022-05-25] MEDS ORDERED: FINASTERIDE 5 MG TAB PO SCH (09:00)
--- NOTE | 2022-05-25 10:00 | P.PN ---
Date of Service: 05/25/22 Subjective: Patient tolerating full liquid diet. Patient still passing gas. No nausea or vomiting. Objective: Stable, afebrile Abdomen: Soft, nondistended, nontender, positive bowel sounds and wound is clean, dry and intact Assessment: Status post small bowel resection Plan: Advance diet. Patient cleared for transfer to rehab. CC:
[2022-05-25] MEDS ORDERED: ATORVASTATIN 10 MG TAB PO SCH (21:00)
[2022-05-25] MEDS ORDERED: HOME MED 1 EA UNK (Pravastatin Sodium [Pravastatin Sodium] 40 MG Tablet) PO SCH (21:00)
--- NOTE | 2022-05-26 08:25 | DS ---
Date of Discharge: 05/25/2022 Disposition: The patient was discharged to go to inpatient rehab. Physical Examination: HEENT: Unremarkable. Lungs: Clear to auscultation. Heart: Sounds normal. Abdomen: Soft. Bowel sounds normal. No guarding, rigidity, tenderness, distention. Extremities: No leg edema. Laboratory Data: Upon admission on 05/20/2021; white count 15.6, hemoglobin 13.4, platelets 225. Last white count on 05/23/2022 was 12, hemoglobin 10. His initial chemistry; sodium 137, potassium 4.7, chloride 105, bicarb 24, BUN 28, creatinine 1.32, glucose 137. Liver function tests unremarkable. Lipase 96 and last chemistry today; sodium 137, potassium 4.1, chloride 110, bicarb 22, BUN 25, creatinine 0.95, glucose 123. Magnesium level 2. Hospital Course: This is an 87-year-old male patient, who came into office with complaints of abdominal pain, nausea, vomiting. Please see dictated H and P for more information. After the patient was evaluated in the office, arrangements were made for him to be admitted to the hospital and soon after admission, we did routine blood work. CAT scan of the abdomen and pelvis was done and CAT scan showed evidence of closed-loop bowel obstruction. Consultation from Dr. Sutherland was obtained right away soon after the CAT scan result was available and he evaluated the patient also immediately and took the patient to surgery within matter of few hours after he was admitted to the hospital. During surgery, he did find some beginning of ischemic bowel without any gangrene and he performed about 18 inch small bowel resection with end-to-end anastomosis and postoperatively the patient was brought to ICU. He remained clinically stable in ICU and after overnight stay in ICU, he was transferred out of ICU to medical room and he continued to improve. Initially, he was n.p.o. Subsequently, his diet was started and today when I saw him he was on full liquid diet. The patient is passing gas per rectum, but so far has not had a bowel movement since the surgery. He is ambulating well with physical therapy and today the patient was transferred in stable condition to inpatient rehab. The patient requested to be evaluated for rehab benefit and after he was accepted today, he was transferred to inpatient rehab where I will continue to follow up with him. The patient has been getting Lovenox for DVT prophylaxis, which we will continue that. Final Diagnoses: 1. Small bowel obstruction. 2. Volume depletion. 3. Acute kidney injury. 4. Coronary artery disease. 5. Hypertension. 6. Hyperlipidemia. 7. Parkinson disease. 8. Anemia. 9. Eosinophilic colitis. 10. Chronic oral steroid therapy. 11. Benign prostatic hypertrophy. Discharge Medications: See copy of transfer orders for more details. MISTY/MODL Voice ID: [id number] Report ID: [id number] [facility]
== END 2022-05-25 10:09 | DRG 329 ==
LOC: ERHOLD 16:43 → 2ND 18:16 → 3RD-ICU 22:51 → 2ND 05-21 10:38
PROVIDERS: ADMIT Internal Medicine; ATTEND Internal Medicine Sleep Medicine
PROC: 0DN80ZZ Release Small Intestine, Open Approach (ICD-10-PCS; 2022-05-20)
PROC: 0DB80ZZ Excision of Small Intestine, Open Approach (ICD-10-PCS; principal; 2022-05-20 21:00)
DX: K56.609 Unspecified intestinal obstruction, unspecified as to partial versus complete obstruction (principal); K65.9 Peritonitis, unspecified; N17.9 Acute kidney failure, unspecified; K52.82 Eosinophilic colitis; E78.5 Hyperlipidemia, unspecified; I12.9 Hypertensive chronic kidney disease with stage 1 through stage 4 chronic kidney disease, or unspecified chronic kidney disease; N18.9 Chronic kidney disease, unspecified; E86.9 Volume depletion, unspecified; G20 Parkinson's disease; N40.0 Benign prostatic hyperplasia without lower urinary tract symptoms; E87.5 Hyperkalemia; I25.10 Atherosclerotic heart disease of native coronary artery without angina pectoris; Z66 Do not resuscitate; Z88.6 Allergy status to analgesic agent; Z20.822 Contact with and (suspected) exposure to COVID-19
CPT/HCPCS: 36415; 71045; 74176; 80048; 80053; 83690; 83735; 84100; 85025; 87811; 88305; 88307; 94010; 97110; 97116; 97161; 97165; 97530; C9113; J0330; J0360; J0744; J1100; J1170; J1650; J2250; J2405; J2710; J2920; J3010; J3480; J7030; J7042; J7120; J7500; J7512

== ENCOUNTER 2022-05-25 09:00 | Inpatient (IN) | payer OTHER, BC ==
[2022-05-25] MEDS ORDERED: PHENOL 1.4% ORAL SPRAY 180ML MM PRN (10:32)
[2022-05-25] MEDS ORDERED: SODIUM CHLORIDE 0.9% 10ML INJ IV PRN (10:32)
[2022-05-25] MEDS ORDERED: POLYETHYL GLY 3350 17 GM/DOSE PO PRN (10:32)
[2022-05-25] MEDS ORDERED: HYDROCODONE/APAP 5/325 MG TAB PO PRN (10:32)
[2022-05-25] MEDS ORDERED: ONDANSETRON 4 MG/2 ML VIAL IV PRN (10:32)
[2022-05-25 11:29] VITALS: BMI 27.5
[2022-05-25] MEDS ORDERED: CLONIDINE 0.1 MG/PATCH TD SCH (11:30)
[2022-05-25 11:36] LABS: Urine Bacteria None Seen /HPF (<20); Urine Bilirubin NEGATIVE (Negative); Urine Blood Negative (Negative); Urine Clarity Clear (Clear); Urine Color Light-Yellow (Yellow); Urine Glucose NEGATIVE (Negative); Urine Mucus Slight /HPF (None Seen); Urine Protein TRACE (Negative); Urine RBC <5 /HPF (None Seen); Urine Urobilinogen Normal (Normal); Urine pH 5.5 (5.0-7.0)
[2022-05-25] MEDS: CARBIDOPA/LEVODOPA 25/100 TAB PO SCH ×4 (11:40→19:19)
[2022-05-25] MEDS: TAMSULOSIN 0.4 MG SR CAP PO SCH (17:13)
[2022-05-25] MEDS: METRONIDAZOLE 500mg IVPB 500 MG/100 ML BAG IV SCH (17:15)
[2022-05-25] MEDS: CIPROFLOXACIN 400mg IV 400 MG/200 ML BAG IV SCH (19:18)
[2022-05-25] MEDS: DOCUSATE NA 100 MG CAP PO SCH (19:19)
[2022-05-25] MEDS: OPICAPONE 50 MG PO SCH (20:10)
[2022-05-26] MEDS: METRONIDAZOLE 500mg IVPB 500 MG/100 ML BAG IV SCH ×3 (00:04→17:00)
[2022-05-26] MEDS ORDERED: NA CHLORIDE 0.9% 250 ML ONE (00:26)
[2022-05-26 04:53] LABS: Absolute Lymphocytes (CBC) 1.2 K/uL (0.7-4.9); Hematocrit 29.3 % (39.6-49.0); MCV 106.9 fL (80-100); MPV 7.9 fL (7.6-11.3); RBC Red Blood Cell Count 2.74 M/uL (4.33-5.43)
[2022-05-26 05:08] LABS: Albumin 2.5 g/dL (3.4-5.0); Magnesium 2.1 mg/dL (1.6-2.4); Potassium 4.4 mmol/L (3.5-5.1); Prealbumin 21.1 mg/dL (20-40)
[2022-05-26 05:18] LABS: Basophilic Stippling 1+; Blood Morphology Comment NOTED (NOT SEEN); Macrocytosis 1+; Platelet Estimate ADEQ; White Blood Cell Scan OK (OK)
--- NOTE | 2022-05-26 06:02 | HP ---
Date of Admission: 05/25/2022 [facility] admission history and physical. Time Of Service: 12:30 p.m. Chief Complaint: Had a belly surgery after obstruction. History Of Present Illness: Mr. Ventura is an 87-year-old right-handed patient, whom I have seen in [facility] for Parkinson disease. He has dyslipidemia, hypertension, coronary artery disease, eosinophilic colitis, and stage 3 kidney disease, who presented with abdominal pain, nausea, and vomiting to his primary care physician's office earlier in the month and was evaluated by his PCP, Dr. Causey, and ben grissom to have significant abdominal issues that sent him to the hospital. He was diagnosed with small maura wel obstruction when he was admitted on 05/20/2022, and Dr. Sutherland of Surgical Service determined that the patient required surgery. He was diagnosed with closed-loop small bowel obstruction and vascula r compromise with peritonitis. His postoperative diagnosis, which was the same was done. The proced ure was done on 05/20/2022, and actual, the procedure itself was an exploratory laparotomy with lysis of adhesions and small-bowel resection with primary anastomosis. The patient was sent to [facility], where he was managed with pain medications. His comorbid conditions were treated. He was deter mined to be appropriate at this point for inpatient rehabilitation, given his multiple comorbid condi tions and acute bowel resection. Earlier today, he did have a bowel movement as he came to rehab. H e did receive 100 mg IV x1 and was put back on 10 mg daily steroids. Treated with IV flui ds. Antibiotics including ciprofloxacin, metronidazole. Treated with sequential compression devices for deep vein thrombosis. Continued on blood pressure medications. Parkinson's medications also we re continued. His renal function was managed by fluid management and again requiring intensive adjus tment for him not to run into acute renal failure. Due to his complex medical condition and the need for aggressive rehabilitation, it was determined that he is a better candidate for inpatient rehabil itation versus being discharged and sent to a [facility] as he was likely worsened. Past Medical History: 1.Parkinson disease. 2.Hypertension. 3.Dyslipidemia. 4.Coronary artery disease. 5.Thoracic aortic aneurysm. 6.Eosinophilic colitis. 7.Benign prostatic hypertrophy. 8.Stage 3 kidney disease. Past Surgical History: 1.Cataract surgery. 2.Knee surgery. 3.Shoulder surgery. Social History: The patient lives with family. He has no alcohol, tobacco, or IV drug use. Family History: Father had coronary artery disease. Mother, diabetes. Brother, prostate cancer and diabetes. Sister with diabetes. Allergies: NONSTEROIDAL ANTI-INFLAMMATORY AND ASPIRIN. Current Medications: 1.Tylenol Extra Strength 500 mg every 6 hours. 2.[place] 5/325 every 6 hours as needed. 3.Amantadine 100 mg daily. 4.Imuran 50 mg daily. 5.Sinemet 25/100 five times daily. 6.Ciprofloxacin 400 mg IV every 12 hours. 7.Clonidine 0.1 mg every 7th day, this is a patch. 8.Colace 100 mg twice daily. 9.Cymbalta 60 mg daily. 10.Lovenox 40 mg subcutaneously daily. 11.Proscar 5 mg daily. 12.Flagyl 500 mg every 8 hours. 13.Zofran 4 mg every 6 hours as needed. 14. . 15.Flomax 0.4 mg twice daily. Review of Systems: Currently, Mr. Ventura denies any significant abdominal pain despite his recent abdominal surgery with william across the belly. He is in no acute distress. He has no dermatological complaints. No pulm onary complaints. No genitourinary complaints. He does have a good bowel movement. No dermatologic complaints. No psychiatric issues. He is being treated for Parkinson disease and is doing well in that respect. No other positives on systems review. Laboratory Studies: White blood cell count 12, hemoglobin 10.0, platelets 179. Chemistries: Sodium 137, potassium 4.1, chloride 110, BUN 25, creatinine 0.95, after hydration, initially was 1.32, gluc ose 123, calcium 7.8, magnesium 2.0. AST 70, ALT 35, alkaline phosphatase 61. Urinalysis on the 20t h was normal. COVID-19 test on the negative. X-ray/imaging: Abdominal and pelvis CT scan on the showed closed-loop small-bowel obstruction s uggesting urgent surgical consultation and chest x-ray on the showed no acute cardiopulmonary pr ocesses. Physical Examination: Vital Signs: Blood pressure 150/74, pulse up to 113, respiratory rate 16 to 20, temperature 97.8, an d oxygen saturation 95% on room air. General: Mr. Ventura is sitting on a chair. He just completed 250 feet ambulation with contact guard assistance using a rolling walker. HEENT: He is normocephalic and atraumatic. Sclerae anicteric. Oropharynx is pink and moist. Neck: Supple. Chest: Clear. Heart: Regular. Extremities: Show no significant edema, cyanosis, or clubbing. Abdomen: The area is soft with william in place. Neurologic: Cranial nerves, no focal deficits. Motor, no focal deficits. He has increased tone wit h bradykinesia. In terms of gait, he has a slow gait, narrow based with a walker, mild festination. Reflexes suppressed. Coordination, slow and intact. Current Level Of Functioning: Currently, he was able to ambulate 253 feet 3 times and [address] guard assistance using a rolling walker. He did show proper mechanics. He did go up and down 15 steps with contact guard assistance using bilateral handrails using a rolling walker. He is being evaluated by Speech Therapy and Occupational Therapy. I did wheelchair to toilet transfer w ith grab-bars with minimum assistance, tolerating contact guard assistance. Rehabilitation And Medical Assessment And Plan: Mr. Ventura is an 87-year-old patient admitted to the rehabilitation unit after a small bowel obstruction with primary reanastomosis for small-bowel obstru ction. He is recovering very well from his surgery. He has Parkinson disease and hypertension, pros lucero hypertrophy, eosinophilic colitis, and small bowel infection on multiple antibiotics, that is ac tually doing very well and those are treated by his primary care physician Dr. Causey. Plan: Physical, occupational, and speech therapy 3.5 hours 5 of 7 days. Note in terms of his peoples hospital diagnosis, it is 06, that is the rehabilitation impairment group 06, neurologic condition. His i mpairment group code is 03.2 parkinsonism. His etiologic diagnosis is Parkinson disease. Other adeline rbidities are the small bowel obstruction status post surgery, volume depletion, eosinophilic colitis , chronic steroid therapy, risk of clinical complication to include further weakness which could be d ue to steroids because deep vein thrombosis prophylaxis. Skin breakdown leading to worsen ing debility and injury after falls. Impact Of Comorbid On His Rehabilitation: At this point, he does have abdominal wound that is healin g and that is his subjective to infection. He is on multiple antibiotics. He does have eosinophilic colitis, which may flare up. He is on steroids for that. He does have risk for deep vein thrombosi s. He does have Lovenox subcutaneously for that. He has risk of depression and also on medication f or that. His Parkinson's is being treated as well with Sinemet. Rehab Specific Plan: He will have 3.5 hours 5 to 7 days of physical, occupational, and speech therap y as noted above. Mr. Ventura has a good understanding of why he is admitted to the inpatient rehabilitation unit. He hernandez s good potential to make improvement and requires at least physical, occupational, and speech therapy along with attempted medical care by his attending physician on a daily basis. Additionally, if nee d be, Respiratory Service, Nutrition Service, Wound Care Service, and Psychiatric Service will be kamlesh ght. Due to his complex medical condition and risk of further medical complications, rehabilitation services would be most safely carried out with an inpatient rehabilitation unit versus a skilled unit . Barriers To Discharge: They are listed above and are mitigated. Estimated Length Of Stay: About 7 to 10 days. Disposition: He is expected to be discharged home. Prognosis: Good. Repetition Goals: 1.Become independent in upper and lower body dressing, toileting, transfers to shower and toilet. 2.Ambulate over 500 feet with independence. 3.Up and down 15 steps with independence. 4.Parkinson's optimize in terms of his medications. I acknowledge that I personally performed a full physical examination of Mr. Ventura within 2 hours of his arrival on the unit and noted that he is able to tolerate the above course of treatment at the in tensive level stated above. A detailed individualized plan of care for him will be completed by [facility] for his state based on the pre-admission screen, history and physical, and the therapeutic ev aluations. NAKUL/KARTHIK Voice ID: [id number]
[2022-05-26] MEDS ORDERED: ENOXAPARIN 40 MG/0.4 ML SQ SCH (08:00)
[2022-05-26] MEDS: AZATHIOPRINE 50 MG TABLET PO SCH (08:39)
[2022-05-26] MEDS: AMANTADINE 100 MG CAP PO SCH (08:39)
[2022-05-26] MEDS: DULOXETINE 30 MG CAP PO SCH (08:39)
[2022-05-26] MEDS: CARBIDOPA/LEVODOPA 25/100 TAB PO SCH ×5 (08:39→19:25)
[2022-05-26] MEDS: predniSONE 10 MG TAB PO SCH (08:40)
[2022-05-26] MEDS: DOCUSATE NA 100 MG CAP PO SCH ×2 (08:40→19:25)
[2022-05-26] MEDS: TAMSULOSIN 0.4 MG SR CAP PO SCH ×2 (08:40→17:18)
[2022-05-26] MEDS: FINASTERIDE 5 MG TAB PO SCH (08:40)
[2022-05-26] MEDS: CIPROFLOXACIN 400mg IV 400 MG/200 ML BAG IV SCH (08:40)
[2022-05-26] MEDS: ENOXAPARIN 40 MG/0.4 ML SQ SCH (16:10)
[2022-05-26] MEDS: CIPROFLOXACIN HCL 500 MG TAB PO SCH (19:25)
[2022-05-26] MEDS: OPICAPONE 50 MG PO SCH (19:25)
[2022-05-26] MEDS: metroNIDAZOLE 500 MG TABLET PO SCH (19:25)
--- NOTE | 2022-05-26 21:38 | PN ---
Date of Progress Note: 05/26/2022 Rlpt-Ko-Smtv Progress Note Time Of Service: 12:30 p.m. Subjective: Mr. Ventura is doing very well. He is ambulating around the unit and actually also was ab le to use his lower extremities to propel a wheelchair to strengthen the lower extremities. He denie s any new complaints at the abdominal surgical site specially where that was done, he has no pain the re. Review of Systems: No fevers, chills, nausea, vomiting, myalgias, or arthralgias. No significant abdominal pain. No ot her complaints. Physical Examination: Vital Signs: Blood pressure 122/67, pulse ranged from 60 to 118, temperature 97.6, respiratory rate 16 to 18, and oxygen saturation 97%. General: Mr. Ventura is doing well. HEENT: He is normocephalic, atraumatic. Sclerae anicteric. Oropharynx pink and moist. Neck: Supple. Chest: Clear. Heart: Regular. Extremities: No significant edema, cyanosis, or clubbing. Neurological: He does have mask-like face, bradykinesia, and mild cogwheeling, but no focal deficits . Laboratory Studies: White blood cell count 7.1, hemoglobin 10.0, and platelets 145. Chemistry: Sod ium 136, potassium 4.4, carbon dioxide 26, BUN 29, creatinine 1.09, and prealbumin 21.1. Urinalysis: Trace protein, otherwise unremarkable. COVID-19 test is pending. X-ray/imaging: No new x-ray or imaging. Medications: Tylenol Extra Strength 500 mg every 6 hours, [place] 5/325 every 6 hours as needed, amant adine 100 mg daily, Imuran 50 mg daily, Sinemet 25/100 up to 5 times daily, ciprofloxacin 500 mg twic e daily, clonidine patch 0.1 mg every 7th day, Colace 100 mg twice daily, Cymbalta 60 mg daily, Loven ox 40 mg subcutaneously daily, Proscar 5 mg daily, Flagyl 500 mg 3 times daily, prednisone 10 mg dary y, and Flomax 0.4 mg twice daily. Current Functional Status: Currently Mr. Ventura is able to ambulate 250 feet twice and 500 feet once and another 300 feet once with contact guard assistance using a rolling walker. He ascended and desc ended 15 stairs with contact guard assistance using bilateral handrails. He mobilized a wheelchair 2 50 feet once and 150 feet once to improve strength of the lower extremities. With speech therapy, he did attempt visualization on first attempt and recalled 2 of 3 pictures. He incorporated personaliz ation and recalled 3 of 3 objects. Additional picture was added and recalled 4 of 4 of those. He al so exhibited sustained attention during a cancellation task for 2 to 3 minutes with 97% accuracy. Progress Towards Rehabilitation Goals: At this point, Mr. Ventura is making excellent progress towards rehabilitation goals of becoming independent with upper and lower body dressing, transferring, toile ting, showering, and ambulating 500 feet and up and down 15 steps; all with independence. Assessment: Mr. Ventura is an 87-year-old patient admitted to the rehabilitation unit after abdominal surgery. He has Parkinson disease with some diffuse weakness. He is actually making excellent progr ess in his physical and occupational therapy. He did have small bowel obstruction and has had surger y with 3 anastomoses. He has hypertension, prostate hypertrophy, and eosonophilic colitis. Plan: 1.Continue physical and occupational along with speech therapy for 3.5 hours, 5 of 7 days. 2.Continue with Sinemet for Parkinson disease. 3.Continue with antibiotics per Dr. Causey, his primary care physician. 4.Continue with clonidine patch, although will ask to hold it if his systolic blood pressures remain below 120. 5.He is on DVT prophylaxis. 6.He is being seen by Wound Care as well. Comorbidities That Continue To Impact Rehabilitation Process: At this point, his comorbid conditions do not significantly impact his rehabilitation process. He is doing very well. Abdominal site does not have any significant pain, this is a surgical site and his Parkinson disease is well managed with amantadine and Sinemet. LB/MODL Voice ID: [id number] Report ID: [id number]
--- NOTE | 2022-05-26 21:47 | PN ---
Date of Progress Note: 05/26/2022 Subjective: The patient was seen this morning for followup. He was on the rehab floor, lying in bed , not in any distress. Denies any new complaints. Objective: Vital Signs: Reviewed. HEENT: Unremarkable. Lungs: Clear to auscultation. Heart: Sounds normal. Abdomen: Soft. Bowel sounds normal. No guarding, rigidity, tenderness, or distention. Extremities: No leg edema. Laboratory Data: White count 7.1, hemoglobin 10, and platelet count 145. Sodium 136, potassium 4.4, chloride 108, bicarb 26, BUN 29, creatinine 1.09, glucose 91, and serum albumin level 2.5. Urinalys is negative. Impression: 1.Small bowel obstruction. 2.Generalized weakness. 3.Debility. 4.Anemia. 5.Thrombocytopenia. 6.Parkinson disease. Plan: We will go ahead and continue current medications. Continue current antibiotics, Cipro and me tronidazole, but we will change it from IV to oral antibiotics. Continue physical therapy under guid ance of Dr. Escoto. Continue current Lovenox for DVT prophylaxis. Anemia will not require any fur ther intervention except monitoring and thrombocytopenia. Also will not require any intervention except monitoring. I will see him tomorrow for followup. MISTY/MODL Voice ID: [id number] Report ID: [id number]
[2022-05-27] MEDS: DULOXETINE 30 MG CAP PO SCH (07:51)
[2022-05-27] MEDS: OPICAPONE 50 MG PO SCH (07:51)
[2022-05-27] MEDS: predniSONE 10 MG TAB PO SCH (07:52)
[2022-05-27] MEDS: CARBIDOPA/LEVODOPA 25/100 TAB PO SCH ×5 (07:52→19:11)
[2022-05-27] MEDS: CIPROFLOXACIN HCL 500 MG TAB PO SCH ×2 (07:52→19:12)
[2022-05-27] MEDS: FINASTERIDE 5 MG TAB PO SCH (07:52)
[2022-05-27] MEDS: metroNIDAZOLE 500 MG TABLET PO SCH ×3 (07:52→19:12)
[2022-05-27] MEDS: AMANTADINE 100 MG CAP PO SCH (07:52)
[2022-05-27] MEDS: DOCUSATE NA 100 MG CAP PO SCH ×2 (07:52→19:12)
[2022-05-27] MEDS: TAMSULOSIN 0.4 MG SR CAP PO SCH ×2 (07:52→16:36)
[2022-05-27] MEDS: AZATHIOPRINE 50 MG TABLET PO SCH (07:54)
[2022-05-27] MEDS: ENOXAPARIN 40 MG/0.4 ML SQ SCH (16:35)
[2022-05-27] MEDS: SODIUM CHLORIDE 1 GM TAB PO SCH (16:36)
[2022-05-27] MEDS ORDERED: MELATONIN 5 MG TABLET PO SCH (21:00)
--- NOTE | 2022-05-27 23:13 | PN ---
Date of Progress Note: 05/27/2022 Subjective: The patient was seen this morning for followup. No new complaints or problems reported by the patient. Lying in bed, not in any distress. Had a bowel movement yesterday. No abdominal pa in, no nausea, no vomiting. Objective: Vital Signs: Reviewed. HEENT: Unremarkable. Lungs: Clear to auscultation. Heart: Sounds normal. Abdomen: Soft. Bowel sounds normal. No guarding, rigidity, tenderness, or distention. Extremities: No leg edema. Impression: 1.Orthostatic hypotension. 2.Parkinson disease. 3.Small bowel obstruction, status post surgery. Plan: After I saw the patient, nurse contacted me and informed me about the patient's vital signs sh owing significant drop in the blood pressure with sitting and standing position, compared to supine p osition and he was getting clonidine patch, which was ordered to be discontinued. We will continue t o monitor his vital signs. Continue physical therapy under guidance of Dr. Escoto and we will cont inue current oral antibiotics. I will see him tomorrow for followup. At home he takes melatonin for his insomnia, which helps him very well and he is not currently getting it in the hospital and last night he did not sleep well and we will start melatonin 5 mg at bedtime. MISTY/MODL Voice ID: [id number] Report ID: [id number]
--- NOTE | 2022-05-28 00:26 | PN ---
Date of Progress Note: 05/27/2022 Ravb-Dm-Fnda Progress Note Visit Time Of Service: 1 p.m. Subjective: Mr. Ventura is doing well. He went out to see his family today. He has no new complaints . Despite his abdominal surgery, he denied any pain at the surgical site. He is feeling in great sh ape. Review of Systems: No fevers, chills, nausea, vomiting, myalgias, or arthralgias. No significant abdominal pain. No ed misha in the extremities. Physical Examination: Vital Signs: Blood pressure 132/61, down to 97/55 when he stood up, likely secondary to autonomic dy sfunction related to his Parkinson disease. His is pulse 67, his temperature 97.8, and his oxygen sa turation 93% on room air. He did have orthostatics done at a separate time. When he was sitting, it was 111/74 and pulse 111. When standing, he did have a significant drop to 65/50 with pulse of 113. He was put on abdominal binder with CASEY hose and sodium chloride 1 g twice daily. In addition, trip nidine patch 1.1 weekly was removed. Neurologic: Otherwise on exam, no focal deficits. No cranial nerve deficits. No focal motor, senso ry, or coordination deficit. He does have masked face with festinating gait and some other features of Parkinson disease as noted. Laboratory Studies: White blood cell count 7.1, hemoglobin 10.0, and platelets 145. Chemistry: Sod ium 136, potassium 4.4, chloride 108, carbon dioxide 26, BUN 29, creatinine 1.09, and prealbumin 21.1 . COVID testing done today was negative. X-ray/imaging: No new x-ray or imaging. Medications: Unchanged, compared to yesterday. He is still on Sinemet 25/100 up to 5 times daily fo r Parkinson disease, Cipro 500 mg twice daily, Colace 100 mg twice daily, Imuran 50 mg daily, amantad ine 100 mg daily, [place] 5/325 every 6 hours as needed, Tylenol Extra Strength 500 mg for mouth pain, Cymbalta 60 mg daily, Lovenox 40 mg subcutaneously daily, Proscar 5 mg daily, Flagyl 500 mg 3 times d aily, melatonin 5 mg at bedtime, Zofran 4 mg IV every 6 hours as needed for nausea, prednisone 10 mg daily, and Flomax 0.4 mg twice daily. Current Functional Status: Currently he is able to do stand and pivot transfers with standby assista nce using a rolling walker and repeated sit to stand transfers with standby assistance using a brandon g walker. He ambulated 250 feet twice, 500 feet twice, another 350 feet once with contact guard assi stance using a rolling walker. He ascended and descended 15 steps with standby assistance using bila teral handrails. He mobilized a wheelchair 250 feet twice with to improve his upper body strength an d endurance. With speech therapy today, he utilized phonemic cues to recall a list of items with 90% accuracy with minimum assistance. Progress Towards Rehabilitation Goals: He is making excellent progress towards his goals of becoming independent with upper and lower body dressing, transferring, toileting, performing activities of da jerry living with independence going up and down 15 steps with independence and over 500 feet with inde pendence. Assessment And Plan: Mr. Ventura is an 87-year-old patient in the rehabilitation unit with Parkinson d isease. He has had abdominal surgery with resection and reanastomosis. He is doing excellent from t hat standpoint. He has antibiotics per Dr. Causey, his primary care doctor who was managing his medica l condition while in hospital. He does have significant orthostatic hypotension, likely related to a utonomic dysfunction secondary to his Parkinson disease. That will be mitigated with head holds, abd ominal binder, holding off antihypertensive medications, and sodium chloride 1 g twice daily. His ab dominal area is with good hemostasis. All of those will be continued. He will have physical and occ upational therapy 3 hours a day, 5 of 7 days. Medications for Parkinson's, his infection, orthostati c changes, DVT prophylaxis all will be continued in addition to medications for prostate hypertrophy and eosinophilic colitis. He is on steroids in addition to the Imuran. Comorbidities That Continue To Impact Rehabilitation Process: At this point, his comorbidities are s table and well managed and do not disrupt or impact in a negative way his rehabilitation progress. LB/MODL Voice ID: [id number] Report ID: [id number]
[2022-05-28 05:53] LABS: Absolute Lymphocytes (CBC) 1.3 K/uL (0.7-4.9); Hematocrit 28.5 % (39.6-49.0); Lymphocytes % 16.6 % (15.3-44.8); MCV 106.8 fL (80-100); MPV 8.4 fL (7.6-11.3); RBC Red Blood Cell Count 2.66 M/uL (4.33-5.43)
[2022-05-28 06:12] LABS: Albumin 2.3 g/dL (3.4-5.0); Magnesium 2.1 mg/dL (1.6-2.4); Potassium 3.8 mmol/L (3.5-5.1); Prealbumin 20.6 mg/dL (20-40)
[2022-05-28] MEDS ORDERED: ONDANSETRON 4 MG (ODT) TAB PO PRN (06:28)
[2022-05-28 06:47] LABS: Blood Morphology Comment NOTED (NOT SEEN); White Blood Cell Scan OK (OK)
[2022-05-28 06:48] LABS: Platelet Estimate DECR
[2022-05-28] MEDS: OPICAPONE 50 MG PO SCH (07:53)
[2022-05-28] MEDS: FINASTERIDE 5 MG TAB PO SCH (07:54)
[2022-05-28] MEDS: CARBIDOPA/LEVODOPA 25/100 TAB PO SCH ×4 (07:54→19:42)
[2022-05-28] MEDS: AZATHIOPRINE 50 MG TABLET PO SCH (07:54)
[2022-05-28] MEDS: CIPROFLOXACIN HCL 500 MG TAB PO SCH ×2 (07:54→19:40)
[2022-05-28] MEDS: predniSONE 10 MG TAB PO SCH (07:54)
[2022-05-28] MEDS: metroNIDAZOLE 500 MG TABLET PO SCH ×3 (07:54→19:43)
[2022-05-28] MEDS: TAMSULOSIN 0.4 MG SR CAP PO SCH ×2 (07:54→16:15)
[2022-05-28] MEDS: DOCUSATE NA 100 MG CAP PO SCH ×2 (07:54→19:40)
[2022-05-28] MEDS: AMANTADINE 100 MG CAP PO SCH (07:55)
[2022-05-28] MEDS: DULOXETINE 30 MG CAP PO SCH (07:55)
[2022-05-28] MEDS: SODIUM CHLORIDE 1 GM TAB PO SCH ×2 (07:55→16:15)
[2022-05-28] MEDS ORDERED: CARBIDOPA/LEVODOPA 25/100 TAB PO ONE ×3 (16:10→19:00)
[2022-05-28] MEDS: ENOXAPARIN 40 MG/0.4 ML SQ SCH ×2 (16:15→16:29)
[2022-05-28] MEDS: MELATONIN 5 MG TABLET PO SCH (19:43)
--- NOTE | 2022-05-28 22:37 | PN ---
Date of Progress Note: 05/28/2022 Subjective: Patient was seen this morning for followup. He was lying in bed, not in any distress. He took melatonin last night. It helped a little bit but not as much as reported. Objective: Vital Signs: Reviewed. HEENT: Unremarkable. Lungs: Clear to auscultation. Heart: Sounds normal. Abdomen: Soft. Bowel sounds normal. No guarding, rigidity, tenderness, distention. Extremities: No leg edema. Laboratory Data: White count 7.5, hemoglobin 9.8, platelets 142. Sodium 136, potassium 3.8, chloride 108, bicarb 26, BUN 27, creatinine 1.05, glucose 94. Impression: 1. Small bowel obstruction, status post surgery. 2. Orthostatic hypotension. 3. Parkinson disease. Plan: We will go ahead and continue current antibiotics. Patient was on clonidine patch, which was discontinued today. Orthostatic vital signs reviewed. He still has drop in his blood pressure in standing position compared to supine position, but it is better today than yesterday. We will re-evaluate him tomorrow and if this problem continues, which is unfortunately common problem in Parkinson's patients, we may have to consider adding ProAmatine. Continue physical therapy under guidance of Dr. Escoto. I will see him tomorrow for followup. For insomnia, we will increase dose of melatonin from 5 mg to 10 mg at bedtime. MISTY/MODL Voice ID: [id number] Report ID: [id number] MTDD
--- NOTE | 2022-05-29 01:08 | PN ---
Rehabilitation Jrck-Ef-Grzq Progress Note Visit Subjective: Mr. Ventura is doing well. He has no new complaints. He is feeling stronger every day, c overing great distances with more stability and more freedom of movement. Review of Systems: No fevers, chills, nausea, vomiting, myalgias, or arthralgias. Physical Examination: Vital Signs: Blood pressure 110/55, pulse 68, respiratory rate 16, temperature 97.7, and oxygen satu ration 97%. General: Mr. Ventura is sitting in a chair beside the bed. He is in no acute distress. HEENT: Normocephalic, atraumatic. Sclerae anicteric. Oropharynx pink and moist. Neck: Supple. Chest: Clear. Heart: Regular. Neurologic: Slightly masked face. Slightly increased tone in the extremities. Mild bradykinesia. Otherwise, no focal deficits there. Laboratory Studies: White blood cell count 7.5, hemoglobin 9.8, and platelets 142. Chemistry: Sodi um 136, potassium 3.8, chloride 108, BUN 27, creatinine 1.05, prealbumin 20.6, and calcium 7.5. He d oes have a smear scan, which was "okay." X-ray/imaging: None. Current Medications: Medicines have not changed since yesterday. He is on amantadine 100 mg daily a long with carbidopa levodopa 25/100 for Parkinson disease that he does have 5 times daily. Ciproflox acin is continuing at 500 mg twice daily, Colace 100 mg twice daily, melatonin 3 mg at bedtime, predn isone 10 mg daily, Flomax 0.4 mg at bedtime, and sodium chloride 100 mg twice daily. Current Functional Status: Mr. Ventura did multiple stand and pivot transfers with standby assistance using a rolling walker. He repeated sit to stand transfers with standby assistance using a rolling w alker. He did supine to sit transfers independently. He ambulated 250 feet once, 500 feet twice, an d another 350 feet twice with contact guard assistance using a rolling walker. He ascended and desce nded 15 steps with contact guard assistance. He mobilized a wheelchair 250 feet twice to improve upp er extremity strength. With speech therapy, he utilized internal memory strategies for short-term re call. He recalled 9 of 10 items in a picture after 2 to 3 minutes. Using sustained attention, he co mpleted a cancellation task with 100% accuracy without cues. Progress Towards Rehabilitation Goals: Mr. Ventura is making excellent progress towards his goals of b ecoming independent with all his activities of daily living for transferring, for toileting, showerin g, ambulating out of 500 feet with independence, and up and up 15 steps with independence and making great strides towards those goals. Assessment And Plan: Mr. Ventura is an 87-year-old patient admitted to the inpatient rehabilitation un it with Parkinson disease. He did have some episodes of freezing and falling, now that is much, much better. He has had abdominal surgery with resection and reanastomosis and that is well managed. He does not have any issues there. No pain. Bowel movements are doing well. He does have orthostatic hypotension, which has improved after a clonidine patch was removed and salt tablets added in additi on to CASEY hose and abdominal binder. His comorbidities are managed by Dr. Causey, his primary care molly tyler. Comorbidities That Continue To Impact Rehabilitation Process: At this point, his orthostatic hypoten miguel a has improved and is not a negative impact and his abdominal surgery site has good hemostasis and is not negatively impacting his rehabilitation. LB/MODL Voice ID: [id number] Report ID: [id number]
[2022-05-29] MEDS: CARBIDOPA/LEVODOPA 25/100 TAB PO SCH ×3 (07:35→20:01)
[2022-05-29] MEDS: AZATHIOPRINE 50 MG TABLET PO SCH (07:35)
[2022-05-29] MEDS: FINASTERIDE 5 MG TAB PO SCH (07:36)
[2022-05-29] MEDS: TAMSULOSIN 0.4 MG SR CAP PO SCH ×2 (07:36→16:33)
[2022-05-29] MEDS: AMANTADINE 100 MG CAP PO SCH (07:36)
[2022-05-29] MEDS: OPICAPONE 50 MG PO SCH (07:36)
[2022-05-29] MEDS: ACETAMINOPHEN 500 MG TAB PO PRN ×2 (08:10→20:02)
[2022-05-29] MEDS: metroNIDAZOLE 500 MG TABLET PO SCH ×3 (08:11→20:02)
[2022-05-29] MEDS: DULOXETINE 30 MG CAP PO SCH (08:11)
[2022-05-29] MEDS: CIPROFLOXACIN HCL 500 MG TAB PO SCH ×2 (08:11→20:01)
[2022-05-29] MEDS: SODIUM CHLORIDE 1 GM TAB PO SCH ×2 (08:11→16:33)
[2022-05-29] MEDS: DOCUSATE NA 100 MG CAP PO SCH ×2 (08:11→20:01)
[2022-05-29] MEDS: predniSONE 10 MG TAB PO SCH (08:12)
--- NOTE | 2022-05-29 08:22 | P.RH.PN ---
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: Mobility, Transfers, Self Care Vital Signs: Last Vital Signs Temp 97.0 F 05/29/22 07:54 Pulse 68 05/29/22 07:54 Resp 14 05/29/22 07:54 BP 159/72 H 05/29/22 07:54 Pulse Ox 97 05/29/22 07:54 Laboratory: Laboratory Last Values WBC 7.50 K/uL (4.3-10.9) 05/28/22 05:21 RBC 2.66 M/uL (4.33-5.43) L 05/28/22 05:21 Hgb 9.8 g/dL (13.6-17.9) L 05/28/22 05:21 Hct 28.5 % (39.6-49.0) L 05/28/22 05:21 MCV 106.8 fL (80-100) H 05/28/22 05:21 MCH 36.7 pg (27.0-35.0) H 05/28/22 05:21 MCHC 34.4 g/dL (32.0-36.0) 05/28/22 05:21 RDW 14.4 % (12.1-15.2) 05/28/22 05:21 Plt Count 142 K/uL (152-406) L 05/28/22 05:21 MPV 8.4 fL (7.6-11.3) 05/28/22 05:21 Neutrophils % 68.4 % (41.7-73.7) 05/28/22 05:21 Lymphocytes % 16.6 % (15.3-44.8) 05/28/22 05:21 Monocytes % 8.3 % (3.3-12.3) 05/28/22 05:21 Eosinophils % 6.2 % (0-4.4) H 05/28/22 05:21 Basophils % 0.5 % (0-1.3) 05/28/22 05:21 Absolute Neutrophils 5.2 K/uL (1.8-8.0) 05/28/22 05:21 Absolute Lymphocytes 1.3 K/uL (0.7-4.9) 05/28/22 05:21 Absolute Monocytes 0.6 K/uL (0.1-1.3) 05/28/22 05:21 Absolute Eosinophils 0.5 K/uL (0-0.5) 05/28/22 05:21 Absolute Basophils 0.0 K/uL (0-0.5) 05/28/22 05:21 Platelet Estimate Decr 05/28/22 05:21 Basophilic Stippling 1+ 05/26/22 04:37 Macrocytosis 1+ 05/26/22 04:37 Morphology Comment Noted (NOT SEEN) 05/28/22 05:21 Sodium 136 mmol/L (136-145) 05/28/22 05:21 Potassium 3.8 mmol/L (3.5-5.1) 05/28/22 05:21 Chloride 108 mmol/L (98-107) H 05/28/22 05:21 Carbon Dioxide 26 mmol/L (21-32) 05/28/22 05:21 Anion Gap 5.8 mEq/L (5.0-15.0) 05/28/22 05:21 BUN 27 mg/dL (7-18) H 05/28/22 05:21 Creatinine 1.05 mg/dL (0.70-1.30) 05/28/22 05:21 Est GFR (CKD-EPI) 69 ml/min (=/>90) L 05/28/22 05:21 Glucose 94 mg/dL (74-106) 05/28/22 05:21 Calcium 7.5 mg/dL (8.5-10.1) L 05/28/22 05:21 Magnesium 2.1 mg/dL (1.6-2.4) 05/28/22 05:21 Albumin 2.3 g/dL (3.4-5.0) L 05/28/22 05:21 Prealbumin 20.6 mg/dL (20-40) 05/28/22 05:21 Urine Color Light-yellow (Yellow) 05/25/22 10:25 Urine Clarity Clear (Clear) 05/25/22 10:25 Urine pH 5.5 (5.0-7.0) 05/25/22 10:25 Ur Specific [place] 1.020 (1.005-1.030) 05/25/22 10:25 Glucose (UA)(Auto) Negative (Negative) 05/25/22 10:25 Urine Ketones Negative (Negative) 05/25/22 10:25 Urine Blood Negative (Negative) 05/25/22 10:25 Urine Nitrite Negative (Negative) 05/25/22 10:25 Urine Bilirubin Negative (Negative) 05/25/22 10:25 Urine Urobilinogen Normal (Normal) 05/25/22 10:25 Ur Leukocyte Esterase Negative [place]/uL (Negative) 05/25/22 10:25 Urine RBC <5 /HPF (None Seen) 05/25/22 10:25 Urine WBC <5 /HPF (<5) 05/25/22 10:25 Ur Squamous Epith Cells None seen /HPF (None Seen) 05/25/22 10:25 Urine Bacteria None seen /HPF (<20) 05/25/22 10:25 Urine Mucus Slight /HPF (None Seen) 05/25/22 10:25 Urine Culture Reflexed Not needed 05/25/22 10:25 Urine Total Protein Trace (Negative) H 05/25/22 10:25 SARS-CoV-2 Rap RNA(RT-PCR) Negative (NEGATIVE) 05/27/22 09:15 Smear Scan Ok (OK) 05/28/22 05:21 Weight: 186 lb 3.2 oz Wound Present: No Closed Surgical Incision Present: Yes Negative Pressure Wound Therapy Present: No Physician Update: Labs reviewed and are stable. His Hgb is mildly low and will start hemocyte plus and ferrous sulfate plus protein supplementation. He is mildy depressed about the loss of his . Transfers, bed mobility independent. Ambulating 150' with contact guard assistance. Goal of 150' with independence using a rolling walker. Working on dynamic standing balance with independence. Dr. Causey will follow his blood pressures. Plan to D/C Wednesday the . Summary: Patient's care plan and longterm goals have been reviewed and revised as necessary. Please see the Rehabilitation Signature page for all necessary signatures.
--- NOTE | 2022-05-29 13:44 | PN ---
Date of Progress Note: 05/29/2022 Subjective: The patient was seen this morning for followup. He was sleeping lying in bed, not in di stress, easily arousable, and with higher dose of melatonin 10 mg last night, he slept very well. Physical Examination: Vital Signs: Reviewed. His temperature this morning was 97, pulse 68, respiratory rate 14, blood pr essure in supine position was 159/72, sitting 148/62, standing 139/65. HEENT: Unremarkable. Lungs: Clear to auscultation. Heart: Sounds normal. Abdomen: Soft. Bowel sounds normal. No guarding, rigidity, tenderness, distention. Extremities: No leg edema. Impression: 1.Orthostatic hypotension. 2.Small bowel obstruction, status post surgery. Plan: We will go ahead and continue physical therapy under guidance of Dr. Escoto. Continue curre nt antibiotic which is oral antibiotic, Cipro and metronidazole. The patient's orthostatic vitals hernandez ve improved and he was getting clonidine patch, which was discontinued about 3 days ago and that defi nitely could have caused or contributed to his orthostatic hypotension problem. Dr. Escoto had sta rted him on sodium chloride tablet 1 g 2 times a day and considering today's blood pressure reading, I will reduce the dose to 500 mg 2 times a day. If his blood pressure continues to remain stable, th en our plan is to discontinue sodium chloride tablet and continue to evaluate him for this orthostati c hypotension changes. He is at risk of having such problem with his history of Parkinson disease an d in the future if this problem continues, we will have to think about possibility of adding medicati ons like midodrine, but if possible at first point, I would like to go ahead and try to stop sodium chloride tablet depending on his blood pressure. MISTY/MODL Voice ID: [id number] Report ID: [id number]
[2022-05-29] MEDS: ENOXAPARIN 40 MG/0.4 ML SQ SCH (16:33)
[2022-05-29] MEDS: ENSURE ENLIVE 237 ML CAN PO SCH (20:01)
[2022-05-29] MEDS: MELATONIN 5 MG TABLET PO SCH (20:02)
[2022-05-30] MEDS: ENSURE ENLIVE 237 ML CAN PO SCH ×2 (08:00→19:46)
[2022-05-30] MEDS: AMANTADINE 100 MG CAP PO SCH (08:46)
[2022-05-30] MEDS: DULOXETINE 30 MG CAP PO SCH (08:46)
[2022-05-30] MEDS: SODIUM CHLORIDE 1 GM TAB PO SCH ×2 (08:47→17:07)
[2022-05-30] MEDS: FERROUS SULFATE 325 MG TAB PO SCH (08:47)
[2022-05-30] MEDS: TAMSULOSIN 0.4 MG SR CAP PO SCH ×2 (08:47→17:07)
[2022-05-30] MEDS: DOCUSATE NA 100 MG CAP PO SCH ×2 (08:47→19:46)
[2022-05-30] MEDS: FE SULF/FA/VIT B COMP & C TAB PO SCH (08:48)
[2022-05-30] MEDS: CARBIDOPA/LEVODOPA 25/100 TAB PO SCH ×3 (08:48→19:46)
[2022-05-30] MEDS: FINASTERIDE 5 MG TAB PO SCH (08:48)
[2022-05-30] MEDS: CIPROFLOXACIN HCL 500 MG TAB PO SCH ×2 (08:48→19:46)
[2022-05-30] MEDS: ACETAMINOPHEN 500 MG TAB PO PRN (08:49)
[2022-05-30] MEDS: AZATHIOPRINE 50 MG TABLET PO SCH (08:49)
[2022-05-30] MEDS: predniSONE 5 MG TAB PO SCH (08:49)
[2022-05-30] MEDS: OPICAPONE 50 MG PO SCH (08:50)
[2022-05-30] MEDS: metroNIDAZOLE 500 MG TABLET PO SCH ×3 (08:50→19:46)
--- NOTE | 2022-05-30 12:14 | PN ---
Date of Progress Note: 05/29/2022 Please note, the patient was transferred from the regular floor after surgery. He underwent explorat ory laparotomy and small bowel resection approximately a week and a half ago, and he was doing well, was transferred for inpatient rehab, and this is a followup note not a consultation as the consultati on note has been dictated already and it is on patient's acute care setting medical record. Subjective: The patient is awake alert, tolerating diet, ambulating, pain controlled, p.o. pain medi cation, afebrile, having bowel movements. Objective: Vital Signs: Stable. He is afebrile. Abdomen: Nondistended, nontender. Positive bowel sounds. Wound is clean, dry, and intact. Assessment: Status post exploratory laparotomy and small bowel resection. Recommendations: Continue physical therapy as that is ongoing, and discontinue every other william o n the incision and prior to discharge all the william can be discontinued with 0.5 inch Steri-Strips placed on the wound. The patient can follow up with me in the outpatient setting. YOAV/KARTHIK Voice ID: [id number] Report ID: [id number]
--- NOTE | 2022-05-30 12:44 | PN ---
Date of Progress Note: 05/30/2022 Subjective: The patient was seen this morning for followup. He was sitting in wheelchair. Denied a ny complaints. Had a bowel movement yesterday. No nausea, no vomiting. Physical Examination: Vital Signs: Reviewed. This morning, temperature 96.4, pulse 72, respiratory rate 16, blood pressur e 135/70. HEENT: Unremarkable. Lungs: Clear to auscultation. Heart: Sounds normal. Abdomen: Soft. Bowel sounds normal. No guarding, rigidity, tenderness, distention. Extremities: No leg edema. Impression: 1.Orthostatic hypotension. 2.Parkinson disease. 3.Small bowel obstruction, status post surgery. 4.Anemia, unspecified. Plan: We will go ahead and continue current sodium chloride tablet 500 mg 2 times a day. This annamaria fisher nurse was notified to check orthostatic vital signs because what was documented was carry forward value from yesterday. We will follow up on this new orthostatic vitals and then make a decision reg arding sodium chloride tablet because dose was reduced yesterday. Plan is eventually to stop it. Ph ysical therapy to be continued under guidance of Dr. Escoto. Alternate william were removed today and rest of the william will be removed on Wednesday, and he is scheduled to go home on Wednesday of next week. I will see him tomorrow for followup. MISTY/MODL Voice ID: [id number] Report ID: [id number]
[2022-05-30] MEDS: ENOXAPARIN 40 MG/0.4 ML SQ SCH (16:14)
[2022-05-30] MEDS: MELATONIN 5 MG TABLET PO SCH (19:45)
[2022-05-31] MEDS: ACETAMINOPHEN 500 MG TAB PO PRN (04:33)
[2022-05-31] MEDS: ENSURE ENLIVE 237 ML CAN PO SCH ×2 (08:00→19:46)
[2022-05-31] MEDS: DULOXETINE 30 MG CAP PO SCH (08:23)
[2022-05-31] MEDS: TAMSULOSIN 0.4 MG SR CAP PO SCH ×2 (08:23→17:06)
[2022-05-31] MEDS: AZATHIOPRINE 50 MG TABLET PO SCH (08:23)
[2022-05-31] MEDS: CARBIDOPA/LEVODOPA 25/100 TAB PO SCH ×3 (08:24→19:46)
[2022-05-31] MEDS: FE SULF/FA/VIT B COMP & C TAB PO SCH (08:24)
[2022-05-31] MEDS: CIPROFLOXACIN HCL 500 MG TAB PO SCH ×2 (08:25→19:46)
[2022-05-31] MEDS: DOCUSATE NA 100 MG CAP PO SCH ×2 (08:25→19:46)
[2022-05-31] MEDS: predniSONE 5 MG TAB PO SCH (08:25)
[2022-05-31] MEDS: metroNIDAZOLE 500 MG TABLET PO SCH ×3 (08:26→19:46)
[2022-05-31] MEDS: SODIUM CHLORIDE 1 GM TAB PO SCH (08:26)
[2022-05-31] MEDS: AMANTADINE 100 MG CAP PO SCH (08:26)
[2022-05-31] MEDS: FINASTERIDE 5 MG TAB PO SCH (08:26)
[2022-05-31] MEDS: FERROUS SULFATE 325 MG TAB PO SCH (08:26)
[2022-05-31] MEDS: OPICAPONE 50 MG PO SCH (08:27)
--- NOTE | 2022-05-31 10:25 | PN ---
Date of Progress Note: 05/31/2022 Subjective: The patient was seen this morning for followup. No new complaints or problems reported by the patient. He was sitting in chair, eating breakfast. Denies any new complaints. Had a bowel movement yesterday. Physical Examination: Vital Signs: Reviewed. Today; his blood pressure in supine position was 146/69, sitting position 135 /69, and standing position was 117/58. HEENT: Unremarkable. Lungs: Clear to auscultation. Heart: Sounds normal. Abdomen: Soft. Bowel sounds normal. No guarding, rigidity, tenderness, distention. Extremities: Trace leg edema. Impression: 1.Orthostatic hypotension. 2.Parkinson disease. 3.Anemia, unspecified. 4.Small bowel obstruction, status post surgery. Plan: We will continue physical therapy under guidance of Dr. Escoto. For the patient's orthostat ic hypotension, Dr. Escoto had started him on sodium chloride tablet, I will discontinue that and s tart him on ProAmatine 2.5 mg 3 times a day and dose to be given at 6 a.m., 12 noon and 5 p.m. We wi ll continue to monitor his orthostatic vital signs and if necessary consider to increase dose of medi cation in the future. Meanwhile, we will continue other current medical management including current antibiotics and I will see him tomorrow for followup. The patient is sc heduled to go home day after tomorrow. MISTY/MODL Voice ID: [id number] Report ID: [id number]
[2022-05-31] MEDS ORDERED: MIDODRINE HCL 5 MG TABLET PO SCH (12:00)
[2022-05-31] MEDS: ENOXAPARIN 40 MG/0.4 ML SQ SCH (16:35)
[2022-05-31] MEDS: MIDODRINE HCL 5 MG TABLET PO SCH (17:06)
[2022-05-31] MEDS: MELATONIN 5 MG TABLET PO SCH (19:47)
[2022-06-01] MEDS: MIDODRINE HCL 5 MG TABLET PO SCH ×2 (05:43→16:55)
[2022-06-01] MEDS: ENSURE ENLIVE 237 ML CAN PO SCH ×2 (07:21→19:55)
[2022-06-01] MEDS: FE SULF/FA/VIT B COMP & C TAB PO SCH (07:22)
[2022-06-01] MEDS: AMANTADINE 100 MG CAP PO SCH (07:22)
[2022-06-01] MEDS: DULOXETINE 30 MG CAP PO SCH (07:22)
[2022-06-01] MEDS: CARBIDOPA/LEVODOPA 25/100 TAB PO SCH ×3 (07:22→19:55)
[2022-06-01] MEDS: predniSONE 5 MG TAB PO SCH (07:23)
[2022-06-01] MEDS: TAMSULOSIN 0.4 MG SR CAP PO SCH ×2 (07:23→16:54)
[2022-06-01] MEDS: AZATHIOPRINE 50 MG TABLET PO SCH (07:23)
[2022-06-01] MEDS: metroNIDAZOLE 500 MG TABLET PO SCH ×3 (07:23→19:55)
[2022-06-01] MEDS: FINASTERIDE 5 MG TAB PO SCH (07:23)
[2022-06-01] MEDS: FERROUS SULFATE 325 MG TAB PO SCH (07:23)
[2022-06-01] MEDS: DOCUSATE NA 100 MG CAP PO SCH ×2 (07:23→19:55)
[2022-06-01] MEDS: CIPROFLOXACIN HCL 500 MG TAB PO SCH ×2 (07:23→19:55)
[2022-06-01] MEDS: OPICAPONE 50 MG PO SCH (07:24)
[2022-06-01] MEDS ORDERED: CLONIDINE 0.1 MG/PATCH TD SCH (08:00)
[2022-06-01] MEDS ORDERED: MIDODRINE HCL 5 MG TABLET PO SCH (12:00)
[2022-06-01] MEDS: ENOXAPARIN 40 MG/0.4 ML SQ SCH (16:54)
[2022-06-01] MEDS: MELATONIN 5 MG TABLET PO SCH (19:55)
[2022-06-01 22:21] VITALS: O2SAT 96
--- NOTE | 2022-06-02 03:29 | PN ---
Date of Progress Note: 06/01/2022 [id number] progress note visit. Time Of Service: 12:30 p.m. Subjective: Mr. Ventura is doing great. He has no new complaints. He is feeling stronger every day, ambulating greater distances, and has much less limitation in terms of his ability to get around. Review of Systems: No fevers, chills, nausea, vomiting, myalgias, arthralgias, headache, weight change, rash. No psychi atric complaints. No gastrointestinal or genitourinary complaints. Physical Examination: Vital Signs: Blood pressure 161/74, pulse 73, respiratory rate 16, temperature 97.6. Orthostatics; lying blood pressure 161/74, pulse 73, standing blood pressure 157/72, . The patient did n ot feel symptomatic at that time. However, later in the day, his blood pressure was 92/54 with a pul se of 78 while standing. He is mildly symptomatic. HEENT: Otherwise normocephalic, atraumatic. Sclerae anicteric. Oropharynx pink and moist. Neck: Supple. Chest: Clear. Heart: Regular. Extremities: Show no significant edema, clubbing, or cyanosis. NEUROLOGIC: He has mask-like face, bradykinesia and somewhat very slow gait which is fascinating, bu t he is doing excellent with regard to that. Laboratory Studies: No new laboratory studies. X-ray imaging: No new x-ray imaging. Medications: Reviewed and are unchanged. Current Functional Status: Currently, Mr. Ventura was able to ambulate 700 feet and 500 feet twice and another 250 feet once with independence, he has a rolling walker. He did have an emphasis placed on upright posture. He ascended and descended 15 steps independently using bilateral hand rails. With speech therapy, he utilizes verbal rehearsal as internal memory strategies and recall a daily schedu le with up to 9 details with minimum assistance. The patient is ready to be discharged home in the [facility]. Progress toward rehabilitation goals: Mr. Ventura has made excellent progress and has fulfilled rehabi liation course and will be ready to discharge in the morning. Assessment And Plan: Mr. Ventura is an 87-year-old patient admitted to the rehabilitation unit with Pa rkinson's disease. He is actually doing very well. Nicely optimized. Continues Parkinson's medicat ions and did very well with his physical occupational and speech therapy. 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 In addition, salt intake increased and CASEY hose and abdomi nal binders will be very helpful. He did have abdominal surgery with reanastomosis and has done very well from that standpoint. All of those treatments with medications will continue for those conditi ons and he will be discharged in the morning. process. At this point, his comorbidities do not negatively impact his rehabilitation. Liban denny is ready for discharge and will continue with physical therapy best done outpatient. NAKUL/MODL Voice ID: [id number] Report ID: [id number]
[2022-06-02] MEDS: MIDODRINE HCL 5 MG TABLET PO SCH (05:17)
[2022-06-02] MEDS: OPICAPONE 50 MG PO SCH (07:39)
[2022-06-02] MEDS: ENSURE ENLIVE 237 ML CAN PO SCH (07:39)
[2022-06-02] MEDS: AMANTADINE 100 MG CAP PO SCH (07:40)
[2022-06-02] MEDS: CARBIDOPA/LEVODOPA 25/100 TAB PO SCH (07:40)
[2022-06-02] MEDS: DOCUSATE NA 100 MG CAP PO SCH (07:42)
[2022-06-02] MEDS: FINASTERIDE 5 MG TAB PO SCH (07:42)
[2022-06-02] MEDS: FE SULF/FA/VIT B COMP & C TAB PO SCH (07:42)
[2022-06-02] MEDS: metroNIDAZOLE 500 MG TABLET PO SCH (07:42)
[2022-06-02] MEDS: DULOXETINE 30 MG CAP PO SCH (07:42)
[2022-06-02] MEDS: CIPROFLOXACIN HCL 500 MG TAB PO SCH (07:43)
[2022-06-02] MEDS: TAMSULOSIN 0.4 MG SR CAP PO SCH (07:43)
[2022-06-02] MEDS: predniSONE 5 MG TAB PO SCH (07:43)
[2022-06-02] MEDS: AZATHIOPRINE 50 MG TABLET PO SCH (07:43)
[2022-06-02] MEDS: FERROUS SULFATE 325 MG TAB PO SCH (07:43)
[2022-06-02 07:52] VITALS: BP 157/71; TEMP 97.5
--- NOTE | 2022-06-02 08:20 | PN ---
Date of Progress Note: 06/01/2022 Subjective: The patient was seen this morning for followup. He was sleeping, lying in bed, not in a ny distress. Physical Examination: Vital Signs: Reviewed. HEENT: Unremarkable. Lungs: Clear to auscultation. Heart: Sounds normal. Abdomen: Soft. Bowel sounds normal. No guarding, rigidity, tenderness, distention. Extremities: No leg edema. Impression: 1.Orthostatic hypotension. 2.Parkinson disease. 3.Anemia, unspecified. Plan: We will go ahead and continue ProAmatine per order, monitor orthostatic vitals on him. Physic al therapy will be provided under guidance of Dr. Escoto. The patient is scheduled to go home sam rrow. I will see him tomorrow morning for followup and I will try to call the patient's daughter and communicate with her regarding medications that he will continue to take it, which is ProAmatine upo n discharge for his orthostatic hypotension. I did explain it to the patient regarding timing of med ication to be taken and reasons behind that explained to him as well. MISTY/MODL Voice ID: [id number] Report ID: [id number]
--- NOTE | 2022-06-03 07:58 | DS ---
Date of Discharge: 06/02/2022 The patient was seen this morning for followup, lying in bed, not in distress. No new complaints or problems reported by the patient. Objective: Vital Signs: Reviewed. HEENT: Unremarkable. Lungs: Clear to auscultation. Heart: Sounds normal. Abdomen: Soft. Bowel sounds normal. No guarding, rigidity, tenderness, distention. Extremities: No leg edema. Laboratory Data: Labs on 05/26/2022; white count 7.1, hemoglobin 10, platelets 145 and on 05/28/2022 ; white count 7.5, hemoglobin 9.6, and platelet count of 142. On 05/26/2022; sodium 136, potassium 4 .4, chloride 108, bicarb 26, BUN 29, creatinine 1.09 and on 05/28/2022; sodium 136, potassium 3.8, ch loride 108, bicarb 26, BUN 27, creatinine 1.05, glucose 94. Albumin level 2.3. His orthostatic vitals from yesterday; supine blood pressure were 120/58, sitting blood pressure 127/ 58, standing blood pressure was 114/58. On 05/27/2022; his supine blood pressure was 111/74, sitting 111/74, standing 65/50. Discharge Medications And Instructions: 1.Continue all prior home medications. 2.Start midodrine 2.5 mg, take 1 tablet by mouth 3 times a day and the patient to take it at 6 a.m., 12 noon, and 5 p.m. 3.Follow up at my office next week. 4.Follow up with Dr. Sutherland in 2 weeks. Hospital Course: An 87-year-old male patient, came into office and was admitted to the hospital with nausea, vomiting, and abdominal pain. After the patient was evaluated, admitted to the hospital, wa s diagnosed as having small bowel obstruction, had surgery done on an urgent basis on the day of admi ssion by Dr. Sutherland and postoperatively once his condition improved and he remained stable, he was tra nsferred to rehab floor. During his stay on the rehab floor, he received physical therapy and occupa tional therapy under guidance of Dr. Escoto. The patient's william were removed few days ago and t daisy remaining william were removed prior to discharge. The patient has not had any complaints of an y stomach pain or nausea, vomiting. No constipation problem. Overall, he is feeling much better com pared to before. We did notice that he had significant problem with drop in his blood pressure durin g standing position compared to sitting and lying position, so initially Dr. Escoto had started him on sodium chloride tablet 1 g 2 times a day, which was subsequently discontinued because of lack of adequate response and I started him on midodrine 2.5 mg 3 times a day and so far the patient is seems to be responding very well. We will continue this from now on and on outpatient basis. If we need to increase the dose, we will do so. Overall, the patient's other medical problem remained stable an d today he was discharged to go home in stable condition with above-mentioned medication instruction and his prescription for midodrine was sent to his pharmacy from the office. I did talk to the himanshu almendarez's daughter in detail regarding discharge medications as well as new medications when to take it in purpose of new medication to take it at appropriate time explained to daughter as well and I also ex plained to the patient during the hospital stay. Final Diagnoses: 1.Small bowel obstruction. 2.Orthostatic hypotension. 3.Generalized weakness. 4.Debility. 5.Parkinson disease. 6.Anemia. 7.Malnutrition, moderate. MISTY/MODL Voice ID: [id number] Report ID: [id number]
== END 2022-06-02 10:25 | disposition home health service (06) | DRG 57 ==
LOC: 5TH 10:10
PROVIDERS: ADMIT Internal Medicine; ATTEND Internal Medicine
DX: G20 Parkinson's disease (principal); E44.0 Moderate protein-calorie malnutrition; E78.5 Hyperlipidemia, unspecified; I12.9 Hypertensive chronic kidney disease with stage 1 through stage 4 chronic kidney disease, or unspecified chronic kidney disease; N18.30 Chronic kidney disease, stage 3 unspecified; I25.10 Atherosclerotic heart disease of native coronary artery without angina pectoris; K52.82 Eosinophilic colitis; I71.20 Thoracic aortic aneurysm, without rupture, unspecified; N40.0 Benign prostatic hyperplasia without lower urinary tract symptoms; E86.9 Volume depletion, unspecified; Z79.52 Long term (current) use of systemic steroids; R53.81 Other malaise; D64.9 Anemia, unspecified; D69.6 Thrombocytopenia, unspecified; I95.1 Orthostatic hypotension; G47.00 Insomnia, unspecified; F45.8 Other somatoform disorders; Z48.815 Encounter for surgical aftercare following surgery on the digestive system
CPT/HCPCS: 36415; 80048; 81001; 82040; 83735; 84134; 85025; 87086; 87088; 92523; 94010; 97110; 97112; 97116; 97129; 97162; 97165; 97530; 97542; J0744; J1650; J7050; J7500; J7512; U0003

== ENCOUNTER 2022-09-10 10:04 | Observation (INO) | payer OTHER, BC ==
[2022-09-10 10:44] LABS: Absolute Lymphocytes (CBC) 0.9 K/uL (0.7-4.9); Hematocrit 30.9 % (39.6-49.0); MCV 107.1 fL (80-100); MPV 7.9 fL (7.6-11.3); RBC Red Blood Cell Count 2.89 M/uL (4.33-5.43)
[2022-09-10 10:48] LABS: Potassium 3.8 mEq/L (3.5-5.1); Troponin High Sensitivity 11.6 pg/mL (<58.9)
--- NOTE | 2022-09-10 11:12 | RAD REPORT ---
EXAM DESCRIPTION: RADChest Single View09/10/2022 10:34 am CLINICAL HISTORY: CHEST PAIN COMPARISON: Chest Single View dated 05/20/2022; Chest Pa And Lat (2 Views) dated 12/18/2021; Chest Pa And Lat (2 Views) dated 11/14/2021; Chest Pa And Lat (2 Views) dated 10/30/2021 TECHNIQUE: Portable AP view of the chest. FINDINGS: The lungs are clear. Minimal bibasilar atelectasis, stable. No pneumothorax or effusion. The cardiomediastinal contours are unremarkable. IMPRESSION: No acute cardiopulmonary process.
--- NOTE | 2022-09-10 11:14 | EDPHYS ---
Physician Documentation [facility] Name: Hunter Ventura Age: 87 yrs Sex: Male : 1935 Arrival Date: 09/10/2022 Time: 10:04 Bed 26 Private MD: ED Physician Jim Parsons HPI: 09/10 10:24 This 87 yrs old Male presents to ER via EMS with complaints of syncope. bs3 10:24 87-year-old male history of Parkinson's, anemia, hypertension on midodrine presents bs3 with an episode of syncope he was on a swing when all of a sudden he became unresponsive he stopped responding to his name and then lost postural tone his daughter checked his pulse and did not feel well on and called EMS and eventually he started to come to and then had an episode of vomiting he now feels better and per his daughter he is at his baseline. No presyncopal headache chest pain shortness of breath abdominal pain he is a DNR. Historical: - Allergies: 10:12 Aspirin; ko1 - PMHx: 10:12 Hypertension; Parkinson's disease; Anemia; ko1 - Immunization history:: Adult Immunizations up to date. - Social history:: Smoking status: Patient denies any tobacco usage or history of. ROS: 10:24 Constitutional: Negative for fever, chills bs3 10:24 All other systems are negative. Exam: 10:24 Constitutional: This is a well developed, well nourished patient who is awake, alert, bs3 and in no acute distress. Head/Face: Normocephalic, atraumatic. Eyes: Pupils equal round and reactive to light, extra-ocular motions intact. Lids and lashes normal. ENT: mmm, no posterior phyarngeal erythema Neck: Trachea midline, no thyromegaly, no neck stiffness Chest/axilla: Normal chest wall appearance and motion. Nontender with no deformity. No lesions are appreciated. Cardiovascular: Regular rate and rhythm with a normal S1 and S2. symmetric pulses in upper extremities Respiratory: Lungs have equal breath sounds bilaterally, clear to auscultation, no respiratory distress Abdomen/GI: Soft, non-tender, no rebound or guarding Skin: Warm, dry with normal turgor. Normal color with no rashes, no lesions, and no evidence of cellulitis. MS/ Extremity: Pulses equal, no cyanosis. Neurovascular intact. Full, normal range of motion. Neuro: Awake and alert, GCS 15, oriented to person, place, time, and situation. Cranial nerves II-XII grossly intact. Motor strength 5/5 in all extremities. Sensory grossly intact. Psych: Awake, alert, with orientation to person, place and time. Behavior, mood, and affect are within normal limits. Vital Signs: 10:09 BP 128 / 67; Pulse 63; Resp 16; Temp 98; Pulse Ox 99% ; ko1 10:49 BP 140 / 66; Pulse 58; Resp 16; Pulse Ox 100% on R/A; ko1 11:52 BP 156 / 67; Pulse 63; Resp 18; Pulse Ox 98% ; ko1 MDM: 10:08 Patient medically screened. bs3 10:24 Differential Diagnosis: cardiac arrhythmia, idiopathic syncope, pseudo seizure, bs3 vasovagal episode. Data reviewed: vital signs, nurses notes. ED course: Given the age and syncope arrest concern is for a cardiac etiology will observe discussed with patient and daughter at bedside we will plan to admit for syncope leaf conditioner helper Dr. Garcia PCP Dr. Causey. 09/10 10:10 Order name: Basic Metabolic Panel; Complete Time: 11:10 bs3 09/10 10:10 Order name: CBC with Diff; Complete Time: 11:10 bs3 09/10 10:10 Order name: Troponin HS; Complete Time: 11:10 bs3 09/10 13:03 Order name: Basic Metabolic Panel EDMS 09/10 13:03 Order name: Basic Metabolic Panel EDMS 09/10 13:03 Order name: CBC with Automated Diff EDMS 09/10 13:03 Order name: CBC with Automated Diff EDMS 09/10 13:03 Order name: Troponin High Sensitivity EDMS 09/10 10:10 Order name: XRAY Chest (1 view); Complete Time: 11:12 bs3 09/10 10:10 Order name: EKG; Complete Time: 10:10 bs3 09/10 13:03 Order name: CONS Physician Consult EDMS 09/10 13:03 Order name: Regular EDMS 09/10 13:03 Order name: EKG Electrocardiogram EDMS 09/10 13:03 Order name: EKG Electrocardiogram EDMS 09/10 13:03 Order name: EKG Electrocardiogram EDMS 09/10 13:03 Order name: EKG Electrocardiogram EDWY 09/10 10:10 Order name: Cardiac monitoring; Complete Time: 10:14 bs3 09/10 10:10 Order name: EKG - Nurse/Tech; Complete Time: 10:32 bs3 09/10 10:10 Order name: IV Saline Lock; Complete Time: 10:14 bs3 09/10 10:10 Order name: Labs collected and sent; Complete Time: 10:20 bs3 09/10 10:10 Order name: O2 Per Protocol; Complete Time: 10:14 bs3 09/10 10:10 Order name: O2 Sat Monitoring; Complete Time: 10:14 bs3 Administered Medications: 10:20 Drug: NS 0.9% IV 1000 ml Route: IV; Rate: 125 ml/hr; Site: right forearm; ko1 Disposition Summary: 09/10/22 11:13 Hospitalization Ordered Hospitalization Status: Observation bs3 Provider: Krishna Causey bs3 Location: Telemetry/MedSurg (observation) bs3 Condition: Stable bs3 Problem: new bs3 Symptoms: have improved bs3 Bed/Room Type: Standard bs3 Room Assignment: 210(09/10/22 13:39) jaYamil Diagnosis - Syncope Near bs3 Forms: - Medication Reconciliation Form bs3 - SBAR form bs3 Signatures: Dispatcher [employer] EDCheng Martinez RN RN ja1 Jim Parsons MD MD bs3 Frances Ramos RN RN ko1 Corrections: (The following items were deleted from the chart) 13:39 11:13 bs3 jaYamil
--- NOTE | 2022-09-10 11:14 | ER ---
Nurse's Notes [facility] Name: Hunter Ventura Age: 87 yrs Sex: Male : 1935 Arrival Date: 09/10/2022 Time: 10:04 Bed 26 Private MD: Diagnosis: Syncope Near Presentation: 09/10 10:09 Chief complaint: EMS states: daughter called EMS and said patient was unresponsive with ko1 no radial pulse, upon their arrival the patient was alert and oriented x 4, stable vital signs. Coronavirus screen: At this time, the client does not indicate any symptoms associated with coronavirus-19. Ebola Screen: No symptoms or risks identified at this time. Initial Sepsis Screen: Does the patient meet any 2 criteria? No. Patient's initial sepsis screen is negative. Does the patient have a suspected source of infection? No. Patient's initial sepsis screen is negative. Risk Assessment: Do you want to hurt yourself or someone else? Patient reports no desire to harm self or others. Onset of symptoms was September 10, 2022. 10:09 Method Of Arrival: EMS: [facility] ko1 10:09 Acuity: MAICO 3 ko1 Triage Assessment: 10:12 General: Appears in no apparent distress. comfortable, Behavior is calm, cooperative, ko1 appropriate for age. Pain: Denies pain. Historical: - Allergies: 10:12 Aspirin; ko1 - PMHx: 10:12 Hypertension; Parkinson's disease; Anemia; ko1 - Immunization history:: Adult Immunizations up to date. - Social history:: Smoking status: Patient denies any tobacco usage or history of. Screenin:10 [facility] ED Fall Risk Assessment (Adult) History of falling in the last 3 months, ko1 including since admission No falls in past 3 months (0 pts) Confusion or Disorientation No (0 pts) Intoxicated or Sedated No (0 pts) Impaired Gait No (0 pts) Mobility Assist Device Used No (0 pt) Altered Elimination No (0 pt) Score/Fall Risk Level 0 - 2 = Low Risk Oriented to surroundings, Maintained a safe environment, Educated pt \T\ family on fall prevention, incl call for assistance when getting out of bed, Assessed \T\ reinforced patient's understanding of fall precautions, Provided non-skid footwear, Hourly rounding (assess needs \T\ fall precautionary measures) done, Used ambulatory aids as needed (educated on \T\ assisted with), Used gait belt as appropriate. Abuse screen: Denies threats or abuse. Denies injuries from another. Nutritional screening: No deficits noted. Tuberculosis screening: No symptoms or risk factors identified. Assessment: 10:10 Neuro: No deficits noted. Cardiovascular: Rhythm is sinus bradycardia with unifocal ko1 PVCs. Respiratory: No deficits noted. GI: No deficits noted. : No deficits noted. EENT: No deficits noted. Derm: No deficits noted. Musculoskeletal: No deficits noted. Vital Signs: 10:09 BP 128 / 67; Pulse 63; Resp 16; Temp 98; Pulse Ox 99% ; ko1 10:49 BP 140 / 66; Pulse 58; Resp 16; Pulse Ox 100% on R/A; ko1 11:52 BP 156 / 67; Pulse 63; Resp 18; Pulse Ox 98% ; ko1 ED Course: 10:05 Patient arrived in ED. em1 10:08 Jim Parsons MD is Attending Physician. bs3 10:09 Frances Ramos, GRABIEL is Primary Nurse. ko1 10:10 Patient has correct armband on for positive identification. Placed in gown. Bed in low ko1 position. Side rails up X2. Client placed on continuous cardiac and pulse oximetry monitoring. NIBP monitoring applied. carton forming machine tender on. Door closed. Noise minimized. Warm blanket given. 10:10 Maintain EMS IV. Dressing intact. Good blood return noted. Site clean \T\ dry. Gauge \T\ ko 1 site: 20g R FA. 10:12 Triage completed. ko1 10:12 Arm band placed on right wrist. Patient placed in an exam room, on a stretcher, on ko1 oil inspector, on pulse oximetry, Patient notified of wait time. 10:20 Basic Metabolic Panel Sent. ko1 10:20 CBC with Diff Sent. ko1 10:20 Troponin HS Sent. ko1 10:33 Basic Metabolic Panel Sent. ko1 10:33 CBC with Diff Sent. ko1 10:33 Troponin HS Sent. ko1 10:36 XRAY Chest (1 view) In Process Unspecified. EDMS 11:13 Krishna Causey MD is Hospitalizing Provider. bs3 12:00 No provider procedures requiring assistance completed. Patient admitted, IV remains in ss place. intact, No redness/swelling at site. 13:40 Primary Nurse role handed off by Frances Ramos, RN Administered Medications: 10:20 Drug: NS 0.9% IV 1000 ml Route: IV; Rate: 125 ml/hr; Site: right forearm; ko1 Medication: 10:10 VIS not applicable for this client. ko1 Outcome: 11:13 Decision to Hospitalize by Provider. bs3 12:00 Admitted to ER Hold. Please see [facility] for further documentation. ss 12:00 Condition: stable 12:00 Discharge instructions given to patient. 13:40 Patient left the ED. ss 15:19 Patient left the ED. kb3 Signatures: Dispatcher [employer] EDMS Khalif Penaloza em1 Katlyn Diehl RN RN Libby Moreno RN RN kb3 Jim Parsons MD MD bs3 Frances Ramos, RN RN ko1
[2022-09-10 14:52] VITALS: BMI 29.1
--- NOTE | 2022-09-10 20:41 | HP ---
Date of Admission: 09/10/2022 Chief Complaint: Fainting episode. History Of Present Illness: This is an 87-year-old very pleasant male patient with history of orthos tatic hypotension who takes midodrine on a regular basis as prescribed. He was doing fine in his nor mal usual state of health until today when he had this syncopal episode and was brought into emergenc y room with that. As I understand by talking to patient as well as the patient's daughter, this morn ing he was feeling fine and he was sitting outside in his yard on the swing and daughter was visiting him and after a while, daughter decided and as she was walking away from the patient, she was tellin g her dad that she will see him tomorrow and normally he responds, but he did not respond so she turn ed around and looked at him and realized that he was not responding after she tried to talk to him 2 to 3 times, so she ran back to him and noted that the patient was unresponsive to any physical or izabel bal commands while he was still in the sitting position in the swing. She quickly started checking h is pulse and breathing and she was trying to feel his pulse at his wrist area and she was not able to feel any radial pulse at all and at that time, she realized that he was not breathing at all. She i mmediately saw a neighbor and called the neighbor to get some help and soon after that, the patient s tarted to vomit and within short time after that ambulance arrived. The entire episode of unresponsi veness probably lasted 4 to 5 minutes. When EMS arrived, by that time the patient was improving and he responded with his name and daughter says that his blood pressure was reported to be normal by EMS . He was brought into emergency room. After he arrived in the ER, he was back to his normal self an d he was admitted to the hospital to telemetry. When I saw him, he was in the room feeling normal wi thout any complaints. The patient did not have any complaints of any chest pain, shortness of breath , palpitations, or any other ill feelings prior to this syncopal episode today. Allergies: TO ASPIRIN. Medications: List reviewed. Review of Systems: Cardiovascular: As mentioned above. All other systems reviewed and negative. Past Medical History: Significant for Parkinson disease, hypertension, hyperlipidemia, coronary cynthia ry disease, thoracic aortic aneurysm, eosinophilic colitis, chronic kidney disease, benign prostatic hypertrophy, anemia, orthostatic hypotension, coronary artery disease, and chronic kidney disease sta ge 3a. Past Surgical History: Cataract surgery, shoulder surgery, and knee surgery. Family History: Father and had heart disease. Mother and had diabetes. Brother with prostate cancer and diabetes. Sister with diabetes. Social History: Negative for smoking and alcohol use. Physical Examination: Vital Signs: Temperature 97.5, pulse 61, respiratory rate 16, blood pressure 160/65, and oxygen satu ration 98%. Height 5 feet 10 inches, weight 203 pounds. General: Awake, alert, oriented, not in distress. HEENT: Head atraumatic, normocephalic. Conjunctivae nonerythematous. Sclerae white. Mouth, no thr ush or edema noted. Ears/Nose, no mass, lesion, discharge noted. Neck: Supple. No JVD, lymph nodes, bruit, thyromegaly noted. Lungs: Bilateral good equal air entry. Clear to auscultation. No rhonchi. No rales. Heart: Presence of systolic murmur. No gallop. Abdomen: Soft, bowel sounds normal. No guarding, rigidity, tenderness, mass, hepatosplenomegaly, dis tention, or bruit noted. Extremities: No leg edema. No calf tenderness. Skin: No rash, ulcer, cellulitis. Lymphatics: No lymph node enlargement in neck, supraclavicular, infraclavicular region. Neuro: No focal neurological deficit. Chest: Unremarkable. External Genitalia: Deferred. Rectal: Deferred. Laboratory Data: White count 11.6, hemoglobin 10.4, and platelets 231. Sodium 139, potassium 3.8, c hloride 109, bicarb 26, BUN 26, creatinine 1.27, and glucose 99. Troponin 11.6 and 11.2 on 2 separat e cardiac enzymes sets. Chest x-ray: No acute cardiopulmonary changes. EKG: No acute ST-T changes . Impression: 1.Syncope. 2.Coronary artery disease. 3.Anemia, unspecified. 4.Orthostatic hypotension. 5.Eosinophilic colitis. 6.Parkinson disease. 7.Hypertension. 8.Hyperlipidemia. 9.Thoracic aortic aneurysm. Plan: We will go ahead and admit the patient to hospital for further evaluation and management of th is problem. The patient is appropriate for observation. We will go ahead and keep him on csw looking for any cardiac arrhythmia or any evidence of AV block. Two possible concerns here, one is if the patient had any heart block or other concern is if the patient had any significant orth ostatic hypotension changes, which appears to be less likely because the patient was still in the sit ting position and this episode did not happen while he was standing or walking. So at this point, so me cardiac arrhythmia or heart block appears to be more of a concern at this time. I have ordered CA T scan of the head, echocardiogram, and a carotid Doppler to be done. We will consult lens generating machine tender. I will also order a D-dimer and if D-dimer comes back abnormal, then we will do CT scan of the chest per PE protocol. For his Parkinson disease, we will continue his home medications per order. For h is hypertension, he does not take any medications on a regular basis except amlodipine as needed for high blood pressure. We will monitor blood pressure and consider medication if necessary. We will c ontinue his oral steroid that he takes at home. Continue his midodrine per order for his orthostatic hypotension. Details and plan of treatment discussed with the patient and the patient's daughter, olivia reyes was at bedside. I will see him tomorrow for followup. If we do not detect any cardiac arrhythmia or any heart block during this hospital admission, then outpatient long-term Holter monitor should be considered. MISTY/KARTHIK Voice ID: [id number]
[2022-09-10] MEDS ORDERED: MELATONIN 3 MG TABLET PO SCH (21:00)
[2022-09-10 21:18] VITALS: O2SAT 98
[2022-09-10] MEDS: TAMSULOSIN 0.4 MG SR CAP PO SCH (21:50)
[2022-09-10] MEDS: MIDODRINE HCL 5 MG TABLET PO SCH (21:50)
[2022-09-10] MEDS: GABAPENTIN 300 MG CAP PO SCH (21:50)
[2022-09-10] MEDS: CARBIDOPA/LEVODOPA 25/100 TAB PO SCH (21:51)
[2022-09-10] MEDS: DOCUSATE NA 100 MG CAP PO SCH (21:53)
[2022-09-11 03:41] LABS: Absolute Lymphocytes (CBC) 1.3 K/uL (0.7-4.9); Hematocrit 32.2 % (39.6-49.0); Lymphocytes % 13.1 % (15.3-44.8); MCV 105.9 fL (80-100); MPV 8.1 fL (7.6-11.3); RBC Red Blood Cell Count 3.04 M/uL (4.33-5.43)
[2022-09-11 03:51] LABS: Potassium 4.3 mEq/L (3.5-5.1)
[2022-09-11 05:17] LABS: Blood Morphology Comment NOTED (NOT SEEN); Macrocytosis 1+; Platelet Estimate ADEQ
[2022-09-11] MEDS: CARBIDOPA/LEVODOPA 25/100 TAB PO SCH ×3 (06:07→12:13)
[2022-09-11 06:57] LABS: AST/SGOT 13 U/L (15-37); Albumin 2.9 g/dL (3.4-5.0); Alkaline Phosphatase 60 U/L (45-117); Bilirubin Total 0.4 mg/dL (0.2-1.0)
[2022-09-11 06:59] LABS: ALT/SGPT < 10 U/L (16-61); Bilirubin Direct < 0.1 mg/dL (0-0.2); Bilirubin Indirect, Calculated ND mg/dL (0.2-0.8)
--- NOTE | 2022-09-11 08:25 | RAD REPORT ---
EXAM DESCRIPTION: CT - Head Brain Wo Cont - 09/10/2022 11:12 pm CLINICAL HISTORY: syncope Headache, drowsiness, syncope COMPARISON: Head Brain Wo Cont dated 11/19/2020 TECHNIQUE: All CT scans are performed using dose optimization technique as appropriate and may inclu de automated exposure control or mA/KV adjustment according to patient size. FINDINGS: No intracranial hemorrhage, hydrocephalus or extra-axial fluid collection.Moderate general ized brain atrophy noted.No areas of brain edema or evidence of midline shift. The paranasal sinuses and mastoids are clear. The calvarium is intact. IMPRESSION: No acute intracranial abnormality.
--- NOTE | 2022-09-11 08:39 | RAD REPORT ---
EXAM DESCRIPTION: US - CP - 09/11/2022 12:24 am CLINICAL HISTORY: syncope Headache, drowsiness, syncope COMPARISON: No comparisons TECHNIQUE: Real-time sonographic evaluation of both carotid systems was performed. Doppler interroga tion was performed with waveform tracing bilaterally. FINDINGS: Normal high resistance waveforms are noted in both external carotid arteries. The common c arotid arteries and internal carotid arteries show normal low resistance waveforms. Moderate hard plaque is seen involving both carotid bulbs, slightly more significant on the right. Pe ak systolic and end diastolic velocity values and the ICA/CCA ratios are in the non-hemodynamically s ignificant range. Antegrade flow seen in both vertebral arteries. IMPRESSION: Moderate hard plaque involving both carotid bulbs is noted, greater on the right. No evidence of a hemodynamically significant stenosis.
[2022-09-11] MEDS: GABAPENTIN 300 MG CAP PO SCH (08:57)
[2022-09-11] MEDS: DOCUSATE NA 100 MG CAP PO SCH (08:57)
[2022-09-11] MEDS: TAMSULOSIN 0.4 MG SR CAP PO SCH (08:57)
[2022-09-11] MEDS: MIDODRINE HCL 5 MG TABLET PO SCH ×2 (08:58→12:11)
[2022-09-11] MEDS ORDERED: CYANOCOBALAMIN 1,000 MCG TAB PO SCH (09:00)
[2022-09-11] MEDS ORDERED: DULOXETINE 20 MG CAP PO SCH (09:00)
[2022-09-11] MEDS ORDERED: predniSONE 5 MG TAB PO SCH (09:00)
[2022-09-11] MEDS ORDERED: ATORVASTATIN 10 MG TAB PO SCH (09:00)
[2022-09-11] MEDS ORDERED: OPICAPONE 50 MG PO SCH (09:00)
[2022-09-11] MEDS ORDERED: SERTRALINE HCL 50 MG TAB PO SCH (09:00)
[2022-09-11] MEDS ORDERED: FINASTERIDE 5 MG TAB PO SCH (09:00)
[2022-09-11] MEDS ORDERED: AZATHIOPRINE 50 MG TABLET PO SCH (09:00)
[2022-09-11] MEDS ORDERED: AMANTADINE 100 MG CAP PO SCH (09:00)
[2022-09-11 14:32] VITALS: BP 166/63; TEMP 97.8
--- NOTE | 2022-09-11 14:49 | EKG ---
Test Date: 2022-09-10 Test Time: 10:26:16 Staff Air Defense Officer: TAISHA MEASUREMENT RESULTS: Intervals: Rate: 61 DC: QRSD: 130 QT: 446 QTc: 448 [place]: P: 40 DC: QRS: 22 T: 63 INTERPRETIVE STATEMENTS: Atrial flutter with variable AV block with premature ventricular or aberrantly conducted complexes Left bundle branch block Abnormal ECG Compared to ECG 02/07/2021 14:53:27 Sinus rhythm no longer present Electronically Signed On 09-11-22 14:44:49 CDT by Aly Ac
--- NOTE | 2022-09-11 14:49 | EKG ---
Test Date: 2022-09-10 Test Time: 10:27:19 Resource Conservationist: TAIHSA MEASUREMENT RESULTS: Intervals: Rate: 59 NH: 186 QRSD: 134 QT: 450 QTc: 445 [place]: P: 45 NH: 186 QRS: 20 T: 48 INTERPRETIVE STATEMENTS: Sinus bradycardia Left bundle branch block Abnormal ECG Compared to ECG 09/10/2022 10:26:16 Atrial flutter no longer present Ventricular premature complex(es) no longer present Electronically Signed On 09-11-22 14:44:48 CDT by Aly Ac
--- NOTE | 2022-09-11 15:22 | RAD REPORT ---
EXAM DESCRIPTION: CT - Chest For Pe Angio - 09/11/2022 2:33 pm CLINICAL HISTORY: Chest pain/elevated D-dimer COMPARISON: 2018 TECHNIQUE: Dynamically enhanced axial 3 mm thick images of the chest were obtained during administra tion of 100 mL Isovue 370 IV contrast. Coronal and oblique reconstruction images were generated and r eviewed. Exam utilizes a protocol for optimal evaluation of pulmonary arterial tree. Maximum intensity projections 3D imaging was utilized All CT scans are performed using dose optimization technique as appropriate and may include automated exposure control or mA/KV adjustment according to patient size. FINDINGS: A pulmonary embolus is not seen. The aortic root measures 4 centimeters. A pleural effusion is not seen. A pericardial effusion is not seen. Mild right lower lobe opacity Hepatic cyst IMPRESSION: Negative for a pulmonary embolism. Mild right lower lobe opacity may represent atelectasis or pneumonia
--- NOTE | 2022-09-11 19:38 | DS ---
Date of Discharge: 09/11/2022 Physical Examination: HEENT: Unremarkable. Lungs: Clear to auscultation. Heart: Sounds normal. Abdomen: Soft. Bowel sounds normal. No guarding, rigidity, tenderness, or distention. Extremities: No leg edema. Laboratory Data: On initial CBC yesterday white count was 11.6, hemoglobin 10.4, and platelets 231. Today white count is 10.2, hemoglobin 10.9, and platelets 220. Yesterday sodium was 139, potassium 3.8, chloride 109, bicarb 26, BUN 26, creatinine 1.27, and glucose 99. Initial troponin 11.6, second troponin 11.2. Today sodium 139, potassium 4.3, chloride 110, bicarb 26, BUN 22, creatinine 0.94, a nd glucose 87. Liver function tests unremarkable. Hospital Course: An 87-year-old very pleasant male patient admitted to the hospital with syncopal ep isode. Please see dictated H and P for more information. The patient had a syncopal episode while h e was sitting outside his house in his swing and he was brought into emergency room. Please see dict ated H and P for more details. After he was evaluated in the ER, he was admitted to the hospital. E KG had not shown any cardiac arrhythmia so far and cardiac monitor technician has not seen any cardiac arrhyth mukesh or any evidence of heart block. MT was ruled out by getting serial cardiac enzymes. Cardiology consultation was requested. I have ordered further workup after I saw him yesterday and that include d CAT scan of the head and carotid Doppler and D-dimer was ordered today and depending on the D-dimer , our plan was to make a decision regarding CT scan of the chest per PE protocol. Echocardiogram cam e back normal today and tax associate attorney has informed me that he will arrange for an event monitor to be done on outpatient basis through his office. The patient will be discharged to go home later today w ith instruction to continue all previous home medications and follow up at my office next week and fo llow up with Dr. Ac per his recommendation. Final Diagnoses: 1.Syncope. 2.Coronary artery disease. 3.Anemia, unspecified. 4.Orthostatic hypotension. 5.Eosinophilic colitis. 6.Parkinson disease. 7.Hypertension. 8.Hyperlipidemia. 9.Thoracic aortic aneurysm. MISTY/MODL Voice ID: [id number] Report ID: [id number]
--- NOTE | 2022-09-13 09:27 | CON ---
Date of Consultation: 09/11/2022 Reason For Consultation: Syncope. History Of Present Illness: Mr. Ventura is 87, patient of Dr. Causey. Has a history of parkinsonism, an emia, and hypertension. Came in with a syncopal episode that was kind of sudden. Carotid did not sh ow any significant disease. Echocardiogram was pending. He denied any chest pain, nausea or vomitin g, but did have some diaphoresis before the event. He denied PND, orthopnea, pedal edema, palpitatio ns, fever, or chills. Past Medical History: As stated above. Allergies: HE IS ALLERGIC TO ASPIRIN AND NONSTEROIDALS. Review of Systems: Negative. Social History: Negative. Family History: Negative. Medications: At home include Sinemet, midodrine, Flomax, amantadine, Pravachol, and azathioprine. Physical Examination: Vital Signs: Stable, afebrile. HEENT: Negative. Neck: Supple with no bruit. Chest: Clear. Cardiac: Revealed a regular rhythm and rate. No murmurs, gallops, or rubs. Abdomen: Benign. Extremities: Revealed no clubbing, cyanosis, or edema. Diagnostic Data: All within normal limit. Impression And Plan: Syncope. The syncope was observed by his daughter. Apparently, he was sitting on a swing and when his daughter walked away, she turned around when he did not respond to her comme nt and he was syncopal. They tried to beat up on his chest and wake him up. According to the daught er, she could feel the pulse. When the ambulance came in, the patient woke up shortly. Arrhythmia s hould be ruled out. Echocardiogram is pending. Carotid is negative. I think when he goes home, I w ill set him up for a long maybe 14-day event monitor to rule out sick sinus syndrome. The patient ca n go home. The case was discussed with Dr. Causey. His blood pressure, anemia, and parkinsonism are s table. NB/MODL Voice ID: [id number] Report ID: [id number]
--- NOTE | 2022-09-14 06:46 | ECHO ---
HEIGHT: 5 ft 10 in WEIGHT: 203 lb 0 oz DATE OF STUDY: 09/11/[address]: Krishna Causey MD 2-DIMENSIONAL: YES M.MODE: YES DOPPLER: YES COLOR FLOW: YES TDS: PORTABLE: YES DEFINITY: BUBBLE STUDY: DIAGNOSIS: SYNCOPE CARDIAC HISTORY: CATHERIZATION: NO SURGERY: NO PROSTHETIC VALVE: NO PACEMAKER: NO MEASUREMENTS (cm) DIASTOLIC (NORMALS) SYSTOLIC (NORMALS) IVSd 1.3 (0.6-1.2) LA Diam 2.7 (1.9-4.0) LVEF 55-60% LVIDd 4.3 (3.5-5.7) LVIDs 3.5 (2.0-3.5) %FS % LVPWd 1.3 (0.6-1.2) Ao Diam 2.6 (2.0-3.7) 2 DIMENSIONAL ASSESSMENT: RIGHT ATRIUM: NORMAL LEFT ATRIUM: NORMAL RIGHT VENTRICLE: NORMAL LEFT VENTRICLE: NORMAL TRICUSPID VALVE: NORMAL MITRAL VALVE: NORMAL PULMONIC VALVE: NORMAL AORTIC VALVE: NORMAL PERICARDIAL EFFUSION: NONE AORTIC ROOT: NORMAL LEFT VENTRICULAR WALL MOTION: NORMAL DOPPLER/COLOR FLOW: MILD TRICUSPID REGURGITATION COMMENTS: 1. NORMAL 2-DIMENSIONAL ECHOCARDIOGRAM WITH DOPPLER. 2. NO WALL MOTION ABNORMALITY 3. NO EFFUSION 4. NO PULMONARY HYPERTENSION TECHNOLOGIST: ARUN ROBLES
== END 2022-09-11 18:45 | disposition home or self-care (01) ==
LOC: ER 10:04 → ERHOLD 12:58 → 2ND 14:17
PROVIDERS: ADMIT Internal Medicine; ATTEND Internal Medicine
DX: R55 Syncope and collapse (principal); I25.10 Atherosclerotic heart disease of native coronary artery without angina pectoris; D64.9 Anemia, unspecified; I95.1 Orthostatic hypotension; K52.82 Eosinophilic colitis; G20 Parkinson's disease; I10 Essential (primary) hypertension; E78.5 Hyperlipidemia, unspecified; I71.20 Thoracic aortic aneurysm, without rupture, unspecified
CPT/HCPCS: 93005 ×2; 93306; 85025 ×2; 80048 ×2; 36415; 85379; 80076; 84484 ×2; 70450; 71275; 71045; 93880; 94760; 99285; Q9967; J7512; J7500; G0378

== ENCOUNTER 2022-10-06 10:37 | Inpatient (IN) | payer OTHER, BC ==
--- NOTE | 2022-10-06 11:22 | RAD REPORT ---
EXAM DESCRIPTION: CT - Head Brain Wo Cont - 10/06/2022 11:02 am CLINICAL HISTORY: Syncope COMPARISON: September 2019. TECHNIQUE: Computed axial tomography of the head was obtained. IV contrast was not requested. All CT scans are performed using dose optimization technique as appropriate and may include automated exposure control or mA/KV adjustment according to patient size. FINDINGS: An intracranial bleed is not seen The ventricles are normal in caliber No extra-axial fluid collection is noted. Mild cerebral atrophy Fluid within the sinuses/ mastoids is not seen. IMPRESSION: No acute intracranial abnormality is seen If patient's symptoms persist MRI of the brain would be recommended
[2022-10-06 11:24] LABS: Absolute Lymphocytes (CBC) 1.3 K/uL (0.7-4.9); Hematocrit 33.8 % (39.6-49.0); Lymphocytes % 12.2 % (15.3-44.8); MPV 8.1 fL (7.6-11.3); RBC Red Blood Cell Count 3.19 M/uL (4.33-5.43)
[2022-10-06 11:32] LABS: Protime INR 0.95
--- NOTE | 2022-10-06 11:37 | RAD REPORT ---
EXAM DESCRIPTION: Eli Single View10/06/2022 11:26 am CLINICAL HISTORY: Chest pain/syncope COMPARISON: May 2022 FINDINGS: The lungs appear clear of acute infiltrate. The heart is normal size IMPRESSION: No acute abnormalities displayed
[2022-10-06 11:40] LABS: AST/SGOT 14 U/L (15-37); Alkaline Phosphatase 59 U/L (45-117); BUN Blood Urea Nitrogen 29 mg/dL (7-18); Bicarbonate 27 mEq/L (21-32); Bilirubin Direct 0.2 mg/dL (0-0.2); Bilirubin Indirect, Calculated 0.3 mg/dL (0.2-0.8); Bilirubin Total 0.5 mg/dL (0.2-1.0); Glomerular Filtration Rate 41 ml/min (=/>90); Glucose Level 134 mg/dL (74-106); Potassium 3.8 mEq/L (3.5-5.1); Sodium Level 138 mEq/L (136-145)
[2022-10-06 11:41] LABS: Albumin 3.4 g/dL (3.4-5.0); Magnesium 2.3 mg/dL (1.6-2.4); Protein, Total 6.7 g/dL (6.4-8.2); Troponin High Sensitivity 11.8 pg/mL (<58.9)
[2022-10-06 11:42] LABS: ALT/SGPT < 10 U/L (16-61)
[2022-10-06 11:54] LABS: Blood Morphology Comment NOTED (NOT SEEN); Macrocytosis 1+; Platelet Estimate ADEQ; White Blood Cell Scan OK (OK)
--- NOTE | 2022-10-06 12:17 | RAD REPORT ---
EXAM DESCRIPTION: CT - Chest For Pe Angio - 10/06/2022 12:00 pm CLINICAL HISTORY: Syncope, positive D-dimer COMPARISON: September 2022 TECHNIQUE: Dynamically enhanced axial 3 mm thick images of the chest were obtained during administra tion of 100 mL Isovue 370 IV contrast. Coronal and oblique reconstruction images were generated and r eviewed. Exam utilizes a protocol for optimal evaluation of pulmonary arterial tree. Maximum intensity projections 3D imaging was utilized All CT scans are performed using dose optimization technique as appropriate and may include automated exposure control or mA/KV adjustment according to patient size. FINDINGS: A pulmonary embolus is not seen. A thoracic aortic aneurysm is not noted. Ascending thoracic aorta 4.1 centimeters. Proximal descendin g thoracic aorta 4.1 centimeters A pleural effusion is not seen. A pericardial effusion is not seen. Mild right lower lobe opacity. Mild bilateral ground-glass opacities within the lungs. Small hiatal hernia. Large amount of stool within visualized colon IMPRESSION: Negative for a pulmonary embolism. Mild right lower lobe opacity may mild pneumonia or atelectasis Mild bilateral ground-glass opacities within the lungs indicative of a mild alveolitis
--- NOTE | 2022-10-06 12:54 | ER ---
Nurse's Notes [facility] Name: Hunter Ventura Age: 87 yrs Sex: Male : 1935 Arrival Date: 10/06/2022 Time: 10:37 Bed 17 Private MD: Diagnosis: Syncope Presentation: 10/06 10:42 Chief complaint: EMS states: SYNCOPAL FALL. Coronavirus screen: At this time, the bp client does not indicate any symptoms associated with coronavirus-19. Ebola Screen: No symptoms or risks identified at this time. Initial Sepsis Screen: Does the patient meet any 2 criteria? No. Patient's initial sepsis screen is negative. Does the patient have a suspected source of infection? No. Patient's initial sepsis screen is negative. Risk Assessment: Do you want to hurt yourself or someone else? Patient reports no desire to harm self or others. Onset of symptoms was October 06, 2022 at 10:15. Care prior to arrival: IV initiated. 20 GA, in the right antecubital area, Glucose check: 143. 10:42 Method Of Arrival: EMS: [facility] bp 10:42 Acuity: MAICO 3 bp Triage Assessment: 10:44 General: Appears in no apparent distress. Behavior is calm, cooperative, appropriate bp for age. Pain: Denies pain. EENT: No deficits noted. Neuro: Reports a syncopal episode. Cardiovascular: No deficits noted. Respiratory: No deficits noted. GI: No signs and/or symptoms were reported involving the gastrointestinal system. : No deficits noted. Derm: No deficits noted. Musculoskeletal: No deficits noted. Historical: - Allergies: 10:42 Aspirin; bp - PMHx: 10:42 Anemia; Hypertension; Parkinson's disease; bp - Immunization history:: Adult Immunizations up to date. - Social history:: Smoking status: Patient denies any tobacco usage or history of. Screenin:46 [facility] ED Fall Risk Assessment (Adult) History of falling in the last 3 months, bp including since admission No falls in past 3 months (0 pts). Abuse screen: Denies threats or abuse. Denies injuries from another. Nutritional screening: No deficits noted. Tuberculosis screening: No symptoms or risk factors identified. Assessment: 10:45 General: SEE TRIAGE NOTE. Neuro: Level of Consciousness is awake, alert, obeys bp commands, Oriented to Appropriate for age. Cardiovascular: Rhythm is sinus bradycardia. 12:16 Reassessment: Patient appears in no apparent distress at this time. Patient is alert, bp oriented x 3, equal unlabored respirations, skin warm/dry/pink. 13:04 Reassessment: ADMIT INITIATED. bp 14:29 Reassessment: No changes from previously documented assessment. Patient is alert, bp oriented x 3, equal unlabored respirations, skin warm/dry/pink. Vital Signs: 10:42 BP 134 / 87; Pulse 58; Resp 16; Temp 98; Pulse Ox 97% on R/A; bp 10:48 BP 141 / 65; Pulse 60; Resp 17; Temp 98.1; Pulse Ox 94% ; rs5 12:15 BP 147 / 59; Pulse 62; Resp 16; Pulse Ox 100% ; bp 13:04 BP 161 / 70; Pulse 71; Resp 18; Pulse Ox 97% ; bp 14:28 BP 145 / 72; Pulse 71; Resp 19; Pulse Ox 98% ; bp ED Course: 10:42 Patient arrived in ED. bp 10:44 Triage completed. bp 10:45 Arm band placed on. bp 10:46 Franco Ho DO is Attending Physician. ms3 10:46 Patient has correct armband on for positive identification. Bed in low position. Call bp light in reach. Side rails up X2. 10:46 Maintain EMS IV. Dressing intact. Good blood return noted. Site clean \T\ dry. Gauge \T\ bp site: 20 GA R AC. 10:53 Ari Taylor, RN is Primary Nurse. bp 11:03 CT Head Brain wo Cont In Process Unspecified. EDMS 11:15 Basic Metabolic Panel Sent. rs5 11:15 CBC with Diff Sent. rs5 11:15 Hepatic Function Sent. rs5 11:15 Magnesium Sent. rs5 11:15 Protime (+inr) Sent. rs5 11:15 Ptt, Activated Sent. rs5 11:15 Troponin High Sensitivity Sent. rs5 11:15 D-Dimer Sent. rs5 11:28 Chest Single View XRAY In Process Unspecified. EDMS 12:02 CT Chest For PE Angio In Process Unspecified. EDMS 12:53 Krishna Causey MD is Hospitalizing Provider. ms3 14:41 No provider procedures requiring assistance completed. Patient admitted, IV remains in bp place. Administered Medications: No medications were administered Outcome: 12:53 Decision to Hospitalize by Provider. ms3 14:40 Admitted to Med/surg accompanied by tech, family with patient, via stretcher, room 221, bp with chart, Report called to ARLEEN SPAIN 14:40 Condition: stable 14:40 Instructed on the need for admit. 14:41 Patient left the ED. bp Signatures: Dispatcher [employer] EDMS Ari Taylor RN RN bp Franco Ho DO DO ms3 Boyd Figueroa rs5
--- NOTE | 2022-10-06 12:54 | EDPHYS ---
Physician Documentation [facility] Name: Hunter Ventura Age: 87 yrs Sex: Male : 1935 Arrival Date: 10/06/2022 Time: 10:37 Bed 17 Private MD: ED Physician Franco Ho HPI: 10/06 10:50 This 87 yrs old Male presents to ER via EMS with complaints of Syncope. ms3 10:50 87-year-old male with past medical history of anemia, hypertension, Parkinson's disease ms3 presents via [facility] for syncopal episode. Patient had taken a shower and was drying off when he vomited and then lost consciousness. EMS states on their arrival patient's room air oxygen saturation was 81%, patient's blood pressure was in the 130s/ 80s - 90s. Twelve-lead EKG showed sinus bradycardia. Blood glucose level was 143. Patient denies pain at this time. Patient denies alleviating or inciting factors.. Historical: - Allergies: 10:42 Aspirin; bp - PMHx: 10:42 Anemia; Hypertension; Parkinson's disease; bp - Immunization history:: Adult Immunizations up to date. - Social history:: Smoking status: Patient denies any tobacco usage or history of. ROS: 10:51 Constitutional: Negative for fever, and chills. Neck: Negative for injury, pain, and ms3 swelling, Cardiovascular: Negative for chest pain, and palpitations. Respiratory: Negative for shortness of breath, cough, wheezing, and pleuritic chest pain, Abdomen/GI: Negative for abdominal pain, nausea, vomiting, diarrhea, and constipation, MS/Extremity: Negative for injury and deformity, Skin: Negative for injury, rash, and discoloration. 10:51 Neuro: Positive for syncope. 10:51 All other systems are negative. Exam: 10:51 Constitutional: This is a well developed, well nourished patient who is awake, alert, ms3 and in no acute distress. Head/Face: Normocephalic, atraumatic. Chest/axilla: Normal chest wall appearance and motion. Nontender with no deformity. Cardiovascular: Regular rate and rhythm with a normal S1 and S2. No gallops, murmurs, or rubs. Normal PMI, no JVD. No pulse deficits. Respiratory: Lungs have equal breath sounds bilaterally, clear to auscultation and percussion. No rales, rhonchi or wheezes noted. No increased work of breathing, no retractions or nasal flaring. Abdomen/GI: Soft, non-tender, with normal bowel sounds. No distension or tympany. No guarding or rebound. No evidence of tenderness throughout. Skin: Warm, dry with normal turgor. Normal color with no rashes, no lesions, and no evidence of cellulitis. MS/ Extremity: Pulses equal, no cyanosis. Neurovascular intact. Full, normal range of motion. 11:47 ECG was reviewed by the Attending Physician. ms3 Vital Signs: 10:42 BP 134 / 87; Pulse 58; Resp 16; Temp 98; Pulse Ox 97% on R/A; bp 10:48 BP 141 / 65; Pulse 60; Resp 17; Temp 98.1; Pulse Ox 94% ; rs5 12:15 BP 147 / 59; Pulse 62; Resp 16; Pulse Ox 100% ; bp 13:04 BP 161 / 70; Pulse 71; Resp 18; Pulse Ox 97% ; bp 14:28 BP 145 / 72; Pulse 71; Resp 19; Pulse Ox 98% ; bp MDM: 10:50 Patient medically screened. ms3 10:51 Differential Diagnosis: cardiac arrhythmia, idiopathic syncope, vasovagal episode, ms3 Pulmonary embolus. 13:40 Data reviewed: vital signs, nurses notes, lab test result(s), EKG, radiologic studies, ms3 and as a result, I will admit patient. Consideration of Admission/Observation Patient was admitted/placed on observation. Management of patient was discussed with the following: Hospitalist: Dr Causey. I considered the following discharge prescriptions or medication management in the emergency department. Independent interpretation of the following test(s) in the Emergency Department EKG: See my EKG interpretation above monitoring manager: rate is 70 beats/min, Rhythm is normal sinus rhythm, regular, with no ectopy, Interpretation: normal rate, normal rhythm. Historians other than the Patient: EMS: [facility]. Counseling: I had a detailed discussion with the patient and/or guardian regarding: the historical points, exam findings, and any diagnostic results supporting the discharge/admit diagnosis, lab results, radiology results, the need for further work-up and treatment in the hospital. ED course: Discussed case with Dr Causey and he accepts patient as observation on telemetry. 10/06 10:50 Order name: Basic Metabolic Panel; Complete Time: 11:50 ms3 10/06 10:50 Order name: CBC with Diff; Complete Time: 12:12 ms3 10/06 10:50 Order name: Hepatic Function; Complete Time: 11:50 ms3 10/06 10:50 Order name: Magnesium; Complete Time: 11:50 ms3 10/06 10:50 Order name: Protime (+inr); Complete Time: 11:38 ms3 10/06 10:50 Order name: Ptt, Activated; Complete Time: 11:38 ms3 10/06 10:50 Order name: Troponin High Sensitivity; Complete Time: 11:50 ms3 10/06 10:50 Order name: D-Dimer; Complete Time: 11:38 ms3 10/06 11:27 Order name: CBC Smear Scan; Complete Time: 12:12 EDMS 10/06 13:23 Order name: Basic Metabolic Panel EDMS 10/06 13:23 Order name: Basic Metabolic Panel EDMS 10/06 13:23 Order name: CBC with Automated Diff EDMS 10/06 13:23 Order name: CBC with Automated Diff EDMS 10/06 13:24 Order name: Basic Metabolic Panel EDMS 10/06 13:24 Order name: CBC with Automated Diff EDMS / 10:50 Order name: CT Head Brain wo Cont; Complete Time: 11:38 ms3 10/06 10:50 Order name: Chest Single View XRAY; Complete Time: 11:38 ms3 10/06 11:39 Order name: CT Chest For PE Angio; Complete Time: 12:23 ms3 10/06 10:50 Order name: EKG; Complete Time: 10:51 ms3 10/06 13:23 Order name: Regular EDMS 10/06 10:50 Order name: Cardiac monitoring; Complete Time: 10:53 ms3 10/06 10:50 Order name: EKG - Nurse/Tech; Complete Time: 10:53 ms3 10/06 10:50 Order name: IV Saline Lock; Complete Time: 10:53 ms3 10/06 10:50 Order name: Labs collected and sent; Complete Time: 11:15 ms3 10/06 10:50 Order name: NPO; Complete Time: 10:53 ms3 10/06 10:50 Order name: O2 Per Protocol; Complete Time: 10:53 ms3 10/06 10:50 Order name: O2 Sat Monitoring; Complete Time: 10:53 ms3 EC:47 Rate is 62 beats/min. Rhythm is regular. QRS [place] is Normal. VA interval is normal. QRS ms3 interval is prolonged. Clinical impression: Normal Sinus Rhythm with LBBB. Interpreted by me. Reviewed by me. Administered Medications: No medications were administered Disposition Summary: 10/06/22 12:53 Hospitalization Ordered Hospitalization Status: Observation ms3 Provider: Krishna Causey ms3 Location: Telemetry/MedSurg (observation) ms3 Condition: Stable ms3 Problem: new ms3 Symptoms: are unchanged ms3 Bed/Room Type: Standard ms3 Room Assignment: 221(10/06/22 13:40) em1 Diagnosis - Syncope ms3 Forms: - Medication Reconciliation Form ms3 - SBAR form ms3 Signatures: Dispatcher [employer] Khalif Cheek em1 Ari Taylor RN RN bp Franco Ho DO DO ms3 Corrections: (The following items were deleted from the chart) 10:52 10:50 87-year-old male with past medical history of anemia, hypertension, Parkinson. ms3ms3 10:53 10:51 Differential Diagnosis: cardiac arrhythmia, idiopathic syncope, vasovagal ms3 episode, ms3 13:40 12:53 ms3 em1
[2022-10-06] MEDS ORDERED: ACETAMINOPHEN 500 MG TAB PO PRN (13:18)
[2022-10-06 14:49] LABS: Absolute Lymphocytes (CBC) 0.9 K/uL (0.7-4.9); Hematocrit 37.7 % (39.6-49.0); Lymphocytes % 7.9 % (15.3-44.8); RBC Red Blood Cell Count 3.56 M/uL (4.33-5.43)
[2022-10-06 15:04] LABS: Potassium 4.5 mEq/L (3.5-5.1)
[2022-10-06 15:24] VITALS: BMI 28.8
[2022-10-07 05:55] LABS: Absolute Lymphocytes (CBC) 0.6 K/uL (0.7-4.9); Hematocrit 34.1 % (39.6-49.0); Lymphocytes % 5.1 % (15.3-44.8); MCV 105.1 fL (80-100); MPV 8.1 fL (7.6-11.3); RBC Red Blood Cell Count 3.25 M/uL (4.33-5.43)
[2022-10-07 06:08] LABS: Potassium 3.8 mEq/L (3.5-5.1)
[2022-10-07] MEDS: GABAPENTIN 300 MG CAP PO SCH ×2 (08:44→20:09)
[2022-10-07] MEDS: SERTRALINE HCL 50 MG TAB PO SCH (08:44)
[2022-10-07] MEDS: DULOXETINE 30 MG CAP PO SCH (08:45)
[2022-10-07] MEDS: DOCUSATE NA 100 MG CAP PO SCH ×2 (08:45→20:10)
[2022-10-07] MEDS: CARBIDOPA/LEVODOPA 25/100 TAB PO SCH ×3 (08:45→17:38)
[2022-10-07] MEDS: predniSONE 5 MG TAB PO SCH (08:45)
[2022-10-07] MEDS: AMOX/K CLAV 875 MG TAB PO SCH ×2 (08:45→20:08)
[2022-10-07] MEDS: FINASTERIDE 5 MG TAB PO SCH (08:46)
[2022-10-07] MEDS: AMANTADINE 100 MG CAP PO SCH (08:46)
[2022-10-07] MEDS: AZATHIOPRINE 50 MG TABLET PO SCH (08:46)
[2022-10-07] MEDS ORDERED: HOME MED 1 EA UNK (Cyanocobalamin (Vitamin B-12) [Vitamin B-12] 5,000 MCG Capsule) PO SCH (09:00)
[2022-10-07] MEDS ORDERED: HOME MED 1 EA UNK (Pravastatin [Pravachol*] 40 MG/TAB Tab) PO SCH (09:00)
[2022-10-07] MEDS ORDERED: OPICAPONE 50 MG PO SCH (09:00)
--- NOTE | 2022-10-07 12:32 | EKG ---
Test Date: 2022-10-06 Test Time: 10:53:46 Terrazzo Helper: ARELI MEASUREMENT RESULTS: Intervals: Rate: 62 HI: 182 QRSD: 150 QT: 474 QTc: 481 [place]: P: 47 HI: 182 QRS: 17 T: 88 INTERPRETIVE STATEMENTS: Normal sinus rhythm Left bundle branch block Abnormal ECG Compared to ECG 09/10/2022 10:27:19 Sinus bradycardia no longer present Electronically Signed On 10-07-22 12:31:30 CDT by Edgar Hough
[2022-10-07] MEDS: MIDODRINE HCL 5 MG TABLET PO SCH ×2 (12:55→17:38)
--- NOTE | 2022-10-07 16:58 | CON ---
Date of Consultation: 10/07/2022 Reason For Consultation: Syncope. History Of Present Illness: The patient is very poor historian, but as per the chart, this is an 87- year-old male who was brought in by EMS because of syncopal episode. He does have history of hyperte nsion, anemia, Parkinson disease, and apparently, he was taking a shower and was drying off when he h ad an episode of vomiting and then he lost his consciousness for a short periods of time and EKG was sinus bradycardia at that time as per report in the ER records. The patient feels otherwise okay. H e does not have any chest pain or shortness of breath or any other complaints at the present time. Past Medical History: Significant for Parkinson disease, hypertension, dyslipidemia, coronary artery disease, thoracic aortic aneurysm, chronic kidney disease. Medications: Refer to reconciliation sheet for detailed list. Allergies: ASPIRIN AND NSAIDS. Family History: No premature coronary artery disease or cancer. Social History: He does not smoke or drink. Does not use any drugs. Review of Systems: All systems reviewed and they were negative except what mentioned in HPI. Physical Examination: Vital Signs: Reviewed. Temperature is 97.7, pulse 66, breathing at 18, blood pressure is 129/56, sa turating 96% on room air. General: Pleasant elderly male, in no apparent distress. Head and Neck: Pupils are equal, reactive to light. Intact eye movements. No JVD. No cervical lym phadenopathy. Neck is supple. Thyroid is not enlarged. Lungs: Clear to auscultation bilaterally. No rhonchi, wheezing, or crackles. No accessory muscle u se. Heart: Irregular. No extra sounds. Abdomen: Soft, nontender. Bowel sounds positive. No organomegaly. No masses or hernia. No rigidi ty or rebound. Extremities: No edema, clubbing, or cyanosis. Intact pulses. Skin: No rash. Neurologic: Alert, awake, oriented x3. No acute focal deficits appreciated. Investigations: Creatinine on arrival was 1.63 and now 1.37. Troponin is negative and hemoglobin wa s 11.1 with white blood cell count is 10.4. Assessment And Recommendations: 1.Syncope. After taking a shower, he had an episode of vomiting and then he passed out. This is li osman a vasovagal event versus dehydration and hypotension. His creatinine was slightly elevated on a dmission, now normalized. Monitor on telemetry and trend troponin and obtain echocardiogram that was not done recently and hydrate gently. 2.Thoracic aorta aneurysm. It is 4.1 cm. No dissection or complications. This is still small in s [place] and warrants yearly imaging followups. 3.Hypertension. Blood pressure is controlled. Thank you for the consult. /KARTHIK Voice ID: [id number] Report ID: [id number]
[2022-10-07] MEDS: TAMSULOSIN 0.4 MG SR CAP PO SCH (17:38)
[2022-10-07] MEDS: ATORVASTATIN 10 MG TAB PO SCH (20:09)
[2022-10-07] MEDS: MELATONIN 3 MG TABLET PO SCH (21:52)
[2022-10-07] MEDS: OPICAPONE 50 MG PO SCH (21:52)
[2022-10-08] MEDS: CARBIDOPA/LEVODOPA 25/100 TAB PO SCH ×4 (06:40→16:37)
[2022-10-08] MEDS: predniSONE 5 MG TAB PO SCH (09:06)
[2022-10-08] MEDS: GABAPENTIN 300 MG CAP PO SCH ×2 (09:06→22:36)
[2022-10-08] MEDS: AMOX/K CLAV 875 MG TAB PO SCH ×2 (09:06→22:35)
[2022-10-08] MEDS: MIDODRINE HCL 5 MG TABLET PO SCH ×3 (09:06→16:37)
[2022-10-08] MEDS: SERTRALINE HCL 50 MG TAB PO SCH (09:07)
[2022-10-08] MEDS: DULOXETINE 30 MG CAP PO SCH (09:07)
[2022-10-08] MEDS: DOCUSATE NA 100 MG CAP PO SCH ×2 (09:07→22:36)
[2022-10-08] MEDS: HOME MED 1 EA UNK (Cyanocobalamin (Vitamin B-12) [Vitamin B-12] 5,000 MCG Capsule) PO SCH (09:10)
[2022-10-08] MEDS: AMANTADINE 100 MG CAP PO SCH (09:10)
[2022-10-08] MEDS: FINASTERIDE 5 MG TAB PO SCH (09:10)
[2022-10-08] MEDS: AZATHIOPRINE 50 MG TABLET PO SCH (09:10)
--- NOTE | 2022-10-08 09:10 | HP ---
Date of Admission: 10/07/2022 Chief Complaint: Passing out. History Of Present Illness: This is an 87-year-old very pleasant male patient, who lives at home by himself, was doing fine, in his normal usual state of health until yesterday morning when he was sitting down at the dining table after he finished his breakfast and had episode of vomiting that he vomited all over himself. So, he contacted his daughter to come over there and to help him and when daughter went there, he was still sitting in the chair at the dining table. He was feeling somewhat weaker than normal at that time. Daughter offered him to take him in the wheelchair to the bathroom instead of walking, but the patient insisted on walking, so the patient's daughter and son-in-law, they both assisted him to go to the bathroom and he had lot of difficulty walking with 2 people assistance because he was feeling very weak and unsteady. He was placed in the shower chair and he was taking shower and son-in-law was in the bathroom while he was taking shower and after he finished taking shower, all of a sudden the patient had a syncopal episode while he was still sitting in the shower chair. Son-in-law found him leaning against the shower wall in sitting position in the chair and ambulance was called. The patient was brought into the emergency room and while he was in ambulance, he started to wake up. He was probably unconscious for almost 15 to 20 minutes as I understand by talking to family member. Prior to passing out, he did not have any symptoms of any chest pain, palpitation, or any shortness of breath type of feeling. After he was evaluated in the ER, he was admitted to the hospital. Beside generalized weakness this morning when I saw him, he did not have any other specific complaints. Allergies: TO ASPIRIN. Medications: List reviewed. Review of Systems: Cardiovascular: As mentioned above. All other systems reviewed and negative. Past Medical History: Significant for Parkinson disease, hypertension, hyperlipidemia, coronary artery disease, thoracic aortic aneurysm, eosinophilic colitis, chronic kidney disease, benign prostatic hypertrophy, anemia, orthostatic hypotension, coronary artery disease, and chronic kidney disease stage 3a. Past Surgical History: Cataract surgery, shoulder surgery, and knee surgery. Family History: Father and had heart disease. Mother and had diabetes. Brother with prostate cancer and diabetes. Sister with diabetes. Social History: Negative for smoking and alcohol use Physical Examination: Vital Signs: Height 5 feet 9 inches, weight 195 pounds. Temperature this morning 100.2, pulse 95, respiratory rate 18, blood pressure 154/67, oxygen saturation 94%. General: Awake, alert, oriented, not in distress. HEENT: Head atraumatic, normocephalic. Conjunctivae nonerythematous. Sclerae white. Mouth, no thrush or edema noted. Ears/Nose, no mass, lesion, discharge noted. Neck: Supple. No JVD, lymph nodes, bruit, thyromegaly noted. Lungs: Bilateral good equal air entry. Clear to auscultation. No rhonchi. No rales. Heart: Normal heart sounds, no murmur or gallop. Abdomen: Soft, bowel sounds normal. No guarding, rigidity, tenderness, mass, hepatosplenomegaly, distention, or bruit noted. Extremities: No leg edema. No calf tenderness. Skin: No rash, ulcer, cellulitis. Lymphatics: No lymph node enlargement in neck, supraclavicular, infraclavicular region. Neuro: No focal neurological deficit. Chest: Unremarkable. External Genitalia: Deferred. Rectal: Deferred. Laboratory Data: Yesterday; white count 10.4, hemoglobin 11.4, platelets 256 and repeat white count yesterday afternoon was 11, hemoglobin 12.2, platelets 259. This morning; white count 12.2, hemoglobin 11.5, platelets 242. Yesterday; sodium 138, potassium 3.8, chloride 105, bicarb 27, BUN 29, creatinine 1.63, glucose 134. Liver function tests unremarkable. Troponin 11.8. This morning; sodium 139, potassium 3.8, chloride 107, bicarb 26, BUN 29, creatinine 1.37, glucose 90. D-dimer 1160. CAT scan of the chest per PE protocol was negative for pulmonary embolism, but it showed mild right lower lobe opacity. CAT scan of the head was negative for any acute intracranial changes. Chest x-ray, no acute intrathoracic changes. Impression: 1. Syncope. 2. Aspiration pneumonia. 3. Orthostatic hypotension. 4. Coronary artery disease. 5. Anemia, unspecified. 6. Hypertension. 7. Hyperlipidemia. 8. Parkinson disease. 9. Eosinophilic colitis. 10. Thoracic aortic aneurysm. Plan: We will go ahead and admit the patient to the hospital for further evaluation and management of this problem. The patient was admitted to the hospital about 3 weeks ago with syncope and at that time, he had an echocardiogram done which was unremarkable and the patient just finished 2 weeks of Holter monitor placed by assistant secretary and daughter took it off past weekend and we are waiting on the results. Chances are very likely that his syncope was due to orthostatic hypotension and we will go ahead and look for other etiology as well like cardiac arrhythmia, consult assistant secretary for this and keep him on monitor and storage bin tender to see if we can capture any cardiac arrhythmia while in the hospital. At home he takes midodrine 2.5 mg 3 times a day and I will go ahead and increase the dose to 5 mg 3 times a day. Consult Physical therapist and we will also go ahead and start him on Zosyn for aspiration pneumonia problem. Continue his Parkinson medication for Parkinson disease. For his hypertension, we will continue his antihypertensive medication per order, monitor blood pressure if necessary, adjust medication. For hyperlipidemia, we will continue statin therapy per order. The patient is on chronic steroid therapy for eosinophilic colitis and we will continue that as well. I will discuss with him regarding advance directive and DNR order was written in the chart per the patient's decision and this was discussed in presence of the patient's daughter. The patient also needs assistance to get out of hospital DNR paperwork ready and I have requested Social Service to assist him with this. I will see him tomorrow for followup. MISTY/KARTHIK Voice ID: [id number] MAC
[2022-10-08] MEDS: TAMSULOSIN 0.4 MG SR CAP PO SCH (16:37)
[2022-10-08] MEDS: MELATONIN 3 MG TABLET PO SCH (21:00)
--- NOTE | 2022-10-08 21:04 | PN ---
Date of Progress Note: 10/08/2022 Subjective: Seen by bedside. No new complaints. He feels generally very well. Review of Systems: No chest pain, shortness of breath, orthopnea, or cough. No nausea, vomiting, or diarrhea. All othe r systems were reviewed, and they were negative. Patient, however, had a short run of monomorphic ve ntricular tachycardia 14 beats, self-terminated, no symptoms, while he was asleep. Objective: Vital Signs: Reviewed. Head and Neck: Pupils are equal, reactive to light. Intact eye movements. No JVD. No cervical lym phadenopathy. Neck is supple. Thyroid is not enlarged. Lungs: Clear to auscultation bilaterally. No rhonchi, wheezing, or crackles. No accessory muscle u se. Heart: Irregular. No extra sounds. Abdomen: Soft, nontender. Bowel sounds positive. No organomegaly. No masses or hernia. No rigidi ty or rebound. Extremities: No clubbing or cyanosis. Intact pulses. Skin: No rash. No nodules. Neurologic: Alert, awake, oriented x3. No acute focal deficits appreciated. Investigations: Labs were reviewed. Assessment And Recommendations: 1.Syncope. This is likely due to dehydration, clearly patient's fluid status appears to be much bet ter now, but patient also had likely due to dehydration vasovagal event, but the patient had a short run of nonsustained ventricular tachycardia, see below. 2.Ventricular tachycardia. It is monomorphic, nonsustained. I am not sure if this is related to hi s syncopal episode, likely syncopal episode was a vasovagal event as it happened after an aggressive vomiting episode. However, I recommend ischemia workup with a Lexiscan nuclear stress test and an ec hocardiogram to further evaluate and plan accordingly. 3.Hypertension. Blood pressure is controlled. Continue current management. I will discuss the tobi e with Dr. Causey. /MODDeanne Voice ID: [id number] Report ID: [id number]
[2022-10-08] MEDS: OPICAPONE 50 MG PO SCH (22:36)
[2022-10-08] MEDS: ATORVASTATIN 10 MG TAB PO SCH (22:36)
[2022-10-09 05:24] VITALS: O2SAT 91
[2022-10-09] MEDS: CARBIDOPA/LEVODOPA 25/100 TAB PO SCH ×2 (05:47→09:50)
[2022-10-09 07:47] VITALS: BP 125/67; TEMP 97.2
[2022-10-09] MEDS: DOCUSATE NA 100 MG CAP PO SCH (09:00)
[2022-10-09] MEDS: AMANTADINE 100 MG CAP PO SCH (09:48)
[2022-10-09] MEDS: HOME MED 1 EA UNK (Cyanocobalamin (Vitamin B-12) [Vitamin B-12] 5,000 MCG Capsule) PO SCH (09:48)
[2022-10-09] MEDS: AZATHIOPRINE 50 MG TABLET PO SCH (09:48)
[2022-10-09] MEDS: FINASTERIDE 5 MG TAB PO SCH (09:48)
[2022-10-09] MEDS: AMOX/K CLAV 875 MG TAB PO SCH (09:49)
[2022-10-09] MEDS: GABAPENTIN 300 MG CAP PO SCH (09:49)
[2022-10-09] MEDS: DULOXETINE 30 MG CAP PO SCH (09:49)
[2022-10-09] MEDS: SERTRALINE HCL 50 MG TAB PO SCH (09:49)
[2022-10-09] MEDS: predniSONE 5 MG TAB PO SCH (09:50)
[2022-10-09] MEDS: MIDODRINE HCL 5 MG TABLET PO SCH (09:50)
--- NOTE | 2022-10-09 13:24 | PN ---
Date of Progress Note: 10/08/2022 MISTY/MODL Voice ID: [id number] Report ID: [id number] MAC
--- NOTE | 2022-10-09 13:37 | PN ---
Date of Progress Note: 10/08/2022 Subjective: Patient was seen this morning for followup. No new complaints or problems reported by matt anne. Lying in bed, not in any distress. Denies any new complaints. Objective: Vital Signs: Reviewed. HEENT: Unremarkable. Lungs: Clear to auscultation. Heart: Sounds normal. Abdomen: Soft. Bowel sounds normal. No guarding, rigidity, tenderness, distention. Extremities: No leg edema. Laboratory Data: There were no new labs today. Impression: 1.Syncope. 2.Nonsustained ventricular tachycardia. 3.Hypertension. 4.Hyperlipidemia. 5.Parkinson disease. 6.Orthostatic hypotension. Plan: Patient is on manager monitoring, had about 8 seconds of nonsustained ventricular tachycardia. He was asymptomatic and nurse was advised to consult car loader with this. We will have Physical Therapy continue to work with the patient. Follow up with car loader regarding this. Continue mid odrine 5 mg 3 times a day as per order for orthostatic hypotension and I will see him tomorrow jay aaron for followup. Details were discussed with the patient and patient's daughter who was in the room a nd later this evening, daughter also requested to call her and I did call her, discussed details with her including patient going to inpatient rehab as patient has been accepted in inpatient rehab floor and patient and daughter they both agreed with this and upon discharge from the rehab, patient will either likely go home or go to assisted care facility. All those details were discussed also. When I saw him this morning, we also communicated with him regarding advance directives and patient does n ot want any heroic measures like CPR, defibrillation, or ventilator support, so DNR order was written in the chart and patient's daughter says that they had filled out [id number] DNR paperwork at [facility] in the past and requested licensed clinical social worker to assist with out of hospital DNR paperwork as olivia desai. MISTY/MODL Voice ID: [id number] Report ID: [id number]
--- NOTE | 2022-10-09 14:26 | DS ---
Date of Discharge: 10/09/2022 Disposition: Discharged to go to inpatient rehab. Physical Examination: HEENT: Unremarkable. Lungs: Clear to auscultation. Heart: Sounds normal. Abdomen: Soft. Bowel sounds normal. No guarding, rigidity, tenderness, distention. Extremities: No leg edema. Neuro: No focal neurological deficits. Laboratory Data: Upon admission on October 06, 2022, white count 10.4, hemoglobin 11.1, platelets 256. On October 07, 2022, white count 12.2, hemoglobin 11.5, platelets 242. Chemistry on October 06, 2022: Sodium 138, potassium 3.8, chloride 105, bicarb 27, BUN 29, creatinine 1.63, and glucose 134. Liver function tests are unremarkable. On October 07, 2022, sodium 139, potassium 3.8, chloride 107, bicarb 26, BUN 29, creatinine 1.37, glucose 90. Hospital Course: This is a very pleasant 87-year-old male patient who was admitted to the hospital after he passed out at home. Please see dictated H and P for more information. Patient had a syncopal episode at home while he was in the shower and he had finished taking his shower and after he dried himself up, he had syncopal episode while he was still sitting in the shower chair. EMS was called and he was brought into the emergency room. After he was evaluated in the ER, he was admitted to the hospital. He has a history of orthostatic hypotension and takes midodrine 2.5 mg 3 times a day, but had similar syncopal episode about a month ago and he was admitted to the hospital. During that time, he had echocardiogram done, which came back unremarkable and had 2 weeks long Holter monitor done and he just finished this Holter monitor this week on Wednesday. It was returned back and result is not available as it was done through move coordinator's office and I have communicated with move coordinator. Once he receives this results, then he will notify me. Meanwhile, while he was in the hospital he was started on antibiotic Augmentin because of possible concerns regarding aspiration pneumonia with abnormality noted on CAT scan of the chest. Patient participated well with physical therapy. He has significant weakness and debility and physical therapist recommended inpatient rehab consultation and after patient was accepted to go to inpatient rehab floor today, he was discharged to go to inpatient rehab in stable condition. On cardiac monitor technician, we noted night before last, that he had known sustained ventricular tachycardia. It was monomorphic and it was about 8 seconds long. Out Of Town Collection Clerk, Dr. Hough, evaluated him and he recommended ischemia workup including stress test and echocardiogram. I did call Dr. Hough today and communicated with him and discussed details with him regarding patient's prior workup done at our hospital and his echocardiogram from 09/11/2022 had shown normal ejection fraction 55% to 60% and it was unremarkable echocardiogram. With that, there is no need to repeat echocardiogram at this point. Patient had a cardiac cath done on February 10, 2021, and basically it was normal except very minimal plaquing of RCA and LAD without any significant stenotic lesions. So all these details were discussed with Dr. Hough and he still would like to go ahead and order a stress test, which unfortunately we will not be able to do it today and we will go ahead and pursue that sometime next week. All these details were discussed with the patient and the patient's daughter as well. Final Diagnoses: 1. Syncope. 2. Aspiration pneumonia. 3. Orthostatic hypotension. 4. Coronary artery disease. 5. Anemia. 6. Hypertension. 7. Hyperlipidemia. 8. Parkinson disease. 9. Eosinophilic colitis. 10. Thoracic aortic aneurysm. Discharge Medications And Instructions: Please see copy of his transfer MAR for details and we have increased his midodrine dose from 2.5 mg 3 times a day up to 5 mg 3 times a day during this hospitalization and we will continue that. MISTY/MODL Voice ID: [id number] Report ID: [id number] MAC
== END 2022-10-09 11:08 | DRG 178 ==
LOC: ER 10:37 → ERHOLD 13:17 → 2ND 14:32 → OBSVTOIN 10-08 18:07
PROVIDERS: ADMIT Internal Medicine; ATTEND Internal Medicine
DX: J69.0 Pneumonitis due to inhalation of food and vomit (principal); I47.20 Ventricular tachycardia, unspecified; I95.1 Orthostatic hypotension; G20 Parkinson's disease; E78.5 Hyperlipidemia, unspecified; I12.9 Hypertensive chronic kidney disease with stage 1 through stage 4 chronic kidney disease, or unspecified chronic kidney disease; N18.9 Chronic kidney disease, unspecified; D63.1 Anemia in chronic kidney disease; K52.82 Eosinophilic colitis; I71.20 Thoracic aortic aneurysm, without rupture, unspecified; I25.10 Atherosclerotic heart disease of native coronary artery without angina pectoris; R00.1 Bradycardia, unspecified; Z66 Do not resuscitate; Z60.2 Problems related to living alone; Z88.6 Allergy status to analgesic agent
CPT/HCPCS: 36415; 70450; 71045; 71275; 80048; 80076; 83735; 84484; 85025; 85379; 85610; 85730; 93005; 97110; 97116; 97161; 97530; 99285; G0378; J7500; J7512; Q9967

== ENCOUNTER 2022-10-08 12:19 | Inpatient (IN) | payer OTHER, BC ==
[2022-10-09] MEDS ORDERED: ACETAMINOPHEN 500 MG TAB PO PRN (11:48)
[2022-10-09] MEDS: MIDODRINE HCL 5 MG TABLET PO SCH ×2 (12:44→17:04)
[2022-10-09] MEDS: CARBIDOPA/LEVODOPA 25/100 TAB PO SCH ×2 (12:45→17:04)
--- NOTE | 2022-10-09 13:41 | P.HP ---
Patient History Date of Service: 10/09/22 Reason for admission: Syncope, Parkinson's History of Present Illness: 87 yo M, PMH: Parkinson disease, hypertension, hyperlipidemia, coronary artery disease, thoracic aortic aneurysm, eosinophilic colitis, chronic kidney disease, benign prostatic hypertrophy, anemia, orthostatic hypotension, coronary artery disease, and chronic kidney disease stage 3a. Patient who initially presented with a syncopal episode while he was still sitting in the shower chair. Son-in-law found him leaning against the shower wall in sitting position in the chair and ambulance was called. He was most likely unconscious for 15 to 20 minutes after talking with family. Prior to passing out, he did not have any symptoms of any chest pain, palpitation, or any shortness of breath type of feeling. He was recently hospitalized for syncope ~3 weeks prior and had an echocardiogram done (09/11/2022) which was unremarkable and the patient just finished 2 weeks of Holter monitor placed by security operations engineer and daughter took it off past weekend and we are waiting on the results. CTA chest (10/06/22) showed Mild right lower lobe opacity may mild pneumonia or atelectasis and Mild bilateral ground-glass opacities within the lungs indicative of a mild alveolitis. He was started on PO augmentin (10/07/22) for aspiration pneumonia. Patient is on chronic steroid therapy for eosinophilic colitis. As a result of his complicated medical condition and the need for inpatient rehabilitation, He is admitted to the inpatient rehabilitation unit for physical and occupational therapy and if needed Speech therapy. Allergies aspirin Allergy (Verified 10/09/22 14:54) Anaphylaxis NSAIDS (Non-Steroidal Anti-Inflamma Allergy (Verified 10/09/22 14:54) Anaphylaxis Home Medications: Tamsulosin [Flomax*] 0.4 mg PO DAILY AT SUPPER 12/18/14 Finasteride [Proscar*] 5 mg PO DAILY 02/28/19 Amantadine HCl [Amantadine] 100 mg PO DAILY 10/14/21 Carbidopa/Levodopa 25-100 [Sinemet 25-100*] 2 cap PO SEECOM 10/14/21 Duloxetine HCl 60 mg PO DAILY 05/20/22 Opicapone [Ongentys] 50 mg PO BEDTIME 05/20/22 azaTHIOprine [Azathioprine] 50 mg PO DAILY 05/20/22 predniSONE [Prednisone] 5 mg PO DAILY 05/20/22 Docusate [Colace Cap*] 100 mg PO BID 05/25/22 Cyanocobalamin (Vitamin B-12) [Vitamin B-12] 5,000 mcg PO DAILY 09/10/22 Gabapentin 300 mg PO BID 09/10/22 Melatonin 6 mg PO BEDTIME 09/10/22 Midodrine HCl 1 tab PO TID 09/10/22 Pravastatin [Pravachol] 40 mg PO DAILY 09/10/22 Sertraline [Zoloft*] 25 mg PO DAILY 09/10/22 - Past Medical/Surgical History Has patient received pneumonia vaccine in the past: Yes Diabetic: No -: Parkinsons -: Hypertension -: Hyperlipidemia -: Coronary Artery Disease -: Thoracic aortic aneurysm -: eosinophilic Colitis -: BPH -: CKD 3A -: Orthostatic hypotension -: Anemia -: Bilateral knee surgery -: Rt shoulder -: Ileus sx -: xlap with Lysis of adhesions 2018 -: cataracts surgery -: SBO surgery May 2022 - Family History Mother -: Diabetes Father -: Heart disease Notes: Pacemaker Brother History Unknown: Yes -: Cancer Notes: Prostate - Social History Smoking Status: Never smoker Alcohol use: No CD- Drugs: No Caffeine use: No Review of Systems 10-point ROS is otherwise unremarkable Assessment and Plan - Advance Directives Does patient have a Living Will: No Does patient have a Durable POA for Healthcare: No Physician Review Additional Text: Physical Exam: GEN: Alert, oriented, NAD; sitting up in wheelchair HEENT: Normal conjunctiva, sclera anicteric CV: Regular rate and rhythm, no edema Pulm: Nonlabored respirations on room air, clear to auscultation ABD: Soft, nontender, nondistended MSK: No joint tenderness, no rigidity Integumentary: No rashes Neuro: Normal speech, normal affect; generalized weakness Current Level Of Functioning: Patient was able to ambulate 300', but required 3 seated rest breaks to reduce fatigue and return RR to baseline. Patient demonstrates a shuffled gait pattern and needed verbal cues throughout ambulation for increased step height and increased step length. performed toilet transfer x1 with moderate assistance for positioning. required max assistance for toilet hygiene in the standing position Rehabilitation And Medical Assessment And Plan Mr. Ventura is an 87-year-old patient admitted to the rehabilitation unit after a syncopal episode. He has Parkinson disease and hypertension, prostate hypertrophy, eosinophilic colitis, on PO antibiotics for Aspiration pneumonia. Active Comorbidities: Syncope Aspiration pneumonia Orthostatic hypotension Coronary artery disease Anemia, unspecified Hypertension Hyperlipidemia Parkinson disease Eosinophilic colitis Thoracic aortic aneurysm Plan: chronic steroid therapy for eosinophilic colitis Continue Augmentin (10/07-) Pain management as needed Physical and occupational therapy, speech if needed Impact Of Comorbidities: Patient is on Augmentin for Aspiration pneumonia, Taking chronic steroid therapy for eosinophilic colitis, which may flare up. Patient shows decreased strength, endurance, and is a High Fall Risk. Parkinson's is being treated as well with Sinemet. Rehabilitation Specific Plan: 3-4 hours of physical and occupational therapy, and speech therapy if needed Barriers To Discharge: decreased LB strength, decreased functional mobility, decreased activity toleran ce, decreased transfer safety, impaired balance resulting in high fall risk, decreased IND with basic ADLs, and generalized weakness. requires SBA to MIN A with all ADLs and transfers Estimated Length Of Stay: About 7 to 10 days Disposition: Home Prognosis: Good Rehabilitation Goals: complete upper and lower body dressing, toileting, transfers to shower and toilet Mod I walk 500 ft with RW with Mod I manage 15 steps with handrails with Mod I complete wheelchair and bed mobility with Mod I demonstrate compensatory techniques and use of AD to improve self-feeding with min spillage Time Spent Managing Pts Care (In Minutes): 70
[2022-10-09] MEDS: TAMSULOSIN 0.4 MG SR CAP PO SCH (17:03)
[2022-10-09] MEDS: ATORVASTATIN 10 MG TAB PO SCH (19:19)
[2022-10-09] MEDS: DOCUSATE NA 100 MG CAP PO SCH (19:19)
[2022-10-09] MEDS: GABAPENTIN 300 MG CAP PO SCH (19:19)
[2022-10-09] MEDS: AMOX/K CLAV 875 MG TAB PO SCH (19:19)
[2022-10-09] MEDS: OPICAPONE 50 MG PO SCH (19:20)
[2022-10-09] MEDS: MELATONIN 3 MG TABLET PO SCH (21:00)
[2022-10-09] MEDS ORDERED: OPICAPONE 50 MG PO SCH (21:00)
[2022-10-10] MEDS: CARBIDOPA/LEVODOPA 25/100 TAB PO SCH ×4 (05:35→16:39)
[2022-10-10 06:32] LABS: Absolute Lymphocytes (CBC) 1.3 K/uL (0.7-4.9); Hematocrit 33.1 % (39.6-49.0); Lymphocytes % 16.7 % (15.3-44.8); MCV 104.4 fL (80-100); MPV 7.9 fL (7.6-11.3); RBC Red Blood Cell Count 3.17 M/uL (4.33-5.43)
[2022-10-10] MEDS: MIDODRINE HCL 5 MG TABLET PO SCH ×4 (07:00→16:39)
[2022-10-10 07:05] LABS: Albumin 2.7 g/dL (3.4-5.0); Potassium 3.9 mEq/L (3.5-5.1); Prealbumin 13.2 mg/dL (20-40)
[2022-10-10] MEDS: GABAPENTIN 300 MG CAP PO SCH ×2 (07:33→19:59)
[2022-10-10] MEDS: FINASTERIDE 5 MG TAB PO SCH (07:33)
[2022-10-10] MEDS: DOCUSATE NA 100 MG CAP PO SCH ×2 (07:33→19:59)
[2022-10-10] MEDS: AMANTADINE 100 MG CAP PO SCH (07:33)
[2022-10-10] MEDS: AZATHIOPRINE 50 MG TABLET PO SCH (07:33)
[2022-10-10] MEDS: AMOX/K CLAV 875 MG TAB PO SCH ×2 (07:34→19:59)
[2022-10-10] MEDS: SERTRALINE HCL 50 MG TAB PO SCH (07:34)
[2022-10-10] MEDS: predniSONE 5 MG TAB PO SCH (07:34)
[2022-10-10] MEDS: DULOXETINE 30 MG CAP PO SCH (07:34)
[2022-10-10] MEDS ORDERED: CYANOCOBALAMIN 5000 MCG PO SCH (08:00)
[2022-10-10] MEDS ORDERED: TAMSULOSIN 0.4 MG SR CAP PO SCH (08:00)
[2022-10-10] MEDS: CYANOCOBALAMIN 5000 MCG PO SCH (08:00)
[2022-10-10 09:18] LABS: Platelet Estimate ADEQ; White Blood Cell Scan OK (OK)
[2022-10-10 09:19] LABS: Blood Morphology Comment NOT SEEN (NOT SEEN)
--- NOTE | 2022-10-10 11:07 | PN ---
Date of Progress Note: 10/10/2022 Subjective: Patient was seen this morning for followup. No new complaints or problems reported by t he patient. He was on the fifth floor sitting in chair when I saw him. Denied any complaints. Slep t very well last night. Objective: Vital Signs: Reviewed. HEENT: Unremarkable. Lungs: Clear to auscultation. Heart: Sounds normal. Abdomen: Soft. Bowel sounds normal. No guarding, rigidity, tenderness, distention. Extremities: No leg edema. Laboratory Data: White count 8, hemoglobin 11.2, platelets 229. Sodium 136, potassium 3.9, chloride 106, bicarb 26, BUN 29, creatinine 1.08, glucose 93, magnesium 2. Impression: 1.Syncope. 2.Orthostatic hypotension. 3.Coronary artery disease. 4.Parkinson disease. 5.Generalized weakness. 6.Debility. 7.Hypertension. Plan: We will go ahead and continue current medications. We will continue current midodrine. Bari nue Parkinson's medication. Continue physical therapy under guidance of Dr. Escoto. I will see him tomorrow for followup. MISTY/MODL Voice ID: [id number] Report ID: [id number]
[2022-10-10] MEDS ORDERED: AMLODIPINE 5 MG TAB PO PRN (14:42)
[2022-10-10] MEDS: TAMSULOSIN 0.4 MG SR CAP PO SCH (16:40)
[2022-10-10] MEDS: MELATONIN 3 MG TABLET PO SCH (19:59)
[2022-10-10] MEDS: OPICAPONE 50 MG PO SCH (19:59)
[2022-10-10] MEDS: ATORVASTATIN 10 MG TAB PO SCH (19:59)
[2022-10-11] MEDS: CARBIDOPA/LEVODOPA 25/100 TAB PO SCH ×4 (05:16→17:18)
[2022-10-11 05:40] LABS: Specific Gravity 1.017 (1.005-1.030); Urine Bacteria None Seen /HPF (<20); Urine Bilirubin NEGATIVE (Negative); Urine Blood Negative (Negative); Urine Clarity Extremely Turbid (Clear); Urine Color Light-Yellow (Yellow); Urine Glucose NEGATIVE (Negative); Urine Protein TRACE (Negative); Urine RBC <5 /HPF (None Seen); Urine Urobilinogen Normal (Normal)
[2022-10-11] MEDS: MIDODRINE HCL 5 MG TABLET PO SCH ×3 (06:45→17:19)
[2022-10-11] MEDS: AMANTADINE 100 MG CAP PO SCH (08:15)
[2022-10-11] MEDS: SERTRALINE HCL 50 MG TAB PO SCH (08:15)
[2022-10-11] MEDS: predniSONE 5 MG TAB PO SCH (08:16)
[2022-10-11] MEDS: DULOXETINE 30 MG CAP PO SCH (08:16)
[2022-10-11] MEDS: DOCUSATE NA 100 MG CAP PO SCH ×2 (08:16→19:54)
[2022-10-11] MEDS: AZATHIOPRINE 50 MG TABLET PO SCH (08:17)
[2022-10-11] MEDS: GABAPENTIN 300 MG CAP PO SCH ×2 (08:17→19:53)
[2022-10-11] MEDS: FINASTERIDE 5 MG TAB PO SCH (08:17)
[2022-10-11] MEDS: AMOX/K CLAV 875 MG TAB PO SCH ×2 (08:21→19:53)
[2022-10-11] MEDS: CYANOCOBALAMIN 5000 MCG PO SCH (08:21)
[2022-10-11] MEDS: TAMSULOSIN 0.4 MG SR CAP PO SCH (17:19)
[2022-10-11] MEDS: ATORVASTATIN 10 MG TAB PO SCH (19:53)
[2022-10-11] MEDS: CRANBERRY FRUIT EXTRACT 200 MG CAP PO SCH (19:53)
[2022-10-11] MEDS: OPICAPONE 50 MG PO SCH (19:53)
[2022-10-11] MEDS: MELATONIN 3 MG TABLET PO SCH (19:54)
[2022-10-12] MEDS: CARBIDOPA/LEVODOPA 25/100 TAB PO SCH ×4 (05:33→17:06)
[2022-10-12] MEDS: MIDODRINE HCL 5 MG TABLET PO SCH ×3 (06:52→17:06)
--- NOTE | 2022-10-12 07:13 | PN ---
Date of Progress Note: 10/11/2022 Subjective: Patient was seen this morning for followup. No new complaints or problems reported by h im. He was sitting in the chair. Objective: Vital Signs: Reviewed. HEENT: Unremarkable. Lungs: Clear to auscultation. Heart: Sounds normal. Abdomen: Soft. Bowel sounds normal. No guarding, rigidity, tenderness, distention. Extremities: No leg edema. Impression: 1.Syncope. 2.Orthostatic hypotension. 3.Hypertension. 4.Parkinson disease. 5.Aspiration pneumonia. Plan: We will go ahead and continue current medication. Continue current midodrine as well as shae nue amlodipine as ordered p.r.n. for high blood pressure. We will continue current Augmentin for asp iration pneumonia and I will see him tomorrow for followup. MISTY/MODL Voice ID: [id number] Report ID: [id number]
[2022-10-12] MEDS: AMOX/K CLAV 875 MG TAB PO SCH ×2 (07:33→20:17)
[2022-10-12] MEDS: AMANTADINE 100 MG CAP PO SCH (07:33)
[2022-10-12] MEDS: DOCUSATE NA 100 MG CAP PO SCH ×2 (07:33→20:17)
[2022-10-12] MEDS: DULOXETINE 30 MG CAP PO SCH (07:33)
[2022-10-12] MEDS: AZATHIOPRINE 50 MG TABLET PO SCH (07:34)
[2022-10-12] MEDS: GABAPENTIN 300 MG CAP PO SCH ×2 (07:34→20:16)
[2022-10-12] MEDS: CRANBERRY FRUIT EXTRACT 200 MG CAP PO SCH ×2 (07:34→20:16)
[2022-10-12] MEDS: FINASTERIDE 5 MG TAB PO SCH (07:34)
[2022-10-12] MEDS: predniSONE 5 MG TAB PO SCH (07:34)
[2022-10-12] MEDS: SERTRALINE HCL 50 MG TAB PO SCH (07:35)
[2022-10-12] MEDS: CYANOCOBALAMIN 5000 MCG PO SCH (07:35)
[2022-10-12] MEDS: TAMSULOSIN 0.4 MG SR CAP PO SCH (17:06)
[2022-10-12] MEDS: OPICAPONE 50 MG PO SCH (20:17)
[2022-10-12] MEDS: MELATONIN 3 MG TABLET PO SCH (20:17)
[2022-10-12] MEDS: ATORVASTATIN 10 MG TAB PO SCH (20:17)
--- NOTE | 2022-10-13 00:42 | PN ---
Date of Progress Note: 10/12/2022 Subjective: Patient was seen this morning for followup. No new complaints or problems reported by h im. Sitting in the chair. Denied any new complaints overnight. Objective: Vital Signs: Reviewed. HEENT: Unremarkable. Lungs: Clear to auscultation. Heart: Sounds normal. Abdomen: Soft. Bowel sounds normal. No guarding, rigidity, tenderness, or distention. Extremities: No leg edema. Impression: 1.Aspiration pneumonia. 2.Orthostatic hypotension. 3.Parkinson disease. 4.Hypertension. Plan: We will go ahead and continue current antibiotics. Patient is on Augmentin and in next 1 or 2 days, we will discontinue his antibiotic as he would have received adequate number of days of therap y. Continue current midodrine and amlodipine per order. Continue physical therapy under guidance of Dr. Escoto. I will see him tomorrow for followup. The patient will be planning to go to [facility] upon discharge from the rehab floor. MISTY/MODL Voice ID: [id number] Report ID: [id number]
--- NOTE | 2022-10-13 03:56 | PN ---
Date of Progress Note: 10/12/2022 Ctyi-pj-kvxs progress note visit. Time Of Service: 1 p.m. Subjective: Mr. Ventura is doing well. He denies any syncopal episodes or any near syncopal episodes while in the rehabilitation unit. No new complaints. Review of Systems: No fevers, chills, nausea, vomiting, myalgias, arthralgias, rash, headache, weight change. No psychi atric issues. Physical Examination: Vital Signs: Blood pressure 152/73, pulse of 74 while sitting; and standing blood pressure 150/67, p ulse of 72; temperature 97.4; oxygen saturation 79%; respiratory rate 16 to 20. General: Mr. Ventura is resting in bed in between therapy sessions. HEENT: He is normocephalic, atraumatic. Sclerae anicteric. Oropharynx pink, moist. Neck: Supple. Chest: Clear. Heart: Regular. Extremities: No significant edema, cyanosis. Laboratory Studies: No new laboratory studies. X-ray/imaging: No new x-rays or imaging studies. Medications: Medications have been reviewed and remained unchanged since his admission on . Current Functional Status: Today he ambulated 500 feet twice and another 350 feet twice with a rolli ng walker with contact guard assistance. He ascended and descended 5 steps with bilateral handrails with contact guard assistance. Adojhq-of-zsx transfers done with standby assistance. Fsu-og-dzxsu t ransfers with contact guard assistance. Stand pivot transfers with contact guard assistance. For hi s occupational therapy, tolerated 15 minutes of standing while engaged in bilateral upper extremity a erobic exercise. Wxk-vg-ukzio transfers and patient room mobilization with a Rollator with standby a ssistance. Progress Towards Rehabilitation Goals: Mr. Ventura is making excellent progress towards his goals of b ecoming independent with upper and lower body dressing, transferring, toileting, ambulating 550 feet with independence and up and down 25 steps with independence and performing cognitive functioning ind ependently, which he is doing already. Assessment: Mr. Ventura is an 87-year-old patient who was admitted to [facility] with multipl e syncopal episodes of unclear etiology. He has had cardiac workup pending. He does have symptoms s uggestive of autonomic or postural orthostatic hypertension or POTS syndrome. He may benefit from ou tpatient ambulatory EEG monitoring to rule out a central nervous system cause for repeated episodes o f syncope. Plan: 1.Continue with physical, occupational, and speech therapy. 2.Continue with amantadine 100 mg daily. 3.Continue his Sinemet 25/100 twice daily for his Parkinson symptoms tablets twice daily and additional tablet at 8 and 5 p.m., two tablets are both at 6 a.m. and at 12 noon. Colace will co ntinue 100 mg twice daily. Cymbalta 60 mg daily, Proscar 5 mg twice daily. Gabapentin 300 mg twice daily. Melatonin 6 mg at bedtime. Midodrine for pressure support 3 times daily. Prednisone 5 mg da jerry. Zoloft 25 mg daily. Flomax 0.4 mg at night. Comorbidities That Continue To Impact Rehabilitation Process: At this point, he has not had symptoms of orthostatic change. He has pressure support with midodrine at a high frequency of administration . If need be, T.E.D hose and abdominal binders will be applied and he actually has support stockings pdaja-tib-keia on all ready. LB/MODL Voice ID: [id number] Report ID: [id number]
[2022-10-13] MEDS: CARBIDOPA/LEVODOPA 25/100 TAB PO SCH ×4 (05:29→16:59)
[2022-10-13] MEDS: MIDODRINE HCL 5 MG TABLET PO SCH ×3 (06:52→16:59)
[2022-10-13] MEDS: DOCUSATE NA 100 MG CAP PO SCH ×2 (08:25→20:20)
[2022-10-13] MEDS: AMANTADINE 100 MG CAP PO SCH (08:25)
[2022-10-13] MEDS: AMOX/K CLAV 875 MG TAB PO SCH ×2 (08:25→20:19)
[2022-10-13] MEDS: DULOXETINE 30 MG CAP PO SCH (08:25)
[2022-10-13] MEDS: CRANBERRY FRUIT EXTRACT 200 MG CAP PO SCH ×2 (08:26→20:19)
[2022-10-13] MEDS: AZATHIOPRINE 50 MG TABLET PO SCH (08:26)
[2022-10-13] MEDS: GABAPENTIN 300 MG CAP PO SCH ×2 (08:26→20:19)
[2022-10-13] MEDS: predniSONE 5 MG TAB PO SCH (08:26)
[2022-10-13] MEDS: FINASTERIDE 5 MG TAB PO SCH (08:27)
[2022-10-13] MEDS: SERTRALINE HCL 50 MG TAB PO SCH (08:27)
[2022-10-13] MEDS: CYANOCOBALAMIN 5000 MCG PO SCH (08:29)
[2022-10-13] MEDS: TAMSULOSIN 0.4 MG SR CAP PO SCH (16:59)
--- NOTE | 2022-10-13 20:05 | PN ---
Date of Progress Note: 10/13/2022 Subjective: The patient was seen this morning for followup. No new complaints or problems reported. Lying in bed, not in any distress. Objective: Vital Signs: Reviewed. HEENT: Unremarkable. Lungs: Clear to auscultation. Heart: Sounds normal. Abdomen: Soft. Bowel sounds normal. No guarding, rigidity, tenderness, distention. Extremities: No leg edema. Impression: 1.Aspiration pneumonia. 2.Orthostatic hypotension. 3.Parkinson disease. 4.Hypertension. Plan: We will go ahead and continue Augmentin today and after last dose tonight, we will discontinue Augmentin. Continue current midodrine and amlodipine per order. Continue physical therapy under gu idance of Dr. Escoto and I will see him tomorrow for followup. MISTY/MODL Voice ID: [id number] Report ID: [id number]
[2022-10-13] MEDS: MELATONIN 3 MG TABLET PO SCH (20:19)
[2022-10-13] MEDS: ATORVASTATIN 10 MG TAB PO SCH (20:20)
[2022-10-13] MEDS: OPICAPONE 50 MG PO SCH (20:21)
--- NOTE | 2022-10-14 01:17 | PN ---
Date of Progress Note: 10/13/2022 Zhmb-vo-etcr progress note visit. Time Of Service: 1:30 p.m. Subjective: Mr. Ventura is resting in bed. He is doing much better. Reports improved strength. Manjinder es any syncopal episodes or near syncope while in hospital. However, he did have some drop in blood pressure when going from lying to sitting and sitting to standing, but denies being symptomatic. Review of Systems: Denies any fevers, chills, nausea, vomiting, myalgias, arthralgias, rash, headache, weight change. Physical Examination: Vital Signs: Blood pressure orthostatics 160/77 with pulse of 70 lying; sitting 136/69, pulse of 74; standing, blood pressure 120/56, pulse of 74. General: He is asymptomatic. He has no focal neurologic deficits on examination. X-ray/imaging: No new x-rays or imaging. Laboratory Studies: No new laboratory studies. Medications: His medications have been reviewed and remained unchanged. Current Functional Status: Today, supervision was done for bathing, lower body dressing, donning and doffing footwear; ambulating from the room to the gym with a Rollator was done with supervision, and from the room to shower with a Rollator also with supervision. With his physical therapy, he ambula lucy 500 feet twice, 750 feet once, and 350 feet twice with a rolling walker with standby assistance. He ascended and descended 15 steps with bilateral handrails and standby assistance twice. Progress Towards Rehabilitation Goals: Mr. Ventura is making excellent progress towards his goals of b ecoming independent with upper or lower body dressing, transferring, toileting, and ambulating 750 fe et with modified independence. Also making excellent progress towards becoming independent with hung g up and down 25 steps. Assessment: Mr. 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 However, his orthostatics hernandez ve been doing well after adjustments to medications for pressure support along with hydration and magaly roids. Plan: 1.Continue with physical and occupational therapy for 3 hours a day, 5 to 7 days. 2.Continue with Sinemet and amantadine for Parkinson disease. 3.Continue with Colace for constipation. 4.Continue with Cymbalta for neuropathic pain and depression. 5.Continue with Proscar for urinary retention. 6.Continue with gabapentin for neuropathic pain. 7.Prednisone and midodrine for pressure support. 8.Zoloft for depression. Comorbidities That Continue To Impact The Rehabilitation Process: Currently orthostatics are well ma naged. Actually his orthostatic testing shows normal values and he was asymptomatic. However, the p otential for recurrence of orthostatic symptoms is present with autonomic dysfunction and he should h ave a support stocking to above the knee and abdominal binders when ambulating any significant distan jess. LB/MODL Voice ID: [id number] Report ID: [id number]
[2022-10-14] MEDS: CARBIDOPA/LEVODOPA 25/100 TAB PO SCH ×4 (05:47→16:42)
[2022-10-14] MEDS: MIDODRINE HCL 5 MG TABLET PO SCH ×3 (06:56→16:42)
[2022-10-14] MEDS: CRANBERRY FRUIT EXTRACT 200 MG CAP PO SCH ×2 (09:12→21:02)
[2022-10-14] MEDS: DULOXETINE 30 MG CAP PO SCH (09:12)
[2022-10-14] MEDS: SERTRALINE HCL 50 MG TAB PO SCH (09:12)
[2022-10-14] MEDS: FINASTERIDE 5 MG TAB PO SCH (09:13)
[2022-10-14] MEDS: GABAPENTIN 300 MG CAP PO SCH ×2 (09:13→21:02)
[2022-10-14] MEDS: AMANTADINE 100 MG CAP PO SCH (09:13)
[2022-10-14] MEDS: CYANOCOBALAMIN 5000 MCG PO SCH (09:14)
[2022-10-14] MEDS: predniSONE 5 MG TAB PO SCH (09:14)
[2022-10-14] MEDS: AZATHIOPRINE 50 MG TABLET PO SCH (09:14)
[2022-10-14] MEDS: DOCUSATE NA 100 MG CAP PO SCH ×2 (09:14→21:02)
[2022-10-14] MEDS: TAMSULOSIN 0.4 MG SR CAP PO SCH (16:41)
[2022-10-14] MEDS: OPICAPONE 50 MG PO SCH (21:02)
[2022-10-14] MEDS: ATORVASTATIN 10 MG TAB PO SCH (21:02)
[2022-10-14] MEDS: MELATONIN 3 MG TABLET PO SCH (21:02)
--- NOTE | 2022-10-14 23:50 | PN ---
Date of Progress Note: 10/14/2022 Idie-pn-plid progress note visit. Time Of Service: 12:30 p.m. Subjective: Mr. Ventura is resting in bed. He reports feeling stronger. Denies any syncopal episodes . He was able to stand, ambulate, and do better despite some dropping in his blood pressures. Review of Systems: No fevers, chills, nausea, vomiting, myalgias, arthralgias, rash, headache, weight change. Physical Examination: Vital Signs: Blood pressure while standing 137/65, pulse of 78, respiratory rate 16, temperature 97. 7, oxygen saturation 95%. General: Mr. Ventura is doing well. He has no focal neurologic deficits. He does have increased stif fness, mask face, and features of Parkinson disease. Laboratory Studies: No new laboratory studies. X-ray Imaging: No new x-rays or imaging. Medications: His medications have been reviewed and remain unchanged. Current Functional Status: Today, he was able to ambulate 500 feet, 750 feet twice, another 350 feet with a rolling walker and standby assistance. He was able to ascend and descend 20 steps with bilat eral handrails with standby assistance twice. He mobilized a wheelchair 350 feet independently. Sit -to-stand done independently. With occupational therapy, he is able to do bilateral lower extremity strengthening exercises 4 sets of 20 leg presses on trampoline to improve strength. Self propel whee lchair from room to gym with independence. Progress Towards Rehabilitation Goals: Mr. Ventura is making excellent progress towards his goal of be coming independent with upper body dressing, transferring, toileting, showering, and able to ambulate 750 feet to 1000 feet independently, up and down 25 steps independently, and perform cognitive funct ioning independently. Assessment: Mr. 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 He does have postural orthostatic drop in blood pressure, but that has been mitigated by CASEY hose and pressure support. He has neuropathic pain, prostate hypertrophy, and depression with constipation. Plan: 1.Continue with physical and occupational therapy for 3 hours a day for 5 to 7 days. 2.Multiple comorbid conditions are addressed by continuing his medications, which include Norvasc 5 mg daily, amantadine 100 mg daily, Lipitor 10 mg at bedtime, Imuran 50 mg daily, Sinemet 25/100 two t ablets twice daily . Colace 100 mg twice daily, duloxetine 60 mg daily, Proscar 5 mg daily , gabapentin 300 mg twice daily, Flomax 0.4 mg daily, Zoloft mg at bedtime, Deltasone 5 mg daily, and midodrine 5 mg 3 times daily. Comorbidities That Continue To Impact His Rehabilitation Process: Currently, his Parkinson's and aut onomic symptoms are doing very well and not negatively impacting his ability to do well. He has mult iple comorbidities which are well managed, again do not negatively impact his capacity to do well in rehabilitation. NAKUL/KARTHIK Voice ID: [id number] Report ID: [id number]
--- NOTE | 2022-10-15 03:05 | PN ---
Date of Progress Note: 10/14/2022 Subjective: The patient was seen this morning for followup. He was lying in bed, not in distress. Denies any new complaints. No chest pain or shortness of breath. No abdominal pain, nausea, or vomi ting. Physical Examination: Vital Signs: Reviewed. Temperature this morning 97.7, pulse 65, respiratory rate 18, oxygen saturat ion 95%. Supine blood pressure was 155/67, sitting blood pressure 147/70, and standing blood pressur e 137/65. HEENT: Unremarkable. Lungs: Clear to auscultation. Heart: Sounds normal. Abdomen: Soft. Bowel sounds normal. No guarding, rigidity, tenderness, or distention. Extremities: No leg edema. Impression: 1.Aspiration pneumonia. 2.Orthostatic hypotension. 3.Coronary artery disease. 4.Parkinson disease. 5.Hypertension. Plan: We will go ahead and continue current midodrine. Augmentin last dose was yesterday. We will discontinue that now. Continue current antihypertensive medication, amlodipine per order. Continue physical therapy under guidance of Dr. Escoto and continue Parkinson medications per order. MISTY/MODL Voice ID: [id number] Report ID: [id number]
[2022-10-15 04:51] LABS: Absolute Lymphocytes (CBC) 1.8 K/uL (0.7-4.9); Hematocrit 33.7 % (39.6-49.0); Lymphocytes % 22.1 % (15.3-44.8); MCV 103.8 fL (80-100); MPV 7.5 fL (7.6-11.3); RBC Red Blood Cell Count 3.25 M/uL (4.33-5.43)
[2022-10-15] MEDS: CARBIDOPA/LEVODOPA 25/100 TAB PO SCH ×4 (05:09→17:15)
[2022-10-15 05:28] LABS: Albumin 2.9 g/dL (3.4-5.0); Magnesium 2.2 mg/dL (1.6-2.4); Potassium 4.1 mEq/L (3.5-5.1); Prealbumin 21.6 mg/dL (20-40)
[2022-10-15] MEDS: MIDODRINE HCL 5 MG TABLET PO SCH ×3 (06:37→17:15)
[2022-10-15] MEDS: AMANTADINE 100 MG CAP PO SCH (07:52)
[2022-10-15] MEDS: FINASTERIDE 5 MG TAB PO SCH (07:52)
[2022-10-15] MEDS: SERTRALINE HCL 50 MG TAB PO SCH (07:52)
[2022-10-15] MEDS: GABAPENTIN 300 MG CAP PO SCH ×2 (07:52→20:37)
[2022-10-15] MEDS: predniSONE 5 MG TAB PO SCH (07:53)
[2022-10-15] MEDS: DOCUSATE NA 100 MG CAP PO SCH ×2 (07:53→20:37)
[2022-10-15] MEDS: CRANBERRY FRUIT EXTRACT 200 MG CAP PO SCH ×2 (07:53→20:37)
[2022-10-15] MEDS: AZATHIOPRINE 50 MG TABLET PO SCH (07:53)
[2022-10-15] MEDS: DULOXETINE 30 MG CAP PO SCH (07:55)
[2022-10-15] MEDS: CYANOCOBALAMIN 5000 MCG PO SCH (08:08)
[2022-10-15] MEDS: TAMSULOSIN 0.4 MG SR CAP PO SCH (17:14)
[2022-10-15] MEDS: MELATONIN 3 MG TABLET PO SCH (20:37)
[2022-10-15] MEDS: OPICAPONE 50 MG PO SCH (20:37)
[2022-10-15] MEDS: ATORVASTATIN 10 MG TAB PO SCH (20:37)
[2022-10-16] MEDS: CARBIDOPA/LEVODOPA 25/100 TAB PO SCH ×4 (05:07→16:39)
[2022-10-16] MEDS: DOCUSATE NA 100 MG CAP PO SCH ×2 (07:26→19:24)
[2022-10-16] MEDS: MIDODRINE HCL 5 MG TABLET PO SCH ×3 (07:26→16:39)
[2022-10-16] MEDS: CRANBERRY FRUIT EXTRACT 200 MG CAP PO SCH ×2 (08:49→19:24)
[2022-10-16] MEDS: predniSONE 5 MG TAB PO SCH (08:49)
[2022-10-16] MEDS: GABAPENTIN 300 MG CAP PO SCH ×2 (08:49→19:24)
[2022-10-16] MEDS: FINASTERIDE 5 MG TAB PO SCH (08:49)
[2022-10-16] MEDS: DULOXETINE 30 MG CAP PO SCH (08:49)
[2022-10-16] MEDS: AZATHIOPRINE 50 MG TABLET PO SCH (08:49)
[2022-10-16] MEDS: AMANTADINE 100 MG CAP PO SCH (08:49)
[2022-10-16] MEDS: SERTRALINE HCL 50 MG TAB PO SCH (08:50)
[2022-10-16] MEDS: CYANOCOBALAMIN 5000 MCG PO SCH (08:53)
--- NOTE | 2022-10-16 13:57 | P.RH.PN ---
Estimated Length of Stay: 12 Expected Discharge Date: 10/20/22 Discharge Disposition Plan: Home Family Support: Yes [facility] Goal: Mobility, Transfers, Self Care Vital Signs: Last Vital Signs Temp 97.1 F 10/16/22 07:34 Pulse 70 10/16/22 07:34 Resp 14 10/16/22 07:34 BP 158/72 H 10/16/22 07:34 Pulse Ox 94 10/16/22 07:34 Laboratory: Laboratory Last Values WBC 8.20 thou/uL (4.3-10.9) 10/15/22 03:51 RBC 3.25 M/uL (4.33-5.43) L 10/15/22 03:51 Hgb 11.5 g/dL (13.6-17.9) L 10/15/22 03:51 Hct 33.7 % (39.6-49.0) L 10/15/22 03:51 MCV 103.8 fL (80-100) H 10/15/22 03:51 MCH 35.4 pg (27.0-35.0) H 10/15/22 03:51 MCHC 34.1 g/dL (32.0-36.0) 10/15/22 03:51 RDW 13.3 % (12.1-15.2) 10/15/22 03:51 Plt Count 306 thou/uL (152-406) 10/15/22 03:51 MPV 7.5 fL (7.6-11.3) L 10/15/22 03:51 Neutrophils % 50.0 % (41.7-73.7) 10/15/22 03:51 Lymphocytes % 22.1 % (15.3-44.8) 10/15/22 03:51 Monocytes % 14.6 % (3.3-12.3) H 10/15/22 03:51 Eosinophils % 12.6 % (0-4.4) H 10/15/22 03:51 Basophils % 0.7 % (0-1.3) 10/15/22 03:51 Absolute Neutrophils 4.1 K/uL (1.8-8.0) 10/15/22 03:51 Absolute Lymphocytes 1.8 K/uL (0.7-4.9) 10/15/22 03:51 Absolute Monocytes 1.2 K/uL (0.1-1.3) 10/15/22 03:51 Absolute Eosinophils 1.0 K/uL (0-0.5) H 10/15/22 03:51 Absolute Basophils 0.1 K/uL (0-0.5) 10/15/22 03:51 Platelet Estimate Adeq 10/10/22 06:08 Morphology Comment Not seen (NOT SEEN) 10/10/22 06:08 Sodium 136 mEq/L (136-145) 10/15/22 03:51 Potassium 4.1 mEq/L (3.5-5.1) 10/15/22 03:51 Chloride 103 mEq/L (98-107) 10/15/22 03:51 Carbon Dioxide 28 mEq/L (21-32) 10/15/22 03:51 Anion Gap 9.1 mEq/L (5.0-15.0) 10/15/22 03:51 BUN 33 mg/dL (7-18) H 10/15/22 03:51 Creatinine 1.27 mg/dL (0.70-1.30) 10/15/22 03:51 Est GFR (CKD-EPI) 55 ml/min (=/>90) L 10/15/22 03:51 Glucose 82 mg/dL (74-106) 10/15/22 03:51 Calcium 8.6 mg/dL (8.5-10.1) 10/15/22 03:51 Magnesium 2.2 mg/dL (1.6-2.4) 10/15/22 03:51 Albumin 2.9 g/dL (3.4-5.0) L 10/15/22 03:51 Prealbumin 21.6 mg/dL (20-40) 10/15/22 03:51 Urine Color Light-yellow (Yellow) 10/11/22 04:40 Urine Clarity Extremely turbid (Clear) H 10/11/22 04:40 Urine pH 6.0 (5.0-7.0) 10/11/22 04:40 Ur Specific [place] 1.017 (1.005-1.030) 10/11/22 04:40 Glucose (UA)(Auto) Negative (Negative) 10/11/22 04:40 Urine Ketones Negative (Negative) 10/11/22 04:40 Urine Blood Negative (Negative) 10/11/22 04:40 Urine Nitrite Negative (Negative) 10/11/22 04:40 Urine Bilirubin Negative (Negative) 10/11/22 04:40 Urine Urobilinogen Normal (Normal) 10/11/22 04:40 Ur Leukocyte Esterase 250 [place]/uL (Negative) H 10/11/22 04:40 Urine RBC <5 /HPF (None Seen) 10/11/22 04:40 Urine WBC <5 /HPF (<5) 10/11/22 04:40 Ur Squamous Epith Cells 5-10 /HPF (None Seen) 10/11/22 04:40 U Non-Squamous Epi Cells <5 /HPF (None Seen) 10/11/22 04:40 Urine Bacteria None seen /HPF (<20) 10/11/22 04:40 Hyaline Casts 0-5 /LPF (None Seen) 10/11/22 04:40 Urine Culture Reflexed Not needed 10/11/22 04:40 Urine Total Protein Trace (Negative) H 10/11/22 04:40 Smear Scan Ok (OK) 10/10/22 06:08 Weight: 196 lb 9.6 oz Wound Present: No Closed Surgical Incision Present: No Negative Pressure Wound Therapy Present: No Physician Update: Doing very well with all therapy. No further near syncopal episodes. Labs reviewed and are stable. Walking 1000' and 25 steps. To be D/Deyvi in AM. Summary: Patient's care plan and obstetrics tech goals have been reviewed and revised as necessary. Please see the Rehabilitation Signature page for all necessary signatures.
--- NOTE | 2022-10-16 14:16 | RAD REPORT ---
EXAM DESCRIPTION: RAD - Chest Single View - 10/16/2022 1:58 pm CLINICAL HISTORY: r/o tb COMPARISON: Chest Single View dated 10/06/2022; Chest Single View dated 09/10/2022; Chest Single View da lucy 05/20/2022; Chest Pa And Lat (2 Views) dated 12/18/2021 FINDINGS: Lines: None. Lungs: No evidence of edema or pneumonia. Minimal scarring at the left lung base. Pleural: No significant pleural effusions or pneumothorax. Cardiac: The heart size is within normal limits. Mediastinum: Within normal limits. Bones: No acute fractures. Other: None IMPRESSION: No acute cardiopulmonary disease. No radiographic evidence of tuberculosis .
--- NOTE | 2022-10-16 14:35 | PN ---
Date of Progress Note: 10/15/2022 Subjective: Patient was seen this morning for followup. He was sitting in chair. Denied any compla ints. Lying in bed, not in any distress. Objective: Vital Signs: Reviewed. HEENT: Unremarkable. Lungs: Clear to auscultation. Heart: Sounds normal. Abdomen: Soft. Bowel sounds normal. No guarding, rigidity, tenderness, distention. Extremities: No leg edema. Impression: 1.Orthostatic hypotension. 2.Parkinson disease. 3.Hypertension. 4.Coronary artery disease. 5.Eosinophilic colitis. Plan: We will go ahead and continue current medication. Continue midodrine per order. Continue aml odipine per order. Physical therapy will be continued under guidance of Dr. Escoto and I will see him tomorrow for followup. Patient has completed his antibiotic therapy for aspiration pneumonia. MISTY/MODL Voice ID: [id number] Report ID: [id number]
[2022-10-16] MEDS: TAMSULOSIN 0.4 MG SR CAP PO SCH (16:39)
[2022-10-16] MEDS: ATORVASTATIN 10 MG TAB PO SCH (19:24)
[2022-10-16] MEDS: MELATONIN 3 MG TABLET PO SCH (19:25)
[2022-10-16] MEDS: OPICAPONE 50 MG PO SCH (19:27)
[2022-10-17] MEDS: CARBIDOPA/LEVODOPA 25/100 TAB PO SCH ×2 (05:36→08:11)
[2022-10-17 05:38] VITALS: BMI 29.1
[2022-10-17] MEDS: MIDODRINE HCL 5 MG TABLET PO SCH (06:58)
[2022-10-17] MEDS: DULOXETINE 30 MG CAP PO SCH (08:08)
[2022-10-17] MEDS: GABAPENTIN 300 MG CAP PO SCH (08:09)
[2022-10-17] MEDS: FINASTERIDE 5 MG TAB PO SCH (08:09)
[2022-10-17] MEDS: CRANBERRY FRUIT EXTRACT 200 MG CAP PO SCH (08:09)
[2022-10-17] MEDS: SERTRALINE HCL 50 MG TAB PO SCH (08:09)
[2022-10-17] MEDS: predniSONE 5 MG TAB PO SCH (08:09)
[2022-10-17] MEDS: DOCUSATE NA 100 MG CAP PO SCH (08:09)
[2022-10-17] MEDS: AMANTADINE 100 MG CAP PO SCH (08:09)
[2022-10-17] MEDS: AZATHIOPRINE 50 MG TABLET PO SCH (08:10)
[2022-10-17] MEDS: CYANOCOBALAMIN 5000 MCG PO SCH (08:14)
[2022-10-17 08:35] VITALS: BP 170/75; TEMP 97.3
--- NOTE | 2022-10-17 10:33 | PN ---
Date of Progress Note: 10/16/2022 Subjective: The patient was seen this morning for followup. He was sitting in chair, feeling fine. Denied any complaints. No chest pain, shortness of breath, nausea, vomiting. Objective: Vital Signs: Reviewed. HEENT: Unremarkable. Lungs: Clear to auscultation. Heart: Sounds normal. Abdomen: Soft. Bowel sounds normal. No guarding, rigidity, tenderness, distention. Extremities: No leg edema. Laboratory Data: Yesterday blood work shows WBC 8.2, hemoglobin 11.5, platelets 306, sodium 136, pot assium 4.1, chloride 103, bicarb 28, BUN 33, creatinine 1.27, glucose 82, albumin 2.9. Impression: 1.Aspiration pneumonia, resolved. 2.Hypertension. 3.Coronary artery disease. 4.Parkinson disease. 5.Orthostatic hypotension. 6.Anemia, unspecified. Plan: The patient's chest x-ray today was unremarkable. We will continue his physical therapy under guidance of Dr. Escoto. Continue amlodipine as needed for high blood pressure. We will continue his midodrine 5 mg 3 times a day and he has responded very well to that. The patient is scheduled to get discharge tomorrow to go to [facility]. Medically, he is stable now. MISTY/MODL Voice ID: [id number] Report ID: [id number]
--- NOTE | 2022-10-18 10:53 | DS ---
Date of Discharge: 10/17/2022 Disposition: Discharged to go to [facility]. Physical Examination: HEENT: Unremarkable. Lungs: Clear to auscultation. Heart: Sounds normal. Abdomen: Soft. Bowel sounds normal. No guarding, rigidity, tenderness, distention. Extremities: No leg edema. Laboratory Data: Upon admission to rehab 10/10/2022; white count 8, hemoglobin 11.2, platelets 229. Repeat CBC from 10/15/2022; WBC 8.2, hemoglobin 11.5, platelets 306. Chemistry from 10/10/2022; sod ium 136, potassium 3.9, chloride 106, bicarb 26, BUN 29, creatinine 1.08, glucose 93. On 10/15/2022; sodium 136, potassium 4.1, chloride 103, bicarb 28, BUN 33, creatinine 1.27, glucose 82. Discharge Medications And Instructions: 1.See copy of discharge order and list of medications for details. 2.Follow up at my office next week. Hospital Course: This is an 87-year-old pleasant male patient, who was admitted to rehab floor after his brief stay on medical floor. The patient was brought into initially emergency room with a synco pal episode and was admitted to medical floor and then subsequently he was brought to rehab floor. W kala on the rehab floor, his medical problems remained stable. He continued to receive his medicatio ns for orthostatic hypotension, which is midodrine. He was taking 2.5 mg 3 times a day prior to admi ssion to the hospital, but since his hospital admission, we have increased dose to 5 mg 3 times a day and that actually has helped controlling his orthostatic blood pressure changes. During his rehab f [facility] stay, we also noted that his blood pressure was on the higher side, so we also added amlodipine 5 mg daily as needed for systolic blood pressure more than 150. The patient received physical therap y under guidance of Dr. Escoto and he feels a lot better. He also received his antibiotic Augmenti n for aspiration pneumonia and this antibiotic therapy was discontinued after he received altogether 1 week of therapy. His pulmonary status has remained stable. Overall, the patient's condition has r emained stable. He has improved quite a bit and family has made arrangements for him to go to assist ed care facility and paperwork for the assisted care facility was completed for the patient. Final Diagnoses: 1.Syncope. 2.Aspiration pneumonia. 3.Orthostatic hypotension. 4.Coronary artery disease. 5.Anemia. 6.Hypertension. 7.Hyperlipidemia. 8.Parkinson disease. 9.Eosinophilic colitis. 10.Thoracic aortic aneurysm. MISTY/MODL Voice ID: [id number] Report ID: [id number]
== END 2022-10-17 10:05 | DRG 73 ==
LOC: 5TH 10-09 11:15
PROVIDERS: ADMIT Internal Medicine; ATTEND Internal Medicine
DX: G90.9 Disorder of the autonomic nervous system, unspecified (principal); J69.0 Pneumonitis due to inhalation of food and vomit; E78.5 Hyperlipidemia, unspecified; I12.9 Hypertensive chronic kidney disease with stage 1 through stage 4 chronic kidney disease, or unspecified chronic kidney disease; N18.31 Chronic kidney disease, stage 3a; D63.1 Anemia in chronic kidney disease; I95.1 Orthostatic hypotension; G20 Parkinson's disease; K59.00 Constipation, unspecified; F32.A Depression, unspecified; G62.9 Polyneuropathy, unspecified; K52.82 Eosinophilic colitis; N40.0 Benign prostatic hyperplasia without lower urinary tract symptoms; I71.20 Thoracic aortic aneurysm, without rupture, unspecified; I25.10 Atherosclerotic heart disease of native coronary artery without angina pectoris; R33.9 Retention of urine, unspecified; Z88.6 Allergy status to analgesic agent; Z79.52 Long term (current) use of systemic steroids; Z79.899 Other long term (current) drug therapy
CPT/HCPCS: 36415; 71045; 80048; 81001; 82040; 83735; 84134; 85025; 87086; 87088; 97110; 97116; 97163; 97165; 97530; 97542; J7500; J7512